=== PATIENT | male | born 1945 | race Caucasian/White ===

== ENCOUNTER 2023-08-22 10:58 | Inpatient (IN) | payer MEDICARE, OTHER, SELFPAY ==
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
[2023-08-21 22:15] VITALS: BP 185/152
--- NOTE | 2023-08-21 22:16 | EDRN ---
Pre hospital stroke alert called at 2134.
[2023-08-21 22:21] LABS: Glucose - Point of Care 107 mg/dl (70-99)
[2023-08-21 22:24] LABS: % Basophils 0.6 % (0-2); % Eosinophils 6.5 % (0-6); % Immature Granulocytes 0.4 % (0-0.5); % Lymphocytes 28.2 % (20.5-51.1); % Monocytes 9.3 % (1.7-9.3); Absolute Basophils 0.1 10^3/uL (0-0.2); Absolute Eosinophils 0.7 10^3/uL (0-0.7); Absolute Neutrophils 5.9 10^3/uL (1.4-6.5); Hematocrit 41.8 % (39.0-52.0); Hemoglobin 14.7 g/dL (13.0-18.0); Mean Corp Hgb Conc. 35.2 g/dL (33.0-37.0); Mean Corpuscular Hgb 31.2 pg (27.0-31.0); Mean Corpuscular Volume 88.7 fL (80.0-94.0); Nucleated Red Blood Cells % 0 % (-); Platelet Count 184 10^3/uL (130-400); Red Blood Cell Count 4.71 10^6/uL (4.70-6.10); Red Cell Dist. Width 14.6 % (11.5-14.5); White Blood Cell Count 10.8 10^3/uL (4.8-10.8)
[2023-08-21 22:27] VITALS: BP 146/63
[2023-08-21 22:30] VITALS: BMI 43.7
[2023-08-21 22:35] LABS: INR 1.07; PT 13.7 Sec (11.4-14.6)
[2023-08-21 22:36] LABS: APTT 27.1 Sec (23.4-35.0)
[2023-08-21 22:54] LABS: ALT (SGPT) 45 U/L (0-50); AST (SGOT) 42 U/L (17-59); Albumin 3.7 g/dl (3.5-5.0); Alkaline Phosphatase 136 U/L (38-126); Blood Urea Nitrogen 25 mg/dl (9-20); Calcium 9.1 mg/dl (8.4-10.2); Carbon Dioxide 27 mmol/L (22-30); Chloride 102 mmol/L (98-107); Estimated Creatinine Clearance 81 ml/min; Glucose 112 mg/dl (70-99); Potassium 4.1 mmol/L (3.5-5.1); Sodium 137 mmol/L (135-145); Total Bilirubin 0.6 mg/dl (0.2-1.3); Total Protein 6.7 g/dl (6.3-8.2); eGFR > 60.00
[2023-08-21] MEDS: LOW STRENGTH ASPIRIN 243 MG PO (23:00)
--- NOTE | 2023-08-21 23:11 | HPS.HSE ---
Addendum entered and electronically signed by Gerald Lara DO 08/22/23 00:56:
Patient seen and examined independently. Agree with findings and plan as set forth by Thao Hylton PA-C.
Patient is a 77y M with PMH significant for prior CVA, COPD, hypertension and DM-II who presents to ED for evaluation of increased L sided weakness and new L facial droop. History obtained from patient and his at the bedside. Initial
change noted yesterday after PT session when patient was unable to get in the car due to LLE weakness. He had similar symptoms today and also noted a new L sided facial droop which prompted presentation to the ED for further evaluation.
Patient has a history of L sided weakness as residual from his prior CVA(s).
Ass:
New Left Facial Droop
Left Sided Weakness as Late Effect of CVA
ASCVD / Prior CVAs (x 3)
Cervical Spinal Stenosis / Cord Compression
Benign Hypertension
DM-II
COPD without Acute Exacerbation
FLAQUITA on PAP
Depression
Urinary Incontinence
Plan:
Observe overnight for further evaluation and treatment.
Follow for any new / worsening neurologic findings.
Neurology evaluation. MRI in AM.
Continue DAPT, statin, etc.
Continue antihypertensive medications with holding parameters.
Neurosurgery evaluation regarding cervical cord compression.
Patient with chronic urinary incontinence. Bilateral LE weakness.
Continue home insulin, BiPAP, etc.
Original Note:
Family Physician
-
Family Physician: Bekah Mittal
Chief Complaint
-
Left sided weakness
History of Present Illness
This is a 77 year old male with a past medical history of CVA x 3, COPD, asthma, hypertension, diabetes mellitus, coronary artery disease, who presents to the ED with at bedside for left leg weakness. Patient has had ongoing left sided
weakness due to prior stroke history but per patient started having difficulty getting into their car starting yesterday. Patient states he recently started attending PT due to trouble with ambulation and after his second session yesterday, he
began to have a hard time getting into the car using his left leg, and even required assistance from the therapist. Today, he was able to get up and ambulate with his walker per usual, but again had trouble getting into the car today with his left
leg. Patient's also states he appeared agitated today as well which she states is unusual. She denies noticing a left sided facial droop until EMS pointed it out today. The patient denies dizziness, palpitations, chest pain, N/V, abdominal
pain, fevers or headache. Patient is chronically on Plavix and aspirin due to prior stroke history and per he has been compliant.
Medical History
Past Medical History
Past Medical History: Reports Other
Additional Past Medical History:
Coronary Artery Disease s/p Stent
Stroke with Left Hemiparesis
Essential Hypertension
Hyperlipidemia
Diabetes Mellitus
Asthma/COPD
Obstructive Sleep Apnea
Depression
Pulmonary Embolism
Past Surgical History: Reports Other
Additional Past Surgical History:
Cholecystectomy
Bilateral Knee Replacements
Social History
Tobacco: Non-smoker
Alcohol: None
Personal:
Living: With Family
Family History
Family History: Not pertinent
Allergies / Home Medications
Allergies reflects when Allergies were last updated in [facility].
Home Medications with original date entered in [facility]
Allergy/Medication List:
Allergies
Allergy/AdvReac Type Severity Reaction Status Date / Time
Iodinated Contrast Media Allergy Unknown VOMITING/HI Verified 08/21/23 21:54
[Iodinated Contrast- Oral VES
and IV Dye]
latex Allergy Unknown Rash Verified 08/21/23 21:54
adhesive tape Allergy redness;axel Verified 08/21/23 21:54
hy
reyna Allergy closes Verified 08/21/23 21:[address]
hydromorphone HCl Allergy makes him Verified 08/21/23 21:54
[From Dilaudid] loopy as
per spouse
iodine Allergy vomiting;hi Verified 08/21/23 21:54
ves
oxycodone Allergy SEE BELOW Verified 08/21/23 21:54
hydromorphone HCl Allergy Unknown makes him Uncoded 08/21/23 21:54
loopy as
per spouse
darius stockings Allergy Unknown Unknown Uncoded 08/21/23 21:54
aquacel dressing Allergy 'pulled Uncoded 08/21/23 21:54
skin off'
DARIUS stockings Allergy itching;axel Uncoded 08/21/23 21:54
h
Home Medications
clopidogrel 75 mg tablet 75 mg PO DAILY ##30 11/22/15
albuterol sulfate 2.5 mg/3 mL (0.083 %) solution for nebulization 2.5 mg inhalation R Q4HPRN PRN SOB, chest congestion 09/12/16
escitalopram oxalate 10 mg tablet 10 mg PO HS 09/12/16
metoprolol succinate 50 mg tablet,extended release 24 hr 50 mg PO DAILY 09/12/16
pravastatin 20 mg tablet 20 mg PO HS 09/12/16
aspirin 81 mg tablet,delayed release 81 mg PO DAILY 11/29/16
metformin 500 mg tablet 500 mg PO BID 02/20/18
amlodipine 2.5 mg tablet 2.5 mg PO DAILY 08/21/23
cyanocobalamin (vitamin B-12) 1,000 mcg tablet (Vitamin B-12) 1,000 mcg PO DAILY 08/21/23
fluticasone furoate 200 mcg/actuation blister powder for inhalation (Arnuity Ellipta) 1 inh inhalation R BID 08/21/23
folic acid 0.8 mg capsule 0.8 mg PO DAILY 08/21/23
insulin glargine 100 unit/mL (3 mL) subcutaneous pen (Lantus Solostar U-100 Insulin) 30 units SC BID 08/21/23
mirtazapine 15 mg tablet 15 mg PO HS 08/21/23
Review of Systems
-
A 12 point ROS was completed and negative except as noted: Yes
Constitutional: Denies Fever or Chills
Respiratory: Denies Cough or Trouble Breathing
Cardiac: Denies Chest Pain or Palpitations
Abdomen/GI: Denies Abdominal Pain, Nausea, Vomiting or Diarrhea
: Reports Incontinence (Chronic per patient's )
Physical Exam
Vital Signs
Vital Signs
Temp Pulse Resp BP Pulse Ox
97.7 F 70 19 146/63 95
08/21/23 22:15 08/21/23 22:45 08/21/23 22:15 08/21/23 22:27 08/21/23 22:45
Physical Exam
General: Comfortable and Conversant
HEENT: Anicteric and Moist mucous membranes
Respiratory: Clear and Non Labored Respirations
Cardiac: S1/S2 and Regular Rhythm
GI: Soft and Non Tender
Musculoskeletal: No Clubbing, No Cyanosis and No Edema
Skin: Warm and Dry
Neuro: Awake, Alert, Oriented, Facial Droop (Left with inability to smile) and Other (Globally weak with slight increased weakness in left upper and lower extremity )
Laboratory Results
-
08/21/23 21:58
08/21/23 22:33
Laboratory Results
PT 13.7 Sec (11.4-14.6) 08/21/23 21:58
INR 1.07 08/21/23 21:58
APTT 27.1 Sec (23.4-35.0) 08/21/23 21:58
Total Bilirubin 0.6 mg/dl (0.2-1.3) 08/21/23 22:33
AST 42 U/L (17-59) 08/21/23 22:33
ALT 45 U/L (0-50) 08/21/23 22:33
Alkaline Phosphatase 136 U/L (38-126) H 08/21/23 22:33
Troponin I Cancelled 08/21/23 21:58
Data Reviewed
-
CT Scan: Report Reviewed by me
Lab Data: Labs Reviewed by me
Impression/Plan
-
Left Facial Droop with Global Weakness
-Consult Neurology
-Consult Neurosurgery
-Monitor neuro-checks
-Check Brain MRI
-Continue Aspirin and Plavix
-Continue PT/OT and Physiatry
Coronary Artery Disease s/p Stent
Stroke with Left Hemiparesis
-Continue aspirin and Plavix
Essential Hypertension
-Continue amlodipine and metoprolol
Hyperlipidemia
-Transition pravastatin to atorvastatin
Diabetes Mellitus, Type II
-Continue Lantus
-Hold metformin
-Monitor sugars and continue coverage insulin
Asthma/COPD, no acute exacerbation
-Continue budesonide and albuterol prn
Obstructive Sleep Apnea
-Continue BiPAP 15/8
Depression
-Continue Lexapro and Remeron
DVT proph: SCDs
Code Status: Full Code
[2023-08-22] VITALS (7 sets, daily range): BP systolic 116–162; BP diastolic 62–95; BMI 42.6
[2023-08-22 00:09] LABS: Troponin I < 0.012 ng/ml
--- NOTE | 2023-08-22 03:57 | TRANSFER ---
Pt received from ED to room 415-1. Pt AAOx3. VSS. Pt pulled over from stretcher to bed. Pt oriented to room and call meléndez is within reach.
[2023-08-22 06:53] LABS: Hematocrit 42.8 % (39.0-52.0); Hemoglobin 14.8 g/dL (13.0-18.0); Mean Corp Hgb Conc. 34.6 g/dL (33.0-37.0); Mean Corpuscular Hgb 31.1 pg (27.0-31.0); Mean Corpuscular Volume 89.9 fL (80.0-94.0); Mean Platelet Volume 10.5 fL (7.4-10.4); Platelet Count 173 10^3/uL (130-400); Red Blood Cell Count 4.76 10^6/uL (4.70-6.10); Red Cell Dist. Width 14.6 % (11.5-14.5)
[2023-08-22 07:18] LABS: Blood Urea Nitrogen 21 mg/dl (9-20); Calcium 9.3 mg/dl (8.4-10.2); Carbon Dioxide 26 mmol/L (22-30); Chloride 104 mmol/L (98-107); Estimated Creatinine Clearance 80 ml/min; Glucose 110 mg/dl (70-99); HDL Cholesterol 45 mg/dl; LDL Cholesterol, Calculated 66 mg/dl; Magnesium 1.9 mg/dl (1.6-2.3); Potassium 4.3 mmol/L (3.5-5.1); Sodium 139 mmol/L (135-145); Total Cholesterol 133 mg/dl (50-199); Triglyceride 110 mg/dl (10-149); Very Low Density Lipoprotein 22 mg/dl (0-30); eGFR > 60.00
[2023-08-22 08:08] LABS: Glucose - Point of Care 107 mg/dl (70-99)
[2023-08-22] MEDS: PULMICORT 0.5 MG INH ×2 (08:29→15:46)
[2023-08-22] MEDS: VENTOLIN NEBULES 2.5 MG INH (08:30)
[2023-08-22] MEDS: NOVOLOG FLEXPEN-MODERATE RESISTANCE SC ×2 (08:52→13:46)
[2023-08-22] MEDS: PLAVIX 75 MG PO (08:54)
[2023-08-22] MEDS: FOLVITE 0.800000000000000044 MG PO (08:54)
[2023-08-22] MEDS: ASPIR LOW (ENTERIC COATED) 81 MG PO (08:54)
[2023-08-22] MEDS: NORVASC PO (08:54)
[2023-08-22] MEDS: TOPROL XL 50 MG PO (08:55)
[2023-08-22] MEDS: LANTUS 0.299999999999999989 UNITS SC ×2 (08:55→20:33)
[2023-08-22 09:50] LABS: Glycohemoglobin (HgbA1c) 6.9 % (4.0-5.6)
--- NOTE | 2023-08-22 10:08 | CON.NEURO4 ---
Consultation - Neurology 4
-
CONSULTING PHYSICIAN: Emily
REFERRING PHYSICIAN: Bill
DICTATED BY: Emily
DATE/TIME OF REQUEST: 08/21/23 late evening
DATE/TIME OF CONSULTATION: 08/22/23
Reason for Consultation: stroke
History of Present Illness:
77-year-old male with a past history of 3 strokes in 2010, 2013 in 2016 admitted after developing worsening of his baseline left-sided weakness 2 days ago after physical therapy. Yesterday evening he developed new left facial droop per his
prompting her to bring him in for evaluation. He already takes dual antiplatelet therapy at home and denies any missed doses.
Past Medical History:
Coronary Artery Disease s/p Stent
Stroke with Left Hemiparesis
Essential Hypertension
Hyperlipidemia
Diabetes Mellitus
Asthma/COPD
Obstructive Sleep Apnea
Depression
Pulmonary Embolism
Past Surgical History:
Cholecystectomy
Bilateral Knee Replacements
Social History
Tobacco: Non-smoker
Alcohol: None
Personal:
Living: With Family
Family History
Family History: reviewed, noncontributory
Allergies
Iodinated Contrast Media [Iodinated Contrast- Oral and IV Dye] Allergy (Unknown, Verified 08/21/23 21:54)
VOMITING/HIVES
latex Allergy (Unknown, Verified 08/21/23 21:54)
Rash
adhesive tape Allergy (Verified 08/21/23 21:54)
redness;rashy
reyna Allergy (Verified 08/21/23 21:54)
closes airway
hydromorphone HCl [From Dilaudid] Allergy (Verified 08/21/23 21:54)
makes him loopy as per spouse
iodine Allergy (Verified 08/21/23 21:54)
vomiting;hives
oxycodone Allergy (Verified 08/21/23 21:54)
SEE BELOW
hydromorphone HCl Allergy (Unknown, Uncoded 08/21/23 21:54)
makes him loopy as per spouse
darius stockings Allergy (Unknown, Uncoded 08/21/23 21:54)
Unknown
aquacel dressing Allergy (Uncoded 08/21/23 21:54)
'pulled skin off'
DARIUS stockings Allergy (Uncoded 08/21/23 21:54)
itching;rash
Home Medications
�Medication �Instructions �Recorded
clopidogrel 75 mg tablet 75 mg PO DAILY ##30 11/22/15
albuterol sulfate 2.5 mg/3 mL 2.5 mg inhalation R Q4HPRN PRN 09/12/16
(0.083 %) solution for nebulization SOB, chest congestion
escitalopram oxalate 10 mg tablet 10 mg PO HS 09/12/16
metoprolol succinate 50 mg 50 mg PO DAILY 09/12/16
tablet,extended release 24 hr
pravastatin 20 mg tablet 20 mg PO HS 09/12/16
aspirin 81 mg tablet,delayed 81 mg PO DAILY 11/29/16
release
metformin 500 mg tablet 500 mg PO BID 02/20/18
amlodipine 2.5 mg tablet 2.5 mg PO DAILY 08/21/23
cyanocobalamin (vitamin B-12) 1,000 mcg PO DAILY 08/21/23
1,000 mcg tablet (Vitamin B-12)
fluticasone furoate 200 1 inh inhalation R BID 08/21/23
mcg/actuation blister powder for
inhalation (Arnuity Ellipta)
folic acid 0.8 mg capsule 0.8 mg PO DAILY 08/21/23
insulin glargine 100 unit/mL (3 30 units SC BID 08/21/23
mL) subcutaneous pen (Lantus
Solostar U-100 Insulin)
mirtazapine 15 mg tablet 15 mg PO HS 08/21/23
Review of Symptoms:
Patient denies any fever, headache, chest pain, shortness of breath, GI or symptoms.
�Per the HPI.�All systems are reviewed negative except above.
Vital Signs:
Vital Signs
Temp Pulse Resp BP Pulse Ox
97.7 F 71 16 116/73 95
08/22/23 07:20 08/22/23 08:54 08/22/23 08:31 08/22/23 08:54 08/22/23 08:31
Lab Results
08/22/23 06:35
08/22/23 06:35
PT 13.7 Sec (11.4-14.6) 08/21/23 21:58
INR 1.07 08/21/23 21:58
APTT 27.1 Sec (23.4-35.0) 08/21/23 21:58
Sodium 139 mmol/L (135-145) 08/22/23 06:35
Potassium 4.3 mmol/L (3.5-5.1) 08/22/23 06:35
BUN 21 mg/dl (9-20) H 08/22/23 06:35
Glucose 110 mg/dl (70-99) H 08/22/23 06:35
Calcium 9.3 mg/dl (8.4-10.2) 08/22/23 06:35
LDL Cholesterol, Calc 66 mg/dl 08/22/23 06:35
Physical Exam:
The patient is afebrile, heart sounds S1 and S2 are regular, and chest is clear to auscultation bilaterally.
NIH Stroke Scale:
I performed the NIH stroke scale on the patient on 08/22/23. See attached.
Neurologic Examination:
The patient is awake, alert and oriented x 3. helped supplement his history. He was at times slow to respond but was able to accurately answer questions. He is able to follow commands and answer questions appropriately. There is no aphasia or
dysarthria. On cranial nerve assessment, pupils are 3 mm bilateral, round and reactive to light and accommodation. Visual young are full. Extraocular movements are intact. Facial sensations are intact and bilaterally symmetrical, there is no facial
asymmetry. Hearing is intact bilaterally to normal conversation volume. Tongue palate and uvula are midline. Motor strength: BLE distally at least 3/5--unclear if pain limited or diminished effort affecting exam. Proximally 2/5. BUE full. Deep
tendon reflexes are 1+ bilateral upper and lower extremities and toes were mute. Sensations of touch, temperature are intact and bilaterally symmetrical. Some extinction in LLE to DSS. Coordination is intact by finger to nose bilaterally.
Neuro Imaging:
HCT:
1. No CT evidence for acute intracranial hemorrhage or transcortical infarct.
2. Moderate periventricular white matter leukoaraiosis in the frontal and parietal lobes.
3. Moderate dilatation of the ventricular system which appears unchanged (either ex vacuo dilatation from moderate cerebral volume loss or (2) normal pressure communicating hydrocephalus).
4. Probable chronic lacunar infarcts in both thalami.
CTA head/neck:
1. 50-70% diameter stenosis at the origin of the right internal carotid artery.
2. No stenosis in the proximal left internal carotid artery.
3. Severe stenosis (greater than 70% diameter) at the origin of the right vertebral artery.
4. No CTA evidence for left vertebral artery stenosis.
5. Severe discogenic degenerative disease at C5/C6 and C6/C7 with disc-osteophyte complexes causing SEVERE SPINAL CORD COMPRESSION and SEVERE CENTRAL CANAL STENOSIS.
6. Severe multilevel bilateral neural foraminal narrowing in the cervical spine.
7. New 1.7 cm peribronchiolar nodular opacity in the right lung apex. Diagnostic possibilities are (1) right upper lobe lung cancer or (2) a focal region of infectious or inflammatory pneumonitis.
HEAD CTA:
1. Severe calcific atherosclerotic plaque in both intracranial internal carotid arteries causing 50-70% diameter stenosis in the clinoid segment of the right intracranial internal carotid artery and 25-50% diameter stenosis in the left
intracranial internal carotid artery.
2. Severe calcific atherosclerotic plaque in the right intracranial vertebral artery causing 50-70% diameter stenosis.
3. Small lacunar infarcts in the thalami (possibly acute on the right).
4. Moderate diffuse dilatation of the ventricular system (either ex vacuo dilatation or normal pressure communicating hydrocephalus).
MRI brain:
No evidence of acute intracranial abnormality.
Moderate diffuse atrophy. Moderate to severe ventricular dilation, and the callosal angle is slightly increased. Findings suggest the possibility of normal pressure hydrocephalus, and please correlate clinically.
Moderate T2 and FLAIR white matter hyperintensities, commonly seen with aging and usually attributed to small vessel ischemic disease.
Small foci of increased T2-weighted signal within the thalami bilaterally, suggesting old lacunar infarcts.
Impression:
ADRIAN AGUIAR is a 77 year old M who has presented to the hospital with worsening of baseline L sided weakness since and L facial droop noted by his yesterday evening. Differential includes TIA, recrudescence of prior stroke
symptoms, cervical spine stenosis. Imaging also raises concern for possible NPH.
Recommendations:
-MRI brain concerning for possible NPH--can be worked up as outpatient; no acute stroke noted.
-BP goal is normotension.
-continue DAPT, on this at home
- Hemoglobin A1C mildly elevated at 6.9. Goal is normoglycemia.
- continue pravastatin; LDL is 66. Goal LDL after stroke is <70.
-get echo result from [facility]
-PT/OT/ST evaluations
- DVT prophylaxis
-continue neurochecks
-c/s neurosurgery for Cspine stenosis
-c/s vascular for carotid stenosis
-Continue use of BiPAP, treatment of FLAQUITA.
Needs outpatient f/u with neurology. Will follow as needed; please call with further questions.
Discussed patient care with: Dr. Khan, vascular
NIH Stroke Scale
NIH Stroke Score
Date of Subsequent NIH Scale: 08/22/23
Time of Subsequent NIH Scale: 12:15
Level of Consciousness: 0 - Alert
LOC Questions: 0-Answers both correctly
LOC Commands: 0-Performs both correctly
Best Horizontal Gaze: 0-Normal
Visual Young: 0=Normal, no visual loss
Facial Palsy: 0=Normal, symmetrical
Motor - Right Arm: 0=No drift 10 seconds
Motor - Left Arm: 0=No drift 10 seconds
Motor - Right Le-Partial vs. gravity
Motor - Left Le-Partial vs. gravity
Limb Ataxia: 0-Absent
Sensation: 0-Normal
Best Language: 0-No aphasia
Dysarthria: 0-Normal
Extinction and Inattention: 1-Sensory inattention
Total Score:: 5
--- NOTE | 2023-08-22 11:39 | W.PN.HOSP.TC ---
Today's Communication/Plan
-
HOLD on therapy
await input from neurosurg, neurology, vascular
Assessment / Plan
Assessment / Plan
pt is a 77 year old male
Left Facial Droop with Global Weakness--no stoke on head CT or brain MRI--does have other possible explanations....NPH possible by MRI?, symptomatic carotid stenosis? by CTA, cord compression from arthritis?---awaiting neuro, vascular, neurosurgery
input--would hold on PT/OT until at least evaluated by neurosurgery--cont asa/plavix
Coronary Artery Disease s/p Stent with hx Stroke with Left Hemiparesis--Continue aspirin and Plavix--pt has been getting outpt PT/OT
Essential Hypertension--Continue amlodipine and metoprolol
Hyperlipidemia--Transition pravastatin to atorvastatin
Diabetes Mellitus, Type II--Continue Lantus--Hold metformin, likely got contrast for CTA, restart metformin at 48 hour korey--Monitor sugars and continue coverage insulin
Asthma/COPD, no acute exacerbation--Continue budesonide and albuterol prn
Obstructive Sleep Apnea--Continue BiPAP 18/11
Depression--Continue Lexapro and Remeron
DVT proph: SCDs
Code Status: Full Code
Anticipated Discharge: > 48 hours
Subjective/Interval History
-
Date of Service: August 22, 2023
pt more interested in eating breakfast-- at bedside
Objective Data
-
Labs:
Laboratory Results
08/22/23
06:35
WBC 10.0
Hgb 14.8
Hct 42.8
Plt Count 173
Sodium 139
Potassium 4.3
Chloride 104
Carbon Dioxide 26
BUN 21 H
Creatinine 1.0
Glucose 110 H
Calcium 9.3
Vital Signs:
max temp for 24 hours
08/22/23
07:20
Temp 97.7 F
Vital Signs
Temp Pulse Resp BP Pulse Ox
97.7 F 71 16 116/73 95
08/22/23 07:20 08/22/23 08:54 08/22/23 08:31 08/22/23 08:54 08/22/23 08:31
Review of Systems
-
All other systems: Reviewed and negative
Physical Exam
-
General: Well Developed, Well Nourished, No Apparent Distress and Obese
HEENT: Normocephalic and Atraumatic
Respiratory: Clear to Auscultation; Negative Wheezes or Rhonchi
Cardiac: Regular Rhythm and S1/S2; Negative Murmur
GI: Soft, Nontender, Nondistended and Normal Bowel Sounds
Musculoskeletal: No Clubbing, No Cyanosis and No Edema
Neuro: Awake and Alert; Negative Nonfocal/Grossly Intact (seems to have some difficulty lifting his legs off the bed)
Psych: Other (flat affect)
--- NOTE | 2023-08-22 12:08 | CM ---
Patient seen bedside.
IA completed.
in room and assisted with answering questions.
Patient lives in a split level home.
Entrance thru garage (under the home), has a stair lift into the home.
Patient has wheel chair, 3 walkers, CPAP.
Patient has a had VN in the past with [facility], 3 recent skilled rehab admissions in [facility] and [facility].
If patient needs vn would like [facility], if he needs skilled would like [facility] then [facility].
PT/OT (P)
Neurosurgery eval (P).
PCP: Dr Mittal
Pharmacy: [facility]
Plan: home with VN vs skilled rehab
[2023-08-22 13:42] LABS: Glucose - Point of Care 143 mg/dl (70-99)
--- NOTE | 2023-08-22 14:00 | W.PN.UPDATE ---
Update Note
Progress Note Update
Spoke with Dr. Multani from neurosurgery regarding patient's imaging findings. Recommendations were to obtain C-spine MRI to assess for cord compression/stenosis. Ordered.
[2023-08-22] MEDS: DULCOLAX 10 MG RECTAL (14:07)
[2023-08-22 17:20] LABS: Glucose - Point of Care 191 mg/dl (70-99)
--- NOTE | 2023-08-22 17:31 | PTOTSP ---
SPEECH THERAPY SWALLOW EVALUATION:
Patient exhibits clinical signs of oropharyngeal dysphagia, likely chronic related to history of CVA x3, and acutely exacerbated by current illness of unknown etiology - DDx includes NPH vs. symptomatic carotid stenosis vs cord compression from
arthritis. Patient is at risk for aspiration and related complications. Exhibiting inconsistent signs of aspiration at bedside. Recommend diet downgrade to IDDSI Level 6 Soft and Bite size with Mildly-thick liquids. Medications whole in puree.
Aspiration precautions includin% Supervision with meals; Upright positioning; Remain upright 30 minutes after eating/drinking; Assistance with meals; Eat only when awake/alert; Small sips/bites; Slow rate of intake; Ensure patient swallows
prior to next bite. Should patient exhibit signs or symptoms of aspiration, or a decline in mental or respiratory status, d/c oral diet and make NPO prior to ST re-consult. Could consider VSE although unclear if patient would be able to participate
due to body habitus. Recommend close monitoring of labs and lung sounds. Consider CXR. Speech therapy to follow, assess diet tolerance and modify as appropriate, provide continued education regarding aspiration risks/precautions, monitor CXR and
labs, and provide continued diagnostic swallow therapy as appropriate.
RECOMMEND:
1) diet downgrade to IDDSI Level 6 Soft and Bite size with Mildly-thick liquids
2) Medications whole in puree
3) Aspiration precautions includin% Supervision with meals; Upright positioning; Remain upright 30 minutes after eating/drinking; Assistance with meals; Eat only when awake/alert; Small sips/bites; Slow rate of intake; Ensure patient swallows
prior to next bite. Should patient exhibit signs or symptoms of aspiration, or a decline in mental or respiratory status, d/c oral diet and make NPO prior to ST re-consult.
4) Consider CXR
5) Speech therapy to follow
[2023-08-22] MEDS: LIPITOR 40 MG PO (18:12)
--- NOTE | 2023-08-22 18:22 | W.PN.VS ---
Today's Communication / Plan
-
does not appear to be carotid related
check carotid duplex
Assessment/Plan
-
symptoms do not appear to be focal and thus not consistent with likely carotid etiology
carotid stenosis looks about 50%
check carotid duplex
neuro surg eval
plan per neurology
Subjective Data
-
Date of Service: August 22, 2023
asked to eval patient for possible cva
patient reports intermittent bilateral leg weakness
family reports he has had these symptoms for a long time (nothing new)
her reports he feels that both legs are not strong and sont do what he wants anymore. Occurs at random times
Objective Data
-
Vital Signs
Temp Pulse Resp BP Pulse Ox
98.2 F 64 20 162/68 96
08/22/23 16:38 08/22/23 16:38 08/22/23 16:38 08/22/23 16:38 08/22/23 16:38
Intake and Output
08/21/23 08/22/23 08/23/23
06:59 06:59 06:59
Intake Total 940 / 940
Output Total 100 / 100
Balance 840 / 840
Intake:
Oral fluids 940 / 940
Output:
Urine, Voided 100 / 100
Other:
How many times incontinent 2 2
SATURATED amount urine
Lab Results
08/22/23 06:35
08/22/23 06:35
Calcium 9.3 mg/dl (8.4-10.2) 08/22/23 06:35
Magnesium 1.9 mg/dl (1.6-2.3) 08/22/23 06:35
Total Bilirubin 0.6 mg/dl (0.2-1.3) 08/21/23 22:33
AST 42 U/L (17-59) 08/21/23 22:33
ALT 45 U/L (0-50) 08/21/23 22:
Alkaline Phosphatase 136 U/L (38-126) H 08/21/23:
Total Protein 6.7 g/dl (6.3-8.2) 08/21/23:
Albumin 3.7 g/dl (3.5-5.0) 08/21/23:
Physical Exam
-
rrr
ctab
nt,nd,soft
2+ radial bilat
L 2+ DP pulse
motor symmetric bilat upper and lower extremities (weaker in lower extremities)
CTA 50-79% r carotid stenosis (looks less than this to me)
[2023-08-22] MEDS: NOVOLOG FLEXPEN-MODERATE RESISTANCE 1 UNITS SC (18:28)
[2023-08-22 20:32] LABS: Glucose - Point of Care 151 mg/dl (70-99)
[2023-08-22] MEDS: DESENEX/MITRAZOL/ZEASORB 1 APPLIC TOPICAL (20:33)
[2023-08-22] MEDS: REMERON 15 MG PO (22:15)
[2023-08-22] MEDS: LEXAPRO 10 MG PO (22:15)
[2023-08-23] VITALS (8 sets, daily range): BP systolic 136–162; BP diastolic 65–75; PULSE 2–71
[2023-08-23 08:20] LABS: Glucose - Point of Care 147 mg/dl (70-99)
[2023-08-23] MEDS: NOVOLOG FLEXPEN-MODERATE RESISTANCE SC ×3 (08:20→17:32)
[2023-08-23] MEDS: PLAVIX 75 MG PO (08:21)
[2023-08-23] MEDS: DESENEX/MITRAZOL/ZEASORB 1 APPLIC TOPICAL ×2 (08:21→20:40)
[2023-08-23] MEDS: ASPIR LOW (ENTERIC COATED) 81 MG PO (08:21)
[2023-08-23] MEDS: TOPROL XL 50 MG PO (08:22)
[2023-08-23] MEDS: NORVASC 2.5 MG PO (08:22)
[2023-08-23] MEDS: LANTUS 0.299999999999999989 UNITS SC ×2 (08:26→20:40)
[2023-08-23] MEDS: PULMICORT 0.5 MG INH ×2 (08:31→15:50)
[2023-08-23] MEDS: FOLVITE 0.800000000000000044 MG PO (08:35)
--- NOTE | 2023-08-23 11:23 | W.PN.HOSP.TC ---
Today's Communication/Plan
-
apprec neuro/vascular input
await neurosurgery
await read of C-spine MRI
will likely need SNF
Assessment / Plan
Assessment / Plan
pt is a 77 year old male
Left Facial Droop with Global Weakness--no stroke on head CT or brain MRI--does have other possible explanations....NPH possible by MRI but outpt workup by neuro, symptomatic carotid stenosis not likely by vascular, cord compression from
arthritis?---apprec neuro, vascular-- still waiting on neurosurgery input--C-spine MRI pending--would hold on PT/OT until at least evaluated by neurosurgery--cont asa/plavix
Coronary Artery Disease s/p Stent with hx Stroke with Left Hemiparesis--Continue aspirin and Plavix--pt has been getting outpt PT/OT
Essential Hypertension--Continue amlodipine and metoprolol
Hyperlipidemia--Transition pravastatin to atorvastatin
Diabetes Mellitus, Type II--Continue Lantus--Hold metformin, likely got contrast for CTA, restart metformin at 48 hour korey--Monitor sugars and continue coverage insulin
Asthma/COPD, no acute exacerbation--Continue budesonide and albuterol prn
Obstructive Sleep Apnea--Continue BiPAP 18/11
Depression--Continue Lexapro and Remeron
DVT proph: SCDs
Code Status: Full Code
Anticipated Discharge: > 48 hours
Subjective/Interval History
-
Date of Service: August 23, 2023
pt exhausted per --just returned from cervical MRI
Objective Data
-
Labs:
Laboratory Results
08/23/23
06:00
WBC Pending
Hgb Pending
Hct Pending
Plt Count Pending
Sodium Pending
Potassium Pending
Chloride Pending
Carbon Dioxide Pending
BUN Pending
Creatinine Pending
Glucose Pending
Calcium Pending
Vital Signs:
max temp for 24 hours
08/22/23
23:10
Temp 98.5 F
Vital Signs
Temp Pulse Resp BP Pulse Ox
97.9 F 67 16 158/74 96
08/23/23 07:00 08/23/23 08:30 08/23/23 08:30 08/23/23 07:00 08/23/23 08:30
I&O
08/22/23 08/23/23 08/24/23
06:59 06:59 06:59
Intake Total 1180 / 1180
Output Total 100 / 100
Balance 1080 / 1080
Review of Systems
-
All other systems: Reviewed and negative
Physical Exam
-
General: Well Developed, Well Nourished and No Apparent Distress
HEENT: Normocephalic and Atraumatic
Respiratory: Clear to Auscultation; Negative Wheezes or Rhonchi
Cardiac: Regular Rhythm and S1/S2; Negative Murmur
GI: Soft, Nontender, Nondistended and Normal Bowel Sounds
Musculoskeletal: No Clubbing, No Cyanosis and No Edema
Neuro: Other (able to lift both legs off bed but not by much)
[2023-08-23 12:30] LABS: Glucose - Point of Care 131 mg/dl (70-99)
[2023-08-23 12:56] LABS: Hemoglobin 15.5 g/dL (13.0-18.0); Mean Corp Hgb Conc. 33.7 g/dL (33.0-37.0); Mean Corpuscular Hgb 31.1 pg (27.0-31.0); Mean Corpuscular Volume 92.4 fL (80.0-94.0); Mean Platelet Volume 10.7 fL (7.4-10.4); Platelet Count 187 10^3/uL (130-400); Red Blood Cell Count 4.98 10^6/uL (4.70-6.10); Red Cell Dist. Width 14.6 % (11.5-14.5); White Blood Cell Count 9.9 10^3/uL (4.8-10.8)
[2023-08-23 13:13] LABS: Blood Urea Nitrogen 17 mg/dl (9-20); Calcium 9.5 mg/dl (8.4-10.2); Carbon Dioxide 25 mmol/L (22-30); Chloride 103 mmol/L (98-107); Estimated Creatinine Clearance 89 ml/min; Glucose 132 mg/dl (70-99); Potassium 4.2 mmol/L (3.5-5.1); Sodium 139 mmol/L (135-145); eGFR > 60.00
[2023-08-23 13:42] LABS: TSH Reflex To Free T4 2.55 uIU/ml (0.47-4.68)
--- NOTE | 2023-08-23 14:55 | CM ---
MRi completed.
Await neurosurgery eval.
PT/OT pending neurosurgery eval.
Plan: possible skilled rehab.
referrals placed to [facility] and [facility]. (will need to send PT notes once available)
--- NOTE | 2023-08-23 14:55 | CON.NS ---
Chief Complaint
-
gait dysfunction
History of Present Illness
This is a 77 yo male admitted with TIA like symptoms of left sided facial droop. He also has worsening gait dysfunction, urinary incontinence and worsening MS. During his workup for stroke a Ct cervical spine showed cervical stenosis. His who
was bedside endorses that he has a severe magnetic gait as well. He is unable to provide much history.
Review of Systems
-
10 pt ROS completed and neg except as stated
Medication and Allergies
Home Medications
Home Medications
�Medication �Instructions �Recorded
clopidogrel 75 mg tablet 75 mg PO DAILY ##30 11/22/15
albuterol sulfate 2.5 mg/3 mL 2.5 mg inhalation R Q4HPRN PRN 09/12/16
(0.083 %) solution for nebulization SOB, chest congestion
escitalopram oxalate 10 mg tablet 10 mg PO HS Mental Health/Anxiety 09/12/16
metoprolol succinate 50 mg 50 mg PO DAILY Blood Pressure 09/12/16
tablet,extended release 24 hr
pravastatin 20 mg tablet 20 mg PO HS High Cholesterol 09/12/16
aspirin 81 mg tablet,delayed 81 mg PO DAILY Blood Clot 11/29/16
release Prevention/Tx
metformin 500 mg tablet 500 mg PO BID Diabetes 02/20/18
amlodipine 2.5 mg tablet 2.5 mg PO DAILY Blood Pressure 08/21/23
cyanocobalamin (vitamin B-12) 1,000 mcg PO DAILY Supplement 08/21/23
1,000 mcg tablet (Vitamin B-12)
fluticasone furoate 200 1 inh inhalation R BID 08/21/23
mcg/actuation blister powder for Lung/Breathing Issues
inhalation (Arnuity Ellipta)
folic acid 0.8 mg capsule 0.8 mg PO DAILY Supplement 08/21/23
insulin glargine 100 unit/mL (3 30 units SC BID Diabetes 08/21/23
mL) subcutaneous pen (Lantus
Solostar U-100 Insulin)
mirtazapine 15 mg tablet 15 mg PO HS Mental Health/Anxiety 08/21/23
Allergies
Allergies
Allergy/AdvReac Type Severity Reaction Status Date / Time
Iodinated Contrast Media Allergy Unknown VOMITING/HI Verified 08/21/23 21:54
[Iodinated Contrast- Oral VES
and IV Dye]
latex Allergy Unknown Rash Verified 08/21/23 21:54
adhesive tape Allergy redness;axel Verified 08/21/23 21:54
hy
reyna Allergy closes Verified 08/21/23 21:[address]
hydromorphone HCl Allergy makes him Verified 08/21/23 21:54
[From Dilaudid] loopy as
per spouse
iodine Allergy vomiting;hi Verified 08/21/23 21:54
ves
oxycodone Allergy SEE BELOW Verified 08/21/23 21:54
hydromorphone HCl Allergy Unknown makes him Uncoded 08/21/23 21:54
loopy as
per spouse
darius stockings Allergy Unknown Unknown Uncoded 08/21/23 21:54
aquacel dressing Allergy 'pulled Uncoded 08/21/23 21:54
skin off'
DARIUS stockings Allergy itching;axel Uncoded 08/21/23 21:54
h
Physical Exam
-
Exam:
MAex4
AAOx2
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
no appreciable weakness in UE or LE buit he does have b/l proximal LE weakness
MR cervical spine shows C3/4 stenosis and otherwise general spondylosis but there is no cord signal change
Problems
-
Problem Status Onset Code
Acute CVA (cerebrovascular accident) I63.9
Assessment / Plan
-
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
-no neurosurgical interventions at this time
-rec for OP follow up with neurology for NPH workup
-will sign off
[2023-08-23 17:06] LABS: Glucose - Point of Care 136 mg/dl (70-99)
[2023-08-23] MEDS: LIPITOR 40 MG PO (18:42)
[2023-08-23 20:38] LABS: Glucose - Point of Care 190 mg/dl (70-99)
[2023-08-23] MEDS: REMERON 15 MG PO (22:17)
[2023-08-23] MEDS: LEXAPRO 10 MG PO (22:17)
[2023-08-24] VITALS (9 sets, daily range): BP systolic 112–163; BP diastolic 68–76; PULSE 2–75; O2SAT 98
[2023-08-24 07:17] LABS: Glucose - Point of Care 117 mg/dl (70-99)
[2023-08-24] MEDS: NOVOLOG FLEXPEN-MODERATE RESISTANCE SC ×2 (07:20→16:18)
[2023-08-24 07:28] LABS: Hematocrit 43.7 % (39.0-52.0); Hemoglobin 14.9 g/dL (13.0-18.0); Mean Corp Hgb Conc. 34.1 g/dL (33.0-37.0); Mean Corpuscular Hgb 30.8 pg (27.0-31.0); Mean Corpuscular Volume 90.5 fL (80.0-94.0); Mean Platelet Volume 10.5 fL (7.4-10.4); Platelet Count 175 10^3/uL (130-400); Red Blood Cell Count 4.83 10^6/uL (4.70-6.10); Red Cell Dist. Width 14.7 % (11.5-14.5)
[2023-08-24 08:03] LABS: ALT (SGPT) 39 U/L (0-50); AST (SGOT) 60 U/L (17-59); Albumin 3.5 g/dl (3.5-5.0); Alkaline Phosphatase 77 U/L (38-126); Blood Urea Nitrogen 18 mg/dl (9-20); Calcium 9.1 mg/dl (8.4-10.2); Carbon Dioxide 22 mmol/L (22-30); Chloride 104 mmol/L (98-107); Estimated Creatinine Clearance 80 ml/min; Glucose 117 mg/dl (70-99); Magnesium 1.9 mg/dl (1.6-2.3); Potassium 4.3 mmol/L (3.5-5.1); Sodium 137 mmol/L (135-145); Total Bilirubin 1.1 mg/dl (0.2-1.3); Total Protein 6.4 g/dl (6.3-8.2); eGFR > 60.00
[2023-08-24] MEDS: PULMICORT 0.5 MG INH ×2 (08:03→19:21)
[2023-08-24] MEDS: NORVASC 2.5 MG PO (08:45)
[2023-08-24] MEDS: TOPROL XL 50 MG PO (08:45)
[2023-08-24] MEDS: FOLVITE 0.800000000000000044 MG PO (08:45)
[2023-08-24] MEDS: PLAVIX 75 MG PO (08:45)
[2023-08-24] MEDS: ASPIR LOW (ENTERIC COATED) 81 MG PO (08:45)
[2023-08-24] MEDS: DESENEX/MITRAZOL/ZEASORB 1 APPLIC TOPICAL ×2 (08:45→20:07)
[2023-08-24] MEDS: LANTUS 0.299999999999999989 UNITS SC ×2 (08:46→21:54)
--- NOTE | 2023-08-24 09:07 | W.PN.VS ---
Addendum entered and electronically signed by Rayo Menendez III, MD 08/24/23 14:52:
I personally reviewed his cross-sectional imaging. I performed centerline reconstructions of the CTA (above). I do not see any significant cervical carotid stenosis bilaterally.
Carotid duplex obtained and velocity profiles bilaterally are consistent with less than 50% stenosis (my prelim read).
Symptoms are progressive bilateral lower extremity weakness.
This is not a lateralizing symptom and does not suggest a symptomatic carotid stenosis etiology.
Would involve neurology for additional input
Neurosurgical input regarding intracranial carotid stenosis mgmt.
Antiplatelet therapy
Call with questions or concerns
Rayo Menendez III, MD
[facility] Vascular Surgery
[phone] (cell)
Original Note:
Today's Communication / Plan
-
- No vascular surgical intervention needed at this time
- Will obtain carotid duplex to further eval
- Recommend neurology/neurosurgery eval for intracranial carotid stenosis
- Continue ASA/plavix/statin
Assessment/Plan
-
77 year old male with bilateral lower extremity weakness, possible carotid stenosis
- No vascular surgical intervention needed at this time
- Will obtain carotid duplex to further eval
- Recommend neurology/neurosurgery eval for intracranial carotid stenosis
- Continue ASA/plavix/statin
Subjective Data
-
Date of Service: August 24, 2023
No acute events overnight. Resting comfortably. No new neuro symptoms.
Objective Data
-
Vital Signs
Temp Pulse Resp BP Pulse Ox
97.7 F 56 16 143/74 95
08/24/23 07:20 08/24/23 08:07 08/24/23 08:07 08/24/23 07:20 08/24/23 08:07
Intake and Output
08/23/23 08/24/23 08/25/23
06:59 06:59 06:59
Intake Total 1180 / 1180 1000 / 1000
Output Total 100 / 100 200 / 200
Balance 1080 / 1080 800 / 800
Intake:
Oral fluids 1180 / 1180 1000 / 1000
Output:
Urine, Voided 100 / 100 200 / 200
Other:
Number of approximated MODERATE 1
amounts of urine
How many times incontinent 5 4
SATURATED amount urine
Lab Results
08/24/23 06:27
08/24/23 06:27
Calcium 9.1 mg/dl (8.4-10.2) 08/24/23 06:
Magnesium 1.9 mg/dl (1.6-2.3) 08/24/23 06:
Total Bilirubin 1.1 mg/dl (0.2-1.3) 08/24/23 06:27
AST 60 U/L (17-59) H 08/24/23 06:27
ALT 39 U/L (0-50) 08/24/23 06:27
Alkaline Phosphatase 77 U/L (38-126) 08/24/23 06:27
Total Protein 6.4 g/dl (6.3-8.2) 08/24/23 06:27
Albumin 3.5 g/dl (3.5-5.0) 08/24/23 06:27
Physical Exam
-
Awake, alert, NAD
Regular rate and rhythm
Nonlabored respirations
No focal neuro deficits
Strength equal in upper and lower extremities bilaterally (weaker in lower extremities)
[2023-08-24 11:05] LABS: Glucose - Point of Care 172 mg/dl (70-99)
[2023-08-24] MEDS: NOVOLOG FLEXPEN-MODERATE RESISTANCE 1 UNITS SC (11:42)
--- NOTE | 2023-08-24 12:21 | W.PN.HOSP.TC ---
Today's Communication/Plan
-
outpt workup for NPH, carotid stenosis
d/c planning
reordered PT/OT
Assessment / Plan
Assessment / Plan
pt is a 77 year old male
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
cord signal change on MRI C spine---apprec neuro, vascular, neurosurgery--cont asa/plavix--restarted PT/OT now that no concerning issue with C-spine
Coronary Artery Disease s/p Stent with hx Stroke with Left Hemiparesis--Continue aspirin and Plavix--pt was getting outpt PT/OT
Essential Hypertension--Continue amlodipine and metoprolol
Hyperlipidemia--Transition pravastatin to atorvastatin
Diabetes Mellitus, Type II--Continue Lantus--Hold metformin, likely got contrast for CTA, restart metformin at 48 hour korey--Monitor sugars and continue coverage insulin
Asthma/COPD, no acute exacerbation--Continue budesonide and albuterol prn
Obstructive Sleep Apnea--Continue BiPAP 18/11
Depression--Continue Lexapro and Remeron
DVT proph: SCDs
Code Status: Full Code
Anticipated Discharge: 24 - 48 hours
Subjective/Interval History
-
Date of Service: August 24, 2023
pt getting ready for lunch
Objective Data
-
Labs:
Laboratory Results
08/24/23
06:27
WBC 10.0
Hgb 14.9
Hct 43.7
Plt Count 175
Sodium 137
Potassium 4.3
Chloride 104
Carbon Dioxide 22
BUN 18
Creatinine 1.0
Glucose 117 H
Calcium 9.1
Total Bilirubin 1.1
AST 60 H
ALT 39
Alkaline Phosphatase 77
Vital Signs:
max temp for 24 hours
08/24/23
11:35
Temp 98.2 F
Vital Signs
Temp Pulse Resp BP Pulse Ox
98.2 F 57 16 160/70 94
08/24/23 11:35 08/24/23 11:35 08/24/23 11:35 08/24/23 11:35 08/24/23 11:35
I&O
08/23/23 08/24/23 08/25/23
06:59 06:59 06:59
Intake Total 1180 / 1180 1000 / 1000
Output Total 100 / 100 200 / 200
Balance 1080 / 1080 800 / 800
Review of Systems
-
All other systems: Reviewed and negative
Physical Exam
-
General: Well Developed, Well Nourished and No Apparent Distress
HEENT: Normocephalic and Atraumatic
Respiratory: Clear to Auscultation; Negative Wheezes
Cardiac: Regular Rhythm and S1/S2; Negative Murmur
GI: Soft, Nontender, Nondistended and Normal Bowel Sounds
Musculoskeletal: No Clubbing and No Cyanosis; Negative No Edema (1+ LE edema bilaterally)
Skin: Warm
Neuro: Awake
--- NOTE | 2023-08-24 12:28 | CM ---
Addendum entered by Melina Ibrahim 08/24/23 15:39:
Therapy updated recommendations included in referral to SNF options: [facility] and [facility]. Awaiting responses.
Original Note:
Patient now for PT/OT assessment, patient plan is for SNF pending functional assessments. CM will send updated therapy notes when available. CM will continue to follow for discharge planning needs.
Plan; PT/OT assessment will need SNF pending bed availability
[2023-08-24 16:16] LABS: Glucose - Point of Care 139 mg/dl (70-99)
[2023-08-24] MEDS: LIPITOR 40 MG PO (17:31)
[2023-08-24] MEDS: LEXAPRO 10 MG PO (20:06)
[2023-08-24] MEDS: REMERON 15 MG PO (20:06)
[2023-08-24 21:46] LABS: Glucose - Point of Care 137 mg/dl (70-99)
[2023-08-25 04:09] VITALS: PULSE 2; PULSE 74
[2023-08-25 06:42] LABS: Hematocrit 44.4 % (39.0-52.0); Hemoglobin 15.2 g/dL (13.0-18.0); Mean Corp Hgb Conc. 34.2 g/dL (33.0-37.0); Mean Corpuscular Hgb 31.1 pg (27.0-31.0); Mean Platelet Volume 10.3 fL (7.4-10.4); Platelet Count 192 10^3/uL (130-400); Red Blood Cell Count 4.88 10^6/uL (4.70-6.10); Red Cell Dist. Width 14.6 % (11.5-14.5); White Blood Cell Count 9.9 10^3/uL (4.8-10.8)
[2023-08-25] MEDS: PULMICORT 0.5 MG INH ×2 (07:14→20:13)
[2023-08-25 07:21] LABS: ALT (SGPT) 47 U/L (0-50); AST (SGOT) 48 U/L (17-59); Albumin 3.7 g/dl (3.5-5.0); Alkaline Phosphatase 81 U/L (38-126); Blood Urea Nitrogen 18 mg/dl (9-20); Carbon Dioxide 28 mmol/L (22-30); Chloride 102 mmol/L (98-107); Estimated Creatinine Clearance 89 ml/min; Glucose 114 mg/dl (70-99); Magnesium 1.9 mg/dl (1.6-2.3); Potassium 4.1 mmol/L (3.5-5.1); Sodium 139 mmol/L (135-145); Total Bilirubin 1.1 mg/dl (0.2-1.3); Total Protein 6.6 g/dl (6.3-8.2); eGFR > 60.00
[2023-08-25 07:47] VITALS: BP 148/72
[2023-08-25 08:08] LABS: Glucose - Point of Care 118 mg/dl (70-99)
[2023-08-25] MEDS: NOVOLOG FLEXPEN-MODERATE RESISTANCE SC (08:16)
[2023-08-25] MEDS: PLAVIX 75 MG PO (08:52)
[2023-08-25] MEDS: ASPIR LOW (ENTERIC COATED) 81 MG PO (08:52)
[2023-08-25] MEDS: FOLVITE 0.800000000000000044 MG PO (08:52)
[2023-08-25] MEDS: NORVASC 2.5 MG PO (08:52)
[2023-08-25] MEDS: TOPROL XL PO (08:53)
[2023-08-25] MEDS: LANTUS 0.299999999999999989 UNITS SC ×2 (08:53→21:54)
[2023-08-25] MEDS: DESENEX/MITRAZOL/ZEASORB 1 APPLIC TOPICAL ×2 (08:53→21:23)
[2023-08-25 11:43] LABS: Glucose - Point of Care 226 mg/dl (70-99)
[2023-08-25] MEDS: NOVOLOG FLEXPEN-MODERATE RESISTANCE 3 UNITS SC (12:02)
--- NOTE | 2023-08-25 12:28 | W.PN.HOSP.TC ---
Addendum entered and electronically signed by Alcira Davidson MD 08/25/23 12:40:
discussed briefly with Neurology. Will start sinemet 25/100 TID for likely Parkinson's. If improvement on this med, may help prove diagnosis.
Will give patient overnight to monitor
plan for SNF tomorrow
Original Note:
Today's Communication/Plan
-
F/U further neurology recs
Assessment / Plan
Assessment / Plan
pt is a 77 year old male
Left Facial Droop with Global Weakness--no stroke on head CT or brain MRI--does have other possible explanations....NPH though to be most likely, outpt workup by neuro, symptomatic carotid stenosis not likely by vascular, cord compression also not
likely as no cord signal change on MRI C spine---apprec neuro, vascular, neurosurgery--cont asa/plavix--restarted PT/OT now that no concerning issue with C-spine
-per Dr. Nelson's assessment this AM, concern for Parkinson's mention. Asking neurology to reevaluate and see if recommend initiation of medication here prior to SNF
Coronary Artery Disease s/p Stent with hx Stroke with Left Hemiparesis--Continue aspirin and Plavix--pt was getting outpt PT/OT
Essential Hypertension--Continue amlodipine and metoprolol
Hyperlipidemia--Transition pravastatin to atorvastatin
Diabetes Mellitus, Type II--Continue Lantus--Hold metformin, likely got contrast for CTA, restart metformin at 48 hour korey--Monitor sugars and continue coverage insulin
Asthma/COPD, no acute exacerbation--Continue budesonide and albuterol prn
Obstructive Sleep Apnea--Continue BiPAP 18/11
Depression--Continue Lexapro and Remeron
DVT proph: SCDs
Code Status: Full Code
Anticipated Discharge: Within 24 hours
Subjective/Interval History
-
Date of Service: August 25, [address] Nelson at bedside
patient giving history of difficulty with balance, shuffling gate, voice changes
Objective Data
-
Labs:
Laboratory Results
08/25/23
06:21
WBC 9.9
Hgb 15.2
Hct 44.4
Plt Count 192
Sodium 139
Potassium 4.1
Chloride 102
Carbon Dioxide 28
BUN 18
Creatinine 0.9
Glucose 114 H
Calcium 9.0
Total Bilirubin 1.1
AST 48
ALT 47
Alkaline Phosphatase 81
Vital Signs:
Vital Signs
Temp Pulse Resp BP Pulse Ox
97.9 F 56 18 148/72 92
08/25/23 07:47 08/25/23 08:53 08/25/23 07:47 08/25/23 07:47 08/25/23 07:47
I&O
08/24/23 08/25/23 08/26/23
06:59 06:59 06:59
Intake Total 1000 / 1000 480 / 480
Output Total 200 / 200 180 / 180
Balance 800 / 800 300 / 300
Review of Systems
-
History Source: Patient
All other systems: Reviewed and negative
Physical Exam
-
General: Well Developed, Well Nourished and No Apparent Distress
HEENT: Normocephalic and Atraumatic
Respiratory: Clear to Auscultation; Negative Wheezes
Cardiac: Regular Rhythm and S1/S2; Negative Murmur
GI: Soft, Nontender, Nondistended and Normal Bowel Sounds
Musculoskeletal: No Clubbing and No Cyanosis; Negative No Edema (1+ LE edema bilaterally)
Skin: Warm
Neuro: Awake
Data Reviewed
-
Diagnostic Radiology: Report Reviewed by me
Labs: Labs Reviewed by me
[2023-08-25] MEDS: SINEMET 25-100 1 TABLET PO ×3 (13:19→21:23)
--- NOTE | 2023-08-25 13:37 | CM ---
Patient accepted for transfer to [facility], physician requested hold until tomorrow. CM updated [facility] admissions. Patient and aware and IMM completed and signed form placed on chart. CM will continue to follow for discharge planning needs.
Plan; tentatively transfer to [facility] when bed available and medically appropriate
--- NOTE | 2023-08-25 15:27 | CON.MD ---
Documented by User: Isabella Adorno PA-C 08/25/23 18:42
Consultation - Medical
-
Referring Provider: Alcira Gonzalez
Chief Complaint: CVA
History of Present Illness: Patient is a 77 year old male with PMH of ( prior CVA x 3, COPD, hypertension, DM-II, CAD s/p stenting, Hyperlipidemia, sleep apnea, PE, depression ) who presents to ED for evaluation of increase in his L sided
weakness residual from prior strokes and new onset L facial droop. Initial change noted yesterday after PT session when he was unable to get in the car due to LLE weakness. CT of head:without evidence for acute intracranial hemorrhage or
transcortical infarct. Moderate periventricular white matter leukoaraiosis in the frontal and parietal lobes. Moderate dilatation of the ventricular system which appears unchanged (either ex vacuo dilatation from moderate cerebral volume loss or (2)
normal pressure communicating hydrocephalus). Probable chronic lacunar infarcts in both thalami. MRI brain: No evidence of acute intracranial abnormality.
Per patient and his - has been experiencing trouble with gait, walking, balance issues, difficulty with swallowing , intermittent urinary incontinence, tremors in right hand, depression.
vascular surgery consult yielded the following- Symptoms are progressive bilateral lower extremity weakness.This is not a lateralizing symptom and does not suggest a symptomatic carotid stenosis etiology.Recommends neurology and neurosurgical input
regarding intracranial carotid stenosis mgmt.
Neurosurgery:MR cervical spine shows C3/4 stenosis and otherwise general spondylosis but there is no cord signal change. No neurosurgical interventions at this time. Recommends OP follow up with neurology for NPH workup
Per speech, patient exhibits clinical signs of oropharyngeal dysphagia, likely chronic related to history of CVA x 3 and acutely exacerbated by current illness of unknown etiology. Patient is at risk for aspiration and related complications.
Recommends diet downgraded to soft and bite-size with mildly thick liquids. Medications whole in pur�e. 100% supervision with meals, upright positioning.
CTA head/neck:
1. 50-70% diameter stenosis at the origin of the right internal carotid artery.
2. No stenosis in the proximal left internal carotid artery.
3. Severe stenosis (greater than 70% diameter) at the origin of the right vertebral artery.
4. No CTA evidence for left vertebral artery stenosis.
5. Severe discogenic degenerative disease at C5/C6 and C6/C7 with disc-osteophyte complexes causing SEVERE SPINAL CORD COMPRESSION and SEVERE CENTRAL CANAL STENOSIS.
6. Severe multilevel bilateral neural foraminal narrowing in the cervical spine.
7. New 1.7 cm peribronchiolar nodular opacity in the right lung apex. Diagnostic possibilities are (1) right upper lobe lung cancer or (2) a focal region of infectious or inflammatory pneumonitis.
HEAD CTA:
1. Severe calcific atherosclerotic plaque in both intracranial internal carotid arteries causing 50-70% diameter stenosis in the clinoid segment of the right intracranial internal carotid artery and 25-50% diameter stenosis in the left
intracranial internal carotid artery.
2. Severe calcific atherosclerotic plaque in the right intracranial vertebral artery causing 50-70% diameter stenosis.
3. Small lacunar infarcts in the thalami (possibly acute on the right).
4. Moderate diffuse dilatation of the ventricular system (either ex vacuo dilatation or normal pressure communicating hydrocephalus).
MRI brain:
No evidence of acute intracranial abnormality.
Moderate diffuse atrophy. Moderate to severe ventricular dilation, and the callosal angle is slightly increased. Findings suggest the possibility of normal pressure hydrocephalus, and please correlate clinically.
Moderate T2 and FLAIR white matter hyperintensities, commonly seen with aging and usually attributed to small vessel ischemic disease.
Small foci of increased T2-weighted signal within the thalami bilaterally, suggesting old lacunar infarcts.
Past Medical History: prior CVA x 3, COPD, hypertension, DM-II, CAD s/p stenting, Hyperlipidemia, sleep apnea, PE, depression
Procedure History: Cholecystectomy, Bilateral Knee Replacements
Family History: non pertinent
Social History:
Functional Level Premorbidly: assist patient 90% with ADLs and ambulation at times for years.
Functional Level Currently: Bed mobility moderate assistance, transfers�min assist, balance dynamic with rolling walker was fair, ambulated 25 feet with rolling walker with slow gait, forward flexed posture, no overt loss of balance - min assist,
toileting max assist, grooming�min assist, bed mobility�supervision
Tobacco: Denies
Alcohol: Denies
Drug use: Denies
Lives with: spouse
24-hour assistance available:
Number of floors: Multilevel
# steps to enter:
# steps to second floor: Uses 2 stair glide to each floor. Patient ambulatory with rolling walker at baseline.
Potential First floor set up: Yes
Driving: No
Occupation: Retired
�
Allergies:
Allergy/AdvReac Type Severity Reaction Status Date / Time
Iodinated Contrast Media Allergy Unknown VOMITING/HI Verified 08/21/23 21:54
[Iodinated Contrast- Oral VES
and IV Dye]
latex Allergy Unknown Rash Verified 08/21/23 21:54
adhesive tape Allergy redness;axel Verified 08/21/23 21:54
hy
reyna Allergy closes Verified 08/21/23 21:[address]
hydromorphone HCl Allergy makes him Verified 08/21/23 21:54
[From Dilaudid] loopy as
per spouse
iodine Allergy vomiting;hi Verified 08/21/23 21:54
ves
oxycodone Allergy SEE BELOW Verified 08/21/23 21:54
hydromorphone HCl Allergy Unknown makes him Uncoded 08/21/23 21:54
loopy as
per spouse
darius stockings Allergy Unknown Unknown Uncoded 08/21/23 21:54
aquacel dressing Allergy 'pulled Uncoded 08/21/23 21:54
skin off'
DARIUS stockings Allergy itching;axel Uncoded 08/21/23 21:54
h
Review of Systems:
Constitutional: (x) Normal _
Eye: (x) Normal _
Ear/Nose/Throat: (x) Normal _
Respiratory: (x) Normal _
Cardiovascular: (x) Normal _
Gastrointestinal: (x) Normal _
Genitourinary: (x) urinary incontinence
Musculoskeletal: (x) weakness left side, cervical stenosis, cord compression
Integumentary: (x) Normal _
Neurologic: (x) cva, suspected parkinson, tremors-right hand
Psychiatric: (x) Normal _
Endocrine: (x) Normal _
Hematologic/Lymphatic: (x) Normal _
Allergic/Immunologic: (x) Normal _
Medications:
Active Current Visit Medication List
Category Date Time Status
Acetaminophen [Tylenol] Med 08/22/23 01:26 Active
650 mg PO Q4HPRN PRN
Albuterol Nebs [Ventolin Nebules] Med 08/22/23 01:26 Active
2.5 mg INH R Q4HPRN PRN
Amlodipine [Norvasc] Med 08/22/23 08:00 Active
2.5 mg PO DAILY
Aspirin Low Dose EC [Aspir Low (Enteric Coated)] Med 08/22/23 08:00 Active
81 mg PO DAILY
Atorvastatin [Lipitor] Med 08/22/23 18:00 Active
40 mg PO QPM
Budesonide [Pulmicort] Med 08/22/23 08:00 Active
0.5 mg INH R BID
Carbidopa/Levodopa [Sinemet 25-100] Med 08/25/23 13:00 Active
1 tablet PO TID
Clopidogrel Bisulfate [Plavix] Med 08/22/23 08:00 Active
75 mg PO DAILY
Dextrose 50%-Water [Dextrose 50% Syringe] Med 08/22/23 01:26 Active
12.5 grams IV [id number] PRN
Escitalopram Oxalate [Lexapro] Med 08/22/23 22:00 Active
10 mg PO HS
FOLic ACID [Folvite] Med 08/22/23 08:00 Active
0.8 mg PO DAILY
Flush (0.9% Sodium Chloride) [Flush (Nss)] Med 08/22/23 02:00 Active
See Dose Instructions IV PER PROTOCOL
Glucagon [GlucaGen] Med 08/22/23 01:26 Active
1 mg IM PRN PRN
Insulin Aspart Corrective Mod [Novolog Flexpen-Moderate Med 08/22/23 07:30 Active
Resistance]
See Protocol SC AC
Insulin Glargine Lantus [Lantus] 30 units Med 08/22/23 08:00 Active
Subcutaneous Insulin Syringe [Syringe-Insulin] 0 unit
SC BID
Metoprolol Xl [Toprol Xl] Med 08/22/23 08:00 Active
50 mg PO DAILY
Miconazole Nitrate [Desenex/Mitrazol/Zeasorb] Med 08/22/23 20:00 Active
See Dose Instructions TOPICAL BID
Mirtazapine [Remeron] Med 08/22/23 22:00 Active
15 mg PO HS
Vitals:
Temp Pulse Resp BP Pulse Ox
97.5 F 76 20 164/84 95
08/25/23 15:51 08/25/23 15:51 08/25/23 15:51 08/25/23 15:51 08/25/23 15:51
Height 5 ft 9 in
Actual Weight 130.805 kg
Body Mass Index (BMI) 42.6
Physical Exam:
General Appearance/Observation: Well-developed, well-nourished individual in no apparent distress.
Pain/Comfort Assessment: Denies
Mood/Affect: Appropriate, pleasant
Integumentary/Operative Site:
�� Pressure Ulcer Evaluation: absent over heels.
��
�� Other Type of Wound: absent
��
Eyes: Conjunctiva/Lids: normal ��� Pupils: pupils equal round and reactive to light and Accommodation
Ears/Nose/Throat: oral mucosa moist,� throat clear.������������ Lips/Teeth/Gums: normal
Neck: muscle spasm , no tenderness
Cardiovascular: Heart: regular, no murmur
Pulses: dorsalis pedis 1+ bilaterally
Respiratory: Respiratory Effort/Chest Expansion: normal ������� Auscultation: Clear to auscultation bilaterally
Gastrointestinal: abdomen not tender, no distension, obese, normal abdominal bowel sounds
Genitourinary: No Menendez
Extremities: Edema: mild edema feet Cyanosis: None Trophic changes: None
Neurology Exam:
Orientation: Alert, Oriented to self, place, Time this afternoon
Memory: Intact for immediate medical concerns
Higher cortical function
Repetition: Impaired
Comprehension: delayed processing
Two step command: slow processing
Naming: Intact, knows clock, but could not tell time
Cranial Nerves:
�� CNII: Pupillary light reflex: Intact��� Visual Field:
�� CN III, IV, : Extraocular muscles: Intact
�� CN V: Facial Sensation at Forehead: Intact, Maxilla: Intact, Mandible: Intact
�� CN VII: Facial movement: Symmetric
�� CN VIII: Hearing: Normal
�� CN IX/X: Speech & swallow: Hypophonia, hoarse position of Uvula: Midline
�� CN XI: Shoulder shrug: slight weakness on left
�� CN XII: Tongue protrusion: Midline
Sensory:
�� Light touch: Intact in bilateral upper and lower extremities
��
Reflexes:
�� Biceps: absent bilaterally
�� Brachioradialis:absent bilaterally
�� Triceps:absent bilaterally
�� Patellar: absent bilaterally
�� Achilles:absent bilaterally
�� Babinski: Down going bilaterally
�� Clonus: None
�� Cerebellar: Dysmetria/Ataxia:
blinking of both eyes with tapping of nose.
subtle tremor of right hand at rest
Musculoskeletal:
Motor: (Manual muscle scale 0-5)
Muscle SA EF WE EE FF FA HF KE DF EHL PF
Right� 5 5 5 5 5 5 4- 4- 5 5 5
Left 4 4 4 4 4 4 4- 4- 5 5 5
Tone: Normal in all extremities
Range of Motion: Passively within normal limits in all extremities
Lab Results
Labs
WBC 9.9 10^3/uL (4.8-10.8) 08/25/23 06:21
RBC 4.88 10^6/uL (4.70-6.10) 08/25/23 06:21
Hgb 15.2 g/dL (13.0-18.0) 08/25/23 06:21
Hct 44.4 % (39.0-52.0) 08/25/23 06:21
MCV 91.0 fL (80.0-94.0) 08/25/23 06:21
MCH 31.1 pg (27.0-31.0) H 08/25/23 06:21
MCHC 34.2 g/dL (33.0-37.0) 08/25/23 06:21
RDW 14.6 % (11.5-14.5) H 08/25/23 06:21
Plt Count 192 10^3/uL (130-400) 08/25/23 06:21
MPV 10.3 fL (7.4-10.4) 08/25/23 06:21
Abs Immat Gran (auto) 0.0 10^3/uL (0-0.05) 08/21/23:58
Absolute Neuts (auto) 5.9 10^3/uL (1.4-6.5) 08/21/23 21:58
Absolute Lymphs (auto) 3.0 10^3/uL (1.2-3.4) 08/21/23 21:58
Absolute Monos (auto) 1.0 10^3/uL (0.1-0.6) H 08/21/23 21:58
Absolute Eos (auto) 0.7 10^3/uL (0-0.7) 08/21/23 21:58
Absolute Basos (auto) 0.1 10^3/uL (0-0.2) 08/21/23 21:58
Immature Gran % 0.4 % (0-0.5) 08/21/23 21:58
Neutrophils % 55.0 % (42.2-75.2) 08/21/23 21:58
Lymphocytes % 28.2 % (20.5-51.1) 08/21/23 21:58
Monocytes % 9.3 % (1.7-9.3) 08/21/23 21:58
Eosinophils % 6.5 % (0-6) H 08/21/23 21:58
Basophils % 0.6 % (0-2) 08/21/23 21:58
Nucleated RBC % 0 % (-) 08/21/23 21:58
PT 13.7 Sec (11.4-14.6) 08/21/23 21:58
INR 1.07 08/21/23 21:58
APTT 27.1 Sec (23.4-35.0) 08/21/23 21:58
Sodium 139 mmol/L (135-145) 08/25/23 06:21
Potassium 4.1 mmol/L (3.5-5.1) 08/25/23 06:21
Chloride 102 mmol/L (98-107) 08/25/23 06:21
Carbon Dioxide 28 mmol/L (22-30) 08/25/23 06:21
BUN 18 mg/dl (9-20) 08/25/23 06:21
Creatinine 0.9 mg/dL (0.7-1.3) 08/25/23 06:21
Estimated Creat Clear 89 ml/min 08/25/23 06:21
eGFR > 60.00 08/25/23 06:21
Glucose 114 mg/dl (70-99) H 08/25/23 06:21
Hemoglobin A1c 6.9 % (4.0-5.6) H 08/22/23 06:35
Calcium 9.0 mg/dl (8.4-10.2) 08/25/23 06:21
Magnesium 1.9 mg/dl (1.6-2.3) 08/25/23 06:21
Total Bilirubin 1.1 mg/dl (0.2-1.3) 08/25/23 06:21
AST 48 U/L (17-59) 08/25/23 06:21
ALT 47 U/L (0-50) 08/25/23 06:21
Alkaline Phosphatase 81 U/L (38-126) 08/25/23 06:21
Troponin I < 0.012 ng/ml 08/21/23 22:59
Total Protein 6.6 g/dl (6.3-8.2) 08/25/23 06:21
Albumin 3.7 g/dl (3.5-5.0) 08/25/23 06:21
Triglycerides 110 mg/dl (10-149) 08/22/23 06:35
Total Cholesterol 133 mg/dl (50-199) 08/22/23 06:35
LDL Cholesterol, Calc 66 mg/dl 08/22/23 06:35
VLDL Cholesterol, Calc 22 mg/dl (0-30) 08/22/23 06:35
HDL Cholesterol 45 mg/dl 08/22/23 06:35
TSH (Reflex) 2.55 uIU/ml (0.47-4.68) 08/23/23 12:06
POC Glucose 182 mg/dl (70-99) H 08/25/23 16:24
�
Diagnostic Results: as per HPI
Assessment Patient is a 77 year old male with PMH of ( prior CVA x 3, COPD, hypertension, DM-II, CAD s/p stenting, Hyperlipidemia, sleep apnea, PE, depression ) who presents to ED for evaluation of increased Left sided weakness residual from
prior strokes and new onset L facial droop. CT scan and MRI of head without new infarcts. CTA of neck/head with carotid stenosis, CT of cervical spine with stenosis, cord compression without signal change. Patient with Parkinson's like symptoms,
signs of gait abnormality, flexed posture with ambulation, intermittent tremors of right upper extremity, intermittent urinary incontinence,, difficulty with swallowing, change in voice caliber, hoarseness.
Plan
PT/OT to increase independence with ADLs, improve balance, coordination, endurance, strength, mobility, community reintegration, decreased burden of care on others and family education.
CVA: History of prior strokes x 3 with residual left-sided weakness. CT of head, MRI of the head without new acute infarcts. Secondary prophylaxis with aspirin, statin, and blood pressure control (SBP less than 180 and diastolic less than 100 to
participate with therapy for ischemic stroke). Continue to monitor neurologic status. Continue Plavix and aspirin 81mg
Left nondominant hemiparesis: High risk for falls and sliding out of chair/bed. Safety reinforced.
- Avoid using affected arm to help lift or pull patient as this will cause trauma to the shoulder.
Cervical stenosis: No cord signal change. No surgical intervention at this time per neurosurgical
Suspected Parkinson disease: Based on patient's history and clinical presentation of shuffling gait, balance issue, difficulty with swallowing, hoarse voice, urinary incontinence, tremors, depression. Would recommend trial of Sinemet if neurology
onboard and see if symptoms improve. Recommend neurology input with OP follow up for further evaluation and treatment.
Dysphagia: speech evaluation, oral care protocol, aspiration precautions.� Diet downgraded by speech to soft and bite-size with supervision.
Dysarthria: speech evaluation
Seizures: Continue Keppra monitor seizures, seizure precautions
HTN: Metoprolol succinate 50 mg daily, amlodipine 2.5 daily continue medications, monitor closely
HLD: Atorvastatin 40 daily
Coronary artery disease : Aspirin, statin, beta-abilio
DM II: Accu-Cheks, insulin sliding scale, insulin glargine 30 units. Metformin placed on hold until [address] scan contrast. Monitor
COPD: Continue Pulmicort.� Albuterol nebu 2.5 mg INH every 4 as needed
FLAQUITA: Continue BiPAP 18/11
Psych/depression: Psychology consult.� Lexapro 10 mg at bedtime and Remeron. monitor mood, adjust medications as needed.
Skin: monitor for pressure sores/rashes/lesions.
Pain: acetaminophen or oxycodone as needed.
Bowel: Colace and Senna, PRN bisacodyl.
Bladder: Time void, PVRs, PRN straight cath.
GI Prophylaxis: Pantoprazole
DVT Prophylaxis: Mechanical and consider heparin sc
Pulmonary: Incentive spirometry
Morbid obesity: Continue to career counselor patient about diet adjustments to control obesity. Body habitus and increased force to move body and extremities causes further difficulty with functional tasks.
Safety: Continue to reinforce assistance with all transfers.
Code Status:� Full code
Dispo (date/plan/equipment needs): Home with family care.� Social history reviewed.
Functional and Medical Goals: Modified Independent with ADL�s, ambulation, transfers
Discharge recommendation: SNF
Summary of recommendations: Patient with prior history of strokes associated with left residual weakness and new left facial drooping. Recent CT scan and MRI of head without any new acute infarcts. Patient with given history of shuffling gait,
instability, difficulty swallowing, change in his voice, balance issues, highly suspicious for Parkinson disease. Cervical stenosis on MRI without cord signal changes. Not a surgical candidate at the moment per neurosurgery,. Would benefit from
low-dose Sinemet with possibility for titration if with positive symptomatic improvement. Would recommend neurology input and follow up on progress. Would benefit from continued PT/OT/speech at a fdc facility.
Suspected Parkinson disease: Based on patient's history and clinical presentation of shuffling gait, balance issue, difficulty with swallowing, hoarse voice, urinary incontinence, tremors, depression. Would recommend trial of Sinemet if neurology
onboard and see if symptoms improve. OP follow up with neurology for further work up and treatment
Dysphagia: speech evaluation, oral care protocol, aspiration precautions.� Diet downgraded by speech therapy to soft in bite-size with supervision.
CVA: History of prior strokes x 3 with residual left-sided weakness. CT of head, MRI of the head without new acute infarcts. Secondary prophylaxis with aspirin, statin, and blood pressure control (SBP less than 180 and diastolic less than 100 to
participate with therapy for ischemic stroke). Continue to monitor neurologic status. Continue Plavix and aspirin 81mg
Left nondominant hemiparesis: High risk for falls and sliding out of chair/bed. Safety reinforced.
- Avoid using affected arm to help lift or pull patient as this will cause trauma to the shoulder.
Cervical stenosis: No cord signal change. No surgical intervention at this time per neurosurgical
-
Seizures: Continue Keppra monitor seizures, seizure precautions
HTN: Metoprolol succinate 50 mg daily, amlodipine 2.5 daily continue medications, monitor closely.
About 60-75 minutes was spent between discussion with patient and family regarding the etiology, presentation, symptoms and treatment of Parkinson disease, stroke, reviewing of charts, gathering of information, decision making.
Thank you for allowing me to care for your patient. Please contact me with any questions or concerns.
This note was dictated using a voice recognition system. Please excuse any typographical errors from cash applications manager. If you believe there are any discrepancies, please notify our office.

Documented by User: Hernesto Nelson MD 08/25/23 23:10
Consultation - Medical
-
Referring Provider: Alcira Gonzalez
Chief Complaint: CVA
History of Present Illness: Patient is a 77 year old male with PMH of ( prior CVA x 3, COPD, hypertension, DM-II, CAD s/p stenting, Hyperlipidemia, sleep apnea, PE, depression ) who presents to ED for evaluation of increase in his L sided
weakness residual from prior strokes and new onset L facial droop. Initial change noted yesterday after PT session when he was unable to get in the car due to LLE weakness. CT of head:without evidence for acute intracranial hemorrhage or
transcortical infarct. Moderate periventricular white matter leukoaraiosis in the frontal and parietal lobes. Moderate dilatation of the ventricular system which appears unchanged (either ex vacuo dilatation from moderate cerebral volume loss or (2)
normal pressure communicating hydrocephalus). Probable chronic lacunar infarcts in both thalami. MRI brain: No evidence of acute intracranial abnormality.
Per patient and his - has been experiencing trouble with gait, walking, balance issues, difficulty with swallowing , intermittent urinary incontinence, tremors in right hand, depression.
vascular surgery consult yielded the following- Symptoms are progressive bilateral lower extremity weakness.This is not a lateralizing symptom and does not suggest a symptomatic carotid stenosis etiology.Recommends neurology and neurosurgical input
regarding intracranial carotid stenosis mgmt.
Neurosurgery:MR cervical spine shows C3/4 stenosis and otherwise general spondylosis but there is no cord signal change. No neurosurgical interventions at this time. Recommends OP follow up with neurology for NPH workup
Per speech, patient exhibits clinical signs of oropharyngeal dysphagia, likely chronic related to history of CVA x 3 and acutely exacerbated by current illness of unknown etiology. Patient is at risk for aspiration and related complications.
Recommends diet downgraded to soft and bite-size with mildly thick liquids. Medications whole in pur�e. 100% supervision with meals, upright positioning.
CTA head/neck:
1. 50-70% diameter stenosis at the origin of the right internal carotid artery.
2. No stenosis in the proximal left internal carotid artery.
3. Severe stenosis (greater than 70% diameter) at the origin of the right vertebral artery.
4. No CTA evidence for left vertebral artery stenosis.
5. Severe discogenic degenerative disease at C5/C6 and C6/C7 with disc-osteophyte complexes causing SEVERE SPINAL CORD COMPRESSION and SEVERE CENTRAL CANAL STENOSIS.
6. Severe multilevel bilateral neural foraminal narrowing in the cervical spine.
7. New 1.7 cm peribronchiolar nodular opacity in the right lung apex. Diagnostic possibilities are (1) right upper lobe lung cancer or (2) a focal region of infectious or inflammatory pneumonitis.
HEAD CTA:
1. Severe calcific atherosclerotic plaque in both intracranial internal carotid arteries causing 50-70% diameter stenosis in the clinoid segment of the right intracranial internal carotid artery and 25-50% diameter stenosis in the left
intracranial internal carotid artery.
2. Severe calcific atherosclerotic plaque in the right intracranial vertebral artery causing 50-70% diameter stenosis.
3. Small lacunar infarcts in the thalami (possibly acute on the right).
4. Moderate diffuse dilatation of the ventricular system (either ex vacuo dilatation or normal pressure communicating hydrocephalus).
MRI brain:
No evidence of acute intracranial abnormality.
Moderate diffuse atrophy. Moderate to severe ventricular dilation, and the callosal angle is slightly increased. Findings suggest the possibility of normal pressure hydrocephalus, and please correlate clinically.
Moderate T2 and FLAIR white matter hyperintensities, commonly seen with aging and usually attributed to small vessel ischemic disease.
Small foci of increased T2-weighted signal within the thalami bilaterally, suggesting old lacunar infarcts.
Past Medical History: prior CVA x 3, COPD, hypertension, DM-II, CAD s/p stenting, Hyperlipidemia, sleep apnea, PE, depression
Procedure History: Cholecystectomy, Bilateral Knee Replacements
Family History: non pertinent
Social History:
Functional Level Premorbidly: assist patient 90% with ADLs and ambulation at times for years.
Functional Level Currently: Bed mobility moderate assistance, transfers�min assist, balance dynamic with rolling walker was fair, ambulated 25 feet with rolling walker with slow gait, forward flexed posture, no overt loss of balance - min assist,
toileting max assist, grooming�min assist, bed mobility�supervision
Tobacco: Denies
Alcohol: Denies
Drug use: Denies
Lives with: spouse
24-hour assistance available: Yes
Number of floors: Multilevel
# steps to enter: 0
# steps to second floor: Uses 2 stair glide to each floor. Patient ambulatory with rolling walker at baseline.
Potential First floor set up: Yes
Driving: No
Occupation: Retired
�
Allergies:
Allergy/AdvReac Type Severity Reaction Status Date / Time
Iodinated Contrast Media Allergy Unknown VOMITING/HI Verified 08/21/23 21:54
[Iodinated Contrast- Oral VES
and IV Dye]
latex Allergy Unknown Rash Verified 08/21/23 21:54
adhesive tape Allergy redness;axel Verified 08/21/23 21:54
hy
reyna Allergy closes Verified 08/21/23 21:[address]
hydromorphone HCl Allergy makes him Verified 08/21/23 21:54
[From Dilaudid] loopy as
per spouse
iodine Allergy vomiting;hi Verified 08/21/23 21:54
ves
oxycodone Allergy SEE BELOW Verified 08/21/23 21:54
hydromorphone HCl Allergy Unknown makes him Uncoded 08/21/23 21:54
loopy as
per spouse
darius stockings Allergy Unknown Unknown Uncoded 08/21/23 21:54
aquacel dressing Allergy 'pulled Uncoded 08/21/23 21:54
skin off'
DARIUS stockings Allergy itching;axel Uncoded 08/21/23 21:54
h
Review of Systems:
Constitutional: (x) abNormal _
Eye: (x) Normal _
Ear/Nose/Throat: (x) Normal _
Respiratory: (x) Normal _
Cardiovascular: (x) Normal _
Gastrointestinal: (x) Normal _
Genitourinary: (x) urinary incontinence
Musculoskeletal: (x) weakness left side since stroke in 2016, cervical stenosis, cord compression
Integumentary: (x) Normal _
Neurologic: (x) weakness left side since stroke in 2016, tremors-right hand, low voice and trouble swallowing for a few years. Has trouble with getting stuck when walking and having a shuffling gait. Feels dizzy at times when standing up.
Psychiatric: (x) Normal _
Endocrine: (x) Normal _
Hematologic/Lymphatic: (x) Normal _
Allergic/Immunologic: (x) Normal _
Medications:
Active Current Visit Medication List
Category Date Time Status
Acetaminophen [Tylenol] Med 08/22/23 01:26 Active
650 mg PO Q4HPRN PRN
Albuterol Nebs [Ventolin Nebules] Med 08/22/23 01:26 Active
2.5 mg INH R Q4HPRN PRN
Amlodipine [Norvasc] Med 08/22/23 08:00 Active
2.5 mg PO DAILY
Aspirin Low Dose EC [Aspir Low (Enteric Coated)] Med 08/22/23 08:00 Active
81 mg PO DAILY
Atorvastatin [Lipitor] Med 08/22/23 18:00 Active
40 mg PO QPM
Budesonide [Pulmicort] Med 08/22/23 08:00 Active
0.5 mg INH R BID
Carbidopa/Levodopa [Sinemet 25-100] Med 08/25/23 13:00 Active
1 tablet PO TID
Clopidogrel Bisulfate [Plavix] Med 08/22/23 08:00 Active
75 mg PO DAILY
Dextrose 50%-Water [Dextrose 50% Syringe] Med 08/22/23 01:26 Active
12.5 grams IV [id number] PRN
Escitalopram Oxalate [Lexapro] Med 08/22/23 22:00 Active
10 mg PO HS
FOLic ACID [Folvite] Med 08/22/23 08:00 Active
0.8 mg PO DAILY
Flush (0.9% Sodium Chloride) [Flush (Nss)] Med 08/22/23 02:00 Active
See Dose Instructions IV PER PROTOCOL
Glucagon [GlucaGen] Med 08/22/23 01:26 Active
1 mg IM PRN PRN
Insulin Aspart Corrective Mod [Novolog Flexpen-Moderate Med 08/22/23 07:30 Active
Resistance]
See Protocol SC AC
Insulin Glargine Lantus [Lantus] 30 units Med 08/22/23 08:00 Active
Subcutaneous Insulin Syringe [Syringe-Insulin] 0 unit
SC BID
Metoprolol Xl [Toprol Xl] Med 08/22/23 08:00 Active
50 mg PO DAILY
Miconazole Nitrate [Desenex/Mitrazol/Zeasorb] Med 08/22/23 20:00 Active
See Dose Instructions TOPICAL BID
Mirtazapine [Remeron] Med 08/22/23 22:00 Active
15 mg PO HS
Vitals:
Temp Pulse Resp BP Pulse Ox
97.5 F 76 20 164/84 95
08/25/23 15:51 08/25/23 15:51 08/25/23 15:51 08/25/23 15:51 08/25/23 15:51
Height 5 ft 9 in
Actual Weight 130.805 kg
Body Mass Index (BMI) 42.6
Physical Exam:
General Appearance/Observation: Well-developed, well-nourished male in no apparent distress. Mild tremor left UE.
Pain/Comfort Assessment: Denies
Mood/Affect: Appropriate, pleasant
Integumentary/Operative Site:
�� Pressure Ulcer Evaluation: absent over heels.
�� Other Type of Wound: absent
��
Eyes: Conjunctiva/Lids: normal ��� Pupils: pupils equal round and reactive to light and Accommodation
Ears/Nose/Throat: oral mucosa moist,� throat clear.������������ Lips/Teeth/Gums: normal
Neck: muscle spasm , no tenderness
Cardiovascular: Heart: regular, no murmur
Pulses: dorsalis pedis 1+ bilaterally
Respiratory: Respiratory Effort/Chest Expansion: normal ������� Auscultation: Clear to auscultation bilaterally
Gastrointestinal: abdomen not tender, no distension, obese, normal abdominal bowel sounds
Genitourinary: No Menendez
Extremities: Edema: mild edema feet Cyanosis: None Trophic changes: None
Neurology Exam:
Orientation: Alert, Oriented to self, place, Time this afternoon
Memory: Impaired
Repetition: Impaired
Comprehension: delayed processing
Two step command: slow processing
Naming: Intact, knows clock, but could not tell time
Cranial Nerves:
�� CNII: Pupillary light reflex: Intact��� Visual Field: Intact
�� CN III, IV, : Extraocular muscles: Intact
�� CN V: Facial Sensation at Forehead: Intact, Maxilla: Intact, Mandible: Intact
�� CN VII: Facial movement: Symmetric
�� CN VIII: Hearing: Normal
�� CN IX/X: Speech & swallow: Hypophonia, hoarse position of Uvula: Midline
�� CN XI: Shoulder shrug: slight weakness on left
�� CN XII: Tongue protrusion: Midline
Sensory:
�� Light touch: Intact in bilateral upper and lower extremities
��
Reflexes:
�� Biceps: absent bilaterally
�� Brachioradialis:absent bilaterally
�� Triceps:absent bilaterally
�� Patellar: absent bilaterally
�� Achilles:absent bilaterally
�� Babinski: Down going bilaterally
�� Clonus: None
�� Cerebellar: Dysmetria/Ataxia: None
blinking of both eyes with tapping of nose.
subtle tremor of right hand at rest
Musculoskeletal: Motor: (Manual muscle scale 0-5)
Muscle SA EF WE EE FF FA HF KE DF EHL PF
Right� 5 5 5 5 5 5 4 4 5 5 5
Left 4 4 4 4 4 4 4+ 4 5 5 5
Tone: Normal in all extremities
Range of Motion: Passively within normal limits in all extremities
Lab Results
Labs
WBC 9.9 10^3/uL (4.8-10.8) 08/25/23 06:21
RBC 4.88 10^6/uL (4.70-6.10) 08/25/23 06:21
Hgb 15.2 g/dL (13.0-18.0) 08/25/23 06:21
Hct 44.4 % (39.0-52.0) 08/25/23 06:21
MCV 91.0 fL (80.0-94.0) 08/25/23 06:21
MCH 31.1 pg (27.0-31.0) H 08/25/23 06:21
MCHC 34.2 g/dL (33.0-37.0) 08/25/23 06:21
RDW 14.6 % (11.5-14.5) H 08/25/23 06:21
Plt Count 192 10^3/uL (130-400) 08/25/23 06:21
MPV 10.3 fL (7.4-10.4) 08/25/23 06:21
Abs Immat Gran (auto) 0.0 10^3/uL (0-0.05) 08/21/23 21:58
Absolute Neuts (auto) 5.9 10^3/uL (1.4-6.5) 08/21/23 21:58
Absolute Lymphs (auto) 3.0 10^3/uL (1.2-3.4) 08/21/23 21:58
Absolute Monos (auto) 1.0 10^3/uL (0.1-0.6) H 08/21/23 21:58
Absolute Eos (auto) 0.7 10^3/uL (0-0.7) 08/21/23 21:58
Absolute Basos (auto) 0.1 10^3/uL (0-0.2) 08/21/23 21:58
Immature Gran % 0.4 % (0-0.5) 08/21/23 21:58
Neutrophils % 55.0 % (42.2-75.2) 08/21/23 21:58
Lymphocytes % 28.2 % (20.5-51.1) 08/21/23 21:58
Monocytes % 9.3 % (1.7-9.3) 08/21/23 21:58
Eosinophils % 6.5 % (0-6) H 08/21/23 21:58
Basophils % 0.6 % (0-2) 08/21/23 21:58
Nucleated RBC % 0 % (-) 08/21/23 21:58
PT 13.7 Sec (11.4-14.6) 08/21/23 21:58
INR 1.07 08/21/23 21:58
APTT 27.1 Sec (23.4-35.0) 08/21/23 21:58
Sodium 139 mmol/L (135-145) 08/25/23 06:21
Potassium 4.1 mmol/L (3.5-5.1) 08/25/23 06:21
Chloride 102 mmol/L (98-107) 08/25/23 06:21
Carbon Dioxide 28 mmol/L (22-30) 08/25/23 06:21
BUN 18 mg/dl (9-20) 08/25/23 06:21
Creatinine 0.9 mg/dL (0.7-1.3) 08/25/23 06:21
Estimated Creat Clear 89 ml/min 08/25/23 06:21
eGFR > 60.00 08/25/23 06:21
Glucose 114 mg/dl (70-99) H 08/25/23 06:21
Hemoglobin A1c 6.9 % (4.0-5.6) H 08/22/23 06:35
Calcium 9.0 mg/dl (8.4-10.2) 08/25/23 06:21
Magnesium 1.9 mg/dl (1.6-2.3) 08/25/23 06:21
Total Bilirubin 1.1 mg/dl (0.2-1.3) 08/25/23 06:21
AST 48 U/L (17-59) 08/25/23 06:21
ALT 47 U/L (0-50) 08/25/23 06:21
Alkaline Phosphatase 81 U/L (38-126) 08/25/23 06:21
Troponin I < 0.012 ng/ml 08/21/23 22:59
Total Protein 6.6 g/dl (6.3-8.2) 08/25/23 06:21
Albumin 3.7 g/dl (3.5-5.0) 08/25/23 06:21
Triglycerides 110 mg/dl (10-149) 08/22/23 06:35
Total Cholesterol 133 mg/dl (50-199) 08/22/23 06:35
LDL Cholesterol, Calc 66 mg/dl 08/22/23 06:35
VLDL Cholesterol, Calc 22 mg/dl (0-30) 08/22/23 06:35
HDL Cholesterol 45 mg/dl 08/22/23 06:35
TSH (Reflex) 2.55 uIU/ml (0.47-4.68) 08/23/23 12:06
POC Glucose 182 mg/dl (70-99) H 08/25/23 16:24
�
Diagnostic Results: as per HPI
Assessment Patient is a 77 year old male with PMH of ( prior CVA x 3, COPD, hypertension, DM-II, CAD s/p stenting, Hyperlipidemia, sleep apnea, PE, depression ) who presents to ED for evaluation of increased Left sided weakness residual from
prior strokes and new onset L facial droop. CT scan and MRI of head without new infarcts. CTA of neck/head with carotid stenosis, CT of cervical spine with stenosis, cord compression without signal change. Patient with Parkinson's like symptoms,
signs of gait abnormality, flexed posture with ambulation, intermittent tremors of right upper extremity, intermittent urinary incontinence,, difficulty with swallowing, change in voice caliber, hoarseness.
Plan
PT/OT to increase independence with ADLs, improve balance, coordination, endurance, strength, mobility, community reintegration, decreased burden of care on others and family education.
CVA: History of prior strokes x 3 with residual left-sided weakness. CT of head, MRI of the head without new acute infarcts. Secondary prophylaxis with aspirin, statin, and blood pressure control (SBP less than 180 and diastolic less than 100 to
participate with therapy for ischemic stroke). Continue to monitor neurologic status. Continue Plavix and aspirin 81mg
Left nondominant hemiparesis: High risk for falls and sliding out of chair/bed. Safety reinforced.
- Avoid using affected arm to help lift or pull patient as this will cause trauma to the shoulder.
Cervical stenosis: No cord signal change. No surgical intervention at this time per neurosurgical
Suspected Parkinson disease: Based on patient's history and clinical presentation of shuffling gait, balance issue, difficulty with swallowing, hoarse voice, urinary incontinence, tremors, depression. Would recommend trial of Sinemet if neurology
onboard and see if symptoms improve. Recommend neurology input with OP follow up for further evaluation and treatment.
Dysphagia: speech evaluation, oral care protocol, aspiration precautions.� Diet downgraded by speech to soft and bite-size with supervision.
Dysarthria: speech evaluation
Seizures: Continue Keppra monitor seizures, seizure precautions
HTN: Metoprolol succinate 50 mg daily, amlodipine 2.5 daily continue medications, monitor closely
HLD: Atorvastatin 40 daily
Coronary artery disease : Aspirin, statin, beta-abilio
DM II: Accu-Cheks, insulin sliding scale, insulin glargine 30 units. Metformin placed on hold until [address] scan contrast. Monitor
COPD: Continue Pulmicort.� Albuterol nebu 2.5 mg INH every 4 as needed
FLAQUITA: Continue BiPAP 18/11
Psych/depression: Psychology consult.� Lexapro 10 mg at bedtime and Remeron. monitor mood, adjust medications as needed.
Skin: monitor for pressure sores/rashes/lesions.
Pain: acetaminophen or oxycodone as needed.
Bowel: Colace and Senna, PRN bisacodyl.
Bladder: Time void, PVRs, PRN straight cath.
GI Prophylaxis: Pantoprazole
DVT Prophylaxis: Mechanical and consider heparin sc
Pulmonary: Incentive spirometry
Morbid obesity: Continue to career counselor patient about diet adjustments to control obesity. Body habitus and increased force to move body and extremities causes further difficulty with functional tasks.
Safety: Continue to reinforce assistance with all transfers.
Code Status:� Full code
Dispo (date/plan/equipment needs): Home with family care.� Social history reviewed.
Functional and Medical Goals: Modified Independent with ADL�s, ambulation, transfers
Discharge recommendation: SNF
Attending Statement: I saw and examined the patient today.� Reviewed care plan with patient, therapy, nursing, and physician chemical laboratory assistant.� I agree with the above subjective and physical exam, and plan as documented by TAMMY Adorno with adjustments
made as necessary.
A total of 80 minutes were spent with the patient preparing for the evaluation, obtaining history, performing examination and evaluation, counseling, data review, case management, care coordination, border patrol agent, and EMR documentation.Discussed
concerns with patient and as well as hospitalist.
Summary of recommendations: Patient with prior history of strokes associated with left residual weakness and new left facial drooping. Recent CT scan and MRI of head without any new acute infarcts. Patient with given history of shuffling gait,
instability, difficulty swallowing, change in his voice, balance issues, highly suspicious for Parkinson disease. Cervical stenosis on MRI without cord signal changes. Not a surgical candidate at the moment per neurosurgery,. Would benefit from
low-dose Sinemet with possibility for titration if with positive symptomatic improvement. Would recommend neurology input and follow up on progress. Would benefit from continued PT/OT/speech at a fdc facility.
Suspected Parkinson disease: Based on patient's history and clinical presentation of shuffling gait, balance issue, difficulty with swallowing, hoarse voice, urinary incontinence, tremors, depression. Would recommend trial of Sinemet if neurology
onboard and see if symptoms improve. OP follow up with neurology for further work up and treatment
Dysphagia: speech evaluation, oral care protocol, aspiration precautions.� Diet downgraded by speech therapy to soft in bite-size with supervision.
CVA: History of prior strokes x 3 with residual left-sided weakness. CT of head, MRI of the head without new acute infarcts. Secondary prophylaxis with aspirin, statin, and blood pressure control (SBP less than 180 and diastolic less than 100 to
participate with therapy for ischemic stroke). Continue to monitor neurologic status. Continue Plavix and aspirin 81mg
Left nondominant hemiparesis: High risk for falls and sliding out of chair/bed. Safety reinforced.
- Avoid using affected arm to help lift or pull patient as this will cause trauma to the shoulder.
Cervical stenosis: No cord signal change. No surgical intervention at this time per neurosurgical
Seizures: Continue Keppra monitor seizures, seizure precautions
HTN: Metoprolol succinate 50 mg daily, amlodipine 2.5 daily continue medications, monitor closely.
-Sinemet trial, followup with neurology. Therapy eval with PT/OT/Speech. Has swallowing concerns with delayed coughing after eating on my eval. If not a response to Sinemet, consider EMG/NCS. Getting workup for NPH as well. Is planned for SNF.
If new diagnosis of Parkinson's disease might be better off in an acute rehab program with the various concerns that he has with PT/OT/Speech and medication adjustment. Check orthostatics daily, discussed with Dr. Davidson.
Thank you for allowing me to care for your patient. Please contact me with any questions or concerns.
[2023-08-25 15:38] VITALS: BP 164/84; PULSE 76; O2SAT 95
[2023-08-25 15:51] VITALS: BP 164/84
[2023-08-25 16:25] LABS: Glucose - Point of Care 182 mg/dl (70-99)
[2023-08-25] MEDS: LIPITOR 40 MG PO (17:05)
[2023-08-25] MEDS: NOVOLOG FLEXPEN-MODERATE RESISTANCE 1 UNITS SC (17:06)
[2023-08-25] MEDS: LEXAPRO 10 MG PO (21:23)
[2023-08-25] MEDS: REMERON 15 MG PO (21:23)
[2023-08-25 21:30] LABS: Glucose - Point of Care 237 mg/dl (70-99)
[2023-08-25 23:00] VITALS: BP 169/71
[2023-08-25 23:05] VITALS: PULSE 2
[2023-08-26] VITALS (7 sets, daily range): BP systolic 134–159; BP diastolic 67–79; PULSE 2–80
[2023-08-26 07:29] LABS: Glucose - Point of Care 118 mg/dl (70-99)
[2023-08-26] MEDS: NOVOLOG FLEXPEN-MODERATE RESISTANCE SC (07:36)
[2023-08-26] MEDS: PULMICORT INH (08:10)
[2023-08-26] MEDS: LANTUS 0.299999999999999989 UNITS SC ×2 (08:55→20:19)
[2023-08-26] MEDS: PLAVIX 75 MG PO (08:55)
[2023-08-26] MEDS: NORVASC 2.5 MG PO (08:56)
[2023-08-26] MEDS: SINEMET 25-100 1 TABLET PO ×3 (08:56→20:20)
[2023-08-26] MEDS: FOLVITE 0.800000000000000044 MG PO (08:56)
[2023-08-26] MEDS: TOPROL XL 50 MG PO (08:56)
[2023-08-26] MEDS: ASPIR LOW (ENTERIC COATED) 81 MG PO (08:56)
[2023-08-26] MEDS: DESENEX/MITRAZOL/ZEASORB 1 APPLIC TOPICAL ×2 (09:39→20:26)
[2023-08-26 12:21] LABS: Glucose - Point of Care 201 mg/dl (70-99)
[2023-08-26] MEDS: NOVOLOG FLEXPEN-MODERATE RESISTANCE 3 UNITS SC (13:33)
--- NOTE | 2023-08-26 14:10 | PTOTSP ---
SPEECH THERAPY SPEECH/LANGUAGE/COGNITIVE COMMUNICATION EVALUATION AND SWALLOW FOLLOW UP:
Patient exhibits moderate-severe voice impairments, mild speech impairments, mild receptive/expressive language impairments, and mild-moderate cognitive communication impairments characterized by: Significantly breathy vocal quality along with
hoarse/weak voice; Reduced volume; Reduced breath support for speech; Mild dysarthria; Reduced STM; Reduced attention; Delayed processing speed; Verbal repetition required; Reduced problem solving skills and safety awareness; Slow formulation and
response time. Recommend Speech therapy services to follow. Patient would benefit from continued speech therapy services upon discharge.
Patient continues to exhibit clinical signs of oropharyngeal dysphagia, likely chronic in patient with multiple predisposing dysphagia risk factors including history of CVA x3 and with newly suspected Parkinson's Disease. Patient remains at high
risk for aspiration and related complications. Exhibiting persistent throat clearing with thin and Mildly-thick liquids. Recommend Videofluoroscopic Swallowing Study to further assess swallow physiology. Given patient's WBC WNL and stable
respiratory status (breathing comfortably on Room Air), as well as chronicity of dysphagia, patient remains safe to continue oral diet prior to VSE. No new chest imaging available. Recommend continue IDDSI Level 6 Soft and Bite size diet and
Mildly-thick liquids. Aspiration precautions: HOB 90. Remain up 30 minutes. 100% supervision. Assist with meals; Eat only when alert. Slow rate of intake. Small sips/bites. Ensure patient swallows prior to next bite. Medications whole in puree.
Speech therapy to follow and provide additional recommendations following VSE, as well as provide continued education regarding aspiration risks/precautions.
RECOMMEND:
1) Videofluoroscopic Swallowing Study
2) IDDSI Level 6 Soft and Bite size diet and Mildly-thick liquids
3) Aspiration precautions: HOB 90. Remain up 30 minutes. 100% supervision. Assist with meals; Eat only when alert. Slow rate of intake. Small sips/bites. Ensure patient swallows prior to next bite.
4) Medications whole in puree
5) Speech therapy to follow for swallow and speech therapy
--- NOTE | 2023-08-26 14:12 | W.PN.HOSP.TC ---
Today's Communication/Plan
-
VSE in AM at speech request
Assessment / Plan
Assessment / Plan
pt is a 77 year old male
Left Facial Droop with Global Weakness--likely TIA--no stroke on head CT or brain MRI--does have other possible explanations....NPH though to be most likely, outpt workup by neuro, symptomatic carotid stenosis not likely by vascular, cord
compression also not likely as no cord signal change on MRI C spine---apprec neuro, vascular, neurosurgery--cont asa/plavix--restarted PT/OT now that no concerning issue with C-spine
-per Dr. Nelson's assessment this AM, concern for Parkinson's mention. Asking neurology to reevaluate and see if recommend initiation of medication here prior to SNF as per speech, VSE ordered for AM
Coronary Artery Disease s/p Stent with hx Stroke with Left Hemiparesis--Continue aspirin and Plavix--pt was getting outpt PT/OT
Essential Hypertension--Continue amlodipine and metoprolol
Hyperlipidemia--Transition pravastatin to atorvastatin
Diabetes Mellitus, Type II--Continue Lantus--Hold metformin, likely got contrast for CTA, restart metformin at 48 hour korey--Monitor sugars and continue coverage insulin
Asthma/COPD, no acute exacerbation--Continue budesonide and albuterol prn
Obstructive Sleep Apnea--Continue BiPAP 18/11
Depression--Continue Lexapro and Remeron
DVT proph: SCDs
Code Status: Full Code
Anticipated Discharge: Within 24 hours
Subjective/Interval History
-
Date of Service: August 26, 2023
pt sitting the chair eating
Objective Data
-
Vital Signs:
max temp for 24 hours
08/26/23
07:00
Temp 98.0 F
Vital Signs
Temp Pulse Resp BP Pulse Ox
98.0 F 63 15 134/79 95
08/26/23 07:00 08/26/23 07:00 08/26/23 07:00 08/26/23 07:00 08/26/23 08:00
I&O
08/25/23 08/26/23 08/27/23
06:59 06:59 06:59
Intake Total 480 / 480 560 / 560
Output Total 180 / 180
Balance 300 / 300 560 / 560
Review of Systems
-
All other systems: Reviewed and negative
Physical Exam
-
General: Well Developed, Well Nourished and No Apparent Distress
HEENT: Normocephalic and Atraumatic
Respiratory: Clear to Auscultation; Negative Wheezes or Rhonchi
Cardiac: Regular Rhythm and S1/S2; Negative Murmur
GI: Soft, Nontender, Nondistended and Normal Bowel Sounds
Musculoskeletal: No Clubbing, No Cyanosis and No Edema
Skin: Warm
Neuro: Awake
--- NOTE | 2023-08-26 14:14 | CM ---
Patient seen at bedside with and physician present. Patient for VSE in am then transfer to SNF when medically appropriate. CM updated Admissions at [facility]. CM awaiting confirmation of bed availability for tomorrow. CM will continue to follow for
discharge planning needs.
Plan; SNF; pending bed availability.
[2023-08-26 16:05] LABS: Glucose - Point of Care 173 mg/dl (70-99)
[2023-08-26] MEDS: LIPITOR 40 MG PO (17:11)
[2023-08-26 17:36] LABS: Glucose - Point of Care 173 mg/dl (70-99)
[2023-08-26] MEDS: NOVOLOG FLEXPEN-MODERATE RESISTANCE 1 UNITS SC (17:45)
[2023-08-26] MEDS: PULMICORT 0.5 MG INH (18:57)
[2023-08-26 20:19] LABS: Glucose - Point of Care 223 mg/dl (70-99)
[2023-08-26] MEDS: LEXAPRO 10 MG PO (20:19)
[2023-08-26] MEDS: REMERON 15 MG PO (20:20)
[2023-08-27 00:22] VITALS: PULSE 2
[2023-08-27 03:36] VITALS: PULSE 2
[2023-08-27 07:00] VITALS: BP 129/73
[2023-08-27] MEDS: PULMICORT INH ×2 (08:19→09:12)
[2023-08-27 08:22] LABS: Glucose - Point of Care 159 mg/dl (70-99)
[2023-08-27] MEDS: NOVOLOG FLEXPEN-MODERATE RESISTANCE 1 UNITS SC ×2 (10:37→11:55)
[2023-08-27] MEDS: TOPROL XL 50 MG PO (10:38)
[2023-08-27] MEDS: SINEMET 25-100 1 TABLET PO ×2 (10:38→15:36)
[2023-08-27] MEDS: FOLVITE 0.800000000000000044 MG PO (10:39)
[2023-08-27] MEDS: NORVASC 2.5 MG PO (10:39)
[2023-08-27] MEDS: PLAVIX 75 MG PO (10:39)
[2023-08-27] MEDS: DESENEX/MITRAZOL/ZEASORB 1 APPLIC TOPICAL (10:39)
[2023-08-27] MEDS: LANTUS 0.299999999999999989 UNITS SC (10:46)
[2023-08-27 11:55] LABS: Glucose - Point of Care 160 mg/dl (70-99)
[2023-08-27] MEDS: ASPIR LOW (ENTERIC COATED) 81 MG PO (11:55)
--- NOTE | 2023-08-27 12:35 | PTOTSP ---
Video Swallow Examination
Summary: Patient presents with mild-moderate oral and moderate pharyngeal stage of swallowing. Etiology of dysphagia is likely history of CVAs and suspected Parkinson's. There was trace silent aspiration of thin liquids via tsp (reduced bolus
control/delay) and thin liquids via straw with a chin tuck (poor airway closure). There was aspiration with a weak ineffective cough with a large sip of mildly thick liquids via straw (poor airway closure). No penetration/aspiration occurred with
mildly thick liquids via cup and onset was to the valleculae with a chin tuck.
Recommend:
1. IDDSI Level 6 Soft/bite sized, IDDSI Level 2 Mildly Thick Liquids via CUP (no straws)
2. Strategies: supervision, assistance/cues to use strategies, upright to 90 degrees, tuck chin with liquids, slow rate, single sips, avoid straws
3. Medications in puree
4. Oral care 3x daily
5. Aspiration Risk Hydration Protocol - single sips of thin liquid water via cup, only after oral care, only without other foods/medicine, only with supervision
6. Dysphagia therapy at the acute care level and after D/C at this time for patient/family education/instruction, oral/pharyngeal rehabilitation, and to improve cough strength as an airway protection mechanism.
--- NOTE | 2023-08-27 14:20 | W.PN.HOSP.TC ---
Today's Communication/Plan
-
d/c
Assessment / Plan
Assessment / Plan
pt is a 77 year old male
Left Facial Droop with Global Weakness--likely TIA--no stroke on head CT or brain MRI--does have other possible explanations....NPH though to be most likely, outpt workup by neuro, symptomatic carotid stenosis not likely by vascular, cord
compression also not likely as no cord signal change on MRI C spine---apprec neuro, vascular, neurosurgery--cont asa/plavix--restarted PT/OT now that no concerning issue with C-spine
-per Dr. Nelson's assessment this AM, concern for Parkinson's mention. Asking neurology to reevaluate and see if recommend initiation of medication here prior to SNF as per speech, VSE reviewed, same diet
Coronary Artery Disease s/p Stent with hx Stroke with Left Hemiparesis--Continue aspirin and Plavix--pt was getting outpt PT/OT
Essential Hypertension--Continue amlodipine and metoprolol
Hyperlipidemia--Transition pravastatin to atorvastatin
Diabetes Mellitus, Type II--Continue Lantus--Hold metformin, likely got contrast for CTA, restart metformin at 48 hour korey--Monitor sugars and continue coverage insulin
Asthma/COPD, no acute exacerbation--Continue budesonide and albuterol prn
Obstructive Sleep Apnea--Continue BiPAP 18/11
Depression--Continue Lexapro and Remeron
DVT proph: SCDs
Code Status: Full Code
Anticipated Discharge: Today
Subjective/Interval History
-
Date of Service: August 27, 2023
pt ok for d/c
Objective Data
-
Vital Signs:
max temp for 24 hours
08/26/23
15:00
Temp 98.4 F
Vital Signs
Temp Pulse Resp BP Pulse Ox
97.9 F 92 18 129/73 94
08/27/23 07:00 08/27/23 10:38 08/27/23 07:00 08/27/23 10:38 08/27/23 08:43
I&O
08/26/23 08/27/23 08/28/23
06:59 06:59 06:59
Intake Total 560 / 560 1680 / 1680
Output Total 450 / 450
Balance 560 / 560 1230 / 1230
Review of Systems
-
All other systems: Reviewed and negative
Physical Exam
-
General: Well Developed, Well Nourished and No Apparent Distress
HEENT: Normocephalic and Atraumatic
Respiratory: Clear to Auscultation; Negative Wheezes or Rhonchi
Cardiac: Regular Rhythm and S1/S2; Negative Murmur
GI: Soft, Nontender, Nondistended and Normal Bowel Sounds
Musculoskeletal: No Clubbing, No Cyanosis and No Edema
Neuro: Awake
--- NOTE | 2023-08-27 14:26 | CM ---
Addendum entered by Melina Ibrahim 08/27/23 14:35:
patient to go via wheelchair van per transportation superintendent; to confirm cost/payment with transportation.
Original Note:
Patient accepted for transfer to [facility] today. Patient completed updated IMM; signed form placed on chart. Please call [phone]/fax [phone]. CM will continue to follow for discharge planning needs.
Transportation forms placed on chart.
Plan; transfer to [facility] today.
[2023-08-27 15:00] VITALS: BP 132/66
--- NOTE | 2023-08-27 19:40 | W.DCSUMMARY ---
Discharge Summary
Discharge Data
Date of Admission: 08/21/23
Date of Discharge: 08/27/23
-
Pending Results: No
Hospital Course
Primary care physician : Bekah Mittal
Principal Discharge diagnosis : Left facial droop with global weakness likely transient ischemic attack
Chronic Discharge diagnosis : Coronary artery disease status post stent placement with history of stroke and left hemiparesis in past, essential hypertension, hyperlipidemia, type 2 diabetes mellitus, asthma with chronic obstructive pulmonary
disease without exacerbation, obstructive sleep apnea, depression
Hospital Course : Patient was a 77-year-old male with a history of multiple strokes in the past who presented with left leg weakness. Patient had actually ongoing left-sided weakness due to a prior stroke but patient was having even more difficulty
getting in and out of the car starting the day prior to admission. He stated he started attending physical therapy due to trouble with ambulation and after his second session he had a hard time getting into the car and using his left leg. He even
required assistance from the therapist. Patient also appeared agitated on the day of admission which his states is unusual. She did not notice a left-sided facial droop until the emergency medical services pointed out. Patient denied
dizziness, palpitations, chest pain, or other symptoms. He is chronically on Plavix and aspirin due to prior stroke history. Patient was admitted.
Problem #1: Left facial droop with global weakness likely transient ischemic attack. Patient was admitted and seen in consultation by neurology. Initial CAT scan of his head done in the emergency department revealed no acute evidence for infarct
or hemorrhage but did show moderate dilatation of the ventricular system raising concerns for normal pressure hydrocephalus and chronic lacunar infarcts noted prior. Patient then underwent head and neck CT angiogram which showed 50 to 70% diameter
stenosis at the origin of the right internal carotid artery, severe stenosis at the origin of the right vertebral artery, severe discogenic degenerative disease at C5-6 and C6-7 with disc osteophyte complexes causing severe spinal cord compression
and severe central canal stenosis. Based on this information, vascular surgery was consulted and neurosurgery was consulted to evaluate both the carotid stenosis and cord compression. Based on this information, patient underwent cervical spine MRI
which did not show any myelopathic signal changes in the cord consistent with cord compression. Physical therapy and Occupational Therapy were then consulted. Patient also underwent vascular ultrasound which showed a less than 50% stenosis on
either side which did not require any intervention. MRI of the brain was done which showed diffuse atrophy and again findings concerning for normal pressure hydrocephalus but no acute evidence of stroke.
Neurology recommends outpatient workup of the potential for normal pressure hydrocephalus. Physical therapy and Occupational Therapy were consulted and the patient was recommended to go to rehab. Physical medicine and rehabilitation was also
consulted who felt that the patient should go [facility] but raised the question of Parkinson's. Sinemet was started here in the hospital. Follow-up with neurology can happen from that standpoint as well.
In the end, the acute issue was likely a transient ischemic attack. But, workup still needs to be investigated regarding normal pressure hydrocephalus and Parkinson's questions raised by imaging and physical medicine and rehab. Speech was also
consulted and the patient did undergo video swallow and was able to have a diet. Ongoing therapy at the rehab may be able to have him improve his diet further.
Problem #2: All other medical issues. These include Coronary artery disease status post stent placement with history of stroke and left hemiparesis in past, essential hypertension, hyperlipidemia, type 2 diabetes mellitus, asthma with chronic
obstructive pulmonary disease without exacerbation, obstructive sleep apnea, depression. These medical issues were stable during his hospitalization. Medications were continued as able.
Patient is stable for discharge to go to the rehab at this time. If there are any questions regarding this dictation or his hospital stay, please not hesitate to call. Our office number is [phone].
Time for discharge 40 minutes.
Important imaging findings :
INITIAL HEAD CT IMPRESSION:
1. No CT evidence for acute intracranial hemorrhage or transcortical infarct.
2. Moderate periventricular white matter leukoaraiosis in the frontal and parietal lobes.
3. Moderate dilatation of the ventricular system which appears unchanged (either ex vacuo dilatation from moderate cerebral volume loss or (2) normal pressure communicating hydrocephalus).
4. Probable chronic lacunar infarcts in both thalami.
HEAD and NECK CTA IMPRESSION:
NECK CTA:
1. 50-70% diameter stenosis at the origin of the right internal carotid artery.
2. No stenosis in the proximal left internal carotid artery.
3. Severe stenosis (greater than 70% diameter) at the origin of the right vertebral artery.
4. No CTA evidence for left vertebral artery stenosis.
5. Severe discogenic degenerative disease at C5/C6 and C6/C7 with disc-osteophyte complexes causing SEVERE SPINAL CORD COMPRESSION and SEVERE CENTRAL CANAL STENOSIS.
6. Severe multilevel bilateral neural foraminal narrowing in the cervical spine.
7. New 1.7 cm peribronchiolar nodular opacity in the right lung apex. Diagnostic possibilities are (1) right upper lobe lung cancer or (2) a focal region of infectious or inflammatory pneumonitis.
HEAD CTA:
1. Severe calcific atherosclerotic plaque in both intracranial internal carotid arteries causing 50-70% diameter stenosis in the clinoid segment of the right intracranial internal carotid artery and 25-50% diameter stenosis in the left
intracranial internal carotid artery.
2. Severe calcific atherosclerotic plaque in the right intracranial vertebral artery causing 50-70% diameter stenosis.
3. Small lacunar infarcts in the thalami (possibly acute on the right).
4. Moderate diffuse dilatation of the ventricular system (either ex vacuo dilatation or normal pressure communicating hydrocephalus).
CERVICAL SPINE MRI IMPRESSION: Changes of degenerative disc disease with multilevel central canal stenosis and foraminal narrowing.
Despite the degree of cord compression, no convincing evidence for myelopathic signal at this time.
VASCULAR ULTRASOUND IMPRESSION: Minimal calcified carotid bulb plaque on each side, measurements suggestive of less than 50% stenosis on each side as per modified Society of Radiologists in Ultrasound consensus criteria (IAC carotid criteria white
paper, 2020).
BRAIN MRI IMPRESSION: No evidence of acute intracranial abnormality.
Moderate diffuse atrophy. Moderate to severe ventricular dilation, and the callosal angle is slightly increased. Findings suggest the possibility of normal pressure hydrocephalus, and please correlate clinically.
Moderate T2 and FLAIR white matter hyperintensities, commonly seen with aging and usually attributed to small vessel ischemic disease.
Small foci of increased T2-weighted signal within the thalami bilaterally, suggesting old lacunar infarcts.
Discharge Plan
-
Patient Disposition: Alf/SNF
Discharge Diagnosis/Procedures: Left facial droop with global weakness likely due to TIA, coronary artery disease status post stent placement in past, history of stroke with left hemiparesis, essential hypertension, hyperlipidemia, type II diabetes
mellitus, asthma/chronic obstructive pulmonary disease, obstructive sleep apnea, depression
Condition: Fair
Diet: Diabetic, Carb Controlled and Other diet
Additional Diets: Recommend:
1. IDDSI Level 6 Soft/bite sized, IDDSI Level 2 Mildly Thick Liquids via CUP (no straws)
2. Strategies: supervision, assistance/cues to use strategies, upright to 90 degrees, tuck chin with liquids, slow rate, single sips, avoid straws
3. Medications in puree
4. Oral care 3x daily
5. Aspiration Risk Hydration Protocol - single sips of thin liquid water via cup, only after oral care, only without other foods/medicine, only with supervision
6. Dysphagia therapy at the acute care level and after D/C at this time for patient/family education/instruction, oral/pharyngeal rehabilitation, and to improve cough strength as an airway protection mechanism.
Activity: As tolerated
Driving Restrictions: No driving
Bathing Restrictions: None
Referrals:
Bekah Mittal DO [Family Provider] - in less than 1 week
Diana Diaz DO [Active] - in two to four weeks (Possible NPH, possible Parkinson's)
Prescriptions:
New
acetaminophen 325 mg Tablet
650 mg PO Q4HPRN PRN (Reason: DOSS, mild pain, or temp >100.4F) Qty: 0 0RF
miconazole nitrate [Miconazorb AF] 2 % Powder
1 applic topical BID Qty: 0 0RF
carbidopa-levodopa 25-100 mg Tablet
1 tab PO TID Qty: 0 0RF
Continued
clopidogrel 75 MG tablet
75 mg PO DAILY Qty: 30 0RF
albuterol sulfate 2.5 MG/3 ML solution for nebulization
2.5 mg inhalation R Q4HPRN PRN (Reason: SOB, chest congestion)
metoprolol succinate 50 MG tablet extended release 24 hr
50 mg PO DAILY
pravastatin 20 MG tablet
20 mg PO HS
escitalopram oxalate 10 MG tablet
10 mg PO HS
aspirin 81 MG tablet,delayed release (DR/EC)
81 mg PO DAILY
metformin 500 MG tablet
500 mg PO BID
amlodipine 2.5 mg tablet
2.5 mg PO DAILY
Arnuity Ellipta 200 mcg/actuation blister with device
1 inh INHALATION R BID
cyanocobalamin (vitamin B-12) [Vitamin B-12] 1,000 mcg Tablet
1,000 mcg PO DAILY
mirtazapine 15 mg tablet
15 mg PO HS
folic acid 0.8 mg Capsule
0.8 mg PO DAILY
insulin glargine [Lantus Solostar U-100 Insulin] 300 UNITS/3 ML insulin pen
30 units SC BID
Discharge Orders:
Discharge Patient (As Directed); Ordered 08/27/23
Ordered By: Afshan Brown
Discharge Date and Time
Discharge Date/Time: 08/27/23 16:14
Print Language: [place]
== END 2023-08-27 16:14 | DRG 57 ==
LOC: 4 WEST ACU 10:58
PROVIDERS: Physician Assistant Medical; ADMITTING PHYSICIAN Hospitalist; ATTENDING PHYSICIAN Internal Medicine; CONSULT PHYSICIAN Physical Medicine & Rehabilitation; CONSULT PHYSICIAN Psychiatry & Neurology Neurology; EMERGENCY PHYSICIAN Student in an Organized Health Care Education/Training Program; FAMILY PHYSICIAN Family Medicine; OTHER PHYSICIAN Neurological Surgery
PROC: 5A09357 Assistance with Respiratory Ventilation, Less than 24 Consecutive Hours, Continuous Positive Airway Pressure (ICD-10-PCS; 2023-08-23)
DX: G91.2 (Idiopathic) normal pressure hydrocephalus (principal); G45.9 Transient cerebral ischemic attack, unspecified; I69.354 Hemiplegia and hemiparesis following cerebral infarction affecting left non-dominant side; Z68.41 Body mass index [BMI] 40.0-44.9, adult; G91.0 Communicating hydrocephalus; G20.A1 Parkinson's disease without dyskinesia, without mention of fluctuations; R29.810 Facial weakness; E11.40 Type 2 diabetes mellitus with diabetic neuropathy, unspecified; E78.00 Pure hypercholesterolemia, unspecified; I10 Essential (primary) hypertension; I25.10 Atherosclerotic heart disease of native coronary artery without angina pectoris; M25.78 Osteophyte, vertebrae; E66.01 Morbid (severe) obesity due to excess calories; K21.9 Gastro-esophageal reflux disease without esophagitis; K22.70 Barrett's esophagus without dysplasia; J44.89 Other specified chronic obstructive pulmonary disease; M48.02 Spinal stenosis, cervical region; G47.33 Obstructive sleep apnea (adult) (pediatric); F32.A Depression, unspecified; R32 Unspecified urinary incontinence; R53.1 Weakness; Z96.653 Presence of artificial knee joint, bilateral; Z86.711 Personal history of pulmonary embolism; Z95.5 Presence of coronary angioplasty implant and graft; Z79.02 Long term (current) use of antithrombotics/antiplatelets; Z79.4 Long term (current) use of insulin; Z79.82 Long term (current) use of aspirin; Z79.84 Long term (current) use of oral hypoglycemic drugs; Z91.041 Radiographic dye allergy status; Z91.040 Latex allergy status; Z88.5 Allergy status to narcotic agent; Z88.8 Allergy status to other drugs, medicaments and biological substances; Z91.048 Other nonmedicinal substance allergy status; Z91.81 History of falling
CPT/HCPCS: 70450; 70496; 70498; 70551; 72141; 74230; 80048; 80053; 80061; 82962; 83036; 83735; 84443; 84484; 85025; 85027; 85610; 85730; 92523; 92526; 92610; 92611; 93005; 93880; 94640; 94660; 97163; 97167; 97530; 99285; Q9967

== ENCOUNTER 2024-02-29 08:23 | Inpatient (IN) | payer MEDICARE, OTHER, SELFPAY ==
[2024-02-26 18:55] VITALS: BP 130/63
[2024-02-26 18:57] VITALS: BMI 45.1
[2024-02-26 19:00] VITALS: BP 136/52
--- NOTE | 2024-02-26 19:05 | EDRN ---
Pt little more talkative at this time. Pt says he woke this morning, walked down the stairs and had sciatic pain. No recent falls, numbness/tingling, weakness. Pt says he is usually incontinent.
--- NOTE | 2024-02-26 19:08 | EDRN ---
to bedside and says pt has had sciatic pain on L side for past couple days that has been getting worse. She confirms pt has had no recent falls/trauma to area. She says pain has been over his 'butt crack' and is moving across upper L buttock.
She adds pt has not been himself for few weeks, generally weak and she notes pt has had a rash which she was told is dermatitis.
--- NOTE | 2024-02-26 19:17 | ED.GENMED ---
History of Present Illness
General
Chief Complaint: Back Pain
Time Seen by Provider: 02/26/24 18:51
History of Present Illness
History of Present Illness:
78-year-old male history of asthma, previous PEs not on anticoagulation anymore, CAD, hypertension, hyperlipidemia, diabetes, ambulatory dysfunction presenting with left-sided back pain. at bedside states has been worsening with the past few
days. Patient states that he got up out of bed and was a lot worse today prompting ED evaluation. and patient deny any recent fall or trauma. Patient denies any recent heavy lifting. Patient denies numbness, weakness or tingling. Patient
states that he is incontinent of urine at baseline. states that patient has been more generally fatigued over the past 1 to 2 weeks. Patient describes back pain as 'sciatica' over his left iliac crest radiating down into his buttock. Patient
states that this happened many years ago but then resolved.
Past History
Past History
ED Past Medical History: Asthma, CAD, COPD, CVA (X3), GERD (Rivera's esophagus), HTN, Hypercholesterolemia, IDDM and Other (Pulmonary emboli, Neuropathy)
ED Past Surgical History: Cardiac (Stent), Cholecystectomy, Orthopedic (Gama knee replacements) and Tonsilectomy
Social History
Tobacco: Non-smoker
Alcohol: None
Drug: None
Personal:
Living: with family
Employment: Retired
Family History
Family History: CAD and Asthma (COPD)
Phy Exam
Physical Exam
Physical Exam:
General: Alert, no acute distress
Head: NCAT
Eyes: clear conjunctiva
Neck: supple
Cardiac: regular rate and rhythm, no murmur
Lungs: clear to auscultation bilaterally. No wheezes, rales, or rhonchi. Speaking full unlabored sentences. No respiratory distress.
Abdomen: soft, nondistended nontender. No rebound or guarding.
MSK: no lower extremity edema bilaterally. No deformity. Left lateral hip tenderness to palpation. Left CVA tenderness palpation. No midline thoracic/lumbar tenderness to palpation
Skin: warm, dry
Neuro: no focal deficits. 5 out of 5 strength bilateral lower extremities including hip/knee/ankle flexion extension. Sensation intact.
Course
Orders/Labs/Results
Orders:
Orders
02/26/24 19:12
Abdomen/Pelvis wo Contrast CT [CT Abd/pelvis Wo Iv Cont] Urgent
Comment:
Reason For Exam: left cva tenderness, left hip pain, low back pain
UA Reflex to Culture [Urinalysis Reflex To Culture] Urgent
02/26/24 19:14
Acetaminophen [Tylenol] 1,000 mg PO NOW STA
Cyclobenzaprine HCl [Flexeril] 10 mg PO NOW STA
02/26/24 19:22
Basic Metabolic Panel Urgent
CBC/With Diff [Complete Blood Count/With Diff] Urgent
02/26/24 19:27
Lidocaine [Lidocaine 4% Patch] 1 patch TOPICAL ONCE ONE
Apply Lidocaine patch(s) to:: left low back
02/26/24 19:44
Hep Liver [Khzyb-Wvpe-Leibogc] Urgent
Potassium Urgent
02/27/24 19:15
Lidocaine [Lidocaine 4% Patch] 70.7 patch TOPICAL ONCE ONE
Apply Lidocaine patch(s) to:: left low back
Abnormal Lab Results
02/26/24
19:22
MCH 31.5 H pg
(27.0-31.0)
Absolute Monos (auto) 0.8 H 10^3/uL
(0.1-0.6)
Lymphocytes % 19.0 L %
(20.5-51.1)
Eosinophils % 6.6 H %
(0-6)
BUN 29 H mg/dl
(9-20)
02/26/24 19:22
02/26/24 19:44
Vital Signs
Initial and Last Documented VS:
Initial Vital Signs
Temp Pulse Resp BP Pulse Ox
97.6 F 75 20 130/63 96
02/26/24 18:55 02/26/24 18:55 02/26/24 18:55 02/26/24 18:55 02/26/24 18:55
Last Documented Vital Signs
Temp Pulse Resp BP Pulse Ox
97.6 F 57 18 151/65 95
02/26/24 18:55 02/26/24 23:00 02/26/24 23:00 02/26/24 23:00 02/26/24 19:00
MDM/Problems Addressed
Differential Diagnosis Includes:
Compression fracture, kidney stone, SIDDHARTH, anemia, electrolyte abnormality, muscular strain, greater trochanteric bursitis
MDM/Problems Addressed:
78-year-old male presenting with left-sided back pain. No red flag signs or symptoms that require emergent MRI. Tenderness palpation to left lateral hip and left CVA. also states that patient has been generally fatigued for the past 1 to 2
weeks. Will check labs, CT abdomen pelvis
Labs reviewed, unremarkable. CT abdomen/pelvis shows No evidence of renal or ureteral calculus. No hydronephrosis. Left renal cysts with unchanged mildly hyperdense exophytic lesion along the inferior pole the left kidney, likely a hemorrhagic cyst.
The urinary bladder is nondistended with mild circumferential wall thickening which can be seen with cystitis. Recommend correlation with urinalysis. Mild colonic stool burden. As read by radiology
Discussed results with patient and at bedside. Pt states pain has improved when he is lying still, but still hurts too much with movement. Discussed concern prescribing opioids that can cause increased fall risk, delirium. Unable to ambulate in
ER. Pt lives at home with , does not feel comfortable going home. Discussed with hospitalist for admission.
*Critical Care Note
Total Time (30-74mins, 75-104mins- exclusive of procedures): Not Applicable
ED Attending Note
-
Portions of this chart may have been created with voice recognition software.� Occasional wrong word or��sound alike� substitutions may have occurred due to the inherent limitations of voice recognition software.
Discharge Plan
Departure
Patient Disposition: Admit
Date of Disposition: 02/26/24
Time of Disposition: 23:17
Presentation/result/management discussed w/ accepting MD/DO: Hospitalist
Discharge Problem:
Low back pain, Ambulatory dysfunction
Prescriptions:
No Action
clopidogrel 75 MG tablet
75 mg PO DAILY Qty: 30 0RF
metoprolol succinate 50 MG tablet extended release 24 hr
50 mg PO BID
pravastatin 20 MG tablet
20 mg PO HS
escitalopram oxalate 10 MG tablet
10 mg PO HS
aspirin 81 MG tablet,delayed release (DR/EC)
81 mg PO DAILY
metformin 500 MG tablet
500 mg PO DAILY
amlodipine 2.5 mg tablet
2.5 mg PO DAILY
Arnuity Ellipta 200 mcg/actuation blister with device
1 inh INHALATION R BID
cyanocobalamin (vitamin B-12) [Vitamin B-12] 1,000 mcg Tablet
1,000 mcg PO DAILY
mirtazapine 15 mg tablet
15 mg PO HS
folic acid 0.8 mg Capsule
0.8 mg PO DAILY
insulin glargine [Lantus Solostar U-100 Insulin] 300 UNITS/3 ML insulin pen
30 units SC BID
carbidopa-levodopa 25-100 mg tablet
1 tab PO BID
Referrals:
UNKNOWN,NO INTERVIEW [Family Provider] -
Interventions
Interventions:
*Risk Screen - Suicide Last Done: 02/26/24 18:55
*General Assessment Last Done: 02/26/24 18:55
*Neglect/Abuse Screening Last Done: 02/26/24 18:55
ED- Fall Risk Assessment Last Done: 02/26/24 19:38
*ED COVID-19 Vaccine History Last Done: 02/26/24 18:55
ED-Musculoskeletal Assessment Last Done: 02/26/24 19:38
Discharge Date and Time
Print Language: MALAYSIAN
[2024-02-26] MEDS: FLEXERIL 10 MG PO (19:26)
[2024-02-26] MEDS: TYLENOL 1000 MG PO (19:26)
[2024-02-26 19:30] LABS: % Basophils 0.6 % (0-2); % Eosinophils 6.6 % (0-6); % Immature Granulocytes 0.3 % (0-0.5); % Monocytes 7.8 % (1.7-9.3); % Neutrophils 65.7 % (42.2-75.2); Absolute Basophils 0.1 10^3/uL (0-0.2); Absolute Eosinophils 0.7 10^3/uL (0-0.7); Absolute Lymphocytes 1.9 10^3/uL (1.2-3.4); Absolute Monocytes 0.8 10^3/uL (0.1-0.6); Absolute Neutrophils 6.5 10^3/uL (1.4-6.5); Hematocrit 46.3 % (39.0-52.0); Hemoglobin 15.6 g/dL (13.0-18.0); Mean Corp Hgb Conc. 33.7 g/dL (33.0-37.0); Mean Corpuscular Hgb 31.5 pg (27.0-31.0); Mean Corpuscular Volume 93.3 fL (80.0-94.0); Mean Platelet Volume 10.2 fL (7.4-10.4); Nucleated Red Blood Cells % 0 % (-); Platelet Count 162 10^3/uL (130-400); Red Blood Cell Count 4.96 10^6/uL (4.70-6.10); White Blood Cell Count 9.8 10^3/uL (4.8-10.8)
[2024-02-26] MEDS: LIDOCAINE 4% PATCH 1 PATCH TOPICAL (19:30)
[2024-02-26 19:49] LABS: Blood Urea Nitrogen 29 mg/dl (9-20); Carbon Dioxide 24 mmol/L (22-30); Chloride 102 mmol/L (98-107); Estimated Creatinine Clearance 81 ml/min; Glucose 98 mg/dl (70-99); Sodium 141 mmol/L (135-145); eGFR > 60.00
[2024-02-26 20:07] LABS: ALT (SGPT) 40 U/L (0-50); AST (SGOT) 57 U/L (17-59); Albumin 4.1 g/dl (3.5-5.0); Alkaline Phosphatase 99 U/L (38-126); Direct Bilirubin 0.2 mg/dl (0.0-0.4); Potassium 4.5 mmol/L (3.5-5.1); Total Bilirubin 0.8 mg/dl (0.2-1.3); Total Protein 6.9 g/dl (6.3-8.2)
[2024-02-26 21:12] VITALS: BP 147/59
[2024-02-26 22:00] VITALS: BP 149/66
[2024-02-26 23:00] VITALS: BP 151/65
--- NOTE | 2024-02-26 23:19 | HPS.HSE ---
Family Physician
-
Family Physician: NO INTERVIEW UNKNOWN
Chief Complaint
-
back pain
History of Present Illness
Patient is a 78-year-old male with past medical history significant for hypertension, CVA, CAD, hyperlipidemia, and GERD. Patient presented to [facility] ED for evaluation of left lower back pain that has progressively gotten worse over the past
several days. Patient denies any falls, or other trauma. Patient states pain is associated with increased weakness. Patient denies any fevers, chills, numbness, tingling, chest pain, cough, shortness of breath, constipation, diarrhea or urinary
symptoms.
Medical History
Past Medical History
Past Medical History: Reports Other
Additional Past Medical History:
hypertension
CVA
CAD
hyperlipidemia
GERD
Type 2 diabetes
Anxiety
Parkinson's?
Past Surgical History: Reports Other
Additional Past Surgical History:
Back surgery
tonsillectomy
Total knee replacement
cholecystectomy
Social History
Tobacco: Non-smoker
Alcohol: None
Personal:
Living: With Family
Employment: Retired
Family History
Family History: Not pertinent
Allergies / Home Medications
Allergies reflects when Allergies were last updated in [employer].
Home Medications with original date entered in [employer]
Allergy/Medication List:
Allergies
Allergy/AdvReac Type Severity Reaction Status Date / Time
Iodinated Contrast Media Allergy Unknown VOMITING/HI Verified 02/26/24 19:02
[Iodinated Contrast- Oral VES
and IV Dye]
latex Allergy Unknown Rash Verified 02/26/24 19:02
adhesive tape Allergy redness;axel Verified 02/26/24 19:02
hy
reyna Allergy closes Verified 02/26/24 19:02
airway
hydromorphone HCl Allergy makes him Verified 02/26/24 19:02
[From Dilaudid] loopy as
per spouse
iodine Allergy vomiting;hi Verified 02/26/24 19:02
ves
oxycodone Allergy SEE BELOW Verified 02/26/24 19:02
aquacel dressing Allergy 'pulled Uncoded 02/26/24 19:02
skin off'
DARIUS stockings Allergy itching;axel Uncoded 02/26/24 19:02
h
Home Medications
clopidogrel 75 mg tablet 75 mg PO DAILY ##30 11/22/15
escitalopram oxalate 10 mg tablet 10 mg PO HS Mental Health/Anxiety 09/12/16
metoprolol succinate 50 mg tablet,extended release 24 hr 50 mg PO BID Blood Pressure 09/12/16
pravastatin 20 mg tablet 20 mg PO HS High Cholesterol 09/12/16
aspirin 81 mg tablet,delayed release 81 mg PO DAILY Blood Clot Prevention/Tx 11/29/16
metformin 500 mg tablet 500 mg PO DAILY Diabetes 02/20/18
amlodipine 2.5 mg tablet 2.5 mg PO DAILY Blood Pressure 08/21/23
cyanocobalamin (vitamin B-12) 1,000 mcg tablet (Vitamin B-12) 1,000 mcg PO DAILY Supplement 08/21/23
fluticasone furoate 200 mcg/actuation blister powder for inhalation (Arnuity Ellipta) 1 inh inhalation R BID Lung/Breathing Issues 08/21/23
folic acid 0.8 mg capsule 0.8 mg PO DAILY Supplement 08/21/23
insulin glargine 100 unit/mL (3 mL) subcutaneous pen (Lantus Solostar U-100 Insulin) 30 units SC BID Diabetes 08/21/23
mirtazapine 15 mg tablet 15 mg PO HS Mental Health/Anxiety 08/21/23
carbidopa 25 mg-levodopa 100 mg tablet 1 tab PO BID 02/26/24
Review of Systems
-
History Source: Patient
Constitutional: Reports Fatigue
EENT: Reports No Symptoms
Respiratory: Reports No Symptoms
Cardiac: Reports No Symptoms
Abdomen/GI: Reports No Symptoms
: Reports No Symptoms
Musculoskeletal: Reports Other (left lower back pain, described as sciatica like)
Skin: Reports No Symptoms
Neurological: Reports Weakness
Endocrine: Reports No Symptoms
Hematologic/Lymphatic: Reports No Symptoms
Psych: Reports No Symptoms
Physical Exam
Vital Signs
Vital Signs
Temp Pulse Resp BP Pulse Ox
97.6 F 57 18 151/65 95
02/26/24 18:55 02/26/24 23:00 02/26/24 23:00 02/26/24 23:00 02/26/24 19:00
Physical Exam
General: Well Developed, Well Nourished and No Apparent Distress
HEENT: NormoCephalic, Moist mucous membranes, Atraumatic, [place] Conjunctivae, Nose Appears Normal and Ears Appear Normal
Respiratory: Clear and Non Labored Respirations; No Wheezes, Rales, Rhonchi or Crackles
Cardiac: S1/S2, Regular Rhythm and Bradycardia; No Murmur, Rub or Gallop
Breast: Deferred by me
GI: Soft, Non Tender, Non Distended and Normal Bowel Sounds; No Organomegaly
Rectal: Deferred by Provider
Genito-urinary: Deferred by me
Musculoskeletal: No Clubbing, No Cyanosis and Edema, Right Lower Extremity
Skin: IV/Catheter Site; No Rash
Neuro: Awake, Alert and Nonfocal/grossly intact
Psych: Calm and Intact Judgment/Insight
Laboratory Results
-
02/26/24 19:22
02/26/24 19:44
Laboratory Results
Total Bilirubin 0.8 mg/dl (0.2-1.3) 02/26/24 19:44
AST 57 U/L (17-59) 02/26/24 19:44
ALT 40 U/L (0-50) 02/26/24 19:44
Alkaline Phosphatase 99 U/L (38-126) 02/26/24 19:44
Data Reviewed
-
CT Scan: Report Reviewed by me (Abd/Pelvis: No evidence of renal or ureteral calculus. No hydronephrosis. Left renal cysts with unchanged mildly hyperdense exophytic lesion along the inferior pole the left kidney, likely a hemorrhagic cyst. The
urinary bladder is nondistended with mild circumferential wall thickening)
Lab Data: Labs Reviewed by me
Impression/Plan
-
IMPRESSION/PLAN:
#Back pain
- patient with increasing left lower back pain over past several days
- tender to palpation
- Admit to M/S for observation
- PRN Tramadol
- PRN ibuprofen HS
- Consult PT/OT
#hypertension
- continue amlodipine, metoprolol
#CVA
- continue aspirin, clopidogrel
#CAD
- continue aspirin, clopidogrel, folic acid
#hyperlipidemia
- continue pravastatin
#Type 2 diabetes
- Accuchecks AC & HS
- Continue lantus, metformin
- SSI
#Anxiety
- continue escitalopram, mirtazapine
#Parkinson's?
- previous admission Neurology recommends outpatient workup of the potential for normal pressure hydrocephalus.
- Sinemet was started during that admission, pending neurology workup
DNR
DVT Px: Lovenox
--- NOTE | 2024-02-26 23:51 | W.PN.UPDATE ---
Update Note
Progress Note Update
Patient seen in conjunction with AUTOMOTIVE PRODUCT SPECIALIST. I agree with the findings on history and physical. I concur with the assessment and plan unless stated otherwise.
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
BiPAP who presents to the emergency department with episode of left-sided flank pain.
Patient tells me that he arose and noted that he had sharp stabbing left-sided flank pain that seems to radiate to his epigastric region. He denies any radiation to the groin. He denies any radiation down to his legs. He denies any worsening
weakness in his leg. Patient denies dysuria or hematuria but he has chronic incontinence. He denies fevers or chills. He denies any cough or shortness of breath. Pain worse with movement. Pain is not affected by inspiration. Reports a similar
episode about 2 years ago but unable to provide any additional details.
In the ED he was afebrile, blood pressure was 150/65 with a pulse of 57 and oxygen saturation of 95 on room air. His CBC was completely unremarkable. Electrolytes BUN/creatinine were also within normal limits. CT of the abdomen pelvis without IV
contrast showed no evidence of calculus or hydronephrosis. He had known left renal cyst with exophytic lesion in the inferior pole which is unchanged from prior. No obvious intra-abdominal findings but disease without contrast. UA is pending.
Patient given acetaminophen and lidocaine patch.
Assessment and plan
1. Flank Pain -patient with unexplained Flank pain without any evidence of nephrolithiasis or obvious pyelonephritis. We are awaiting a UA at this point as patient is incontinent. He has no fevers leukocytosis or dysuria. Pain is thought to be
musculoskeletal. CT of the abdomen without contrast otherwise not explanatory.
- admit to med/surg observation
- patient able to tolerate NSAIDs and can get a dose of toradol
- prn acetaminophen and ibuprofen hs
- avoid narcortics
- continue lidoderm patch
- follow u/a
- monitor for abdominal discomfort
- PT evaluation
2. DM II
- can continue his metformin
- lantus at 20 units bid for now
- accuchecks with sliding scale insulin
3. CVA
- aspirin/plavix
- continue statin
- continue norvasc and metoprolol
- continue his carbidopa-levidopa bid
4. FLAQUITA - patient on BIPAP
- BIPAP hs
5. COPD not on home O2 - No evident exacerbation
- conitnue ics/laba
- prn nebs
DVT - Lovenox sq
Code Status - DNR
[2024-02-27] VITALS (10 sets, daily range): BP systolic 102–171; BP diastolic 62–98; PULSE 2–63; O2SAT 95; BMI 44.4
[2024-02-27] MEDS: TORADOL 15 MG IV (00:34)
[2024-02-27 01:24] LABS: Urine Albumin Trace (Neg - Trace); Urine Bilirubin Negative (Negative); Urine Character Clear (Clear); Urine Color Yellow; Urine Glucose Negative (Negative); Urine Ketone Trace (Negative); Urine Leukocyte Negative (Negative); Urine Nitrite Negative (Negative); Urine Occult Blood Negative (Negative); Urine Urobilinogen Negative (Neg - 1+)
--- NOTE | 2024-02-27 01:35 | TRANSFER ---
Pt admitted from ED to room 425, pulled over from stretcher to bed. VSS. AAOx3. Bed alarm for safety. Pt oriented to room. Call meléndez in reached.
[2024-02-27 07:39] LABS: Hematocrit 44.7 % (39.0-52.0); Hemoglobin 15.1 g/dL (13.0-18.0); Mean Corp Hgb Conc. 33.8 g/dL (33.0-37.0); Mean Corpuscular Hgb 31.7 pg (27.0-31.0); Mean Corpuscular Volume 93.7 fL (80.0-94.0); Mean Platelet Volume 10.7 fL (7.4-10.4); Platelet Count 149 10^3/uL (130-400); Red Blood Cell Count 4.77 10^6/uL (4.70-6.10); Red Cell Dist. Width 13.9 % (11.5-14.5); White Blood Cell Count 8.4 10^3/uL (4.8-10.8)
[2024-02-27 07:54] LABS: Glucose - Point of Care 122 mg/dl (70-99)
[2024-02-27] MEDS: NORVASC 2.5 MG PO (08:09)
[2024-02-27] MEDS: TOPROL XL 50 MG PO ×2 (08:09→19:53)
[2024-02-27] MEDS: ASPIR LOW (ENTERIC COATED) 81 MG PO (08:09)
[2024-02-27] MEDS: FOLVITE 0.8 MG PO (08:09)
[2024-02-27] MEDS: VITAMIN B-12 1000 MCG PO (08:09)
[2024-02-27] MEDS: PLAVIX 75 MG PO (08:09)
[2024-02-27] MEDS: LANTUS 0.2 UNITS SC ×2 (08:09→19:50)
[2024-02-27] MEDS: SINEMET 25-100 1 TABLET PO ×2 (08:09→19:51)
[2024-02-27] MEDS: GLUCOPHAGE 500 MG PO (08:09)
[2024-02-27 08:10] LABS: Blood Urea Nitrogen 26 mg/dl (9-20); Calcium 8.8 mg/dl (8.4-10.2); Carbon Dioxide 25 mmol/L (22-30); Chloride 103 mmol/L (98-107); Estimated Creatinine Clearance 81 ml/min; Glucose 134 mg/dl (70-99); Potassium 4.3 mmol/L (3.5-5.1); Sodium 140 mmol/L (135-145); eGFR > 60.00
[2024-02-27] MEDS: FLOVENT 110 MCG INHALER 2 PUFF INH ×2 (08:43→18:20)
[2024-02-27 12:27] LABS: Glucose - Point of Care 136 mg/dl (70-99)
[2024-02-27] MEDS: DESENEX/MITRAZOL/ZEASORB 1 APPLIC TOPICAL ×2 (13:19→19:50)
--- NOTE | 2024-02-27 14:28 | W.PN.HOSP.TC ---
Today's Communication/Plan
-
Assessment / Plan
Assessment / Plan
Imaging
CTAP
IMPRESSION:
No evidence of renal or ureteral calculus. No hydronephrosis.
Left renal cysts with unchanged mildly hyperdense exophytic lesion along the inferior pole the left kidney, likely a hemorrhagic cyst.
The urinary bladder is nondistended with mild circumferential wall thickening which can be seen with cystitis. Recommend correlation with urinalysis.
Mild colonic stool burden.
Physical Exam
NAD, resting comfortably in bed
Scleral anicteric
Moist mucous membranes
No JVD
CTA bilateral
Normal S1-S2 no murmurs
Soft nontender nondistended bowel sounds active
No peripheral pitting edema
Moves extremities spontaneously
AAOx3
Assessment and Plan
Back pain, likely msk
-Without evidence of cauda equina symtoms, numbness/tingling
-Difficulty with ambulation
-Check MRI L-spine
-PT/OT
-Warm compress
-Tylenol prn
HTN
-Continue antihyeprtensives
CVA
-DAPT amd statin
HLD
-Continue statin
DMII
-Accuchecks
-SSI
-BG 140-180
-CCdiet
HTN
-Continue antihypertensives
Anticipated Discharge: 24 - 48 hours
Subjective/Interval History
-
Date of Service: February 27, 2024
seen and examined. no new comaplonts. no acute ovenright events
Objective Data
-
Labs:
Laboratory Results
02/27/24
06:43
WBC 8.4
Hgb 15.1
Hct 44.7
Plt Count 149
Sodium 140
Potassium 4.3
Chloride 103
Carbon Dioxide 25
BUN 26 H
Creatinine 1.0
Glucose 134 H
Calcium 8.8
Vital Signs:
Vital Signs
Temp Pulse Resp BP Pulse Ox
98.5 F 57 16 169/72 94
02/27/24 07:35 02/27/24 08:45 02/27/24 08:45 02/27/24 07:35 02/27/24 08:45
I&O
02/26/24 02/27/24 02/28/24
06:59 06:59 06:59
Intake Total 240 / 240
Output Total 100 / 100
Balance 140 / 140
[2024-02-27 15:42] LABS: Glucose - Point of Care 175 mg/dl (70-99)
--- NOTE | 2024-02-27 16:17 | CM ---
CM reviewed chart, patient seen bedside with , Samina, initial assessment completed. Patient resides in a multiple story home, no steps to enter. reports patient has a stair glide, rolling walker, and wheelchair for longer distances.
Patient has Bipap, unsure provided. Patient history with [facility], [facility] (2-3 times), [facility]. Patient PCP Isabel Carrera, pharmacy [facility], confirms prescription coverage. Patient denies insecurities at home. CM discussed PT
recommendations of SNF, discussed patient is OBS status, would be private pay to SNF, will review to see if patient qualifies for MSS[employer] waiver program. [place] reviewed, refused to sign, placed in chart. CM will continue to follow for all discharge
planning needs.
Plan; SNF recommendation, family unable to private pay, will review to see if qualifies for MSSP waiver program.
[2024-02-27 19:50] LABS: Glucose - Point of Care 176 mg/dl (70-99)
[2024-02-27] MEDS: TORADOL 10 MG IV (19:51)
[2024-02-27] MEDS: LOVENOX 40 MG SC (19:52)
[2024-02-27] MEDS: REMERON 15 MG PO (21:58)
[2024-02-27] MEDS: PRAVACHOL 20 MG PO (21:58)
[2024-02-27 22:03] LABS: Glucose - Point of Care 124 mg/dl (70-99)
[2024-02-27] MEDS: LEXAPRO 10 MG PO (22:06)
--- NOTE | 2024-02-27 22:18 | RESPNOTE ---
Pt has a documented adhesive allergy. Pts showing signs of irritation and inflammation from prior BiPAP mask use last night. Pt C/C 'my face bothers me and hurts me at times'. Redness noted on pts lip,cheeks, chin and nose. As a precaution BiPAP
held tonight. Pt instructed to try and bring in own BIPAP unit from home or own BiPAP mask. RN notified.
[2024-02-28 07:05] VITALS: BP 148/76
[2024-02-28 07:17] LABS: Glucose - Point of Care 141 mg/dl (70-99)
[2024-02-28] MEDS: FLOVENT 110 MCG INHALER 2 PUFF INH ×2 (07:43→19:58)
[2024-02-28] MEDS: LOVENOX 40 MG SC ×2 (08:47→20:10)
[2024-02-28] MEDS: NORVASC 2.5 MG PO (08:47)
[2024-02-28] MEDS: VITAMIN B-12 1000 MCG PO (08:48)
[2024-02-28] MEDS: ASPIR LOW (ENTERIC COATED) 81 MG PO (08:48)
[2024-02-28] MEDS: SINEMET 25-100 1 TABLET PO ×2 (08:48→20:10)
[2024-02-28] MEDS: LANTUS 0.2 UNITS SC ×2 (08:48→20:10)
[2024-02-28] MEDS: PLAVIX 75 MG PO (08:48)
[2024-02-28] MEDS: GLUCOPHAGE 500 MG PO (08:48)
[2024-02-28] MEDS: TOPROL XL 50 MG PO ×2 (08:48→20:10)
[2024-02-28] MEDS: FOLVITE 0.8 MG PO (08:48)
[2024-02-28] MEDS: DESENEX/MITRAZOL/ZEASORB 1 APPLIC TOPICAL ×2 (08:49→20:10)
--- NOTE | 2024-02-28 11:51 | W.PN.HOSP.TC ---
Today's Communication/Plan
-
warm compress
back mri
pt rec snf for which I agree with due to ambulatory dysfunciton
cm working on this
Assessment / Plan
Assessment / Plan
Imaging
CTAP
IMPRESSION:
No evidence of renal or ureteral calculus. No hydronephrosis.
Left renal cysts with unchanged mildly hyperdense exophytic lesion along the inferior pole the left kidney, likely a hemorrhagic cyst.
The urinary bladder is nondistended with mild circumferential wall thickening which can be seen with cystitis. Recommend correlation with urinalysis.
Mild colonic stool burden.
Physical Exam
NAD, resting comfortably in bed
Scleral anicteric
Moist mucous membranes
No JVD
CTA bilateral
Normal S1-S2 no murmurs
Soft nontender nondistended bowel sounds active
No peripheral pitting edema
Moves extremities spontaneously
AAOx3
Assessment and Plan
Back pain, likely msk
-Without evidence of cauda equina symtoms, numbness/tingling
-Difficulty with ambulation
-Check MRI L-spine
-PT/OT rec SNF
-Warm compress
-Tylenol prn
HTN
-Continue antihyeprtensives
CVA
-DAPT amd statin
HLD
-Continue statin
DMII
-Accuchecks
-SSI
-BG 140-180
-CCdiet
HTN
-Continue antihypertensives
Anticipated Discharge: 24 - 48 hours
Subjective/Interval History
-
Date of Service: February 28, 2024
seen an dexmained
no new compalits
no acute ovenright events
at bedside
states he is feeling better
mri back pending
Objective Data
-
Vital Signs:
Vital Signs
Temp Pulse Resp BP Pulse Ox
98.3 F 62 16 161/81 95
02/28/24 07:05 02/28/24 08:47 02/28/24 07:46 02/28/24 08:47 02/28/24 08:45
I&O
02/27/24 02/28/24 02/29/24
06:59 06:59 06:59
Intake Total 240 / 240 720 / 720
Output Total 100 / 100 475 / 475
Balance 140 / 140 245 / 245
[2024-02-28 13:40] LABS: Glucose - Point of Care 141 mg/dl (70-99)
--- NOTE | 2024-02-28 13:41 | CM ---
CM met with patients , provided list of private caregivers. reports she is unable to private pay for SNF, would be open to private caregivers. CM will follow up tomorrow to see if patient qualifies for waiver program.
Plan; SNF recommendation, will see if patient qualifies for waiver program.
[2024-02-28 15:27] VITALS: BP 166/77
[2024-02-28] MEDS: TORADOL 10 MG IV (16:09)
[2024-02-28 16:51] LABS: Glucose - Point of Care 171 mg/dl (70-99)
--- NOTE | 2024-02-28 17:29 | PTCARENOTE ---
Pt c/o 01/13 back pain, 10mg IV Toradol given w/ no relief. Pt now c/o of 'sciatic type' pain shooting down his L leg. Dr Espino notified. Instructed to place a heating pad, no K pads available in house. Warm compressed placed, pt repositioned for
comfort.
[2024-02-28 20:44] LABS: Glucose - Point of Care 163 mg/dl (70-99)
[2024-02-28] MEDS: PRAVACHOL 20 MG PO (21:19)
[2024-02-28] MEDS: REMERON 15 MG PO (21:19)
[2024-02-28] MEDS: LEXAPRO 10 MG PO (21:19)
--- NOTE | 2024-02-28 23:18 | RESPNOTE ---
Pt has a documented adhesive allergy. Pts still showing signs of irritation and inflammation even with holding on wearing BIPAP mask last night. Redness noted on pts lip,cheeks, chin and nose. As a precaution BiPAP held tonight. Pt re-instructed to
try and bring in own BIPAP unit from home or own BiPAP mask. RN notified.
[2024-02-28 23:38] VITALS: BP 158/66
[2024-02-29] MEDS: TORADOL 10 MG IV (06:08)
[2024-02-29 07:00] VITALS: BP 158/68
[2024-02-29] MEDS: FLOVENT 110 MCG INHALER 2 PUFF INH ×2 (08:30→19:40)
[2024-02-29 08:48] LABS: Glucose - Point of Care 138 mg/dl (70-99)
[2024-02-29] MEDS: VITAMIN B-12 PO (09:21)
[2024-02-29] MEDS: FOLVITE PO (09:21)
[2024-02-29] MEDS: ULTRAM 25 MG PO (09:24)
[2024-02-29] MEDS: DESENEX/MITRAZOL/ZEASORB 1 APPLIC TOPICAL ×2 (09:27→21:08)
[2024-02-29] MEDS: LANTUS 0.2 UNITS SC ×2 (09:28→21:09)
[2024-02-29] MEDS: LOVENOX 40 MG SC ×2 (09:29→21:10)
[2024-02-29] MEDS: TOPROL XL 50 MG PO ×2 (09:30→21:10)
[2024-02-29] MEDS: TYLENOL 1000 MG PO ×3 (09:30→21:11)
[2024-02-29] MEDS: SINEMET 25-100 1 TABLET PO ×2 (09:31→21:11)
[2024-02-29] MEDS: NORVASC 2.5 MG PO (09:31)
[2024-02-29] MEDS: GLUCOPHAGE 500 MG PO (09:31)
[2024-02-29] MEDS: ASPIR LOW (ENTERIC COATED) 81 MG PO (09:31)
[2024-02-29] MEDS: PLAVIX 75 MG PO (09:32)
--- NOTE | 2024-02-29 10:24 | W.PN.HOSP.TC ---
Today's Communication/Plan
-
.
Assessment / Plan
Assessment / Plan
Imaging
CTAP
IMPRESSION:
No evidence of renal or ureteral calculus. No hydronephrosis.
Left renal cysts with unchanged mildly hyperdense exophytic lesion along the inferior pole the left kidney, likely a hemorrhagic cyst.
The urinary bladder is nondistended with mild circumferential wall thickening which can be seen with cystitis. Recommend correlation with urinalysis.
Mild colonic stool burden.
Physical Exam
General: No Apparent Distress
HEENT: Normocephalic.
Respiratory: Clear and Non Labored Respirations; No Wheezes, Rales, Rhonchi or Crackles
Cardiac: S1/S2
GI: Soft, Non Tender, Non Distended
Rectal: No bleeding
Genito-urinary: No Menendez
Musculoskeletal: mild edema in lower legs
Skin: No Rash
Neuro: Awake, Alert, oriented to self and surroundings, he followed simple commands. + Rigidity
Psych: Calm
Assessment and Plan
# L4-5 pronounced degenerative disc disease
Disc bulge Back pain
Add Tylenol 100-mg TID
Add low dose Tramadol
Avoid NSAIDs to avoid GI bleeding with Plavix & aspirin
-Without evidence of cauda equina symptoms, numbness/tingling
-Difficulty with ambulation
-No fever or leukocytosis.
# primary HTN
-Continue antihypertensives
CVA
-DAPT amd statin
HLD
-Continue statin
DMII
-AccuCheck, will add insulin sliding scale
-SSI
-BG 140-180
-CCdiet
HTN
-Continue antihypertensives
# Parkinson's disease
c/w Sinemet
Total time spent to see the patient, examine the patient, review data and lab results, discuss treatment plan with patient, his , nursing care around 55 minutes
Anticipated Discharge: 24 - 48 hours
Subjective/Interval History
-
Date of Service: February 29, 2024
No chest pain
no sob
Feels stiff this morning
Reports back pain
Objective Data
-
Vital Signs:
Vital Signs
Temp Pulse Resp BP Pulse Ox
98.3 F 58 16 158/68 93
02/29/24 07:00 02/29/24 08:34 02/29/24 08:34 02/29/24 07:00 02/29/24 08:34
I&O
02/28/24 02/29/24 03/01/24
06:59 06:59 06:59
Intake Total 720 / 720 600 / 600
Output Total 475 / 475 200 / 200
Balance 245 / 245 400 / 400
[2024-02-29 12:48] LABS: Glucose - Point of Care 165 mg/dl (70-99)
--- NOTE | 2024-02-29 14:31 | CM ---
Patient seen at bedside with . Patient aware of change in status to INP. Patient requested referral to [facility] in [place]. CM will send referral to SNF options. CM will continue to follow for discharge planning needs.
Plan; SNF; pending medical stability
[2024-02-29] MEDS: NOVOLOG FLEXPEN-LOW RESISTANCE 1 UNITS SC (14:45)
[2024-02-29 15:00] VITALS: BP 160/68
[2024-02-29 16:26] VITALS: BP 147/82; PULSE 63; O2SAT 95
[2024-02-29 17:37] LABS: Glucose - Point of Care 147 mg/dl (70-99)
[2024-02-29] MEDS: NOVOLOG FLEXPEN-LOW RESISTANCE SC (19:07)
[2024-02-29 21:12] LABS: Glucose - Point of Care 150 mg/dl (70-99)
[2024-02-29] MEDS: LEXAPRO 10 MG PO (21:13)
[2024-02-29] MEDS: PRAVACHOL 20 MG PO (21:15)
[2024-02-29] MEDS: REMERON 15 MG PO (21:15)
[2024-02-29 22:24] VITALS: PULSE 2
[2024-02-29 23:18] VITALS: BP 147/76
[2024-03-01 07:00] VITALS: BP 166/72
[2024-03-01 07:45] VITALS: BP 147/68
[2024-03-01 08:14] LABS: Glucose - Point of Care 180 mg/dl (70-99)
[2024-03-01] MEDS: NOVOLOG FLEXPEN-LOW RESISTANCE 1 UNITS SC ×2 (08:34→12:29)
[2024-03-01] MEDS: GLUCOPHAGE 500 MG PO (08:35)
[2024-03-01] MEDS: DESENEX/MITRAZOL/ZEASORB 1 APPLIC TOPICAL ×2 (08:35→20:09)
[2024-03-01] MEDS: ASPIR LOW (ENTERIC COATED) 81 MG PO (08:35)
[2024-03-01] MEDS: FLOVENT 110 MCG INHALER 2 PUFF INH ×2 (08:39→19:57)
[2024-03-01] MEDS: LOVENOX 40 MG SC ×2 (08:39→20:11)
[2024-03-01] MEDS: NORVASC 2.5 MG PO (08:40)
[2024-03-01] MEDS: SINEMET 25-100 1 TABLET PO ×2 (08:40→20:12)
[2024-03-01] MEDS: TOPROL XL PO (08:40)
[2024-03-01] MEDS: PLAVIX 75 MG PO (08:40)
[2024-03-01] MEDS: TYLENOL 1000 MG PO ×3 (08:41→21:27)
[2024-03-01] MEDS: LANTUS 0.2 UNITS SC ×2 (09:20→20:10)
[2024-03-01 11:56] LABS: Glucose - Point of Care 151 mg/dl (70-99)
--- NOTE | 2024-03-01 12:26 | CM ---
Patient seen bedside with , discussed plan for SNF upon discharge. Referrals placed to [facility], acceptance based on day of discharge, bed availability. CM will continue to follow for all discharge planning needs.
Plan; SNF pending accepting facility day of discharge, [facility].
--- NOTE | 2024-03-01 12:29 | W.PN.HOSP.TC ---
Today's Communication/Plan
-
Ortho consult on Thursday
Will need SNF
Repeat blood work in AM
Assessment / Plan
Assessment / Plan
Imaging
CTAP
IMPRESSION:
No evidence of renal or ureteral calculus. No hydronephrosis.
Left renal cysts with unchanged mildly hyperdense exophytic lesion along the inferior pole the left kidney, likely a hemorrhagic cyst.
The urinary bladder is nondistended with mild circumferential wall thickening which can be seen with cystitis. Recommend correlation with urinalysis.
Mild colonic stool burden.
Physical Exam
General: No Apparent Distress
HEENT: Normocephalic.
Respiratory: Clear and Non Labored Respirations; No Wheezes, Rales, Rhonchi or Crackles
Cardiac: S1/S2
GI: Soft, Non Tender, Non Distended
Rectal: No bleeding
Genito-urinary: No Menendez
Musculoskeletal: mild edema in lower legs
Skin: No Rash
Neuro: Awake, Alert, oriented to self and surroundings, he followed simple commands. + Rigidity
Psych: Calm
Assessment and Plan
# L4-5 pronounced degenerative disc disease
Disc bulge Back pain
Added Tylenol 100-mg TID
Added low dose Tramadol as PRN only
Avoid ATC NSAIDs to avoid GI bleeding with Plavix & aspirin
-Without evidence of cauda equina symptoms, numbness/tingling
-Difficulty with ambulation
-No fever or leukocytosis.
I d/w Dr Subramanian, he will evaluate the pt 03/02
# primary HTN
Slightly uncontrolled, would rather avoid low Bp due to risk of postural hypotension in Parkinson pts.
-Continue antihypertensives
- Add low dose hydralazine
CVA
-DAPT amd statin
HLD
-Continue statin
DMII
-AccuCheck, will add insulin sliding scale
-Add SSI
-CCdiet
HTN
-Continue antihypertensives
# Parkinson's disease
c/w Sinemet
Total time spent to see the patient, examine the patient, review data and lab results, discuss treatment plan with patient, nursing care around 55 minutes
Anticipated Discharge: 24 - 48 hours
Subjective/Interval History
-
Date of Service: March 01, 2024
Doing better with Tylenol ATC
Objective Data
-
Vital Signs:
Vital Signs
Temp Pulse Resp BP Pulse Ox
97.7 F 51 16 166/72 94
03/01/24 07:00 03/01/24 08:41 03/01/24 08:41 03/01/24 07:00 03/01/24 08:41
I&O
02/29/24 03/01/24 03/02/24
06:59 06:59 06:59
Intake Total 600 / 600
Output Total 200 / 200 150 / 150
Balance 400 / 400 -150 / -150
[2024-03-01 15:00] VITALS: BP 133/57
[2024-03-01 16:44] LABS: Glucose - Point of Care 140 mg/dl (70-99)
[2024-03-01] MEDS: NOVOLOG FLEXPEN-LOW RESISTANCE SC (16:50)
[2024-03-01] MEDS: TOPROL XL 50 MG PO (20:11)
[2024-03-01 21:20] LABS: Glucose - Point of Care 176 mg/dl (70-99)
[2024-03-01] MEDS: REMERON 15 MG PO (21:27)
[2024-03-01] MEDS: PRAVACHOL 20 MG PO (21:27)
[2024-03-01] MEDS: LEXAPRO 10 MG PO (21:27)
[2024-03-01 23:00] VITALS: PULSE 2; PULSE 60
[2024-03-01 23:07] VITALS: BP 155/69
[2024-03-02] VITALS (7 sets, daily range): BP systolic 120–151; BP diastolic 63–85; PULSE 2–91
--- NOTE | 2024-03-02 04:17 | DOWNTIME ---
There was a [employer] Client Tube Handler Downtime on 03/02/2024 from 0100 to 03/02/2024 at 0350. Downtime documentation of patient's care, including medication administrations, has been reconciled in the electronic record per guidelines. Refer to the
patient's paper chart under the miscellaneous tab to see printed paper medication records and downtime forms.
[2024-03-02 07:19] LABS: Hematocrit 48.8 % (39.0-52.0); Hemoglobin 16.4 g/dL (13.0-18.0); Mean Corp Hgb Conc. 33.6 g/dL (33.0-37.0); Mean Corpuscular Hgb 31.4 pg (27.0-31.0); Mean Corpuscular Volume 93.3 fL (80.0-94.0); Mean Platelet Volume 10.5 fL (7.4-10.4); Platelet Count 164 10^3/uL (130-400); Red Blood Cell Count 5.23 10^6/uL (4.70-6.10); Red Cell Dist. Width 13.8 % (11.5-14.5); White Blood Cell Count 10.9 10^3/uL (4.8-10.8)
[2024-03-02 07:32] LABS: Glucose - Point of Care 159 mg/dl (70-99)
[2024-03-02 07:46] LABS: Blood Urea Nitrogen 21 mg/dl (9-20); Calcium 9.2 mg/dl (8.4-10.2); Carbon Dioxide 28 mmol/L (22-30); Chloride 100 mmol/L (98-107); Estimated Creatinine Clearance 81 ml/min; Glucose 126 mg/dl (70-99); Potassium 4.2 mmol/L (3.5-5.1); Sodium 139 mmol/L (135-145); eGFR > 60.00
--- NOTE | 2024-03-02 07:52 | PN.CDI ---
Addendum entered and electronically signed by Jagjit Morataya MD 03/02/24 08:27:
BMI 45.1, obese
Original Note:
CDI
- -
CDI:
Physician Documentation Request
Admit Date: 02/29/24 08:23
Dear Doctor Rafia,
Please review the following and provide your response in the progress notes.
Clinical Indicators:
Control System Manager, 02/26
#Chart reviewed due to consult pt with weight loss and BMI > 40 morbidly obese range.
#CBW: 300 lbs 8 oz BMI 44.4 morbidly obese range (02/25).
Selected Entries
02/26/24
18:57 02/27/24
01:37
Body Mass Index (BMI) 45.1 44.4
Please provide an associated diagnosis related to the abnormal BMI, such as:
BMI > or = to 40
Overweight
Obesity:
Due to excess calories
Drug induced
Due to other cause
Severe or morbid obesity:
With alveolar hypoventilation (Obesity hypoventilation syndrome)
Without alveolar hypoventilation
BMI 45.1, obese
BMI is not significant
Other(please specify)
Use of terms such as suspected, likely, concern for, or probable (associated with a specific diagnosis that is being evaluated, monitored, or treated as if it exists) are acceptable and can be coded in the inpatient setting, when documented at the
time of discharge.
Thank you,
Afshan Al RN BSN CCDS
CDI Specialist
please contact via tiger text
Please use your independent medical judgment in providing your response.
--- NOTE | 2024-03-02 08:18 | W.PN.HOSP.TC ---
Today's Communication/Plan
-
.
Assessment / Plan
Assessment / Plan
Imaging
CTAP
IMPRESSION:
No evidence of renal or ureteral calculus. No hydronephrosis.
Left renal cysts with unchanged mildly hyperdense exophytic lesion along the inferior pole the left kidney, likely a hemorrhagic cyst.
The urinary bladder is nondistended with mild circumferential wall thickening which can be seen with cystitis. Recommend correlation with urinalysis.
Mild colonic stool burden.
Physical Exam
General: No Apparent Distress
HEENT: Normocephalic.
Respiratory: Clear and Non Labored Respirations; No Wheezes, Rales, Rhonchi or Crackles
Cardiac: S1/S2
GI: Soft, Non Tender, Non Distended
Rectal: No bleeding
Genito-urinary: No Menendez
Musculoskeletal: mild edema in lower legs
Skin: No Rash
Neuro: Awake, Alert, oriented to self and surroundings, he followed simple commands. + Rigidity
Psych: Calm
Assessment and Plan
# L4-5 pronounced degenerative disc disease
Disc bulge Back pain
Added Tylenol 100-mg TID
Added low dose Tramadol as PRN only
Avoid ATC NSAIDs to avoid GI bleeding with Plavix & aspirin
-Without evidence of cauda equina symptoms, numbness/tingling
-Difficulty with ambulation
-No fever or leukocytosis.
I d/w Dr Subramanian, he will evaluate the pt 03/02
# primary HTN
Slightly uncontrolled, would rather avoid low Bp due to risk of postural hypotension in Parkinson pts.
-Continue antihypertensives
- Add low dose hydralazine
# Leukocytosis, mild
NO fevers
Monitor for now
CVA
-DAPT amd statin
HLD
-Continue statin
DMII
-AccuCheck, will add insulin sliding scale
-Add SSI
-CCdiet
HTN
-Continue antihypertensives
# Parkinson's disease
c/w Sinemet
Total time spent to see the patient, examine the patient, review data and lab results, discuss treatment plan with patient, nursing care around 55 minutes
Anticipated Discharge: Within 24 hours
Subjective/Interval History
-
Date of Service: March 02, 2024
No complaints
Objective Data
-
Labs:
Laboratory Results
03/02/24
06:45
WBC 10.9 H
Hgb 16.4
Hct 48.8
Plt Count 164
Sodium 139
Potassium 4.2
Chloride 100
Carbon Dioxide 28
BUN 21 H
Creatinine 1.0
Glucose 126 H
Calcium 9.2
Vital Signs:
Vital Signs
Temp Pulse Resp BP Pulse Ox
97.2 F 65 18 155/69 94
03/02/24 07:00 03/01/24 23:07 03/01/24 23:07 03/01/24 23:07 03/01/24 23:07
I&O
03/01/24 03/02/24 03/03/24
06:59 06:59 06:59
Intake Total 480 / 480
Output Total 150 / 150 300 / 300
Balance -150 / -150 180 / 180
[2024-03-02] MEDS: NOVOLOG FLEXPEN-LOW RESISTANCE 1 UNITS SC ×3 (08:21→17:30)
[2024-03-02] MEDS: GLUCOPHAGE 500 MG PO (08:22)
[2024-03-02] MEDS: DESENEX/MITRAZOL/ZEASORB 1 APPLIC TOPICAL ×2 (08:22→19:35)
[2024-03-02] MEDS: ASPIR LOW (ENTERIC COATED) 81 MG PO (08:22)
[2024-03-02] MEDS: LANTUS 0.2 UNITS SC ×2 (08:23→19:37)
[2024-03-02] MEDS: TYLENOL 1000 MG PO ×3 (08:23→21:05)
[2024-03-02] MEDS: PLAVIX 75 MG PO (08:23)
[2024-03-02] MEDS: SINEMET 25-100 1 TABLET PO ×2 (08:23→19:36)
[2024-03-02] MEDS: NORVASC 2.5 MG PO (08:23)
[2024-03-02] MEDS: LOVENOX 40 MG SC ×2 (08:23→19:36)
[2024-03-02] MEDS: TOPROL XL PO (08:24)
[2024-03-02] MEDS: FLOVENT 110 MCG INHALER 2 PUFF INH ×2 (09:13→19:49)
--- NOTE | 2024-03-02 10:35 | CON.MD ---
Consultation - Medical
-
03/02/2024
10:00 am
Spine Surgery Consult Note
cc: Left sided lower back and hip pain
hpi: This patient is an 78 yo male with multiple medical comorbidities including COPD, ataxia Parkinson's disease admitted to the hospital 5 days ago with this left sided loewr back and hip pain. At baseline, he is sedentary walking only a few
steps in the home, but inability to stand or ambulate is the new status prompting this admission. He relays pain currently on the lateral aspect of his pelvis, without radiation into either buttock or lower extremity. He denies constitutional
symptoms, any bowel or bladder changes from baseline. Of note he had a lumbar discectomy over 2 decades ago.
Physical exam: Intact skin without tenderness over the lumbar spinous processes. Negative SLR bilaterally
Diffusely weak 4/5 in the bilateral Q/IP/EHL/TA/GSC with muscle atrophy throughout his lower extremities
DTR unable to elicit in the bilateral knees s/p TKA, 1+ bilateral ankle jerks, neg Babinski
MRI - lumbar spine - reviewed demonstating diffuse paraspinal muscle atrophy, disc spaces preserved through autofused L1-4. At L4-5 there is disc degeneration with a left sided paracentral bulge and moderate left foraminal stenosis.
A/P:
Degenerative disc disease L4-5 with axial symptoms
I discussed with the patient and today to pursue non-surgical methods of pain control beginning with the oral analgesics as have been prescribed with anti-inflammatories. Should also consider interventional options should oral and topical
analgesics not address the symptoms. Can contact [facility] physiatry at to arrange outpatient consultation in consideration of interventional options.
The patient and understood our discussion and addressed questions/inquiries.
[2024-03-02 12:13] LABS: Glucose - Point of Care 150 mg/dl (70-99)
[2024-03-02] MEDS: ULTRAM 25 MG PO (13:57)
--- NOTE | 2024-03-02 15:44 | CM ---
CM reviewed chart, plan for SNF based on bed availability, referrals sent to [facility]. CM will continue to follow for all discharge planing needs.
Plan; SNF, [facility], pending bed availability.
[2024-03-02 16:40] LABS: Glucose - Point of Care 158 mg/dl (70-99)
[2024-03-02] MEDS: TOPROL XL 50 MG PO (19:36)
[2024-03-02] MEDS: REMERON 15 MG PO (21:05)
[2024-03-02] MEDS: PRAVACHOL 20 MG PO (21:05)
[2024-03-02] MEDS: LEXAPRO 10 MG PO (21:05)
[2024-03-02 21:35] LABS: Glucose - Point of Care 159 mg/dl (70-99)
[2024-03-03 02:35] VITALS: PULSE 2; PULSE 82
[2024-03-03 07:35] VITALS: BP 165/77
[2024-03-03 08:04] LABS: Glucose - Point of Care 151 mg/dl (70-99)
[2024-03-03] MEDS: ASPIR LOW (ENTERIC COATED) 81 MG PO (08:15)
[2024-03-03] MEDS: GLUCOPHAGE 500 MG PO (08:16)
[2024-03-03] MEDS: TYLENOL 1000 MG PO ×3 (08:16→21:03)
[2024-03-03] MEDS: TOPROL XL 50 MG PO ×2 (08:16→20:41)
[2024-03-03] MEDS: PLAVIX 75 MG PO (08:19)
[2024-03-03] MEDS: NORVASC 2.5 MG PO (08:19)
[2024-03-03] MEDS: SINEMET 25-100 1 TABLET PO ×2 (08:19→20:41)
[2024-03-03] MEDS: LANTUS 0.2 UNITS SC ×2 (08:19→20:41)
[2024-03-03] MEDS: LOVENOX 40 MG SC ×2 (08:19→20:41)
[2024-03-03] MEDS: NOVOLOG FLEXPEN-LOW RESISTANCE 1 UNITS SC (08:20)
[2024-03-03] MEDS: DESENEX/MITRAZOL/ZEASORB 1 APPLIC TOPICAL ×2 (08:20→20:40)
[2024-03-03] MEDS: FLOVENT 110 MCG INHALER 2 PUFF INH ×2 (08:39→18:11)
--- NOTE | 2024-03-03 10:34 | W.PN.HOSP.TC ---
Addendum entered and electronically signed by Jagjit Morataya MD 03/03/24 16:24:
Addendum
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
will give Duo Neb as needed.
Original Note:
Today's Communication/Plan
-
dc planning
Assessment / Plan
Assessment / Plan
Imaging
CTAP
IMPRESSION:
No evidence of renal or ureteral calculus. No hydronephrosis.
Left renal cysts with unchanged mildly hyperdense exophytic lesion along the inferior pole the left kidney, likely a hemorrhagic cyst.
The urinary bladder is nondistended with mild circumferential wall thickening which can be seen with cystitis. Recommend correlation with urinalysis.
Mild colonic stool burden.
Physical Exam
General: No Apparent Distress
HEENT: Normocephalic.
Respiratory: Clear and Non Labored Respirations; No Wheezes, Rales, Rhonchi or Crackles
Cardiac: S1/S2
GI: Soft, Non Tender, Non Distended
Rectal: No bleeding
Genito-urinary: No Menendez
Musculoskeletal: mild edema in lower legs
Skin: No Rash
Neuro: Awake, Alert, oriented to self and surroundings, he followed simple commands. + Rigidity
Psych: Calm
Assessment and Plan
# L4-5 pronounced degenerative disc disease
Disc bulge Back pain
Added Tylenol 100-mg TID
Added low dose Tramadol as PRN only
Avoid ATC NSAIDs to avoid GI bleeding with Plavix & aspirin
-Without evidence of cauda equina symptoms, numbness/tingling
-Difficulty with ambulation
-No fever or leukocytosis.
I d/w Dr Subramanian, he will evaluate the pt 03/02
# primary HTN
Slightly uncontrolled, would rather avoid low Bp due to risk of postural hypotension in Parkinson pts.
-Continue antihypertensives
- Added low dose hydralazine
# Leukocytosis, mild
NO fevers
Monitor for now
CVA
-DAPT amd statin
HLD
-Continue statin
DMII
-AccuCheck, will add insulin sliding scale
-Add SSI
-CCdiet
HTN
-Continue antihypertensives
# Parkinson's disease
c/w Sinemet
Total time spent to see the patient, examine the patient, review data and lab results, discuss treatment plan with patient, nursing care around 45 minutes
Anticipated Discharge: Within 24 hours
Subjective/Interval History
-
Date of Service: March 03, 2024
No chest pain
No sob
Objective Data
-
Vital Signs:
Vital Signs
Temp Pulse Resp BP Pulse Ox
99.6 F 72 16 165/77 92
03/03/24 07:35 03/03/24 08:42 03/03/24 08:42 03/03/24 08:16 03/03/24 08:42
I&O
03/02/24 03/03/24 03/04/24
06:59 06:59 06:59
Intake Total 480 / 480 960 / 960
Output Total 300 / 300 50 / 50
Balance 180 / 180 910 / 910
[2024-03-03 11:47] LABS: Glucose - Point of Care 135 mg/dl (70-99)
[2024-03-03] MEDS: NOVOLOG FLEXPEN-LOW RESISTANCE SC ×2 (11:57→16:24)
[2024-03-03 16:06] VITALS: BP 152/84
[2024-03-03] MEDS: MUCINEX 600 MG PO (16:17)
[2024-03-03 16:23] LABS: Glucose - Point of Care 134 mg/dl (70-99)
[2024-03-03] MEDS: DUONEB 3 ML INH (16:29)
[2024-03-03 19:59] LABS: Glucose - Point of Care 198 mg/dl (70-99)
[2024-03-03] MEDS: LEXAPRO 10 MG PO (21:02)
[2024-03-03] MEDS: PRAVACHOL 20 MG PO (21:02)
[2024-03-03] MEDS: REMERON 15 MG PO (21:02)
[2024-03-03 23:25] VITALS: PULSE 2; PULSE 82
[2024-03-03 23:40] VITALS: BP 147/77
[2024-03-04 07:00] VITALS: BP 149/83
[2024-03-04] MEDS: FLOVENT 110 MCG INHALER 2 PUFF INH ×2 (07:25→19:33)
[2024-03-04] MEDS: DUONEB 3 ML INH ×3 (07:28→19:33)
[2024-03-04 07:53] LABS: Glucose - Point of Care 134 mg/dl (70-99)
[2024-03-04] MEDS: NOVOLOG FLEXPEN-LOW RESISTANCE SC ×3 (07:56→16:41)
[2024-03-04] MEDS: DUONEB INH ×2 (08:13→15:10)
--- NOTE | 2024-03-04 10:07 | W.PN.HOSP.TC ---
Addendum entered and electronically signed by Jagjit Morataya MD 03/04/24 13:16:
Addendum
Repeat blood work ( CBC& BM) and chest x ray, no acute findings
Pro-BNP normal .
ABG no high PCO2
Pt is still lethargic, vital signs are stable, afebrile. I d/w , will hold Remeron, Lexapro although they are chronic meds.
I will order also CT head
I d/w behavioral health case manager, nursing staff, will hold discharge today
End
Original Note:
Today's Communication/Plan
-
Chest x ray for expiratory wheezes
Duo Neb QID
Add Laxatives
might go to SNF later today or tomorrow
Assessment / Plan
Assessment / Plan
Imaging
CTAP
IMPRESSION:
No evidence of renal or ureteral calculus. No hydronephrosis.
Left renal cysts with unchanged mildly hyperdense exophytic lesion along the inferior pole the left kidney, likely a hemorrhagic cyst.
The urinary bladder is nondistended with mild circumferential wall thickening which can be seen with cystitis. Recommend correlation with urinalysis.
Mild colonic stool burden.
Physical Exam
General: No Apparent Distress
HEENT: Normocephalic.
Respiratory: mild expiratory wheezes at bases.
Cardiac: S1/S2
GI: Soft, Non Tender, Non Distended
Rectal: No bleeding
Genito-urinary: No Menendez
Musculoskeletal: mild edema in lower legs
Skin: No Rash
Neuro: Awake, Alert, oriented to self and surroundings, he followed simple commands. + Rigidity
Psych: Calm
Assessment and Plan
# Acute asthma exacerbation
Pt feels congested, noted mild expiratory wheezes on exam.
Know with chronic bronchitis and asthma, will order chest x ray
No fevers
Order Duo Neb QID with Pulmicort INH
Will check also Pro- BNP and weight, no known heart disease
# L4-5 pronounced degenerative disc disease
Disc bulge Back pain
Added Tylenol 100-mg TID
Added low dose Tramadol as PRN only
Avoid ATC NSAIDs to avoid GI bleeding with Plavix & aspirin
-Without evidence of cauda equina symptoms, numbness/tingling
-Difficulty with ambulation
-No fever or leukocytosis.
I d/w Dr Subramanian, he will evaluate the pt 03/02
# primary HTN
Slightly uncontrolled, would rather avoid low Bp due to risk of postural hypotension in Parkinson pts.
-Continue antihypertensives
- Added low dose hydralazine
# Leukocytosis, mild
NO fevers
Monitor for now
CVA
-DAPT amd statin
HLD
-Continue statin
# Constipation
Will do HS MiraLAX and oral Dulcolax
DMII
-AccuCheck, will add insulin sliding scale
-Add SSI
-CCdiet
HTN
-Continue antihypertensives
# Parkinson's disease
c/w Sinemet
Total time spent to see the patient, examine the patient, review data and lab results, discuss treatment plan with patient, , nursing care around 59 minutes
Anticipated Discharge: Within 24 hours
Subjective/Interval History
-
Date of Service: March 04, 2024
he feels congested
No fevers
Objective Data
-
Vital Signs:
Vital Signs
Temp Pulse Resp BP Pulse Ox
98.9 F 88 15 149/83 92
03/04/24 07:00 03/04/24 07:29 03/04/24 07:29 03/04/24 07:00 03/04/24 07:29
I&O
03/03/24 03/04/24 03/05/24
06:59 06:59 06:59
Intake Total 960 / 960 100 / 100
Output Total 50 / 50 350 / 350
Balance 910 / 910 -250 / -250
[2024-03-04] MEDS: LOVENOX 40 MG SC ×2 (10:51→21:08)
[2024-03-04] MEDS: LANTUS 0.2 UNITS SC ×2 (10:51→21:09)
[2024-03-04] MEDS: GLUCOPHAGE 500 MG PO (10:52)
[2024-03-04] MEDS: TOPROL XL 50 MG PO ×2 (10:52→21:08)
[2024-03-04] MEDS: SINEMET 25-100 1 TABLET PO ×2 (10:52→21:09)
[2024-03-04] MEDS: ASPIR LOW (ENTERIC COATED) 81 MG PO (10:52)
[2024-03-04] MEDS: MUCINEX 600 MG PO ×2 (10:53→21:09)
[2024-03-04] MEDS: NORVASC 2.5 MG PO (10:53)
[2024-03-04] MEDS: PLAVIX 75 MG PO (10:53)
[2024-03-04] MEDS: TYLENOL 1000 MG PO ×3 (10:53→21:10)
[2024-03-04] MEDS: DESENEX/MITRAZOL/ZEASORB 1 APPLIC TOPICAL ×2 (10:53→21:07)
[2024-03-04 11:03] LABS: Glucose - Point of Care 140 mg/dl (70-99)
[2024-03-04 11:08] LABS: B.E. 4.1 mmol/L; HCO3 28.5 mmol/L (21-28); O2 Saturation % 93.4 % (94-98); PCO2 41 mmHg (35-48); PO2 65 mmHg (83-108); pH 7.45 (7.35-7.45)
[2024-03-04 11:09] LABS: O2 Therapy ROOM AIR
[2024-03-04 11:28] LABS: Hematocrit 46.8 % (39.0-52.0); Hemoglobin 16.4 g/dL (13.0-18.0); Mean Corpuscular Hgb 31.9 pg (27.0-31.0); Mean Corpuscular Volume 91.1 fL (80.0-94.0); Mean Platelet Volume 10.7 fL (7.4-10.4); Platelet Count 161 10^3/uL (130-400); Red Blood Cell Count 5.14 10^6/uL (4.70-6.10); White Blood Cell Count 9.3 10^3/uL (4.8-10.8)
[2024-03-04 11:37] LABS: Blood Urea Nitrogen 24 mg/dl (9-20); Carbon Dioxide 26 mmol/L (22-30); Chloride 101 mmol/L (98-107); Estimated Creatinine Clearance 81 ml/min; Glucose 143 mg/dl (70-99); Potassium 4.3 mmol/L (3.5-5.1); Sodium 139 mmol/L (135-145); eGFR > 60.00
[2024-03-04 11:42] LABS: NT-proBNP 159 pg/ml
--- NOTE | 2024-03-04 12:19 | CM ---
Addendum entered by Annie Smith 03/04/24 13:07:
[place]
Addendum entered by Annie Smith 03/04/24 12:48:
Patient seen asleep bedside, discussed potential discharge plan with . IMM reviewed, signed, placed in chart, provided with copy.
Original Note:
CM reviewed chart, reviewed with Hospitalist, not clear for discharge today, potentially tomorrow. CM discussed with Isaura Webster from [facility], can accept tomorrow if patient is stable, please call Nursing Intelligence Specialist if patient is stable:
[phone]. CM will continue to follow for all discharge planning needs.
Plan; [facility] SN[facility], will need ambulance transport, forms on chart, please call Nursing Intelligence Specialist [phone] upon discharge.
[2024-03-04] MEDS: DULCOLAX PO (13:07)
[2024-03-04 15:24] VITALS: BP 158/91
[2024-03-04 16:39] LABS: Glucose - Point of Care 119 mg/dl (70-99)
[2024-03-04 20:54] VITALS: BP 152/87
[2024-03-04 21:03] LABS: Glucose - Point of Care 187 mg/dl (70-99)
[2024-03-04] MEDS: PRAVACHOL 20 MG PO (21:08)
[2024-03-04 23:37] VITALS: PULSE 2
[2024-03-05 00:04] VITALS: BP 174/86
--- NOTE | 2024-03-05 00:45 | RESPNOTE ---
called to give pt prn Duoneb for 'coughing fit'. Found pt sleeping comfortably, with BiPAP mask on, no apparent distress noted. RN made aware that Duoneb was not indicated at this time and not give.
[2024-03-05 02:52] VITALS: BP 146/91
[2024-03-05 04:01] VITALS: PULSE 2
[2024-03-05 07:00] VITALS: BP 151/63
[2024-03-05] MEDS: DUONEB 3 ML INH ×3 (07:47→15:24)
[2024-03-05] MEDS: FLOVENT 110 MCG INHALER 2 PUFF INH (07:47)
[2024-03-05 08:35] LABS: Glucose - Point of Care 144 mg/dl (70-99)
[2024-03-05] MEDS: NOVOLOG FLEXPEN-LOW RESISTANCE SC (08:50)
[2024-03-05] MEDS: DESENEX/MITRAZOL/ZEASORB 1 APPLIC TOPICAL (09:46)
[2024-03-05] MEDS: LOVENOX 40 MG SC (09:47)
[2024-03-05] MEDS: SINEMET 25-100 1 TABLET PO (09:47)
[2024-03-05] MEDS: GLUCOPHAGE 500 MG PO (09:47)
[2024-03-05] MEDS: MUCINEX 600 MG PO (09:47)
[2024-03-05] MEDS: LANTUS 0.2 UNITS SC (09:47)
[2024-03-05] MEDS: TYLENOL 1000 MG PO ×2 (09:48→17:34)
[2024-03-05] MEDS: PLAVIX 75 MG PO (09:48)
[2024-03-05] MEDS: ASPIR LOW (ENTERIC COATED) 81 MG PO (09:48)
[2024-03-05] MEDS: TOPROL XL 50 MG PO (09:48)
[2024-03-05] MEDS: DULCOLAX 10 MG PO (09:48)
[2024-03-05] MEDS: NORVASC 2.5 MG PO (09:51)
--- NOTE | 2024-03-05 10:25 | W.PN.HOSP.TC ---
Today's Communication/Plan
-
Discharge
Assessment / Plan
Assessment / Plan
Imaging
CTAP
IMPRESSION:
No evidence of renal or ureteral calculus. No hydronephrosis.
Left renal cysts with unchanged mildly hyperdense exophytic lesion along the inferior pole the left kidney, likely a hemorrhagic cyst.
The urinary bladder is nondistended with mild circumferential wall thickening which can be seen with cystitis. Recommend correlation with urinalysis.
Mild colonic stool burden.
Physical Exam
General: No Apparent Distress
HEENT: Normocephalic.
Respiratory: mild expiratory wheezes at bases.
Cardiac: S1/S2
GI: Soft, Non Tender, Non Distended
Rectal: No bleeding
Genito-urinary: No Menendez
Musculoskeletal: mild edema in lower legs
Skin: No Rash
Neuro: Awake, Alert, oriented to self and surroundings, he followed simple commands. + Rigidity
Psych: Calm
Assessment and Plan
# TME/ Change in mental status
Resolved. he is awake and alert today. d/w ( in room seeing him today): pt is looking good today, ok to send to rehab.
CT head no acute findings
Suspect TME due to inability to maintain normal circadian rhythm for sleep. He did not receive sedative/ opioids/ no signs of active infections. Vital signs remained normal. We held Lexapro and Remeron but will resume upon dc.
He is alert today.
He was also probably unable to sleep well at night time.
# Acute asthma exacerbation
Resolving back on breathing treatments
No leukocytosis
Chest x ray no airspace disease.
ABG no high PCO2.
# L4-5 pronounced degenerative disc disease
Disc bulge Back pain
Added Tylenol 100-mg TID
Added low dose Tramadol as PRN only
Avoid ATC NSAIDs to avoid GI bleeding with Plavix & aspirin
-Without evidence of cauda equina symptoms, numbness/tingling
-Difficulty with ambulation
-No fever or leukocytosis.
I d/w Dr Subramanian, he will evaluate the pt 03/02
# primary HTN
Slightly uncontrolled, would rather avoid low Bp due to risk of postural hypotension in Parkinson pts.
-Continue antihypertensives
- Added low dose hydralazine
# Leukocytosis, mild
NO fevers
Monitor for now
CVA
-DAPT amd statin
HLD
-Continue statin
# Depression
d/w . Will resume Remeron and Lexapro to avoid worsening depression
# Constipation
Will do HS MiraLAX and oral Dulcolax
DMII
-AccuCheck, will add insulin sliding scale
-Add SSI
-CCdiet
HTN
-Continue antihypertensives
# Parkinson's disease
c/w Sinemet
Total discharge time spent to see the patient, examine the patient, review data and lab results, discuss discharge plan with patient, , nursing care around 65 minutes
Anticipated Discharge: Today
Subjective/Interval History
-
Date of Service: March 05, 2024
No chest pain
No sob
Objective Data
-
Vital Signs:
Vital Signs
Temp Pulse Resp BP Pulse Ox
98.2 F 75 16 151/63 5
03/05/24 07:00 03/05/24 07:52 03/05/24 07:52 03/05/24 07:00 03/05/24 07:52
I&O
03/04/24 03/05/24 03/06/24
06:59 06:59 06:59
Intake Total 100 / 100
Output Total 350 / 350 500 / 500
Balance -250 / -250 -500 / -500
--- NOTE | 2024-03-05 10:52 | CM ---
Patient and seen at bedside.
Spoke with Gus Pereira and transportation set for 1530
forms on chart
PLAN: Gus Pereira
Gus Pereira
[2024-03-05 12:31] LABS: Glucose - Point of Care 175 mg/dl (70-99)
[2024-03-05] MEDS: NOVOLOG FLEXPEN-LOW RESISTANCE 1 UNITS SC (13:16)
--- NOTE | 2024-03-05 14:08 | W.DCSUMMARY ---
Discharge Summary
Discharge Data
Date of Admission: 02/29/24
Date of Discharge: 03/05/24
-
Pending Results: No
Hospital Course
78 years old male presented to the emergency room for evaluation of left lower back pain that was progressively worsening over the last few days before admission. Patient denied trauma, falls, fever. He denied constipation, urinary symptoms or
focal numbness. Patient did not have leukocytosis. He did not have fever. Imaging studies of the back did not show acute fracture. MRI of lumbar spine showed diffuse paraspinal muscle atrophy, disc spaces preserved throughout auto-fused L1-4,
disc degeneration with a left sided paracentral bulge and moderate left foraminal stenosis L4-5. Patient was diagnosed with degenerative disc disease L4-5 with axial symptoms. He was evaluated by spine surgery Dr. Kana Subramanian with [facility] And recommended pain control with oral analgesics, to consider interventional options if no improvement. Patient and his were given contact information for [facility]. Patient was noted to have mild acute asthma
exacerbation. He was placed on breathing treatment. Chest radiography did not show focal airspace disease, blood gases did not show CO2 retention. Patient had an episode of lethargy with change in mental status. Patient was diagnosed with toxic
metabolic encephalopathy secondary to inability to maintain normal circadian rhythm for sleep. No signs of active infection found. With improvement of sleep at night, his mentation improved. During previous admission to in August 2023, neurologist
recommended outpatient workup of the potential for normal pressure hydrocephalus, he was started on Sinemet pending further neurology workup . rehabilitation manager was involved in discharge planning. Physical therapy recommended long-term facility
placement. Patient remained hemodynamically stable and was discharged to rehab in a stable condition.
Discharge Plan
-
Patient Disposition: Retirement/SNF
Discharge Diagnosis/Procedures: Lower back pain due to degenerative disc disease L4-5 with axial symptoms. MRI of lumbar spine showed diffuse paraspinal muscle atrophy, disc spaces preserved throughout auto-fused L1-4, disc degeneration with a
left sided paracentral bulge and moderate left foraminal stenosis L4-5.
Follow with [facility].
Obesity
Hx of CVA, Gait dysfunction
Diabetes
Asthma
Parkinson disease: Not confirmed diagnosis per . Previous admission : Neurology recommended outpatient workup of the potential for normal pressure hydrocephalus. Sinemet was started during that admission, willneed to f/w neurology
Diet: Low Fat and Diabetic, Carb Controlled
Referrals:
[facility] [Provider Group] (Can contact [facility] at to arrange outpatient consultation in consideration of interventional options. )
Zheng Lomeli MD [Active] - in two to three weeks
UNKNOWN,NO INTERVIEW [Family Provider] -
Prescriptions:
New
hydralazine 10 mg Tablet
5 mg PO TIDPRN PRN (Reason: SBP more than 165) Qty: 10 0RF
bisacodyl 5 mg Tablet,Delayed Release (Dr/Ec)
10 mg PO DAILY Qty: 30 0RF
ipratropium-albuterol 0.5 mg-3 mg(2.5 mg base)/3 mL Solution For Nebulization
3 ml inhalation R Q4HPRN PRN (Reason: sob,wheezes,congestion) Qty: 30 0RF
polyethylene glycol 3350 17 gram Powder In Packet
17 g PO HS Qty: 30 0RF
guaifenesin 600 mg Tablet Extended Release 12hr
600 mg PO Q12 Qty: 10 0RF
acetaminophen [Tylenol Extra Strength] 500 mg Tablet
1,000 mg PO QIDPRN PRN (Reason: back pain) Qty: 10 0RF
ipratropium-albuterol 0.5 mg-3 mg(2.5 mg base)/3 mL solution for nebulization
3 ml inhalation Q8H PRN (Reason: shortness of breath or wheezing) Qty: 90 0RF
Continued
clopidogrel 75 MG tablet
75 mg PO DAILY Qty: 30 0RF
metoprolol succinate 50 MG tablet extended release 24 hr
50 mg PO BID
pravastatin 20 MG tablet
20 mg PO HS
escitalopram oxalate 10 MG tablet
10 mg PO HS
aspirin 81 MG tablet,delayed release (DR/EC)
81 mg PO DAILY
metformin 500 MG tablet
500 mg PO DAILY
amlodipine 2.5 mg tablet
2.5 mg PO DAILY
Arnuity Ellipta 200 mcg/actuation blister with device
1 inh INHALATION R BID
cyanocobalamin (vitamin B-12) [Vitamin B-12] 1,000 mcg Tablet
1,000 mcg PO DAILY
mirtazapine 15 mg tablet
15 mg PO HS
folic acid 0.8 mg Capsule
0.8 mg PO DAILY
carbidopa-levodopa 25-100 mg tablet
1 tab PO BID
Changed
insulin glargine [Lantus Solostar U-100 Insulin] 300 UNITS/3 ML insulin pen
25 unit SC BID Qty: 0 0RF
Discharge Orders:
Discharge Patient (As Directed); Ordered 03/05/24
Ordered By: Jagjit Morataya
Discharge Date and Time
Discharge Date/Time: 03/05/24 19:09
Print Language: MALIAN
--- NOTE | 2024-03-05 14:59 | PTCARENOTE ---
Report called in to Mary at [facility].
[2024-03-05 15:00] VITALS: BP 154/79
[2024-03-05 16:49] LABS: Glucose - Point of Care 217 mg/dl (70-99)
[2024-03-05] MEDS: NOVOLOG FLEXPEN-LOW RESISTANCE 2 UNITS SC (17:35)
== END 2024-03-05 19:09 | DRG 551 ==
LOC: 4 WEST ACU 08:23
PROVIDERS: Nurse Practitioner Family; ADMITTING PHYSICIAN Internal Medicine; ATTENDING PHYSICIAN Internal Medicine; CONSULT PHYSICIAN Orthopaedic Surgery; EMERGENCY PHYSICIAN Emergency Medicine
DX: M51.369 Other intervertebral disc degeneration, lumbar region without mention of lumbar back pain or lower extremity pain (principal); G92.8 Other toxic encephalopathy; J45.901 Unspecified asthma with (acute) exacerbation; Z68.41 Body mass index [BMI] 40.0-44.9, adult; E11.40 Type 2 diabetes mellitus with diabetic neuropathy, unspecified; G47.33 Obstructive sleep apnea (adult) (pediatric); I10 Essential (primary) hypertension; E78.00 Pure hypercholesterolemia, unspecified; G20.A1 Parkinson's disease without dyskinesia, without mention of fluctuations; E66.9 Obesity, unspecified
CPT/HCPCS: 36600; 51701; 70450; 71046; 72148; 74176; 80048; 80076; 81003; 82805; 82962; 83880; 84132; 85025; 85027; 94640; 94660; 97163; 97167; 97530; 97535; 99285

== ENCOUNTER 2024-03-06 22:54 | Inpatient (IN) | payer MEDICARE, OTHER, SELFPAY ==
[2024-03-06 19:37] VITALS: BP 165/82; BMI 42.7
[2024-03-06 20:00] VITALS: BP 154/91
[2024-03-06 20:03] LABS: % Basophils 0.3 % (0-2); % Eosinophils 1.6 % (0-6); % Immature Granulocytes 0.3 % (0-0.5); % Lymphocytes 15.4 % (20.5-51.1); % Monocytes 7.1 % (1.7-9.3); % Neutrophils 75.3 % (42.2-75.2); Absolute Eosinophils 0.2 10^3/uL (0-0.7); Absolute Lymphocytes 1.9 10^3/uL (1.2-3.4); Absolute Monocytes 0.9 10^3/uL (0.1-0.6); Absolute Neutrophils 9.1 10^3/uL (1.4-6.5); Hematocrit 46.6 % (39.0-52.0); Hemoglobin 15.6 g/dL (13.0-18.0); Mean Corp Hgb Conc. 33.5 g/dL (33.0-37.0); Mean Corpuscular Hgb 31.5 pg (27.0-31.0); Mean Corpuscular Volume 94.1 fL (80.0-94.0); Mean Platelet Volume 10.2 fL (7.4-10.4); Nucleated Red Blood Cells % 0 % (-); Platelet Count 183 10^3/uL (130-400); Red Blood Cell Count 4.95 10^6/uL (4.70-6.10); Red Cell Dist. Width 14.1 % (11.5-14.5); White Blood Cell Count 12.2 10^3/uL (4.8-10.8)
[2024-03-06] MEDS: OFIRMEV 1000 MG IV (20:07)
[2024-03-06] MEDS: DUONEB 3 ML INH (20:08)
[2024-03-06 20:14] LABS: COVID-19 Antigen Positive (Negative)
[2024-03-06 20:16] LABS: ALT (SGPT) 32 U/L (0-50); AST (SGOT) 38 U/L (17-59); Albumin 4.1 g/dl (3.5-5.0); Alkaline Phosphatase 113 U/L (38-126); Blood Urea Nitrogen 29 mg/dl (9-20); Calcium 8.9 mg/dl (8.4-10.2); Carbon Dioxide 26 mmol/L (22-30); Chloride 101 mmol/L (98-107); Estimated Creatinine Clearance 72 ml/min; Glucose 216 mg/dl (70-99); Potassium 4.2 mmol/L (3.5-5.1); Sodium 142 mmol/L (135-145); Total Bilirubin 0.7 mg/dl (0.2-1.3); eGFR > 60.00
[2024-03-06 20:29] LABS: NT-proBNP 175 pg/ml; Troponin I 0.023 ng/ml
[2024-03-06 21:00] VITALS: BP 155/82
--- NOTE | 2024-03-06 21:20 | ED.GENMED ---
History of Present Illness
General
Chief Complaint: Cough
Time Seen by Provider: 03/06/24 21:08
History of Present Illness
History of Present Illness:
Patient presents the emergency department with cough and fever. He is accompanied by his who helps provide history. Patient is coming from [place]. He tested positive for COVID earlier today. They note cough and worsening shortness of
breath. Patient has a history of asthma and chronic cough with dyspnea after stroke which left him with left-sided weakness.
Past History
Past History
ED Past Medical History: Asthma, CAD, COPD, CVA (X3), GERD (Rivera's esophagus), HTN, Hypercholesterolemia, IDDM and Other (Pulmonary emboli, Neuropathy)
ED Past Surgical History: Cardiac (Stent), Cholecystectomy, Orthopedic (Gama knee replacements) and Tonsilectomy
Social History
Tobacco: Non-smoker
Alcohol: None
Drug: None
Personal:
Living: with family
Employment: Retired
Family History
Family History: CAD and Asthma (COPD)
Phy Exam
Physical Exam
Physical Exam:
GENERAL APPEARANCE: Mild respiratory distress, frequent coughing, wet sounding cough
EYES lids/conjunctiva normal
EARS/NOSE/THROAT Mucous membranes moist, uvula midline without oral pharyngeal erythema, exudate or swelling
HEAD/NECK normocephalic atraumatic, neck is supple.
RESPIRATORY diffuse rhonchi diffuse wheezing, on 4 L nasal cannula
CARDIAC tachycardic, no edema.
ABDOMINAL Soft, ND/NT. Obese abdomen
MUSCLES/EXTREMITIES No abnormal range of motion, no swelling.
SKIN Warm, pink and dry. No rashes
NEUROLOGICAL tired appearing but easily arousable, chronic weakness on the left side. Follows commands. Oriented x 3.
Sepsis
Sepsis Screening
Sepsis Assessment: Sepsis
Sepsis Screen
Sepsis Screen: Sepsis
Date: 03/06/24
Time: 22:36
Course
Orders/Labs/Results
Orders:
Orders
03/06/24 19:35
Electrocardiogram (*1) Urgent
Reason for Study: Other
Other Reason for Exam: Respiratory Distress
Cardiac Monitoring- Treatment ONCE
EKG- Treatment ONCE
IV Insert/Care/Rem.- Treatment PRN
CR Chest Portable - 1 View Urgent
Comment:
Reason For Exam: respiratory distress
Reason Study Needs to be Portable: Patient Unstable
O2 Therapy [RESP] Urgent
Titrate/Wean O2 to maintain O2 sat greater than (%): 93
Special Instructions: TO MAINTAIN CONTINUOUS O2 SATS >/= 93%
Pulse Ox/cont/shift [RESP] Urgent
Quantity: 1
Special Instructions: continuous pulse ox
03/06/24 19:50
COVID-19 Antigen Urgent
Source: Nasal Swab
Complete Blood Count/With Diff Urgent
Comprehensive Metabolic Panel Urgent
NT-proBNP Routine
Troponin I Urgent
Influenza A+B Rapid Molecular Urgent
KATIANA Source: Nasal Swab
Specimen Description:
03/06/24 20:06
Acetaminophen 1000MG/100Ml [Ofirmev] 1,000 mg in 100 ml .ROUTE .STK-MED
Ipratropium/Albuterol Sulfate [Duoneb] 3 ml .ROUTE .STK-MED ONE
03/06/24 20:07
Acetaminophen 1000MG/100Ml [Ofirmev] 1,000 mg IV NOW STA
Ipratropium/Albuterol Sulfate [Duoneb] 3 ml INH R NOW ONE
03/06/24 21:21
Albuterol Nebs [Ventolin Nebules] 2.5 mg INH R NOW STA
Azithromycin 500 mg/250 ml [Zithromax Infusion] 500 mg in 250 ml IV NOW
CefTRIAXone [Rocephin] 1,000 mg IV NOW STA
Dexamethasone Sod Phosphate [Decadron] 10 mg IV NOW STA
Magnesium Sulfate 2 Gram/50 ml [Magnesium Sulfate] 2 gram in 50 ml IV NOW
Pulse Ox/cont/shift [RESP] Stat
Quantity: 1
03/06/24 21:40
Lactic Acid Q4H
Comment: CANCEL 2nd LACTIC ACID IF 1st LACTIC ACID IS LESS THAN 2
Blood Culture Urgent
KATIANA Source: Blood/Venous
Specimen Description:
03/06/24 22:17
Admit/Transfer Patient As Directed
Co-Sign Provider:
Level of Care: Inpatient admission
Assign to:: ICU
Physician / Group: Hospitalist
Diagnosis: Covid PNA
Reason for Hospitalization: Covid PNA
Expected length of stay greater than two midnights?: Yes
ELOS- Estimated Length of Stay in days: 10
I certify the patient meets the requirements for IP care: Yes
03/06/24 22:18
PRN Pain Medication Management As Directed
May give lesser potent ordered pain med per pt: Yes
preference::
Protocol:: Medication orders for pain may be administered in a
manner that supports deferring to patient preference
when the pt is:
- Requesting an ordered lesser potent pain medication.
Least to most potent pain medications are defined
as: acetaminophen < NSAID < tramadol < opioids
(morphine, oxycodone, hydromorphone).
- Requesting a lesser dose of the same medication IF
ORDERED.
- Requesting a less intrusive route of administration
if both routes are prescribed by the provider (PO <
IV).
03/06/24 22:20
Code Status As Directed
Resuscitation Status: Do not resuscitate
Reached after discussion with pt or family/Healthcare POA: Yes
Decision communicated with: at bedside
DNR Bracelet Application ONCE
03/07/24 01:30
Lactic Acid Q4H
Comment: CANCEL 2nd LACTIC ACID IF 1st LACTIC ACID IS LESS THAN 2
Abnormal Lab Results
03/06/24
19:50
WBC 12.2 H 10^3/uL
(4.8-10.8)
MCV 94.1 H fL
(80.0-94.0)
MCH 31.5 H pg
(27.0-31.0)
Absolute Neuts (auto) 9.1 H 10^3/uL
(1.4-6.5)
Absolute Monos (auto) 0.9 H 10^3/uL
(0.1-0.6)
Neutrophils % 75.3 H %
(42.2-75.2)
Lymphocytes % 15.4 L %
(20.5-51.1)
BUN 29 H mg/dl
(9-20)
Glucose 216 H mg/dl
(70-99)
SARS-CoV-2 Antigen Positive A
(Negative)
03/06/24 19:50
03/06/24 19:50
Vital Signs
Initial and Last Documented VS:
Initial Vital Signs
Temp Pulse Resp BP Pulse Ox
100.6 F H 112 22 165/82 90
03/06/24 19:37 03/06/24 19:37 03/06/24 19:37 03/06/24 19:37 03/06/24 19:37
Last Documented Vital Signs
Temp Pulse Resp BP Pulse Ox
100.6 F H 97 18 132/58 94
03/06/24 19:37 03/06/24 22:15 03/06/24 22:15 03/06/24 22:00 03/06/24 22:15
*Critical Care Note
Total Time (30-74mins, 75-104mins- exclusive of procedures): Not Applicable
ED Attending Note
ED Attending Note
ED Attending Note:
Patient with COVID-19 possible superimposed pneumonia. Patient is febrile and tachycardic requiring 4 L nasal cannula. Treated with nebs, will add steroids and antibiotics. Will admit for further management
-
Portions of this chart may have been created with voice recognition software.� Occasional wrong word or��sound alike� substitutions may have occurred due to the inherent limitations of voice recognition software.
Discharge Plan
Departure
Patient Disposition: Admit
Date of Disposition: 03/06/24
Time of Disposition: 21:33
Presentation/result/management discussed w/ accepting MD/DO: Hospitalist
Patient with high blood pressure during this ER visit?: Yes
Discharge Problem:
Acute hypoxic respiratory failure, Asthma exacerbation, COVID-19
Prescriptions:
No Action
clopidogrel 75 MG tablet
75 mg PO DAILY Qty: 30 0RF
metoprolol succinate 50 MG tablet extended release 24 hr
50 mg PO BID
pravastatin 20 MG tablet
20 mg PO HS
escitalopram oxalate 10 MG tablet
10 mg PO HS
aspirin 81 MG tablet,delayed release (DR/EC)
81 mg PO DAILY
metformin 500 MG tablet
500 mg PO DAILY
amlodipine 2.5 mg tablet
2.5 mg PO DAILY
Arnuity Ellipta 200 mcg/actuation blister with device
1 inh INHALATION R BID
cyanocobalamin (vitamin B-12) [Vitamin B-12] 1,000 mcg Tablet
1,000 mcg PO DAILY
mirtazapine 15 mg tablet
15 mg PO HS
folic acid 0.8 mg Capsule
0.8 mg PO DAILY
carbidopa-levodopa 25-100 mg tablet
1 tab PO BID
hydralazine 10 mg Tablet
5 mg PO TIDPRN PRN (Reason: SBP more than 165) Qty: 10 0RF
bisacodyl 5 mg Tablet,Delayed Release (Dr/Ec)
10 mg PO DAILY Qty: 30 0RF
ipratropium-albuterol 0.5 mg-3 mg(2.5 mg base)/3 mL Solution For Nebulization
3 ml inhalation R Q4HPRN PRN (Reason: sob,wheezes,congestion) Qty: 30 0RF
polyethylene glycol 3350 17 gram Powder In Packet
17 g PO HS Qty: 30 0RF
guaifenesin 600 mg Tablet Extended Release 12hr
600 mg PO Q12 Qty: 10 0RF
acetaminophen [Tylenol Extra Strength] 500 mg Tablet
1,000 mg PO QIDPRN PRN (Reason: back pain) Qty: 10 0RF
insulin glargine [Lantus Solostar U-100 Insulin] 300 UNITS/3 ML insulin pen
25 unit SC BID Qty: 0 0RF
ipratropium-albuterol 0.5 mg-3 mg(2.5 mg base)/3 mL solution for nebulization
3 ml inhalation Q8H PRN (Reason: shortness of breath or wheezing) Qty: 90 0RF
Referrals:
Tanner Funez MD [Family Provider] -
Interventions
Interventions:
*Risk Screen - Suicide Last Done: 03/06/24 19:37
*General Assessment Last Done: 03/06/24 19:37
*Neglect/Abuse Screening Last Done: 03/06/24 19:37
*ED COVID-19 Vaccine History Last Done: 03/06/24 19:37
ED- Pulmonary Assessment Last Done: 03/06/24 19:52
Discharge Date and Time
Print Language: ICELANDIC
[2024-03-06] MEDS: MAGNESIUM SULFATE 50 IV (21:43)
[2024-03-06] MEDS: DECADRON 10 MG IV (21:43)
[2024-03-06] MEDS: VENTOLIN NEBULES 2.5 MG INH (21:43)
[2024-03-06] MEDS: ROCEPHIN 1000 MG IV (21:43)
[2024-03-06 22:00] VITALS: BP 132/58
--- NOTE | 2024-03-06 22:03 | HPS.HSE ---
Family Physician
-
Family Physician: Tanner Funez MD
Chief Complaint
-
cough and fever
History of Present Illness
78 man presents with cough and fever. Symptoms may have started 2 weeks ago with weakness. He is confused and cannot provide history, but he is accompanied by his who provided the history. Patient is coming from [facility]. He
tested positive for COVID earlier today with cough and worsening shortness of breath. Patient has a history of asthma and chronic cough with dyspnea after stroke which left him with left-sided weakness. states that he is DNR and would not want
to be intubated. He had a covid booster this year in January.
Medical History
Past Medical History
Past Medical History: Reports Other
Additional Past Medical History:
Asthma,
CAD,
COPD,
CVA (X3),
GERD
Rivera's esophagus
Essential HTN,
Hypercholesterolemia,
IDDM
Pulmonary emboli
Neuropathy
Cardiac (Stent),
Cholecystectomy,
Gama knee replacements
Tonsilectomy
Past Surgical History: Reports Other
Additional Past Surgical History:
See above
Social History
Tobacco: Non-smoker
Alcohol: None
Drug: None
Personal:
Living: Halfway
Employment: Retired
Family History
Family History: Not pertinent
Allergies / Home Medications
Allergies reflects when Allergies were last updated in [facility].
Home Medications with original date entered in [facility]
Allergy/Medication List:
Allergies
Allergy/AdvReac Type Severity Reaction Status Date / Time
Iodinated Contrast Media Allergy Unknown VOMITING/HI Verified 03/06/24 20:32
[Iodinated Contrast- Oral VES
and IV Dye]
latex Allergy Unknown Rash Verified 03/06/24 20:32
adhesive tape Allergy redness;axel Verified 03/06/24 20:32
hy
reyna Allergy closes Verified 03/06/24 20:[address]
air[address]
hydromorphone HCl Allergy makes him Verified 03/06/24 20:32
[From Dilaudid] loopy as
per spouse
iodine Allergy vomiting;hi Verified 03/06/24 20:32
ves
oxycodone Allergy SEE BELOW Verified 03/06/24 20:32
aquacel dressing Allergy 'pulled Uncoded 03/06/24 20:32
skin off'
DARIUS stockings Allergy itching;axel Uncoded 03/06/24 20:32
h
Home Medications
clopidogrel 75 mg tablet 75 mg PO DAILY ##30 11/22/15
escitalopram oxalate 10 mg tablet 10 mg PO HS Mental Health/Anxiety 09/12/16
metoprolol succinate 50 mg tablet,extended release 24 hr 50 mg PO BID Blood Pressure 09/12/16
pravastatin 20 mg tablet 20 mg PO HS High Cholesterol 09/12/16
aspirin 81 mg tablet,delayed release 81 mg PO DAILY Blood Clot Prevention/Tx 11/29/16
metformin 500 mg tablet 500 mg PO DAILY Diabetes 02/20/18
amlodipine 2.5 mg tablet 2.5 mg PO DAILY Blood Pressure 08/21/23
cyanocobalamin (vitamin B-12) 1,000 mcg tablet (Vitamin B-12) 1,000 mcg PO DAILY Supplement 08/21/23
fluticasone furoate 200 mcg/actuation blister powder for inhalation (Arnuity Ellipta) 1 inh inhalation R BID Lung/Breathing Issues 08/21/23
folic acid 0.8 mg capsule 0.8 mg PO DAILY Supplement 08/21/23
mirtazapine 15 mg tablet 15 mg PO HS Mental Health/Anxiety 08/21/23
carbidopa 25 mg-levodopa 100 mg tablet 1 tab PO BID Parkinson's 02/26/24
acetaminophen 500 mg tablet (Tylenol Extra Strength) 1,000 mg (2 x 500 mg) PO QIDPRN PRN back pain #10 tabs 03/05/24
bisacodyl 5 mg tablet,delayed release 10 mg (2 x 5 mg) PO DAILY #30 tabs 03/05/24
guaifenesin 600 mg tablet, extended release 12 hr 600 mg PO Q12 #10 tabs 03/05/24
hydralazine 10 mg tablet 5 mg (1/2 x 10 mg) PO TIDPRN PRN SBP more than 165 #10 tabs 03/05/24
insulin glargine 100 unit/mL (3 mL) subcutaneous pen (Lantus Solostar U-100 Insulin) 25 unit (0.25 mL) SC BID Diabetes #0 mL 03/05/24
ipratropium 0.5 mg-albuterol 3 mg (2.5 mg base)/3 mL nebulization soln 3 ml inhalation Q8H PRN shortness of breath or wheezing #90 mL 03/05/24
ipratropium 0.5 mg-albuterol 3 mg (2.5 mg base)/3 mL nebulization soln 3 ml inhalation R Q4HPRN PRN sob,wheezes,congestion #30 applic 03/05/24
polyethylene glycol 3350 17 gram oral powder packet 17 g PO HS #30 ea 03/05/24
Review of Systems
-
Unable to obtain full review of systems at this time due to: Acuity
Physical Exam
Vital Signs
Vital Signs
Temp Pulse Resp BP Pulse Ox
100.6 F H 99 20 155/82 94
03/06/24 19:37 03/06/24 21:00 03/06/24 21:00 03/06/24 21:00 03/06/24 21:00
Physical Exam
General: Well Developed, Well Nourished, Respiratory Distress, Appears in Distress and Morbidly Obese
HEENT: Nose Appears Normal and Ears Appear Normal
Respiratory: Wheezes, Rales, Rhonchi, Crackles and Decreased Breath Sounds
Cardiac: S1/S2, Regular Rhythm and Tachycardia
GI: Soft, Non Tender and Non Distended
Musculoskeletal: No Clubbing, No Cyanosis, Edema, Left Lower Extremity and Edema, Right Lower Extremity
Skin: Warm and Dry; No Rash
Neuro: Awake
Psych: Confused, Agitated and Anxious
Laboratory Results
-
03/06/24 19:50
03/06/24 19:50
Laboratory Results
Total Bilirubin 0.7 mg/dl (0.2-1.3) 03/06/24 19:50
AST 38 U/L (17-59) 03/06/24 19:50
ALT 32 U/L (0-50) 03/06/24 19:50
Alkaline Phosphatase 113 U/L (38-126) 03/06/24 19:50
Troponin I 0.023 ng/ml 03/06/24 19:50
Data Reviewed
-
Lab Data: Labs Reviewed by me
Impression/Plan
-
IMPRESSION:
78 man with h/o asthma and COPD comes in with Covid PNA. High mortality risk.
WBC 12.2
Temp 100.6
BUN/Creat 29/1.1 (near baseline)
PLAN:
1. Covid pneumonia in a high risk patient. High mortality risk. Does not want to be intubated. Unclear when symptoms started, but may have been 2 weeks ago. More likely less as wbc was elevated on 03/02.
Steroids
Covid Tx protocol
Precautions
Pulmonary consult
2. Essential HTN - continue BP meds
3. Parkinson's - continue meds
4. IDDM - sliding scale insulin
Code: DNR
Heparin for DVTp
[2024-03-06 22:11] LABS: Lactic Acid 1.8 mmol/L (0.7-2.0)
[2024-03-06] MEDS: ZITHROMAX INFUSION 250 IV (22:57)
[2024-03-06 23:00] VITALS: BP 153/76
[2024-03-07] VITALS (62 sets, daily range): BP systolic 57–164; BP diastolic 36–99; PULSE 2–98; BMI 41.8
--- NOTE | 2024-03-07 01:15 | PTCARENOTE ---
received patient from ED to room 3371. pt pulled over from stretcher to bed. Pt drowsy, arouses to voice. confused. oriented to self, disoriented to place and time. generalized weakness, report of left sided weakness from previous CVA. SR on
telemetry heart rate in 90s. pulses palpable. trace lower extremity edema. pt on 2L nasal cannula, sat dipping into high 80s when asleep, increased to 4L nasal cannula. lung sounds coarse, with inspiratory and expiratory wheezes. abdomen obese,
active bowel sounds. incontinent of urine. see worklist for full nursing assessment and interventions.
[2024-03-07 02:01] LABS: D-Dimer 0.37 ug/mlFEU (0.00-0.50)
[2024-03-07 02:11] LABS: Troponin I 0.026 ng/ml
[2024-03-07 02:26] LABS: Procalcitonin 0.09 ng/ml (0.0-0.25)
[2024-03-07 02:32] LABS: Lactic Acid 1.4 mmol/L (0.7-2.0)
--- NOTE | 2024-03-07 04:48 | PTCARENOTE ---
pt difficult to arouse- more lethargic than when previously assessed. sat 93% on 4L nasal cannula. remains SR with 1st degree block on telemetry heart rate 90s. blood pressure 155/77. NURSE MIDWIFE/CLINICAL INSTRUCTOR notified, order for abg
[2024-03-07 04:59] LABS: % Basophils 0.3 % (0-2); % Immature Granulocytes 0.5 % (0-0.5); % Lymphocytes 6.3 % (20.5-51.1); % Monocytes 1.4 % (1.7-9.3); % Neutrophils 91.5 % (42.2-75.2); Absolute Immature Granulocytes 0.1 10^3/uL (0-0.05); Absolute Lymphocytes 0.6 10^3/uL (1.2-3.4); Absolute Monocytes 0.1 10^3/uL (0.1-0.6); Absolute Neutrophils 9.1 10^3/uL (1.4-6.5); Hematocrit 46.5 % (39.0-52.0); Hemoglobin 15.6 g/dL (13.0-18.0); Mean Corp Hgb Conc. 33.5 g/dL (33.0-37.0); Mean Corpuscular Hgb 31.1 pg (27.0-31.0); Mean Corpuscular Volume 92.6 fL (80.0-94.0); Mean Platelet Volume 10.4 fL (7.4-10.4); Nucleated Red Blood Cells % 0 % (-); Platelet Count 180 10^3/uL (130-400); Red Blood Cell Count 5.02 10^6/uL (4.70-6.10); Red Cell Dist. Width 14.1 % (11.5-14.5); White Blood Cell Count 9.9 10^3/uL (4.8-10.8)
[2024-03-07 05:07] LABS: B.E. 1.6 mmol/L; HCO3 26.6 mmol/L (21-28); O2 Saturation % 97.5 % (94-98); PCO2 42 mmHg (35-48); PO2 82 mmHg (83-108); pH 7.41 (7.35-7.45)
[2024-03-07 05:09] LABS: O2 Therapy 4L NC
[2024-03-07 05:29] LABS: Blood Urea Nitrogen 30 mg/dl (9-20); Calcium 8.7 mg/dl (8.4-10.2); Carbon Dioxide 24 mmol/L (22-30); Chloride 102 mmol/L (98-107); Estimated Creatinine Clearance 72 ml/min; Glucose 247 mg/dl (70-99); Magnesium 2.4 mg/dl (1.6-2.3); Potassium 4.8 mmol/L (3.5-5.1); Sodium 141 mmol/L (135-145); eGFR > 60.00
[2024-03-07 08:01] LABS: Troponin I 0.021 ng/ml
[2024-03-07] MEDS: FLOVENT 110 MCG INHALER 2 PUFF INH ×2 (08:26→20:11)
--- NOTE | 2024-03-07 08:29 | CON.INTV ---
Consultation
Consultation Request
Date/Time Consultation Requested: 03/07/2024138
Date/Time Consultation Performed: 03/07/2024826
Requesting Provider: HERBIE Cyr
Performing Provider: Alex Richardson MD
Reason for Consultation: COVID-19/hypoxia
Medical History
-
Chief Complaint: Cough + shortness of breath
History of Present Illness:
78-year-old male never smoker with a past medical history of mild persistent asthma, chronic bronchitis, restrictive lung disease, history of PE, severe FLAQUITA, GERD, Parkinson disease, Rivera's esophagus, hypertension/hyperlipidemia, CAD, history of
stroke/TIA and dilated aortic root who presents with cough and shortness of breath. Patient resides at [facility]. He tested positive for COVID-19 just prior to coming here to ER. EMS placed him on 4 L/min. He had a COVID booster this year in
January. In the ER he was febrile to 100.6 �F, tachycardic to 112, tachypneic to 22 breaths/min, hypertensive to 165/82, and saturating 90% on room air. With 2 L applied his saturations improved to 94%. Initial labs showed WBC 12.2, hyperglycemia
to 216, troponin negative at 0.023, proBNP negative at 175, procalcitonin negative at 0.09, and COVID antigen was positive. Flu A/B swab was negative. Blood culture was collected. CXR showed low lung volumes with a retrocardiac opacity. Of note
he was recently hospitalized here at from 02/28 - 03/05/2024 due to left lower back pain with degenerative disc disease of L4-5 with axial symptoms diagnosed. He was seen by spine surgery from [facility] orthopedics who recommended pain control and
interventional options to be considered if no improvement. He was also found to have a acute asthmatic exacerbation and was placed onto breathing treatments. He also was found to be confused and diagnosed with toxic metabolic encephalopathy.
During previous hospitalization in August 2023, neurology had recommended Sinemet pending further neurological workup for possible NPH. For this current hospitalization, in the ER he was given ceftriaxone, Decadron 10 mg, Tylenol, albuterol and
magnesium. He was admitted to the ICU for further care and robot designer services consulted for additional management/recommendations.
Patient seen and evaluated this morning. Heart rate 87, BP 163/88 and saturating 91% on 6 L/min nasal cannula. He is sleeping in bed in no acute distress. Lethargic this AM, although easily arousable to voice and tactile stimulation but then
quickly falls back asleep.
Of note, patient follows with us in the [facility] office with Dr. Sanchez with last visit on 10/22/2023. He is maintained on Arnuity Ellipta 200mcg for his history of asthma. He does endorse dyspnea which is likely contributed by his sedentary
lifestyle. He ambulates with a walker. Pulmonary rehab was discussed but due to his ambulatory dysfunction he was not considered a candidate. He was admitted to [facility] in May 2023 for stroke symptoms with confusion and
reportedly had CO2 retention. He is on PAP with sleep and his BiPAP was adjusted from 11/5 to 15/8. He does have a chronic cough producing more than 1 ounce of sputum daily which is clear in color. He was previously on Daliresp but this was
eventually denied by Medicare. He has suspected cough variant asthma. He has had a history of near syncope with cough. Prior 6MWT on 12/28/2018 showed that he did not need oxygen. Last PFT from 10/22/2023 showed moderate/borderline severe
restrictive lung defect with T% predicted (3.97 L) with a mild gas exchange capacity defect which was normal when accounting for alveolar volume involved in gas exchange (DLco: 66%; DLco/VA: 111%).
PMHx: Chronic cough, mild persistent asthma, chronic bronchitis, restrictive lung disease, history of PE (bilateral diagnosed in July 2015 s/p left TKA treated with Coumadin), history of severe FLAQUITA, GERD, vasomotor rhinitis, Parkinson's disease,
gastric polyps, Rivera's esophagus, hypertension, history of TIA/stroke, diverticulosis, hyperlipidemia, dilated aortic root, CAD
PSHx: Back surgery, tonsillectomy, TKR, right knee arthroscopy x 2, cholecystectomy
Past Medical History
Past Medical History: Other (Above as per HPI)
Past Surgical History: Other (Above as per HPI)
Social History
Tobacco: Non-smoker
Alcohol: None
Drug: None
Personal:
Living: With Family
Family History
Family History: CAD (Father + mother), Diabetes (Sibling) and Other (Mother: Emphysema/COPD)
Allergies / Home Medications
Allergies
Allergy/AdvReac Type Severity Reaction Status Date / Time
Iodinated Contrast Media Allergy Unknown VOMITING/HI Verified 03/06/24 20:32
[Iodinated Contrast- Oral VES
and IV Dye]
latex Allergy Unknown Rash Verified 03/06/24 20:32
adhesive tape Allergy redness;axel Verified 03/06/24 20:32
hy
reyna Allergy closes Verified 03/06/24 20:[address]
hydromorphone HCl Allergy makes him Verified 03/06/24 20:32
[From Dilaudid] loopy as
per spouse
iodine Allergy vomiting;hi Verified 03/06/24 20:32
ves
oxycodone Allergy SEE BELOW Verified 03/06/24 20:32
aquacel dressing Allergy 'pulled Uncoded 03/06/24 20:32
skin off'
DARIUS stockings Allergy itching;axel Uncoded 03/06/24 20:32
h
Home Medications
�Medication �Instructions �Recorded �Confirmed �Last Taken �Type
clopidogrel 75 mg tablet 75 mg PO DAILY ##30 11/22/15 03/06/24 08/21/23 Rx
escitalopram oxalate 10 mg tablet 10 mg PO HS Mental Health/Anxiety 09/12/16 03/06/24 08/21/23 History
metoprolol succinate 50 mg 50 mg PO BID Blood Pressure 09/12/16 03/06/24 08/21/23 History
tablet,extended release 24 hr
pravastatin 20 mg tablet 20 mg PO HS High Cholesterol 09/12/16 03/06/24 08/21/23 History
aspirin 81 mg tablet,delayed 81 mg PO DAILY Blood Clot 11/29/16 03/06/24 08/21/23 History
release Prevention/Tx
metformin 500 mg tablet 500 mg PO DAILY Diabetes 02/20/18 03/06/24 08/21/23 History
amlodipine 2.5 mg tablet 2.5 mg PO DAILY Blood Pressure 08/21/23 03/06/24 08/21/23 History
cyanocobalamin (vitamin B-12) 1,000 mcg PO DAILY Supplement 08/21/23 03/06/24 08/21/23 History
1,000 mcg tablet (Vitamin B-12)
fluticasone furoate 200 1 inh inhalation R BID 08/21/23 03/06/24 08/21/23 History
mcg/actuation blister powder for Lung/Breathing Issues
inhalation (Arnuity Ellipta)
folic acid 0.8 mg capsule 0.8 mg PO DAILY Supplement 08/21/23 03/06/24 08/21/23 History
mirtazapine 15 mg tablet 15 mg PO HS Mental Health/Anxiety 08/21/23 03/06/24 08/21/23 History
carbidopa 25 mg-levodopa 100 mg 1 tab PO BID Parkinson's 02/26/24 03/06/24 Unknown History
tablet
acetaminophen 500 mg tablet 1,000 mg (2 x 500 mg) PO QIDPRN 03/05/24 03/06/24 Unknown Rx
(Tylenol Extra Strength) PRN back pain #10 tabs
bisacodyl 5 mg tablet,delayed 10 mg (2 x 5 mg) PO DAILY #30 tabs 03/05/24 03/06/24 Unknown Rx
release
guaifenesin 600 mg tablet, 600 mg PO Q12 #10 tabs 03/05/24 03/06/24 Unknown Rx
extended release 12 hr
hydralazine 10 mg tablet 5 mg (1/2 x 10 mg) PO TIDPRN PRN 03/05/24 03/06/24 Unknown Rx
SBP more than 165 #10 tabs
insulin glargine 100 unit/mL (3 25 unit (0.25 mL) SC BID Diabetes 03/05/24 03/06/24 08/21/23 Rx
mL) subcutaneous pen (Lantus #0 mL
Solostar U-100 Insulin)
ipratropium 0.5 mg-albuterol 3 mg 3 ml inhalation Q8H PRN shortness 03/05/24 03/06/24 Unknown Rx
(2.5 mg base)/3 mL nebulization of breath or wheezing #90 mL
soln
ipratropium 0.5 mg-albuterol 3 mg 3 ml inhalation R Q4HPRN PRN 03/05/24 03/06/24 Unknown Rx
(2.5 mg base)/3 mL nebulization sob,wheezes,congestion #30 applic
soln
polyethylene glycol 3350 17 gram 17 g PO HS #30 ea 03/05/24 03/06/24 Unknown Rx
oral powder packet
Review of Systems
-
Unable to Obtain full review of systems at this time due to: Acuity
Vitals / Labs / Diagnostic Testing
Vital Signs
Temp Pulse Resp BP Pulse Ox
97.5 F 84 18 164/87 93
03/07/24 05:38 03/07/24 08:45 03/07/24 08:39 03/07/24 08:45 03/07/24 08:39
Lab Data
03/07/24 04:36
03/07/24 04:36
Laboratory Results
03/07/24
04:59
pH 7.41
pCO2 42
pO2 82 L
HCO3 26.6
O2 Delivery Level 4l nc
Microbiology
03/06/24 19:50 Nasal Swab Influenza Types A & B (DARRELL) - Final
Negative for Influenza A & B, NAAT
Negative results must be combined with clinical observations
and patient history.
Nucleic Acid Amplification test (NAAT)performed on the
[employer] platform.
Diagnostic Testing:
Physical Exam
-
HEENT: Normocephalic and Anicteric
Cardiovascular: S1/S2 and Peripheral Edema (negative)
Respiratory: Wheeze (Bilaterally heard upon expiration), Rales (Bilateral), Rhonchi ([place] upon expiration) and Accessory Resp Muscle Use (mild)
GI: Soft, Distended (Abdominal obesity), Non Tender and Normal Bowel Sounds
Neurology: Tremors (negative) and Other (Lethargic although awakens to verbal/tactile stimuli)
Skin: Warm and Dry
General: Respiratory Distress (mild at rest), Fever (negative) and Chills (negative)
Assessment
-
Assessment: 78-year-old male never smoker with a PMHx of mild persistent asthma, chronic bronchitis, restrictive lung disease, history of PE, severe FLAQUITA, GERD, Parkinson disease, Rivera's esophagus, hypertension/hyperlipidemia, CAD, history of
stroke/TIA and dilated aortic root who presents with cough and shortness of breath. Patient resides at [facility]. He tested positive for COVID-19 just prior to coming here to ER. EMS placed him on 4 L/min. He had a COVID booster this year in
January. In the ER he was febrile to 100.6 �F, tachycardic to 112, tachypneic to 22 breaths/min, hypertensive to 165/82, and saturating 90% on room air. With 2 L applied his saturations improved to 94%. Initial labs showed WBC 12.2, hyperglycemia
to 216, troponin negative at 0.023, proBNP negative at 175, procalcitonin negative at 0.09, and COVID antigen was positive. Flu A/B swab was negative. Blood culture was collected. CXR showed low lung volumes with a retrocardiac opacity. Of note
he was recently hospitalized here at from 02/28 - 03/05/2024 due to left lower back pain with degenerative disc disease of L4-5 with axial symptoms diagnosed. He was seen by spine surgery from [facility] orthopedics who recommended pain control and
interventional options to be considered if no improvement. He was also found to have a acute asthmatic exacerbation and was placed onto breathing treatments. He also was found to be confused and diagnosed with toxic metabolic encephalopathy.
During previous hospitalization in August 2023, neurology had recommended Sinemet pending further neurological workup for possible NPH. For this current hospitalization, in the ER he was given ceftriaxone, Decadron 10 mg, Tylenol, albuterol and
magnesium. He was admitted to the ICU for further care and robot designer services consulted for additional management/recommendations.
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
history of TIA/stroke, diverticulosis, hyperlipidemia, dilated aortic root, CAD
Impression:
#Acute respiratory failure with hypoxia due to COVID-19 pneumonia
#Retrocardiac opacity with suspected pneumonia (bacterial superinfection)
#Sepsis without shock due to above
#Altered mental status due to septic encephalopathy
#Hypotension with new onset atrial arrhythmia due to PACs
#DM type II complicated by hyperglycemia (HbA1c: 6.9 on 08/22/2023)
#Severe FLAQUITA on BiPAP 15/8cmH2O
#GERD
#Mild persistent asthma with cough
#Chronic bronchitis
#History of VT on metoprolol
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
#History of CVA/TIA
#Restrictive lung disease (moderate/borderline severe with T% predicted; FVC: 71% predicted via PFT from 10/22/2023)
#Mild gas exchange capacity defect which is normal when accounting for alveolar volume involved in gas exchange (DLCO: 66%; DLCO/VA: 111% via PFT from 10/22/2023)
Plan:
- Continue with systemic steroids and considering he is continuing to wheeze with mild respiratory distress, I will increase his steroids from Decadron 6 mg daily to Solu-Medrol 40 mg IV q6hr
- Maintain euglycemia while on high-dose steroids with goal BG 140�180
- Continue basal�bolus SQ insulin dosing
- Maintain SpO2 >90-94% with supplemental oxygen
- Transition to high flow nasal cannula if needed
- ProAir TID with Spiriva Respimat 2.5mcg/act with prn albuterol q4hr prnn SOB/wheezing
- Mucolytics with mucinex; once more awake will encourage him to use Acapella valve
- Continue aspiration precautions; maintain HOB >30-45�
- Patient was started on ceftriaxone/Zithromax on admission; given his altered mental status, would continue with Unasyn to cover for aspiration
- Plan for 5 to 7 days of antibiotics total assuming he continues to clinically improve and remains afebrile for 48 hours prior to stopping antibiotics
- Follow-up blood culture (collected 03/06/2024); check sputum culture, and check urine antigens for Legionella + strep pneumonia
- Today he developed hypotension with an atrial arrhythmia which appeared to be atrial fibrillation however cardiology was consulted and evaluated the patient with review of EKG and telemetry and felt this was more normal sinus rhythm with PACs
- Amiodarone gtt was going to be started but then this was stopped; continue to treat hypoxia which is likely driving his arrhythmia
- Replete electrolytes with K>4, Mg>2
- Maintain MAP>65
- Trend H/H and transfuse if needed to keep Hb>7g/dL; keep plt>20k, unless there is concern for bleeding then keep plt>50k
- Once he is more awake, then will encourage incentive spirometer
- Continue sinemet
- Avoid sedating medications as this will only worsen his mental status and put him at risk of aspiration
- DVT ppx: LMWH
- Guarded prognosis
Continue with ICU level of care for this critically ill patient with hypoxia and new-onset atrial arrhythmia and hypotension.
Critical care statement: A total of 40 minutes of critical care time was provided for this patient today. This includes management of unstable vital signs, evaluation of the patient at bedside, reviewing the patient's pertinent medical records
including radiographs, microbiology, laboratory evaluations, and discussion with primary team, consultants, pharmacy, nutrition, physical therapy, case management, charge nurse, critical care nursing, and respiratory therapy.
Data:
CXR 03/06/2024:
Markedly low lung volumes.
Cannot exclude mild left basilar opacity such as subsegmental atelectasis and/or pneumonia and tiny left pleural effusion.
[2024-03-07] MEDS: NOVOLOG FLEXPEN-MODERATE RESISTANCE 3 UNITS SC (08:42)
[2024-03-07] MEDS: LANTUS 0.25 UNITS SC (08:42)
[2024-03-07] MEDS: DECADRON 6 MG IV (08:44)
[2024-03-07] MEDS: NORVASC 2.5 MG PO (08:45)
[2024-03-07] MEDS: FOLVITE 0.8 MG PO (08:45)
[2024-03-07] MEDS: DULCOLAX 10 MG PO (08:45)
[2024-03-07] MEDS: MUCINEX 600 MG PO ×2 (08:45→19:58)
[2024-03-07] MEDS: TOPROL XL 50 MG PO (08:45)
[2024-03-07] MEDS: VITAMIN D3 (cholecalciferol) 50 MCG PO (08:45)
[2024-03-07] MEDS: ASPIR LOW (ENTERIC COATED) 81 MG PO (08:45)
[2024-03-07] MEDS: SINEMET 25-100 1 TABLET PO ×2 (08:46→19:57)
[2024-03-07] MEDS: PLAVIX 75 MG PO (08:46)
[2024-03-07] MEDS: VITAMIN B-12 1000 MCG PO (08:46)
[2024-03-07] MEDS: GLUCOPHAGE 500 MG PO (08:46)
[2024-03-07] MEDS: ZINC 50 MG PO (08:46)
[2024-03-07 08:49] LABS: Glucose - Point of Care 220 mg/dl (70-99)
--- NOTE | 2024-03-07 09:16 | W.PN.HOSP.TC ---
Today's Communication/Plan
-
see bold
Assessment / Plan
Assessment / Plan
HPI: 78 man presents with cough and fever. Symptoms may have started 2 weeks ago with weakness. He is confused and cannot provide history, but he is accompanied by his who provided the history. Patient is coming from [facility].
He tested positive for COVID earlier today with cough and worsening shortness of breath. Patient has a history of asthma and chronic cough with dyspnea after stroke which left him with left-sided weakness. states that he is DNR and would not
want to be intubated. He had a covid booster this year in January.
#Acute hypoxic respiratory failure
#Acute coronavirus infection
Discharged to [facility] on 03/05/2024, after being hospitalized for L4-5 bulging disks with ambulatory dysfunction
Of note, patient's also has coronavirus
Appreciate district manager primary care sales input, started on Unasyn for bacterial superinfection coverage
Dexamethasone changed to IV Solu-Medrol
Continue bronchodilators, mucolytics, supportive care
Currently requiring 6 L of oxygen, wean as tolerated. He does not wear oxygen at home
#Hypotension
Hold amlodipine, hold metoprolol
Give normal saline bolus
#History of atrial fibrillation
Appreciate cardiology input, telemetry shows sinus rhythm with frequent PACs
Not on anticoagulation, holding metoprolol secondary to hypotension
#Type 2 diabetes with anticipated steroid-induced hyperglycemia
Accu-Cheks every 6 hours while NPO, sliding scale insulin
NovoLog 3 units every 6, glargine 25 units daily, 30 units at bedtime
#L4-5 bulging disks with ambulatory dysfunction
Seen by spine surgery 03/02/2024, recommend nonsurgical intervention -pain meds, PT/OT
Consider interventional options should oral and topical analgesics not address the symptoms
Can contact [facility] physiatry at to arrange outpatient
#Anxiety/depression
Continue SSRI/Remeron able
#Parkinson's disease
Continue Sinemet as able
#Obesity due to excess calories
Affects all aspects of care
DVT prophylaxis�subcu Lovenox
Updated on phone 03/07
Total time spent to see the patient on the floor, examine the patient, review data and lab results, discuss treatment plan with patient, nursing staff around 55 minutes.
Physical Exam
General: Morbidly obese, no acute distress
HEENT: Normocephalic, Atraumatic
Respiratory: Wheezing noted
Cardiac: Normal S1/S2, tachycardic rate, irregular rhythm
GI: Soft, Nontender, Nondistended, Normal Bowel Sounds
Extremities: No Clubbing, Cyanosis, or Edema
Anticipated Discharge: > 48 hours
Subjective/Interval History
-
Date of Service: March 07, 2024
Nursing staff reports patient is confused. He continues to have cough, weakness. Fever resolved, now he is hypothermic.
Objective Data
-
Labs:
Laboratory Results
03/07/24 03/07/24
04:36 04:59
WBC 9.9
Hgb 15.6
Hct 46.5
Plt Count 180
HCO3 26.6
Sodium 141
Potassium 4.8
Chloride 102
Carbon Dioxide 24
BUN 30 H
Creatinine 1.1
Glucose 247 H
Calcium 8.7
Vital Signs:
Vital Signs
Temp Pulse Resp BP Pulse Ox
97.5 F 84 18 164/87 93
03/07/24 05:38 03/07/24 08:45 03/07/24 08:39 03/07/24 08:45 03/07/24 08:39
--- NOTE | 2024-03-07 09:53 | PTCARENOTE ---
report received, assessments per work list. patient lethargic but arousable. oriented to person only. able to take oral medications with applesauce without overt signs aspiration. monitor first av block with pac, pvc. short run afib noted. self
limited. lungs with coarse rhonchi, inspiratory and expiratory wheezes. moist weak non productive cough. oxygen per work list. condom cath placed, patient incontinent small amount kai urine. bladder scan per work list. bed alarm maintained. spouse
visting. this financial writer noted that she was coughing. inquired on her state of health. she stated ' tested positive, so I guess I have covid too'. call placed to infection infection prevention specialist. spouse instructed that per infection infection prevention specialist, that she may
not visit until she tests negative on day 5, and is asymptomatic on day 7. she verbalized understanding. bed alarm maintained for patient safety
[2024-03-07] MEDS: SPIRIVA RESPIMAT 2.5 MCG 2 PUFF INH ×2 (11:25→11:40)
[2024-03-07] MEDS: NOVOLOG FLEXPEN-MODERATE RESISTANCE 1 UNITS SC (11:45)
[2024-03-07 11:50] LABS: Glucose - Point of Care 192 mg/dl (70-99)
[2024-03-07] MEDS: UNASYN IV ×3 (12:27→23:58)
--- NOTE | 2024-03-07 12:37 | PTCARENOTE ---
patient reassessed. patient remains lethargic and confused. taking off oxygen at times. NT suctioned for large amount santillan blood tinged sputum, specimen sent. down grade to IMU level of care. bed alarm maintained
[2024-03-07] MEDS: NSS 1000 IV (13:10)
--- NOTE | 2024-03-07 13:24 | PTCARENOTE ---
Addendum entered by Tena Roy RN 03/07/24 14:16:
patient back in nsr, pac' and pvc's noted. band edger updated
Addendum entered by Tena Roy RN 03/07/24 14:06:
placed on midflow oxygen. audibly wheezing. blood pressure improved with fluid bolus infusing. cxr taken
Original Note:
patient in afib with pvc's. rate 100-120. yelling out, restless. diaphoretic, hypotensive, sats 80 on 4 liters. oxygen increased. hospitalist and band edger notified, liter bolus initiated. ekg completed. band edger, hospitalist at bedside.
upgrade to ICU level of care. RT paged to draw abg, increase oxygen to midflow
[2024-03-07] MEDS: ProAIR HFA INHALER 2 PUFF INH ×2 (13:34→19:56)
--- NOTE | 2024-03-07 13:58 | CM ---
CM following re: discharge planning.
Discussed in Rounds, reviewed pt's chart.
Pt is an 78 year old male, admitted with primary dx of COVID PNA
Patient resides in a 2SH, no steps to enter, has a stair glide, rolling walker, and wheelchair for longer distances. Patient has Bi-pap. Patient history with [facility], [facility] (2-3 times), [facility]. Pt is admitted from [facility] where he was
for a short term rehab from 03/05/24.
PCP Isabel Carrera
Pharmacy [facility]
D/C plan: uncertain at this time and will depend on pt's progress. Returning to [facility] is an option.
CM will follow with discharge plan updates as hospitalization progresses
[2024-03-07 14:18] LABS: B.E. -2.1 mmol/L; HCO3 22.4 mmol/L (21-28); O2 Saturation % 95.5 % (94-98); PCO2 37 mmHg (35-48); PO2 73 mmHg (83-108); pH 7.39 (7.35-7.45)
--- NOTE | 2024-03-07 14:53 | W.PN.UPDATE ---
Update Note
Progress Note Update
Attending Note: Reviewed telemetry strips and ECG's. I do not see any obvious atrial fibrillation it looks as if rhythm is sinus with frequent PAC's. Discussed with Dr. Richardson. No need to acutely see now. He will let us know if any arrhythmia
noted.
[2024-03-07] MEDS: SOLU-MEDROL PF 40 MG IV ×2 (15:34→19:58)
--- NOTE | 2024-03-07 16:11 | PTCARENOTE ---
patient reassessed. remains in nsr with frequent pac. heart rate 80-100. occasional pvc. more alert, able to state he is in a hospital. no recollection of time spent at [facility], events of today or coming back to the hospital. blood pressures per
work list since no longer tachycardic or hypoxic. lungs with wheezing, coarse breath sounds. audible wheezing with very moist harsh cough. oral pharyngeal suctioning for thick santillan white sputum. incontinent of small amount soft brown stool. when
pericare provided, small amount blood noted on wipe. patient stated he has hemorrhoids and often has blood upon wiping.
[2024-03-07 17:39] LABS: Glucose - Point of Care 169 mg/dl (70-99)
[2024-03-07] MEDS: NOVOLOG FLEXPEN-HIGH RESISTANCE 2 UNITS SC (17:39)
[2024-03-07] MEDS: NOVOLOG FLEXPEN 3 UNITS SC ×2 (17:54→22:54)
[2024-03-07] MEDS: LOVENOX 40 MG SC (17:54)
--- NOTE | 2024-03-07 20:00 | PTCARENOTE ---
rec`d pt at 1900. pt AAOx3, pleasant. can be forgetful at times. pt making comments appropriate for time. SR on monitor with long MD. +2 lower extrem edema. scds. q2 turns. audible inspiratory and expiratory wheeze. ronchi, coarse, harsh cough. POX
95-100%. rec`d pt on 6L midflow but shortly after, RT placed BIPAP on pt. settings are 10/5 w/ 8L. takes pills with applesauce. incontinent of urine. sacral and heels foam placed for protection. 18 RT AC and 22 left AC. call meléndez in reach, safe
environment maintained. novel precautions continued.
[2024-03-07] MEDS: LEXAPRO 10 MG PO (22:42)
[2024-03-07] MEDS: PRAVACHOL 20 MG PO (22:42)
[2024-03-07] MEDS: MIRALAX 17 GRAMS PO (22:42)
[2024-03-07] MEDS: REMERON 15 MG PO (22:42)
[2024-03-07 22:43] LABS: Glucose - Point of Care 225 mg/dl (70-99)
[2024-03-07] MEDS: NOVOLOG FLEXPEN-HIGH RESISTANCE 4 UNITS SC (22:43)
[2024-03-07] MEDS: LANTUS 0.3 UNITS SC (22:49)
[2024-03-08] VITALS (35 sets, daily range): BP systolic 111–163; BP diastolic 56–142; PULSE 2–98; BMI 41.8
--- NOTE | 2024-03-08 00:10 | PTCARENOTE ---
pt reassessed. no changes in pt. pt continues on bipap. call meléndez in reach, safe environment maintained.
[2024-03-08] MEDS: SOLU-MEDROL PF 40 MG IV ×4 (04:47→21:16)
[2024-03-08 05:07] LABS: Glucose - Point of Care 209 mg/dl (70-99)
[2024-03-08 05:17] LABS: Hematocrit 44.5 % (39.0-52.0); Hemoglobin 14.6 g/dL (13.0-18.0); Mean Corp Hgb Conc. 32.8 g/dL (33.0-37.0); Mean Corpuscular Hgb 31.5 pg (27.0-31.0); Mean Corpuscular Volume 95.9 fL (80.0-94.0); Mean Platelet Volume 10.5 fL (7.4-10.4); Platelet Count 183 10^3/uL (130-400); Red Blood Cell Count 4.64 10^6/uL (4.70-6.10); Red Cell Dist. Width 14.1 % (11.5-14.5); White Blood Cell Count 14.9 10^3/uL (4.8-10.8)
[2024-03-08] MEDS: NOVOLOG FLEXPEN-HIGH RESISTANCE 4 UNITS SC ×2 (05:33→17:02)
[2024-03-08] MEDS: NOVOLOG FLEXPEN 3 UNITS SC (05:33)
[2024-03-08] MEDS: UNASYN IV ×4 (05:33→23:42)
[2024-03-08 05:43] LABS: Blood Urea Nitrogen 49 mg/dl (9-20); Calcium 8.1 mg/dl (8.4-10.2); Carbon Dioxide 24 mmol/L (22-30); Chloride 106 mmol/L (98-107); Estimated Creatinine Clearance 71 ml/min; Glucose 225 mg/dl (70-99); Potassium 4.6 mmol/L (3.5-5.1); Sodium 141 mmol/L (135-145); eGFR > 60.00
[2024-03-08 05:44] LABS: Procalcitonin 0.39 ng/ml (0.0-0.25)
--- NOTE | 2024-03-08 05:46 | PTCARENOTE ---
pt reassessed. no changes in pt. bipap now off. call meléndez in reach, safe environment maintained.
[2024-03-08] MEDS: LANTUS 0.25 UNITS SC (07:35)
[2024-03-08] MEDS: SINEMET 25-100 1 TABLET PO ×2 (07:36→20:03)
[2024-03-08] MEDS: VITAMIN B-12 1000 MCG PO (07:36)
[2024-03-08] MEDS: DULCOLAX 10 MG PO (07:36)
[2024-03-08] MEDS: MUCINEX 600 MG PO ×2 (07:36→20:03)
[2024-03-08] MEDS: GLUCOPHAGE 500 MG PO (07:36)
[2024-03-08] MEDS: PLAVIX 75 MG PO (07:36)
[2024-03-08] MEDS: VITAMIN D3 (cholecalciferol) 50 MCG PO (07:37)
[2024-03-08] MEDS: FOLVITE 0.8 MG PO (07:37)
[2024-03-08] MEDS: ASPIR LOW (ENTERIC COATED) 81 MG PO (07:37)
[2024-03-08 07:45] LABS: Glucose - Point of Care 208 mg/dl (70-99)
--- NOTE | 2024-03-08 07:59 | PTCARENOTE ---
report received. assessments per work list. prior shift vitals captured:unable to verify accuracy. patient oriented to self, 'prefab building'. after conversation, patient states he is in a hospital. very poor short term memory and recall monitor
nsr, avb with very frequent pac. lungs with coarse breath sounds, audible wheezing. moist harsh nonproductive cough. abdomen obese, hypoactive bowel sounds. incontinent yellow urine. call meléndez in reach. bed alarm maintained for patient safety
[2024-03-08] MEDS: FLOVENT 110 MCG INHALER 2 PUFF INH ×2 (08:43→21:17)
[2024-03-08] MEDS: ProAIR HFA INHALER 2 PUFF INH ×3 (08:43→21:18)
[2024-03-08] MEDS: SPIRIVA RESPIMAT 2.5 MCG 2 PUFF INH (08:43)
--- NOTE | 2024-03-08 09:00 | W.PN.HOSP.TC ---
Today's Communication/Plan
-
Stable for IMU
Assessment / Plan
Assessment / Plan
HPI: 78 man presents with cough and fever. Symptoms may have started 2 weeks ago with weakness. He is confused and cannot provide history, but he is accompanied by his who provided the history. Patient is coming from [facility].
He tested positive for COVID earlier today with cough and worsening shortness of breath. Patient has a history of asthma and chronic cough with dyspnea after stroke which left him with left-sided weakness. states that he is DNR and would not
want to be intubated. He had a covid booster this year in January.
#Acute hypoxic respiratory failure
#Acute coronavirus pneumonia
#Sepsis without shock due to above
#Restrictive lung disease
Discharged to [facility]note 3] on 03/05/2024, after being hospitalized for L4-5 bulging disks with ambulatory dysfunction
Of note, patient's also has coronavirus
Appreciate sagger preparer input, continue Unasyn day 2 for bacterial superinfection coverage
Continue high-dose IV Solu-Medrol, bronchodilators, mucolytics, supportive care
Currently requiring 2 L of oxygen, down from 8, wean as tolerated. He does not wear oxygen at home
#Acute toxic metabolic encephalopathy
Due to the above, provide supportive care
#Severe obstructive sleep apnea on BiPAP
Continue BiPAP at bedtime
#Hypotension
Resolved status post normal saline bolus
#History of atrial fibrillation
Appreciate cardiology input, telemetry shows sinus rhythm with frequent PACs
Not on anticoagulation, resume metoprolol 03/08
#Type 2 diabetes with anticipated steroid-induced hyperglycemia
Appreciate insulin adjustments by sagger preparer
#L4-5 bulging disks with ambulatory dysfunction
Seen by spine surgery 03/02/2024, recommend nonsurgical intervention -pain meds, PT/OT
Consider interventional options should oral and topical analgesics not address the symptoms
Can contact [facility] physiatry at to arrange outpatient
#Anxiety/depression
Continue SSRI/Remeron able
#Parkinson's disease
Continue Sinemet as able
#Obesity due to excess calories
Affects all aspects of care
DVT prophylaxis�subcu Lovenox
Updated on phone 03/07
Total time spent to see the patient on the floor, examine the patient, review data and lab results, discuss treatment plan with patient, nursing staff around 51 minutes.
Physical Exam
General: Morbidly obese, no acute distress
HEENT: Normocephalic, Atraumatic
Respiratory: Wheezing noted
Cardiac: Normal S1/S2, tachycardic rate, irregular rhythm
GI: Soft, Nontender, Nondistended, Normal Bowel Sounds
Extremities: No Clubbing, Cyanosis, or Edema
Anticipated Discharge: > 48 hours
Subjective/Interval History
-
Date of Service: March 08, 2024
Patient has a dry cough. He is intermittently confused. Fever resolved. No vomiting.
Objective Data
-
Labs:
Laboratory Results
03/08/24
04:45
WBC 14.9 H
Hgb 14.6
Hct 44.5
Plt Count 183
Sodium 141
Potassium 4.6
Chloride 106
Carbon Dioxide 24
BUN 49 H
Creatinine 1.1
Glucose 225 H
Calcium 8.1 L
Vital Signs:
Vital Signs
Temp Pulse Resp BP Pulse Ox
98.1 F 78 16 124/69 96
03/08/24 07:59 03/08/24 08:46 03/08/24 08:46 03/08/24 07:30 03/08/24 08:46
I&O
03/07/24 03/08/24 03/09/24
06:59 06:59 06:59
Intake Total 1230 / 1230
Output Total 250 / 250
Balance 980 / 980
--- NOTE | 2024-03-08 11:25 | CM ---
CM following re: discharge planning.
Discussed in rounds, reviewed pt's chart, spoke to pt's spouse Roselyn to update on discharge plan progress. Per Rounds meeting pt requires 4L NC of O2, continue supportive care.
PT and OT will evaluate the pt to determine a level of care at discharge. Pt was discharged to [facility] from on 03/05/24 and readmitted back to next day.
Pt's spouse stated that her will need to come back to [facility] when medically sable to continue on skilled services.
A referral to [facility] made.
D/C plan: [facility] when medically stable.
CM will follow with discharge plan updates as hospitalization progresses
--- NOTE | 2024-03-08 11:50 | PTOTSP ---
Speech Language Pathology
Pt seen for clinical bedside swallow evaluation. Baseline intermittent cough noted. Reviewed results/recommendations from VSE completed August 2023. Pt reported he usually thickens liquids at home, 'when we remember to.' P.O. trials of puree,
regular solids, ice chips, and mildly thick liquids provided. Slightly prolonged mastication of regular solids. Intermittent cough, but similar to baseline cough frequency.
Recommend:
(1) IDDSI Level 6 ([id number]) and mildly thick liquids VIA CUP
(2) Aspiration precautions: single cup sips only (no straws), slow rate, sit upright, monitor for cough with P.O. intake
(3) Will consider repeat VSE during admission if needed
(4) SOCIAL WORKER MASTERS to continue to follow
[2024-03-08] MEDS: NOVOLOG FLEXPEN-HIGH RESISTANCE 2 UNITS SC (11:51)
[2024-03-08] MEDS: NOVOLOG FLEXPEN 5 UNITS SC (11:52)
[2024-03-08] MEDS: DESENEX/MITRAZOL/ZEASORB 1 APPLIC TOPICAL ×2 (11:53→20:03)
[2024-03-08 11:57] LABS: Glucose - Point of Care 185 mg/dl (70-99)
--- NOTE | 2024-03-08 12:00 | PTCARENOTE ---
reassessed. speech therapist at bedside to evaluate.
--- NOTE | 2024-03-08 12:22 | PN.CDI ---
CDI
- -
CDI:
Physician Documentation Request
Admit Date: 03/06/24 22:54
Dear Doctor Do,
Clinical Indicators:
Patient admitted with COVID 19.
03/07 Bit Gatherer PN, 'Sepsis without shock due to above #Altered mental status due to septic encephalopathy'
03/07 PN, 'Acute hypoxic respiratory failure #Acute coronavirus infection'
WBC on admission:
03/06/24
19:50
WBC 12.2 H
Temp/HR trend on admission:
03/06/24
19:37 03/06/24
20:00 03/06/24
20:30
Temp 100.6 F H
Pulse 112 100 104
03/06/24
21:00 03/06/24
21:30 03/06/24
22:00
Pulse 99 102 92
Please clarify which of the following most accurately describes the status of the patient's infection:
Sepsis, POA
- Systemic manifestations of infection, with 2 or more SIRS criteria which include:
- Fever >100.4 degrees F or hypothermia < 96.8 degrees F
- Leukocytosis - WBC > 12,000 or leukopenia - WBC < 4,000 or > 10% bands
- Tachycardia > 90 beats per minute
- Tachypnea - RR > 20 breaths per minute or PaCO2 , 32mmHg
Source: Merck Manual 2013
Severe Sepsis with acute hypoxic respiratory failure, POA
Acute coronavirus infection only
Other
Use of terms such as suspected, likely, concern for, or probable (associated with a specific diagnosis that is being evaluated, monitored, or treated as if it exists) are acceptable and can be coded in the inpatient setting, when documented at the
time of discharge.
Thank you,
Kamila Kahn RN BSN
CDI Specialist
available via tiger text
Please use your independent medical judgment in providing your response.
--- NOTE | 2024-03-08 13:08 | W.PN.INTV ---
Today's Communication / Plan
Recommendations
Continue solu-medrol
Continue Albuterol and tiotropium
Continue unacyn
Increase insulin
Assessment
-
Assessment: 78-year-old male never smoker with a PMHx of mild persistent asthma, chronic bronchitis, restrictive lung disease, history of PE, severe FLAQUITA, GERD, Parkinson disease, Rivera's esophagus, hypertension/hyperlipidemia, CAD, history of
stroke/TIA and dilated aortic root who presents with cough and shortness of breath. Temp 100.6, HR 112, RR 22, BP 165/82 and sating 90% on room air. O2 sats improved on 2L to 94%. WBC 12.2, trop 0.023, proBNP 175 and procalcitonin 0.09. Covid test
found to be positive. CXR showed no volumes with retrocardiac opacity. In the ER he was given ceftriaxone, Decadron 10 mg, Tylenol, albuterol, mag and admitted to ICU for further management due to high risk of complication with past medical
history.
Chronic conditions prior to admission: Chronic cough, mild persistent asthma, chronic bronchitis, restrictive lung disease, history of PE, history of severe FLAQUITA, GERD, vasomotor rhinitis, Parkinson's disease, gastric polyps, Rivera's esophagus,
hypertension, history of TIA/stroke, diverticulosis, hyperlipidemia, dilated aortic root, CAD
Impression:
#Acute respiratory failure with hypoxia due to COVID-19 pneumonia
#Retrocardiac opacity with suspected pneumonia (bacterial superinfection)
#Sepsis without shock due to above
#Altered mental status due to septic encephalopathy
#Hypotension with new onset atrial arrhythmia due to PACs
#DM type II complicated by hyperglycemia (HbA1c: 6.9 on 08/22/2023)
#Severe FLAQUITA on BiPAP 15/8cmH2O
#GERD
#Mild persistent asthma with cough
#Chronic bronchitis
#History of VT on metoprolol
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
#History of CVA/TIA
#Restrictive lung disease (moderate/borderline severe with T% predicted; FVC: 71% predicted via PFT from 10/22/2023)
#Mild gas exchange capacity defect which is normal when accounting for alveolar volume involved in gas exchange (DLCO: 66%; DLCO/VA: 111% via PFT from 10/22/2023)
#Anxiety
Plan:
Neurologic:
-Altered mental status secondary to septic encephalopathy
-History of anxiety/depression
-Currently AAOx3, RASS 0
-Continue home escitalopram and mirtazapine
-Avoid sedating medications
-Hx Parkinsons
-Cont. sinemet
-Hx CVA
-Cont ASA, Clopidogrel, pravastatin
Respiratory:
-Acute respiratory failure with hypoxia due to COVID-19 pneumonia
-Retrocardiac opacity with suspected pneumonia (potential bacterial superinfection)
-Continue systemic steroids with methylprednisolone sodium succinate 40 IVq6
-Maintain SpO2>90-94% with supplemental O2 - wean as tolerated
-Albuterol TID and tiotropium bromide daily with additional albuterol q4hr PRN
-Mucinex
-Aspiration precautions
-Encourage incentive spirometry
-Hx Chronic cough, asthma, restrictive lung disease, chronic bronchitis
-Inhaler regimen per above with supplemental O2
-CPAP overnight for FLAQUITA
Cardiovascular:
-Hypotension with new onset atrial arrhythmia due to PACs
-Around 13:00 03/07/24 pt found to have sudden onset hypotension, tachycardia, tachypnea assocaited with diaphoresis -> 1 L fluid bolus ->improvement within about a half hour
-Telemetry revealed atrial arrythmia that appeared to be a.fib. Cardiology consulted and believed to be sinus rythm with PACs.
-Continue to follow on Tele
-Keep K>4 and Mg >2
-Maintain MAP >65
-Hypoxia likely contributing to arrythmia as pt was being weaned down on O2 at the time
-Hx HTN
-home amlodipine and metoprolol on hold as hypotensive previously
-Restart as BP increases
GI:
-Start diabetic diet pending speech evaluation
-Hx of GERD
-Not on home prophylaxis
-f/u in outpatient
Renal:
-Cr is 1.1 wnl
-Replace electrolytes as needed
-Monitor urinary output
ID:
-Sepsis without shock secondary to COVID-19
-Retrocardiac opacity with suspected pneumonia (potential bacterial superinfection)
-Started on Ceftriaxone and azithromycin on admission -> Unasyn to cover to aspiration
-Continue for next 5-7 days given altered mental status - day 3 of antibiotics
-WBC uptrending in setting of steroid use. Procalcitonin uptrending
-Urine culture negative for Legionella and strep pneumo
-Sputum culture pending, blood culture pending
-Erythematous rash in neck skin folds
-Erythematous rash with satellite lesions in neck skin folds - no pain or itching
-Could be allergic reaction to nasal cannula as it rests there and he has a latex and adhesive allergy, but unlikely as tubing does not contain Lasix
-More likely to be fungal - Miconazole and monitor
Hemeonc:
-DVT enoxaparin
-Hg stable - transfuse <7
-Ptl stable - transfuse <20 unless concerns for active bleeding <50
Endocrine:
-No hx thyroid dz
-IDDM
-BG goal 140-180s
-Increase insulin to glargine 30 SC qd, 32 qHS and aspart 7 units before meals
-Hold home metformin
-Consider diabetic nurse consult if hyperglycemia persistent
Diagnostic imaging
CXR 03/06/2024 - Markedly low lung volumes. Cannot exclude mild left basilar opacity such as subsegmental atelectasis and/or pneumonia and tiny left pleural effusion.
Subjective Dataa
Subjective Data
Date of Service:
Date of Service: March 08, 2024
Says he feels better than before. Alert and talkative. Intermittently taking of his oxygen and says he does not have any shortness of breath.
Chief Complaint: Vending Supervisor Follow Up
Review of Systems
General: Fever (n) and Chills (n)
HEENT: Oral/Throat Pain (n)
Cardiopulmonary: Cough (y), Wheezing (y) and Chest Pain (n)
GI: Abdominal Pain (n), Nausea (n) and Vomiting (n)
Objective Data
Data Reviewed
Vital Signs / I&O / Oxygen:
Vital Signs
Temp Pulse Resp BP Pulse Ox
96.6 F L 78 16 124/69 96
03/08/24 11:59 03/08/24 08:46 03/08/24 08:46 03/08/24 07:30 03/08/24 11:59
Intake and Output
03/07/24 03/08/24 03/09/24
06:59 06:59 06:59
Intake Total 1230 / 1230 110 / 110
Output Total 250 / 250 60 / 60
Balance 980 / 980 50 / 50
SaO2 96
Nasal Cannula flow liters per 6
minute
Physical Exam
Cardiovascular: S1-S2
Respiratory: Wheeze and Rhonchi
GI: Soft, Non Distended, Non Tender and Normal Bowel Sounds
Neurology: AO x 3
Skin: Warm, Cyanosis (n) and Jaundice (n)
Labs/Micro/Reports
Lab Data
03/08/24 04:45
03/08/24 04:45
Laboratory Results
03/07/24
13:52
pH 7.39
pCO2 37
pO2 73 L
HCO3 22.4
O2 Delivery Level
Microbiology
03/08/24 09:59 Urine Legionella Urinary Antigen - Final
Negative for Legionella pneumophila Serogroup 1 antigen.
A negative result does not rule out the possiblity of
Legionella infection due to other serogroups or species of
Legionella. Clinical correlation is recommended.
03/08/24 09:59 Urine Streptococcus pneumoniae Antigen (M - Final
Negative for Streptococcus pneumoniae antigen.
A negative result does not exclude infection with
Streptococcus pneumoniae. Clinical correlation is
recommended.
03/07/24 11:36 Sputum Respiratory Culture - Preliminary
Usual Respiratory Vickie
03/07/24 11:36 Sputum Gram Stain - Preliminary
03/06/24 21:40 Blood/Venous Blood Culture - Preliminary
No Growth in 24 hours- Final report to follow
03/06/24 19:50 Nasal Swab Influenza Types A & B (DARRELL) - Final
Negative for Influenza A & B, NAAT
Negative results must be combined with clinical observations
and patient history.
Nucleic Acid Amplification test (NAAT)performed on the
[employer] platform.
--- NOTE | 2024-03-08 16:25 | PTCARENOTE ---
patient reassessed. oxygen per work list. wheezing, rhonchi persist. expectorating thick white sputum. fed lunch without overt aspiration, oxygen weaned to 2 liters. bed alarm maintained
[2024-03-08] MEDS: NORVASC 2.5 MG PO (17:01)
[2024-03-08] MEDS: LOVENOX 40 MG SC (17:01)
[2024-03-08] MEDS: NSS 1000 IV (17:02)
[2024-03-08] MEDS: NOVOLOG FLEXPEN 7 UNITS SC (17:03)
[2024-03-08 17:13] LABS: Glucose - Point of Care 214 mg/dl (70-99)
--- NOTE | 2024-03-08 20:00 | PTCARENOTE ---
rec`d pt at 1900. pt AAOx3, pleasant. forgetful at times. SR on monitor with pvcs and PACS. +1 lower extrem edema. scds. afebrile. q2 turns. audible inspiratory and expiratory wheeze. ronchi, coarse, harsh cough. POX 95-100%. rec`d pt on 2L midflow
but shortly after, RT placed BIPAP on pt. settings are 10/5 w/ 6L. takes pills with applesauce. incontinent of urine. sacral and heels foam placed for protection. 18 RT AC and 22 left AC. 100 NS running. call meléndez in reach, safe environment
maintained. novel precautions continued.
[2024-03-08] MEDS: MIRALAX 17 GRAMS PO (20:03)
[2024-03-08] MEDS: TOPROL XL 50 MG PO (20:03)
[2024-03-08] MEDS: PRAVACHOL 20 MG PO (21:16)
[2024-03-08] MEDS: LEXAPRO 10 MG PO (21:17)
[2024-03-08] MEDS: REMERON 15 MG PO (21:17)
[2024-03-08] MEDS: LANTUS 0.32 UNITS SC (21:22)
[2024-03-08 21:32] LABS: Glucose - Point of Care 216 mg/dl (70-99)
--- NOTE | 2024-03-08 23:01 | PTCARENOTE ---
report given to royce
[2024-03-09] VITALS (15 sets, daily range): BP systolic 113–159; BP diastolic 59–107; PULSE 2–90; BMI 41.9
--- NOTE | 2024-03-09 00:01 | PTCARENOTE ---
Received pt from previous RN. Pt is AAOx2 (time), forgetful, drowsy, slow speech. NSR w/ PACs, PVCs and 1st degree on the monitor, general +1 edema, weak pedal pulses. Received pt on bipap 10/5 @ 6L, O2 sat 96%, lungs
rhonchi/diminished/coarse/wheezing. Incont of urine. SCDs in place. Q2T provided. Bed alarm on. Pt is laying in bed with call meléndez in reach. Safe environment maintained.
[2024-03-09 03:54] LABS: Hematocrit 43.2 % (39.0-52.0); Hemoglobin 14.3 g/dL (13.0-18.0); Mean Corp Hgb Conc. 33.1 g/dL (33.0-37.0); Mean Corpuscular Volume 93.5 fL (80.0-94.0); Mean Platelet Volume 10.3 fL (7.4-10.4); Platelet Count 192 10^3/uL (130-400); Red Blood Cell Count 4.62 10^6/uL (4.70-6.10); Red Cell Dist. Width 13.8 % (11.5-14.5); White Blood Cell Count 12.5 10^3/uL (4.8-10.8)
[2024-03-09 04:18] LABS: Blood Urea Nitrogen 44 mg/dl (9-20); Calcium 8.3 mg/dl (8.4-10.2); Carbon Dioxide 26 mmol/L (22-30); Chloride 108 mmol/L (98-107); Estimated Creatinine Clearance 87 ml/min; Glucose 198 mg/dl (70-99); Magnesium 2.7 mg/dl (1.6-2.3); Phosphorus 3.3 mg/dl (2.5-4.5); Potassium 4.7 mmol/L (3.5-5.1); Sodium 144 mmol/L (135-145); eGFR > 60.00
--- NOTE | 2024-03-09 04:40 | PTCARENOTE ---
Pt ripped off bipap, RT notified. Pt placed on 2L NC, O2 sat 96%.
[2024-03-09 04:52] LABS: Procalcitonin 0.21 ng/ml (0.0-0.25)
[2024-03-09] MEDS: UNASYN IV ×4 (05:20→22:57)
[2024-03-09] MEDS: SOLU-MEDROL PF 40 MG IV ×3 (05:20→21:21)
[2024-03-09] MEDS: SPIRIVA RESPIMAT 2.5 MCG 2 PUFF INH (07:44)
[2024-03-09] MEDS: ProAIR HFA INHALER 2 PUFF INH ×3 (07:44→21:26)
[2024-03-09] MEDS: FLOVENT 110 MCG INHALER 2 PUFF INH ×2 (07:44→21:28)
[2024-03-09 08:30] LABS: Glucose - Point of Care 178 mg/dl (70-99)
--- NOTE | 2024-03-09 08:30 | W.PN.PUL3 ---
Today's Communication / Plan
-
Systemic steroids
Basal�bolus insulin with goal BG 140�180
Albuterol, Flovent + Spiriva
Advised to rinse mouth after using ICS
ABx, follow-up cultures
Up OOB as tolerated
PT/OT
Encourage incentive spirometer + Acapella
Mucolytics
Repeat CXR as an outpatient to follow-up retrocardiac opacification to resolution
Pulmonary service will continue to follow along
Assessment
-
Assessment: 78-year-old male never smoker with a PMHx of mild persistent asthma, chronic bronchitis, restrictive lung disease, history of PE, severe FLAQUITA, GERD, Parkinson disease, Rivera's esophagus, hypertension/hyperlipidemia, CAD, history of
stroke/TIA and dilated aortic root who presents with cough and shortness of breath. Temp 100.6, HR 112, RR 22, BP 165/82 and sating 90% on room air. O2 sats improved on 2L to 94%. WBC 12.2, trop 0.023, proBNP 175 and procalcitonin 0.09. Covid test
found to be positive. CXR showed no volumes with retrocardiac opacity. In the ER he was given ceftriaxone, Decadron 10 mg, Tylenol, albuterol, mag and admitted to ICU for further management due to high risk of complication with past medical
history.
Chronic conditions prior to admission: Chronic cough, mild persistent asthma, chronic bronchitis, restrictive lung disease, history of PE, history of severe FLAQUITA, GERD, vasomotor rhinitis, Parkinson's disease, gastric polyps, Rivera's esophagus,
hypertension, history of TIA/stroke, diverticulosis, hyperlipidemia, dilated aortic root, CAD
Impression:
#Acute respiratory failure with hypoxia due to COVID-19 pneumonia
#Retrocardiac opacity with suspected pneumonia (bacterial superinfection)
#Sepsis without shock due to above
#Altered mental status due to septic encephalopathy - markedly improved
#Hypotension with new onset atrial arrhythmia due to PACs - now normotensive
#DM type II complicated by hyperglycemia (HbA1c: 6.9 on 08/22/2023)
#Severe FLAQUITA on BiPAP 15/8cmH2O
#GERD
#Mild persistent asthma with cough
#Chronic bronchitis
#History of VT on metoprolol
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
#History of CVA/TIA
#Restrictive lung disease (moderate/borderline severe with T% predicted; FVC: 71% predicted via PFT from 10/22/2023)
#Mild gas exchange capacity defect which is normal when accounting for alveolar volume involved in gas exchange (DLCO: 66%; DLCO/VA: 111% via PFT from 10/22/2023)
#Anxiety
Plan:
- Patient has markedly improved since admission in terms of his mental status and hypoxia
- Initially patient was lethargic and minimally responsive and since 03/08 he is awake, alert and answering questions appropriately
- His hypoxia continues to improve and he even removes his nasal cannula from his nose at times without shortness of breath or desaturation
- Continue to reinforce to the patient to keep the oxygen nasal cannula in his nose at all times unless told otherwise
- Maintain SpO2 >90-94% with supplemental oxygen and titrate down as tolerated
- Currently on Solu-Medrol 40 mg IV q8hr <-- 40mg IV q6hr
- Continue to wean down as he clinically improved
- Maintain euglycemia while on high-dose steroids with goal BG 140�180
- Continue basal�bolus SQ insulin dosing with scheduled aspart 7 units AC (raised from 5 units)
- Transition to high flow nasal cannula if needed
- ProAir TID with Spiriva Respimat 2.5mcg/act with prn albuterol q4hr prnn SOB/wheezing; continue flovent 110mcg 2 puffs BID, rinsing mouth after use
- Mucolytics with mucinex + Acapella valve
- Continue aspiration precautions; maintain HOB >30-45�
- Patient was started on ceftriaxone/Zithromax on admission; given his altered mental status on 03/07/2024, would continue with Unasyn to cover for aspiration
- Procal has downtrended assuring that we have adequate source control
- Plan for 5 to 7 days of antibiotics total assuming he continues to clinically improve and remains afebrile for 48 hours prior to stopping antibiotics
- Follow-up blood culture (collected 03/06/2024 - NGTD); follow up sputum culture (03/07/2024 - NGTD); urine antigens for Legionella + strep pneumonia both negative
- On 03/07, he developed hypotension with an atrial arrhythmia which appeared to be atrial fibrillation however cardiology was consulted and evaluated the patient with review of EKG and telemetry and felt this was more normal sinus rhythm with PACs
- Amiodarone gtt was going to be started but then this was stopped; continue to treat hypoxia which is likely driving his arrhythmia
- Replete electrolytes with K>4, Mg>2
- Maintain MAP>65
- Trend H/H and transfuse if needed to keep Hb>7g/dL; keep plt>20k, unless there is concern for bleeding then keep plt>50k
- Encourage incentive spirometer
- Continue sinemet
- Diet as per [employer]
- Avoid sedating medications as this will only worsen his mental status and put him at risk of aspiration
- DVT ppx: LMWH
Pulmonary service will continue to follow along
Data:
CXR 03/06/2024:
Markedly low lung volumes.
Cannot exclude mild left basilar opacity such as subsegmental atelectasis and/or pneumonia and tiny left pleural effusion.
Total time spent today was 38 minutes for this encounter. Time includes reviewing laboratory test/imaging results, reviewing pertinent medical records, obtaining and reviewing medical history, performing an appropriate exam, ordering medications,
tests and procedures. Time also includes documentation of this encounter, coordinating patient care and communicating with other healthcare professionals. Total time does not include separately billed tests performed on this date of service.
Subjective Data
-
Date of Service:
Date of Service: March 09, 2024
Chief Complaint: Pulmonary Follow Up
Subjective:
Patient seen and evaluated today at bedside. He denies SOB or cough. Currently heart rate 75, saturating 95% on 3 L/min, and BP 123/86. He denies chest pain, DOSS, Florentin pain, fevers or chills.
Review of Systems
General: Other (Negative unless mentioned above)
Objective Data
Data Reviewed
Vital Signs / I&O / Oxygen:
Vital Signs
Temp Pulse Resp BP Pulse Ox
98 F 95 20 127/107 95
03/09/24 08:00 03/09/24 07:54 03/09/24 07:54 03/09/24 06:00 03/09/24 07:54
Intake and Output
03/08/24 03/09/24 03/10/24
06:59 06:59 06:59
Intake Total 1450 / 1450 1880 / 1880
Output Total 250 / 250 60 / 60
Balance 1200 / 1200 1820 / 1820
SaO2 95
Nasal Cannula flow liters per 2
minute
Physical Exam
General: Respiratory Distress (negative), Comfortable, Chills (negative) and Sweats (negative)
HEENT: Normocephalic and Anicteric
Cardiovascular: S1-S2, Rub (negative) and Peripheral Edema (negative)
Respiratory: Wheeze (negative), Crackles (negative), Rhonchi (Bilaterally heard upon expiration) and Non-Labored Respirations
GI: Soft, Distended (Abdominal obesity), Non Tender and Normal Bowel Sounds
Neurology: Awake, Alert and Tremors (negative)
Skin: Warm, Dry, Cyanosis (negative) and Jaundice (negative)
Labs/Micro/Reports
Lab Data
03/09/24 03:36
03/09/24 03:36
Microbiology
03/07/24 11:36 Sputum Respiratory Culture - Final
Usual Respiratory Vickie
03/07/24 11:36 Sputum Gram Stain - Final
03/06/24 21:40 Blood/Venous Blood Culture - Preliminary
No Growth in 48 hours- Final report to follow
03/08/24 09:59 Urine Legionella Urinary Antigen - Final
Negative for Legionella pneumophila Serogroup 1 antigen.
A negative result does not rule out the possiblity of
Legionella infection due to other serogroups or species of
Legionella. Clinical correlation is recommended.
03/08/24 09:59 Urine Streptococcus pneumoniae Antigen (M - Final
Negative for Streptococcus pneumoniae antigen.
A negative result does not exclude infection with
Streptococcus pneumoniae. Clinical correlation is
recommended.
03/06/24 19:50 Nasal Swab Influenza Types A & B (DARRELL) - Final
Negative for Influenza A & B, NAAT
Negative results must be combined with clinical observations
and patient history.
Nucleic Acid Amplification test (NAAT)performed on the
[employer] ([employer]) platform.
[2024-03-09] MEDS: LANTUS 0.3 UNITS SC (08:45)
[2024-03-09] MEDS: MUCINEX 600 MG PO ×2 (08:46→20:12)
[2024-03-09] MEDS: FOLVITE 0.8 MG PO (08:46)
[2024-03-09] MEDS: SINEMET 25-100 1 TABLET PO ×2 (08:46→20:12)
[2024-03-09] MEDS: NORVASC 2.5 MG PO (08:46)
[2024-03-09] MEDS: TOPROL XL 50 MG PO ×2 (08:46→20:12)
[2024-03-09] MEDS: ASPIR LOW (ENTERIC COATED) 81 MG PO (08:46)
[2024-03-09] MEDS: VITAMIN D3 (cholecalciferol) 50 MCG PO (08:46)
[2024-03-09] MEDS: DULCOLAX 10 MG PO (08:46)
[2024-03-09] MEDS: PLAVIX 75 MG PO (08:46)
[2024-03-09] MEDS: VITAMIN B-12 1000 MCG PO (08:47)
--- NOTE | 2024-03-09 09:04 | W.PN.HOSP.TC ---
Today's Communication/Plan
-
see bold
Assessment / Plan
Assessment / Plan
HPI: 78 man presents with cough and fever. Symptoms may have started 2 weeks ago with weakness. He is confused and cannot provide history, but he is accompanied by his who provided the history. Patient is coming from [facility].
He tested positive for COVID earlier today with cough and worsening shortness of breath. Patient has a history of asthma and chronic cough with dyspnea after stroke which left him with left-sided weakness. states that he is DNR and would not
want to be intubated. He had a covid booster this year in January.
#Acute hypoxic respiratory failure
#Acute coronavirus pneumonia
#Sepsis without shock due to above
#Restrictive lung disease
Discharged to [facility] on 03/05/2024, after being hospitalized for L4-5 bulging disks with ambulatory dysfunction
Of note, patient's also has coronavirus
Appreciate pasta press operator input, out of ICU 03/08/24
Continue Unasyn day 3 for bacterial superinfection coverage
Continue high-dose IV Solu-Medrol, bronchodilators, mucolytics, supportive care
Currently requiring 2 L of oxygen, down from 8, wean as tolerated. He does not wear oxygen at home
Isolate from 03/06-03/15
#Acute toxic metabolic encephalopathy
Due to the above, provide supportive care
#Severe obstructive sleep apnea on BiPAP
Continue BiPAP at bedtime
#Dysphagia
Cleared by [facility] for soft diet with mildly thickened liquids
#Hypotension
Resolved status post normal saline bolus
#History of atrial fibrillation
Appreciate cardiology input, telemetry shows sinus rhythm with frequent PACs
Not on anticoagulation, resumed metoprolol 03/08
#Type 2 diabetes with anticipated steroid-induced hyperglycemia
Appreciate insulin adjustments by pasta press operator
#L4-5 bulging disks with ambulatory dysfunction
Seen by spine surgery 03/02/2024, recommend nonsurgical intervention -pain meds, PT/OT
Consider interventional options should oral and topical analgesics not address the symptoms
Can contact [facility] physiatry at to arrange outpatient
#Anxiety/depression
Continue SSRI/Remeron able
#Parkinson's disease
Continue Sinemet as able
#Sacrum Stage 1 Pressure Injury, POA
Wound care, offloading
#Obesity due to excess calories
Affects all aspects of care
DVT prophylaxis�subcu Lovenox
Updated on phone 03/09
Total time spent to see the patient on the floor, examine the patient, review data and lab results, discuss treatment plan with patient, nursing staff around 50 minutes.
Physical Exam
General: Morbidly obese, no acute distress
HEENT: Normocephalic, Atraumatic
Respiratory: Wheezing noted, improved from prior
Cardiac: Normal S1/S2, tachycardic rate, irregular rhythm
GI: Soft, Nontender, Nondistended, Normal Bowel Sounds
Extremities: No Clubbing, Cyanosis, or Edema
Derm: Sacrum Stage 1 Pressure Injury
Anticipated Discharge: > 48 hours
Subjective/Interval History
-
Date of Service: March 08, 2024
Patient remains intermittently confused. Continues to have cough and shortness of breath. No fever, no vomiting.
Objective Data
-
Labs:
Laboratory Results
03/08/24
04:45
WBC 14.9 H
Hgb 14.6
Hct 44.5
Plt Count 183
Sodium 141
Potassium 4.6
Chloride 106
Carbon Dioxide 24
BUN 49 H
Creatinine 1.1
Glucose 225 H
Calcium 8.1 L
Vital Signs:
Vital Signs
Temp Pulse Resp BP Pulse Ox
97.8 F 99 21 157/83 94
03/08/24 15:37 03/08/24 15:30 03/08/24 15:30 03/08/24 15:00 03/08/24 15:30
I&O
03/07/24 03/08/24 03/09/24
06:59 06:59 06:59
Intake Total 1230 / 1230 350 / 350
Output Total 250 / 250 60 / 60
Balance 980 / 980 290 / 290
[2024-03-09] MEDS: NOVOLOG FLEXPEN SC (09:06)
[2024-03-09] MEDS: NOVOLOG FLEXPEN-HIGH RESISTANCE 2 UNITS SC ×3 (09:17→18:16)
[2024-03-09] MEDS: DESENEX/MITRAZOL/ZEASORB 1 APPLIC TOPICAL ×2 (09:21→20:17)
[2024-03-09 11:35] LABS: Glucose - Point of Care 171 mg/dl (70-99)
[2024-03-09] MEDS: NOVOLOG FLEXPEN 7 UNITS SC ×2 (12:41→18:17)
--- NOTE | 2024-03-09 13:50 | PN.CDI ---
CDI
- -
CDI:
Physician Documentation Request
Admit Date: 03/06/24 22:54
Dear Doctor Do,
Clinical Indicators:
Patient admitted with COVID 19.
03/07 RN skin/wound assessment: Sacrum Stage 1 Pressure Injury, POA
Treatment: Silicone border foam dressing
Physician documentation of the type and location of wounds is required for compliant documentation. Based on the above clinical findings and your assessment, please provide the following in your progress note:
1. Location of the ulcer/wound, including laterality.
2. Type (etiology) of ulcer/wound:
- Pressure (decubitus) ulcer
- Other
- Unable to determine
3. If a pressure ulcer, please also include the stage* of the ulcer:
- Stage 1 - Skin intact, non-blanchable redness
- Stage 2 - Partial thickness loss of dermis, includes intact or open blister
- Stage 3 - Full thickness tissue not including bone, tendon or muscle
- Stage 4 - Full thickness tissue loss, including exposed bone, tendon or muscle
- Unstageable - Full thickness loss in which the base of the ulcer is covered by slough (yellow, santillan, josé, green or brown) and/or eschar (santillan, brown or black) in the wound bed.
- Unable to determine
Use of terms such as suspected, likely, concern for, or probable (associated with a specific diagnosis that is being evaluated, monitored, or treated as if it exists) are acceptable and can be coded in the inpatient setting, when documented at the
time of discharge.
Thank you,
Kamila Kahn RN BSN
CDI Specialist
available via tiger text
Please use your independent medical judgment in providing your response.
*Source: National Pressure Ulcer Advisory Panel (NPUAP)
--- NOTE | 2024-03-09 14:40 | CM ---
CM following re: discharge planning.
Reviewed pt's chart. Pt requires 2L NC of O2, continue supportive care.
PT and OT evaluations pending. Pt was discharged to [facility] from on 03/05/24 and readmitted back to next day.
Pt's spouse stated that her will need to come back to [facility] when medically sable to continue on skilled services.
A referral to [facility] made.
D/C plan: [facility] when medically stable.
CM will follow with discharge plan updates as hospitalization progresses
[2024-03-09] MEDS: 0.45%NACL 1000 IV (14:47)
[2024-03-09] MEDS: LOVENOX 40 MG SC (17:21)
[2024-03-09 17:31] LABS: Glucose - Point of Care 161 mg/dl (70-99)
--- NOTE | 2024-03-09 20:00 | PTCARENOTE ---
rec`d pt at 1900. pt Awake and alert, can be forgetful. SR on monitor with pvcs, 2nd degree heart block and PACS. +1 lower extrem edema. scds. afebrile. q2 turns. inspiratory and expiratory wheeze. coarse, harsh cough. POX 95-100%. rec`d pt on 2L
midflow but shortly after, RT placed BIPAP on pt. settings are 10/5 w/ 4L. takes pills with applesauce. incontinent of urine. pt had smear of BM at change of shift. sacral and heels foam placed for protection. 18 RT AC and 22 left AC. 100 1/2 NS
running. call meléndez in reach, safe environment maintained. novel precautions continued.
[2024-03-09] MEDS: PRAVACHOL 20 MG PO (21:21)
[2024-03-09] MEDS: REMERON 15 MG PO (21:21)
[2024-03-09] MEDS: LEXAPRO 10 MG PO (21:21)
[2024-03-09] MEDS: MIRALAX PO (21:22)
[2024-03-09] MEDS: LANTUS 0.32 UNITS SC (22:57)
[2024-03-09 23:07] LABS: Glucose - Point of Care 176 mg/dl (70-99)
[2024-03-10] VITALS (17 sets, daily range): BP systolic 100–155; BP diastolic 55–97; PULSE 2–92; O2SAT 96; BMI 41.7
--- NOTE | 2024-03-10 | PTCARENOTE ---
pt reassessed. no changes in pt assessment. call meléndez in reach.
--- NOTE | 2024-03-10 03:43 | PTCARENOTE ---
BIPAP off pt. pt fidgeting and couldnt get comfortable with mask. pt back on 2L NC and POX 96%.
[2024-03-10 05:14] LABS: Blood Urea Nitrogen 40 mg/dl (9-20); Carbon Dioxide 29 mmol/L (22-30); Chloride 105 mmol/L (98-107); Estimated Creatinine Clearance 98 ml/min; Glucose 137 mg/dl (70-99); Potassium 4.2 mmol/L (3.5-5.1); Sodium 146 mmol/L (135-145); eGFR > 60.00
[2024-03-10] MEDS: SOLU-MEDROL PF 40 MG IV ×3 (05:41→22:15)
[2024-03-10] MEDS: UNASYN IV ×3 (05:42→17:24)
[2024-03-10 06:18] LABS: Hemoglobin 14.3 g/dL (13.0-18.0); Mean Corp Hgb Conc. 31.8 g/dL (33.0-37.0); Mean Corpuscular Hgb 31.1 pg (27.0-31.0); Mean Corpuscular Volume 97.8 fL (80.0-94.0); Mean Platelet Volume 10.9 fL (7.4-10.4); Platelet Count 189 10^3/uL (130-400); Red Cell Dist. Width 13.7 % (11.5-14.5); White Blood Cell Count 10.2 10^3/uL (4.8-10.8)
[2024-03-10] MEDS: FLOVENT 110 MCG INHALER 2 PUFF INH ×2 (07:52→19:34)
[2024-03-10] MEDS: ProAIR HFA INHALER 2 PUFF INH ×3 (07:52→19:34)
[2024-03-10] MEDS: SPIRIVA RESPIMAT 2.5 MCG 2 PUFF INH (07:53)
--- NOTE | 2024-03-10 08:34 | W.PN.PUL3 ---
Today's Communication / Plan
-
Systemic steroids --> tomorrow start weaning to 40mg IV q12hr
Basal�bolus insulin with goal BG 140�180
Albuterol, Flovent + Spiriva
Advised to rinse mouth after using ICS
ABx, follow-up cultures
Up OOB as tolerated
PT/OT
Encourage incentive spirometer + Acapella
Given secretions with poor expectoration, start sport bed + vest therapy
Mucolytics
Repeat CXR as an outpatient to follow-up retrocardiac opacification to resolution
Pulmonary service will continue to follow along
Assessment
-
Assessment: 78-year-old male never smoker with a PMHx of mild persistent asthma, chronic bronchitis, restrictive lung disease, history of PE, severe FLAQUITA, GERD, Parkinson disease, Rivera's esophagus, hypertension/hyperlipidemia, CAD, history of
stroke/TIA and dilated aortic root who presents with cough and shortness of breath. Temp 100.6, HR 112, RR 22, BP 165/82 and sating 90% on room air. O2 sats improved on 2L to 94%. WBC 12.2, trop 0.023, proBNP 175 and procalcitonin 0.09. Covid test
found to be positive. CXR showed no volumes with retrocardiac opacity. In the ER he was given ceftriaxone, Decadron 10 mg, Tylenol, albuterol, mag and admitted to ICU for further management due to high risk of complication with past medical
history.
Chronic conditions prior to admission: Chronic cough, mild persistent asthma, chronic bronchitis, restrictive lung disease, history of PE, history of severe FLAQUITA, GERD, vasomotor rhinitis, Parkinson's disease, gastric polyps, Rivera's esophagus,
hypertension, history of TIA/stroke, diverticulosis, hyperlipidemia, dilated aortic root, CAD
Impression:
#Acute respiratory failure with hypoxia due to COVID-19 pneumonia
#Retrocardiac opacity with suspected pneumonia (bacterial superinfection)
#Sepsis without shock due to above
#Altered mental status due to septic encephalopathy - markedly improved
#Hypotension with new onset atrial arrhythmia due to PACs - now normotensive
#DM type II complicated by hyperglycemia (HbA1c: 6.9 on 08/22/2023)
#Severe FLAQUITA on BiPAP 15/8cmH2O
#GERD
#Mild persistent asthma with cough
#Chronic bronchitis
#History of VT on metoprolol
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
#History of CVA/TIA
#Restrictive lung disease (moderate/borderline severe with T% predicted; FVC: 71% predicted via PFT from 10/22/2023)
#Mild gas exchange capacity defect which is normal when accounting for alveolar volume involved in gas exchange (DLCO: 66%; DLCO/VA: 111% via PFT from 10/22/2023)
#Anxiety
Plan:
- Patient has markedly improved since admission in terms of his mental status and hypoxia
- Initially patient was lethargic and minimally responsive and since 03/08 he is awake, alert and answering questions appropriately
- His hypoxia continues to improve and he even removes his nasal cannula from his nose at times without shortness of breath or desaturation
- Continue to reinforce to the patient to keep the oxygen nasal cannula in his nose at all times unless told otherwise
- Maintain SpO2 >90-94% with supplemental oxygen and titrate down as tolerated
- Currently on Solu-Medrol 40 mg IV q8hr <-- 40mg IV q6hr
- Continue to wean down as he clinically improved --> can continue weaning down to 40mg IV q12hr starting tomorrow
- Maintain euglycemia while on high-dose steroids with goal BG 140�180
- Continue basal�bolus SQ insulin dosing with scheduled aspart 7 units AC (raised from 5 units)
- Transition to high flow nasal cannula if needed
- ProAir TID with Spiriva Respimat 2.5mcg/act with prn albuterol q4hr prnn SOB/wheezing; continue flovent 110mcg 2 puffs BID, rinsing mouth after use
- Mucolytics with mucinex + Acapella valve
- Start sport bed and vest given audible secretions with wheezing heard today with poor expectoration
- Continue aspiration precautions; maintain HOB >30-45�
- Patient was started on ceftriaxone/Zithromax on admission; given his altered mental status on 03/07/2024, would continue with Unasyn to cover for aspiration
- Procal has downtrended assuring that we have adequate source control
- Plan for 5 to 7 days of antibiotics total assuming he continues to clinically improve and remains afebrile for 48 hours prior to stopping antibiotics
- Follow-up blood culture (collected 03/06/2024 - NGTD); follow up sputum culture (03/07/2024 - NGTD); urine antigens for Legionella + strep pneumonia both negative
- On 03/07, he developed hypotension with an atrial arrhythmia which appeared to be atrial fibrillation however cardiology was consulted and evaluated the patient with review of EKG and telemetry and felt this was more normal sinus rhythm with PACs
- Amiodarone gtt was going to be started but then this was stopped; continue to treat hypoxia which is likely driving his arrhythmia
- Replete electrolytes with K>4, Mg>2
- Maintain MAP>65
- Trend H/H and transfuse if needed to keep Hb>7g/dL; keep plt>20k, unless there is concern for bleeding then keep plt>50k
- Encourage incentive spirometer
- Continue sinemet
- Diet as per [employer]
- Avoid sedating medications as this will only worsen his mental status and put him at risk of aspiration
- DVT ppx: LMWH
Pulmonary service will continue to follow along
Data:
CXR 03/06/2024:
Markedly low lung volumes.
Cannot exclude mild left basilar opacity such as subsegmental atelectasis and/or pneumonia and tiny left pleural effusion.
Total time spent today was 37 minutes for this encounter. Time includes reviewing laboratory test/imaging results, reviewing pertinent medical records, obtaining and reviewing medical history, performing an appropriate exam, ordering medications,
tests and procedures. Time also includes documentation of this encounter, coordinating patient care and communicating with other healthcare professionals. Total time does not include separately billed tests performed on this date of service.
Subjective Data
-
Date of Service:
Date of Service: March 10, 2024
Chief Complaint: Pulmonary Follow Up
Subjective:
Patient seen and evaluated this morning. Has a wet sounding cough and although he denies shortness of breath or any distress to his cough he clearly has phlegm that he is breathing in and out which is audible. Currently, saturating 95% on 2 L/min,
heart rate 92 and BP 129/87.
Review of Systems
General: Other (Negative unless mentioned above)
Objective Data
Data Reviewed
Vital Signs / I&O / Oxygen:
Vital Signs
Temp Pulse Resp BP Pulse Ox
97.7 F 79 17 127/67 95
03/10/24 08:52 03/10/24 08:37 03/10/24 08:36 03/10/24 08:37 03/10/24 08:59
Intake and Output
03/09/24 03/10/24 03/11/24
06:59 06:59 06:59
Intake Total 1880 / 1880 600 / 600
Output Total 60 / 60 210 / 210
Balance 1820 / 1820 390 / 390
SaO2 95
Nasal Cannula flow liters per 2
minute
Physical Exam
General: Respiratory Distress (negative), Comfortable, Chills (negative) and Sweats (negative)
HEENT: Normocephalic and Anicteric
Cardiovascular: S1-S2, Rub (negative) and Peripheral Edema (negative)
Respiratory: Wheeze ([place] upon expiration bilaterally), Crackles (negative), Rhonchi (Bilaterally heard upon expiration) and Non-Labored Respirations
GI: Soft, Distended (Abdominal obesity), Non Tender and Normal Bowel Sounds
Neurology: Awake, Alert and Tremors (negative)
Skin: Warm, Dry, Cyanosis (negative) and Jaundice (negative)
Labs/Micro/Reports
Lab Data
03/10/24 04:11
03/10/24 04:11
Microbiology
03/06/24 21:40 Blood/Venous Blood Culture - Preliminary
No Growth in 72 hours- Final report to follow
03/07/24 11:36 Sputum Respiratory Culture - Final
Usual Respiratory Vickie
03/07/24 11:36 Sputum Gram Stain - Final
03/08/24 09:59 Urine Legionella Urinary Antigen - Final
Negative for Legionella pneumophila Serogroup 1 antigen.
A negative result does not rule out the possiblity of
Legionella infection due to other serogroups or species of
Legionella. Clinical correlation is recommended.
03/08/24 09:59 Urine Streptococcus pneumoniae Antigen (M - Final
Negative for Streptococcus pneumoniae antigen.
A negative result does not exclude infection with
Streptococcus pneumoniae. Clinical correlation is
recommended.
[2024-03-10] MEDS: PLAVIX 75 MG PO (08:35)
[2024-03-10] MEDS: VITAMIN D3 (cholecalciferol) 50 MCG PO (08:35)
[2024-03-10] MEDS: SINEMET 25-100 1 TABLET PO ×2 (08:35→20:43)
[2024-03-10] MEDS: MUCINEX 600 MG PO ×2 (08:35→20:43)
[2024-03-10] MEDS: DULCOLAX PO ×2 (08:35→08:56)
[2024-03-10] MEDS: ASPIR LOW (ENTERIC COATED) 81 MG PO (08:35)
[2024-03-10] MEDS: VITAMIN B-12 1000 MCG PO (08:35)
[2024-03-10] MEDS: FOLVITE 0.8 MG PO (08:35)
[2024-03-10] MEDS: DESENEX/MITRAZOL/ZEASORB 1 APPLIC TOPICAL ×2 (08:36→20:43)
[2024-03-10] MEDS: TOPROL XL 50 MG PO ×2 (08:37→20:43)
[2024-03-10] MEDS: NORVASC 2.5 MG PO (08:37)
[2024-03-10] MEDS: LANTUS 0.3 UNITS SC (08:54)
[2024-03-10] MEDS: NOVOLOG FLEXPEN-HIGH RESISTANCE 1 UNITS SC (08:54)
[2024-03-10] MEDS: NOVOLOG FLEXPEN 7 UNITS SC ×3 (08:55→17:23)
[2024-03-10 09:06] LABS: Glucose - Point of Care 144 mg/dl (70-99)
--- NOTE | 2024-03-10 09:06 | W.PN.HOSP.TC ---
Today's Communication/Plan
-
see bold
Assessment / Plan
Assessment / Plan
HPI: 78 man presents with cough and fever. Symptoms may have started 2 weeks ago with weakness. He is confused and cannot provide history, but he is accompanied by his who provided the history. Patient is coming from [facility].
He tested positive for COVID earlier today with cough and worsening shortness of breath. Patient has a history of asthma and chronic cough with dyspnea after stroke which left him with left-sided weakness. states that he is DNR and would not
want to be intubated. He had a covid booster this year in January.
#Acute hypoxic respiratory failure
#Acute coronavirus pneumonia
#Sepsis without shock due to above
#Restrictive lung disease
Discharged to [facility] on 03/05/2024, after being hospitalized for L4-5 bulging disks with ambulatory dysfunction
Of note, patient's also has coronavirus
Appreciate intelligent systems engineer/pulm input, out of ICU 03/08/24
Continue Unasyn day 4 for bacterial superinfection coverage
Wean IV Solu-Medrol as per pulm, bronchodilators, mucolytics, supportive care
Currently requiring 2 L of oxygen, down from 8, wean as tolerated. He does not wear oxygen at home
Isolate from 03/06-03/15
#Acute toxic metabolic encephalopathy
Due to the above, provide supportive care
#Severe obstructive sleep apnea on BiPAP
Continue BiPAP at bedtime
#Dysphagia
Cleared by [facility] for soft diet with mildly thickened liquids, tolerating
#Hypotension
Resolved status post normal saline bolus
#History of atrial fibrillation
Appreciate cardiology input, telemetry shows sinus rhythm with frequent PACs
Not on anticoagulation, resumed metoprolol 03/08
#Type 2 diabetes with anticipated steroid-induced hyperglycemia
Appreciate insulin adjustments by intelligent systems engineer
#L4-5 bulging disks with ambulatory dysfunction
Seen by spine surgery 03/02/2024, recommend nonsurgical intervention -pain meds, PT/OT
Consider interventional options should oral and topical analgesics not address the symptoms
Can contact [facility] physiatry at to arrange outpatient
#Anxiety/depression
Continue SSRI/Remeron able
#Parkinson's disease
Continue Sinemet as able
#Sacrum Stage 1 Pressure Injury, POA
Wound care, offloading
#Obesity due to excess calories
Affects all aspects of care
DVT prophylaxis�subcu Lovenox
Updated on phone 03/09
Total time spent to see the patient on the floor, examine the patient, review data and lab results, discuss treatment plan with patient, nursing staff around 40 minutes.
Physical Exam
General: Morbidly obese, no acute distress
HEENT: Normocephalic, Atraumatic
Respiratory: Mild wheezing noted, improved from prior
Cardiac: Normal S1/S2, tachycardic rate, irregular rhythm
GI: Soft, Nontender, Nondistended, Normal Bowel Sounds
Extremities: No Clubbing, Cyanosis, or Edema
Derm: Sacrum Stage 1 Pressure Injury
Anticipated Discharge: > 48 hours
Subjective/Interval History
-
Date of Service: March 10, 2024
Still SOB, coughing, improved. Intermittently confused. +BM. No fever, no vomiting.
Objective Data
-
Labs:
Laboratory Results
03/10/24
04:11
WBC 10.2
Hgb 14.3
Hct 45.0
Plt Count 189
Sodium 146 H
Potassium 4.2
Chloride 105
Carbon Dioxide 29
BUN 40 H
Creatinine 0.8
Glucose 137 H
Calcium 8.0 L
Vital Signs:
Vital Signs
Temp Pulse Resp BP Pulse Ox
97.7 F 79 17 127/67 95
03/10/24 08:52 03/10/24 08:37 03/10/24 08:36 03/10/24 08:37 03/10/24 08:59
I&O
03/09/24 03/10/24 03/11/24
06:59 06:59 06:59
Intake Total 1880 / 1880 600 / 600
Output Total 60 / 60 210 / 210
Balance 1820 / 1820 390 / 390
[2024-03-10] MEDS: D5W 1000 IV (10:36)
[2024-03-10] MEDS: NOVOLOG FLEXPEN-HIGH RESISTANCE 2 UNITS SC ×2 (12:35→17:23)
[2024-03-10 12:47] LABS: Glucose - Point of Care 165 mg/dl (70-99)
--- NOTE | 2024-03-10 13:25 | PTCARENOTE ---
Rec'd care of patient at 0700. Patient restless and confused. Quick to reorient. Alert and oriented to self and place. Sinus arrhythmia on tele monitor. Irregular apical. Trace anasarca. Pulse ox 95-96% on 2L nc. Extremely VILLANUEVA and orthopneic. Lung
sounds coarse with wheezing. Frequent moist cough; weak. Oral suctioning provided with slight improvement. +BS. Incontinent of a large loose BM. Incontinent of urine. Adrienne care as needed. Sacral foam changed. VSS. Sport bed and vest ordered.
--- NOTE | 2024-03-10 15:54 | PTCARENOTE ---
PT/OT at bedside to work with patient. Heavy assistance required. Sat at side of bed. Vitals stable.
[2024-03-10] MEDS: LOVENOX 40 MG SC (17:24)
[2024-03-10 17:31] LABS: Glucose - Point of Care 161 mg/dl (70-99)
--- NOTE | 2024-03-10 17:34 | PTCARENOTE ---
Patient transferred to sport bed.
--- NOTE | 2024-03-10 18:19 | PTCARENOTE ---
Percussion initiated on sport bed. Harsh, moist cough during treatment. Moderate amount of thick, white secretions suctioned orally.
[2024-03-10] MEDS: MIRALAX PO (21:36)
[2024-03-10] MEDS: LANTUS 0.32 UNITS SC (22:13)
[2024-03-10] MEDS: REMERON 15 MG PO (22:14)
[2024-03-10] MEDS: LEXAPRO 10 MG PO (22:14)
[2024-03-10] MEDS: PRAVACHOL 20 MG PO (22:14)
[2024-03-10 22:17] LABS: Glucose - Point of Care 145 mg/dl (70-99)
[2024-03-11] VITALS (12 sets, daily range): BP systolic 136–174; BP diastolic 61–119; PULSE 2–95; BMI 42.4
[2024-03-11] MEDS: UNASYN IV ×4 (01:00→19:29)
--- NOTE | 2024-03-11 01:39 | PTCARENOTE ---
[facility], confused to place and time, wanting to go see his , patient having no shortness of breath, however, lungs coarse and audible wheezing, exp/insp. patient incontinent of bowel and bladder, bm x2.
patient taking medications with applesauce with no issue.
strong productive cough, unable to clear secretions without help, using yankour to assist.
patient trying to swing legs out of bed multiple times.
--- NOTE | 2024-03-11 01:42 | PTCARENOTE ---
patient continues to swing legs out of bed, becomes more confused as evening progresses. patient had bipap placed on around 10 pm, no issues with taking it off, percussion mode on bed done every two hours.
[2024-03-11 08:20] LABS: Glucose - Point of Care 123 mg/dl (70-99)
--- NOTE | 2024-03-11 08:28 | W.PN.PUL3 ---
Today's Communication / Plan
-
Systemic steroids currentely at 40mg IV q12hr
Basal�bolus insulin with goal BG 140�180
Albuterol, Flovent + Spiriva
Advised to rinse mouth after using ICS
ABx, follow-up cultures
Up OOB as tolerated
PT/OT
Encourage incentive spirometer + Acapella
Given secretions with poor expectoration, continue sport bed + vest therapy (both started 03/10)
Mucolytics
Check CXR tomorrow
Repeat CXR as an outpatient to follow-up retrocardiac opacification to resolution
Pulmonary service will continue to follow along
Assessment
-
Assessment: 78-year-old male never smoker with a PMHx of mild persistent asthma, chronic bronchitis, restrictive lung disease, history of PE, severe FLAQUITA, GERD, Parkinson disease, Rivera's esophagus, hypertension/hyperlipidemia, CAD, history of
stroke/TIA and dilated aortic root who presents with cough and shortness of breath. Temp 100.6, HR 112, RR 22, BP 165/82 and sating 90% on room air. O2 sats improved on 2L to 94%. WBC 12.2, trop 0.023, proBNP 175 and procalcitonin 0.09. Covid test
found to be positive. CXR showed no volumes with retrocardiac opacity. In the ER he was given ceftriaxone, Decadron 10 mg, Tylenol, albuterol, mag and admitted to ICU for further management due to high risk of complication with past medical
history.
Chronic conditions prior to admission: Chronic cough, mild persistent asthma, chronic bronchitis, restrictive lung disease, history of PE, history of severe FLAQUITA, GERD, vasomotor rhinitis, Parkinson's disease, gastric polyps, Rivera's esophagus,
hypertension, history of TIA/stroke, diverticulosis, hyperlipidemia, dilated aortic root, CAD
Impression:
#Acute respiratory failure with hypoxia due to COVID-19 pneumonia
#Retrocardiac opacity with suspected pneumonia (bacterial superinfection)
#Sepsis without shock due to above
#Altered mental status due to septic encephalopathy - markedly improved
#Hypotension with new onset atrial arrhythmia due to PACs - now normotensive
#DM type II complicated by hyperglycemia (HbA1c: 6.9 on 08/22/2023)
#Severe FLAQUITA on BiPAP 15/8cmH2O
#GERD
#Mild persistent asthma with cough
#Chronic bronchitis
#History of VT on metoprolol
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
#History of CVA/TIA
#Restrictive lung disease (moderate/borderline severe with T% predicted; FVC: 71% predicted via PFT from 10/22/2023)
#Mild gas exchange capacity defect which is normal when accounting for alveolar volume involved in gas exchange (DLCO: 66%; DLCO/VA: 111% via PFT from 10/22/2023)
#Anxiety
Plan:
- Patient has markedly improved since admission in terms of his mental status and hypoxia
- Initially patient was lethargic and minimally responsive and since 03/08 he is awake, alert and answering questions appropriately
- His hypoxia continues to improve and he even removes his nasal cannula from his nose at times without shortness of breath or desaturation
- Continue to reinforce to the patient to keep the oxygen nasal cannula in his nose at all times unless told otherwise
- Maintain SpO2 >90-94% with supplemental oxygen and titrate down as tolerated
- Check CXR tomorrow
- Currently on Solu-Medrol 40 mg IV q12hr <--40mg IV q8hr <-- 40mg IV q6hr
- Continue to wean down as he clinically improved --> would keep at 40mg IV q12hr for now, and hopefully can start prednisone taper over the weekend
- Maintain euglycemia while on high-dose steroids with goal BG 140�180
- Continue basal�bolus SQ insulin dosing with scheduled aspart 7 units AC (raised from 5 units)
- Transition to high flow nasal cannula if needed
- ProAir TID with Spiriva Respimat 2.5mcg/act with prn albuterol q4hr prnn SOB/wheezing; continue flovent 110mcg 2 puffs BID, rinsing mouth after use
- Mucolytics with mucinex + Acapella valve
- Continue sport bed and vest given audible secretions with wheezing heard since 03/10 with poor expectoration
- Continue aspiration precautions; maintain HOB >30-45�
- Patient was started on ceftriaxone/Zithromax on admission; given his altered mental status on 03/07/2024, would continue with Unasyn to cover for aspiration
- Procal has downtrended assuring that we have adequate source control
- Plan for 7 days of antibiotics total assuming he continues to clinically improve and remains afebrile for 48 hours prior to stopping antibiotics
- Follow-up blood culture (collected 03/06/2024 - NGTD); follow up sputum culture (03/07/2024 - NGTD); urine antigens for Legionella + strep pneumonia both negative
- On 03/07, he developed hypotension with an atrial arrhythmia which appeared to be atrial fibrillation however cardiology was consulted and evaluated the patient with review of EKG and telemetry and felt this was more normal sinus rhythm with PACs
- Amiodarone gtt was going to be started but then this was stopped; continue to treat hypoxia which is likely driving his arrhythmia
- Replete electrolytes with K>4, Mg>2
- Maintain MAP>65
- Trend H/H and transfuse if needed to keep Hb>7g/dL; keep plt>20k, unless there is concern for bleeding then keep plt>50k
- Encourage incentive spirometer
- Continue sinemet
- Diet as per DIABETES TERRITORY MANAGER
- PT/OT
- Avoid sedating medications as this will only worsen his mental status and put him at risk of aspiration
- DVT ppx: LMWH
Pulmonary service will continue to follow along.
Data:
CXR 03/06/2024:
Markedly low lung volumes.
Cannot exclude mild left basilar opacity such as subsegmental atelectasis and/or pneumonia and tiny left pleural effusion.
Total time spent today was 39 minutes for this encounter. Time includes reviewing laboratory test/imaging results, reviewing pertinent medical records, obtaining and reviewing medical history, performing an appropriate exam, ordering medications,
tests and procedures. Time also includes documentation of this encounter, coordinating patient care and communicating with other healthcare professionals. Total time does not include separately billed tests performed on this date of service.
Subjective Data
-
Date of Service:
Date of Service: March 11, 2024
Chief Complaint: Pulmonary Follow Up
Subjective:
Patient was seen this morning and he is doing well. Saturating 96% on 3 L/min and heart rate 53, BP 138/63. He says he is bringing up his phlegm better today. Denies SOB at rest. He would like to get out of bed to the chair if possible. He
denies chest pain, DOSS, abdominal pain, nausea, fevers or chills.
Review of Systems
General: Other (Negative unless mentioned above)
Objective Data
Data Reviewed
Vital Signs / I&O / Oxygen:
Vital Signs
Temp Pulse Resp BP Pulse Ox
97.9 F 54 14 137/65 96
03/11/24 07:55 03/10/24 20:43 03/10/24 19:49 03/10/24 20:43 03/10/24 20:00
Intake and Output
03/10/24 03/11/24 03/12/24
06:59 06:59 06:59
Intake Total 600 / 600 1090 / 1090
Output Total 210 / 210
Balance 390 / 390 1090 / 1090
SaO2 96
Nasal Cannula flow liters per 2
minute
Physical Exam
General: Respiratory Distress (negative), Comfortable, Chills (negative) and Sweats (negative)
HEENT: Normocephalic and Anicteric
Cardiovascular: S1-S2, Rub (negative) and Peripheral Edema (negative)
Respiratory: Wheeze (Woodward upon expiration bilaterally), Crackles (negative), Rhonchi (Bilaterally heard upon expiration) and Non-Labored Respirations
GI: Soft, Distended (Abdominal obesity), Non Tender and Normal Bowel Sounds
Neurology: Awake, Alert and Tremors (negative)
Skin: Warm, Dry, Cyanosis (negative) and Jaundice (negative)
Labs/Micro/Reports
Lab Data
03/10/24 04:11
03/10/24 04:11
Microbiology
03/06/24 21:40 Blood/Venous Blood Culture - Preliminary
No Growth in 4 days- Final report to follow
03/07/24 11:36 Sputum Respiratory Culture - Final
Usual Respiratory Vickie
03/07/24 11:36 Sputum Gram Stain - Final
03/08/24 09:59 Urine Legionella Urinary Antigen - Final
Negative for Legionella pneumophila Serogroup 1 antigen.
A negative result does not rule out the possiblity of
Legionella infection due to other serogroups or species of
Legionella. Clinical correlation is recommended.
03/08/24 09:59 Urine Streptococcus pneumoniae Antigen (M - Final
Negative for Streptococcus pneumoniae antigen.
A negative result does not exclude infection with
Streptococcus pneumoniae. Clinical correlation is
recommended.
--- NOTE | 2024-03-11 08:56 | W.PN.HOSP.TC ---
Today's Communication/Plan
-
Stable for telemetry
Assessment / Plan
Assessment / Plan
HPI: 78 man presents with cough and fever. Symptoms may have started 2 weeks ago with weakness. He is confused and cannot provide history, but he is accompanied by his who provided the history. Patient is coming from [facility].
He tested positive for COVID earlier today with cough and worsening shortness of breath. Patient has a history of asthma and chronic cough with dyspnea after stroke which left him with left-sided weakness. states that he is DNR and would not
want to be intubated. He had a covid booster this year in January.
#Acute hypoxic respiratory failure
#Acute coronavirus pneumonia
#Sepsis without shock due to above
#Restrictive lung disease
Discharged to [facility] on 03/05/2024, after being hospitalized for L4-5 bulging disks with ambulatory dysfunction
Of note, patient's also has coronavirus
Appreciate glass enamel mixer/pulm input, out of ICU 03/08/24
Continue Unasyn day 5 for bacterial superinfection coverage
Wean IV Solu-Medrol as per pulm, bronchodilators, mucolytics, supportive care
Currently on RA, was requiring 2 L of oxygen, down from 8, wean as tolerated. He does not wear oxygen at home
Isolate from 03/06-03/15
PT rec SNF, came from [facility]
#Acute toxic metabolic encephalopathy
Due to the above, provide supportive care
#Severe obstructive sleep apnea on BiPAP
Continue BiPAP at bedtime
#Dysphagia
Cleared by SPL for pureed with mildly thickened liquids, tolerating
#Hypotension
Resolved status post normal saline bolus
#History of atrial fibrillation
Appreciate cardiology input, telemetry shows sinus rhythm with frequent PACs
Not on anticoagulation, resumed metoprolol 03/08
#Type 2 diabetes with anticipated steroid-induced hyperglycemia
Appreciate insulin adjustments by glass enamel mixer
#L4-5 bulging disks with ambulatory dysfunction
Seen by spine surgery 03/02/2024, recommend nonsurgical intervention -pain meds, PT/OT
Consider interventional options should oral and topical analgesics not address the symptoms
Can contact [facility] physiatry at to arrange outpatient
#Anxiety/depression
Continue SSRI/Remeron able
#Parkinson's disease
Continue Sinemet as able
#Sacrum Stage 1 Pressure Injury, POA
Wound care, offloading
#Obesity due to excess calories
Affects all aspects of care
DVT prophylaxis�subcu Lovenox
Updated on phone 03/09
Total time spent to see the patient on the floor, examine the patient, review data and lab results, discuss treatment plan with patient, nursing staff around 42 minutes.
Physical Exam
General: Morbidly obese, no acute distress
HEENT: Normocephalic, Atraumatic
Respiratory: Mild wheezing noted, improved from prior
Cardiac: Normal S1/S2, tachycardic rate, irregular rhythm
GI: Soft, Nontender, Nondistended, Normal Bowel Sounds
Extremities: No Clubbing, Cyanosis, or Edema
Derm: Sacrum Stage 1 Pressure Injury
Anticipated Discharge: 24 - 48 hours
Subjective/Interval History
-
Date of Service: March 11, 2024
Patient reports shortness of breath and cough improved. No fever, no vomiting.
Objective Data
-
Vital Signs:
Vital Signs
Temp Pulse Resp BP Pulse Ox
97.9 F 54 14 137/65 96
03/11/24 07:55 03/10/24 20:43 03/10/24 19:49 03/10/24 20:43 03/10/24 20:00
I&O
03/10/24 03/11/24 03/12/24
06:59 06:59 06:59
Intake Total 600 / 600 1090 / 1090
Output Total 210 / 210
Balance 390 / 390 1090 / 1090
[2024-03-11] MEDS: FLOVENT 110 MCG INHALER 2 PUFF INH ×2 (09:05→19:43)
[2024-03-11] MEDS: ProAIR HFA INHALER 2 PUFF INH ×3 (09:05→19:43)
[2024-03-11] MEDS: SPIRIVA RESPIMAT 2.5 MCG 2 PUFF INH (09:05)
[2024-03-11] MEDS: NOVOLOG FLEXPEN-HIGH RESISTANCE 1 UNITS SC (09:17)
[2024-03-11] MEDS: NOVOLOG FLEXPEN 7 UNITS SC ×3 (09:18→19:28)
[2024-03-11] MEDS: MUCINEX 600 MG PO ×2 (09:19→20:53)
[2024-03-11] MEDS: ASPIR LOW (ENTERIC COATED) 81 MG PO (09:19)
[2024-03-11] MEDS: SOLU-MEDROL PF 40 MG IV ×2 (09:19→20:53)
[2024-03-11] MEDS: SINEMET 25-100 1 TABLET PO ×2 (09:19→20:54)
[2024-03-11] MEDS: PLAVIX 75 MG PO (09:22)
[2024-03-11] MEDS: LANTUS 0.3 UNITS SC (09:22)
[2024-03-11] MEDS: VITAMIN B-12 1000 MCG PO (09:22)
[2024-03-11] MEDS: VITAMIN D3 (cholecalciferol) 50 MCG PO (09:22)
[2024-03-11] MEDS: NORVASC 2.5 MG PO (09:22)
[2024-03-11] MEDS: TOPROL XL 50 MG PO ×2 (09:22→20:54)
[2024-03-11] MEDS: FOLVITE 0.8 MG PO (09:22)
[2024-03-11] MEDS: DULCOLAX PO (09:24)
[2024-03-11] MEDS: DESENEX/MITRAZOL/ZEASORB 1 APPLIC TOPICAL ×2 (09:24→20:51)
[2024-03-11 11:28] LABS: Blood Urea Nitrogen 32 mg/dl (9-20); Carbon Dioxide 28 mmol/L (22-30); Chloride 105 mmol/L (98-107); Estimated Creatinine Clearance 112 ml/min; Glucose 152 mg/dl (70-99); Potassium 4.7 mmol/L (3.5-5.1); Sodium 141 mmol/L (135-145); eGFR > 60.00
--- NOTE | 2024-03-11 11:56 | PTOTSP ---
SPEECH THERAPY SWALLOW FOLLOW UP NOTE:
Patient exhibits clinical signs of oropharyngeal dysphagia, likely chronic related to PD and acutely exacerbated by critical illness (COVID, pneumonia). Patient remains at high risk for aspiration and related complications due to tenuous
respiratory/pulmonary status and confusion. WBC currently WNL. Set to downgrade medically. Recommend diet downgrade to IDDSI Level 4 Puree diet, continue Mildly-thick liquids via single sips from cup; Meds whole in puree. Aspiration precautions:
Upright positioning; 1:1 assistance/100% supervision; Small single sips/bites; Slow rate of intake; Monitor closely for signs of aspiration; D/c oral diet if ANY decline in mental/respiratory status (LOW threshold to make NPO). ST to follow closely
and determine readiness and/or indication for instrumental assessment of swallowing as indicated.
RECOMMEND:
1) IDDSI Level 4 Puree diet, continue Mildly-thick liquids via single sips from cup
2) Meds whole in puree
3) Aspiration precautions: Upright positioning; 1:1 assistance/100% supervision; Small single sips/bites; Slow rate of intake; Monitor closely for signs of aspiration; D/c oral diet if ANY decline in mental/respiratory status (LOW threshold to make
NPO)
4) ST to follow closely
[2024-03-11 12:19] LABS: Glucose - Point of Care 217 mg/dl (70-99)
[2024-03-11] MEDS: NOVOLOG FLEXPEN-HIGH RESISTANCE 4 UNITS SC (13:07)
--- NOTE | 2024-03-11 14:41 | PTCARENOTE ---
Pt received in bed @ 0700. AAOx3, but forgetful. Slow speech. Diet downgraded to IDDSI 4 with mildly thick liquids. 1:1 supervision with meals. Denying pain. Lungs coarse with wheezes. Pt received on 2L NC. Weaned to room air. SaO2 94%. Pt with
intermittent nonproductive cough. Percussion initiated per order. Sinus rhythm/sinus margarito with 1st degree AV block, PAC's, and PVC's on manager monitoring. Trace anasarca. Pedal pulses palpable. Abdomen round, obese. Good appetite. Ate 100% of
breakfast and lunch. Incontinent large loose green bowel movement. Incontinent yellow urine. Silicone border foam on sacrum. Pt removed (L) AC #AC in confusion. Left wrist #22 redressed and right wrist #22 added.
--- NOTE | 2024-03-11 15:07 | CM ---
CM following re: discharge planning.
Reviewed pt's chart. Pt requires 3L NC of O2, continue supportive care.
PT and OT evaluations noted - SNF level of care recommended. Pt was discharged to [facility] from on 03/05/24 and readmitted back to next day.
Pt's spouse stated that her will need to come back to [facility] when medically sable to continue on skilled services.
A referral to [facility] made.
D/C plan: [facility] when medically stable.
CM will follow with discharge plan updates as hospitalization progresses
[2024-03-11 17:23] LABS: Glucose - Point of Care 164 mg/dl (70-99)
[2024-03-11] MEDS: NOVOLOG FLEXPEN-HIGH RESISTANCE 2 UNITS SC (19:28)
[2024-03-11] MEDS: LOVENOX 40 MG SC (19:29)
[2024-03-11 21:08] LABS: Glucose - Point of Care 90 mg/dl (70-99)
[2024-03-11] MEDS: LANTUS SC (21:43)
[2024-03-11] MEDS: REMERON 15 MG PO (21:48)
[2024-03-11] MEDS: LEXAPRO 10 MG PO (21:48)
[2024-03-11] MEDS: PRAVACHOL 20 MG PO (21:48)
[2024-03-11] MEDS: MIRALAX PO (22:22)
--- NOTE | 2024-03-11 22:26 | PTCARENOTE ---
Received patient in bed awake and watching television. Pt's disoriented to time and forgetful. Complains of pain to his left arm. Patient's left wrist area to lower forearm noted to be swollen. Pt was receiving Unasyn to his left wrist IV site. Site
noted to be infiltrated + 2 edema and tender to palpation. Warm compress and arm elevated. Pharmacy paged and made aware. Plan of care for the shift reviewed with the patient. Pt's sinus margarito on the monitor with HR 52, PSCs/PVCs and a 1st degree
AVB. SpO2 at 95% on room air. Pt's with rhonchi, inspiratory and expiratory wheezing. Denies sob. Abdomen is round and obese. +BS. The patient declined his dinner tray. Stated that he is allergic to fish. Pt's dinner was flounder fish with rice and
carrots. Pt couldn't tell allergy reaction however. Sacral foam is intact. Percussion completed as per the order. Pt's BG was 90. OFFICE ENGINEER paged and made aware. Plan to place pt's Lantus on hold.
[2024-03-12] VITALS (9 sets, daily range): BP systolic 110–172; BP diastolic 71–98; PULSE 2–89
[2024-03-12] MEDS: FLUSH (NSS) 2 FLUSH IV (00:58)
[2024-03-12] MEDS: UNASYN IV ×2 (00:58→06:21)
--- NOTE | 2024-03-12 01:12 | PTCARENOTE ---
[id number]: Patient is incontinent of urine. Pt cleansed and linens changed. barrier cream applied. Patient transferred to room 2130. Remained stable and sinus margarito on the monitor. Handoff with bedside RN.
--- NOTE | 2024-03-12 02:47 | PTCARENOTE ---
Patient had a one minute interval of an uncertain rhythm. It said VTach on the monitor. Patient unaware. Advised covering provider. Orders received.
[2024-03-12 05:56] LABS: % Basophils 0.2 % (0-2); % Eosinophils 0.1 % (0-6); % Immature Granulocytes 1.7 % (0-0.5); % Lymphocytes 10.1 % (20.5-51.1); % Monocytes 5.2 % (1.7-9.3); % Neutrophils 82.7 % (42.2-75.2); Absolute Immature Granulocytes 0.2 10^3/uL (0-0.05); Absolute Lymphocytes 1.1 10^3/uL (1.2-3.4); Absolute Monocytes 0.6 10^3/uL (0.1-0.6); Absolute Neutrophils 8.7 10^3/uL (1.4-6.5); Hematocrit 46.7 % (39.0-52.0); Hemoglobin 15.9 g/dL (13.0-18.0); Mean Corpuscular Hgb 31.7 pg (27.0-31.0); Mean Corpuscular Volume 93.2 fL (80.0-94.0); Mean Platelet Volume 10.7 fL (7.4-10.4); Nucleated Red Blood Cells % 0 % (-); Platelet Count 199 10^3/uL (130-400); Red Blood Cell Count 5.01 10^6/uL (4.70-6.10); Red Cell Dist. Width 13.3 % (11.5-14.5); White Blood Cell Count 10.5 10^3/uL (4.8-10.8)
[2024-03-12 06:27] LABS: Blood Urea Nitrogen 31 mg/dl (9-20); Carbon Dioxide 28 mmol/L (22-30); Chloride 104 mmol/L (98-107); Estimated Creatinine Clearance 98 ml/min; Glucose 113 mg/dl (70-99); Magnesium 2.5 mg/dl (1.6-2.3); Potassium 4.5 mmol/L (3.5-5.1); Sodium 141 mmol/L (135-145); eGFR > 60.00
[2024-03-12] MEDS: ProAIR HFA INHALER 2 PUFF INH ×3 (08:05→20:52)
[2024-03-12] MEDS: FLOVENT 110 MCG INHALER 2 PUFF INH ×2 (08:05→20:53)
[2024-03-12] MEDS: SPIRIVA RESPIMAT 2.5 MCG 2 PUFF INH (08:05)
--- NOTE | 2024-03-12 08:28 | W.PN.HOSP.TC ---
Today's Communication/Plan
-
see bold
Assessment / Plan
Assessment / Plan
HPI: 78 man presents with cough and fever. Symptoms may have started 2 weeks ago with weakness. He is confused and cannot provide history, but he is accompanied by his who provided the history. Patient is coming from [facility].
He tested positive for COVID earlier today with cough and worsening shortness of breath. Patient has a history of asthma and chronic cough with dyspnea after stroke which left him with left-sided weakness. states that he is DNR and would not
want to be intubated. He had a covid booster this year in January.
#Acute hypoxic respiratory failure
#Acute coronavirus pneumonia
#Sepsis without shock due to above
#Restrictive lung disease
Discharged to [facility] on 03/05/2024, after being hospitalized for L4-5 bulging disks with ambulatory dysfunction
Of note, patient's also has coronavirus
Appreciate irrigation flume layer/pulm input, out of ICU 03/08/24
Continue Unasyn day 6 for bacterial superinfection coverage
Wean IV Solu-Medrol as per pulm, bronchodilators, mucolytics, supportive care
Currently on 2 L of oxygen, down from 8, wean as tolerated. He does not wear oxygen at home
Isolate from 03/06-03/15
PT rec SNF, came from [facility]
#Acute toxic metabolic encephalopathy
Due to the above, provide supportive care
Improving
#Severe obstructive sleep apnea on BiPAP
Continue BiPAP at bedtime
#Dysphagia
Cleared by [facility] for pureed with mildly thickened liquids, tolerating
[facility] recommends VSE on Thursday
#Hypotension
Resolved status post normal saline bolus
#History of atrial fibrillation
Appreciate cardiology input, telemetry shows sinus rhythm with frequent PACs
Not on anticoagulation, resumed metoprolol 03/08
#Type 2 diabetes with anticipated steroid-induced hyperglycemia
Appreciate insulin adjustments by irrigation flume layer
#L4-5 bulging disks with ambulatory dysfunction
Seen by spine surgery 03/02/2024, recommend nonsurgical intervention -pain meds, PT/OT
Consider interventional options should oral and topical analgesics not address the symptoms
Can contact [facility] physiatry at to arrange outpatient
#Anxiety/depression
Continue SSRI/Remeron able
#Parkinson's disease
Continue Sinemet as able
#Sacrum Stage 1 Pressure Injury, POA
Wound care, offloading
#Obesity due to excess calories
Affects all aspects of care
DVT prophylaxis�subcu Lovenox
Updated on phone 03/09
Total time spent to see the patient on the floor, examine the patient, review data and lab results, discuss treatment plan with patient, nursing staff around 40 minutes.
Physical Exam
General: Morbidly obese, no acute distress
HEENT: Normocephalic, Atraumatic
Respiratory: Mild wheezing noted, improved from prior
Cardiac: Normal S1/S2, tachycardic rate, irregular rhythm
GI: Soft, Nontender, Nondistended, Normal Bowel Sounds
Extremities: No Clubbing, Cyanosis, or Edema
Derm: Sacrum Stage 1 Pressure Injury
Anticipated Discharge: > 48 hours
Subjective/Interval History
-
Date of Service: March 12, 2024
Patient's confusion has improved. His cough and shortness of breath have also improved. No fever, no vomiting.
Objective Data
-
Labs:
Laboratory Results
03/12/24
05:11
WBC 10.5
Hgb 15.9
Hct 46.7
Plt Count 199
Sodium 141
Potassium 4.5
Chloride 104
Carbon Dioxide 28
BUN 31 H
Creatinine 0.8
Glucose 113 H
Calcium 8.0 L
Vital Signs:
Vital Signs
Temp Pulse Resp BP Pulse Ox
97.3 F 47 20 172/84 97
03/12/24 07:20 03/12/24 07:20 03/12/24 07:20 03/12/24 07:20 03/12/24 07:20
I&O
03/11/24 03/12/24 03/13/24
06:59 06:59 06:59
Intake Total 1090 / 1090 700 / 700
Balance 1090 / 1090 700 / 700
--- NOTE | 2024-03-12 09:31 | W.PN.PUL3 ---
Today's Communication / Plan
-
Systemic steroids currentely at 40mg IV q12hr --> hopefully will TRX to prednisone tomorrow
Basal�bolus insulin with goal BG 140�180
Albuterol, Flovent + Spiriva
Advised to rinse mouth after using ICS
ABx, follow-up cultures
Up OOB as tolerated
PT/OT
Encourage incentive spirometer + Acapella
Given secretions with poor expectoration, continue sport bed + vest therapy (both started 03/10)
Mucolytics
Repeat CXR as an outpatient to follow-up retrocardiac opacification to resolution
Pulmonary service will continue to follow along
Assessment
-
Assessment: 78-year-old male never smoker with a PMHx of mild persistent asthma, chronic bronchitis, restrictive lung disease, history of PE, severe FLAQUITA, GERD, Parkinson disease, Rivera's esophagus, hypertension/hyperlipidemia, CAD, history of
stroke/TIA and dilated aortic root who presents with cough and shortness of breath. Temp 100.6, HR 112, RR 22, BP 165/82 and sating 90% on room air. O2 sats improved on 2L to 94%. WBC 12.2, trop 0.023, proBNP 175 and procalcitonin 0.09. Covid test
found to be positive. CXR showed no volumes with retrocardiac opacity. In the ER he was given ceftriaxone, Decadron 10 mg, Tylenol, albuterol, mag and admitted to ICU for further management due to high risk of complication with past medical
history.
Chronic conditions prior to admission: Chronic cough, mild persistent asthma, chronic bronchitis, restrictive lung disease, history of PE, history of severe FLAQUITA, GERD, vasomotor rhinitis, Parkinson's disease, gastric polyps, Rivera's esophagus,
hypertension, history of TIA/stroke, diverticulosis, hyperlipidemia, dilated aortic root, CAD
Impression:
#Acute respiratory failure with hypoxia due to COVID-19 pneumonia
#Retrocardiac opacity with suspected pneumonia (bacterial superinfection)
#Sepsis without shock due to above
#Altered mental status due to septic encephalopathy - markedly improved
#Hypotension with new onset atrial arrhythmia due to PACs - now normotensive
#DM type II complicated by hyperglycemia (HbA1c: 6.9 on 08/22/2023)
#Severe FLAQUITA on BiPAP 15/8cmH2O
#GERD
#Mild persistent asthma with cough
#Chronic bronchitis
#History of VT on metoprolol
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
#History of CVA/TIA
#Restrictive lung disease (moderate/borderline severe with T% predicted; FVC: 71% predicted via PFT from 10/22/2023)
#Mild gas exchange capacity defect which is normal when accounting for alveolar volume involved in gas exchange (DLCO: 66%; DLCO/VA: 111% via PFT from 10/22/2023)
#Anxiety
Plan:
- Patient has markedly improved since admission in terms of his mental status and hypoxia
- Initially patient was lethargic and minimally responsive and since 03/08 he is awake, alert and answering questions appropriately
- His hypoxia continues to improve and he even removes his nasal cannula from his nose at times without shortness of breath or desaturation
- Continue to reinforce to the patient to keep the oxygen nasal cannula in his nose at all times unless told otherwise
- Maintain SpO2 >90-94% with supplemental oxygen and titrate down as tolerated --> check ambulatory pulse oximetry prior to discharge
- Currently on Solu-Medrol 40 mg IV q12hr <--40mg IV q8hr <-- 40mg IV q6hr
- Continue to wean down as he clinically improved --> would keep at 40mg IV q12hr for now, and will start prednisone taper hopefully by tomorrow
- Maintain euglycemia while on high-dose steroids with goal BG 140�180
- Continue basal�bolus SQ insulin dosing with scheduled aspart 7 units AC (raised from 5 units)
- Transition to high flow nasal cannula if needed
- ProAir TID with Spiriva Respimat 2.5mcg/act with prn albuterol q4hr prnn SOB/wheezing; continue flovent 110mcg 2 puffs BID, rinsing mouth after use
- Mucolytics with mucinex + Acapella valve
- Continue sport bed and vest given audible secretions with wheezing heard since 03/10 with poor expectoration
- Continue aspiration precautions; maintain HOB >30-45�
- Patient was started on ceftriaxone/Zithromax on admission; given his altered mental status on 03/07/2024, he was given Unasyn to cover for aspiration
- Procal has downtrended assuring that we have adequate source control
- Finished 7 day course course of ABx (Unasyn 03/07 - 03/12, and rocephin/zithromax on 03/06)
- Follow-up blood culture (collected 03/06/2024 - NGTD); follow up sputum culture (03/07/2024 - NGTD); urine antigens for Legionella + strep pneumonia both negative
- On 03/07, he developed hypotension with an atrial arrhythmia which appeared to be atrial fibrillation however cardiology was consulted and evaluated the patient with review of EKG and telemetry and felt this was more normal sinus rhythm with PACs
- Amiodarone gtt was going to be started but then this was stopped; continue to treat hypoxia which is likely driving his arrhythmia
- Replete electrolytes with K>4, Mg>2
- Maintain MAP>65
- Trend H/H and transfuse if needed to keep Hb>7g/dL; keep plt>20k, unless there is concern for bleeding then keep plt>50k
- Encourage incentive spirometer
- Continue sinemet
- Diet as per ASPHALT MACHINE OPERATOR
- PT/OT
- Avoid sedating medications as this will only worsen his mental status and put him at risk of aspiration
- DVT ppx: LMWH
Pulmonary service will continue to briefly follow along.
Data:
CXR 03/06/2024: Markedly low lung volumes. Cannot exclude mild left basilar opacity such as subsegmental atelectasis and/or pneumonia and tiny left pleural effusion.
CXR 03/12/2024: Left hemidiaphragm somewhat obscured which could represent some left basilar subsegmental atelectasis and/or tiny left pleural effusion
Total time spent today was 37 minutes for this encounter. Time includes reviewing laboratory test/imaging results, reviewing pertinent medical records, obtaining and reviewing medical history, performing an appropriate exam, ordering medications,
tests and procedures. Time also includes documentation of this encounter, coordinating patient care and communicating with other healthcare professionals. Total time does not include separately billed tests performed on this date of service.
Subjective Data
-
Date of Service:
Date of Service: March 12, 2024
Chief Complaint: Pulmonary Follow Up
Subjective:
I saw and evaluated the patient today at bedside. Currently on 2 L/min nasal cannula saturating 94%. He denies shortness of breath, saying that he feels better today. Cough is stable. Denies chest pain, DOSS, abdominal pain, nausea, fevers or
chills.
Review of Systems
General: Other (Negative unless mentioned above)
Objective Data
Data Reviewed
Vital Signs / I&O / Oxygen:
Vital Signs
Temp Pulse Resp BP Pulse Ox
97.3 F 55 20 172/84 95
03/12/24 07:20 03/12/24 08:27 03/12/24 08:27 03/12/24 07:20 03/12/24 08:27
Intake and Output
03/11/24 03/12/24 03/13/24
06:59 06:59 06:59
Intake Total 1090 / 1090 700 / 700
Balance 1090 / 1090 700 / 700
SaO2 95
Nasal Cannula flow liters per 2
minute
Physical Exam
General: Respiratory Distress (negative), Comfortable, Chills (negative) and Sweats (negative)
HEENT: Normocephalic and Anicteric
Cardiovascular: S1-S2, Rub (negative) and Peripheral Edema (Trace lower extremity edema bilaterally)
Respiratory: Wheeze (Faintly heard upon expiration bilaterally), Crackles (negative), Rhonchi (Bilaterally heard upon expiration) and Non-Labored Respirations
GI: Soft, Distended (Abdominal obesity), Non Tender and Normal Bowel Sounds
Neurology: Awake, Alert and Tremors (negative)
Skin: Warm, Dry, Cyanosis (negative) and Jaundice (negative)
Labs/Micro/Reports
Lab Data
03/12/24 05:11
03/12/24 05:11
Microbiology
03/06/24 21:40 Blood/Venous Blood Culture - Final
No Growth - Final Report
03/07/24 11:36 Sputum Respiratory Culture - Final
Usual Respiratory Vickie
03/07/24 11:36 Sputum Gram Stain - Final
[2024-03-12 09:32] LABS: Glucose - Point of Care 112 mg/dl (70-99)
--- NOTE | 2024-03-12 09:52 | PTOTSP ---
Dysphagia Follow Up
Impression:
Patient exhibits clinical signs of oropharyngeal dysphagia, likely chronic related to PD and acutely exacerbated by critical illness (COVID, pneumonia). Patient remains at high risk for aspiration and related complications due to tenuous
respiratory/pulmonary status and confusion. Maintain current recommendations at this time with video swallow study to determine safest and least restrictive diet level.
RECOMMEND:
1) IDDSI Level 4 Puree diet, continue Mildly-thick liquids via single sips from cup
2) Meds whole in puree
3) Aspiration precautions: Upright positioning; 1:1 assistance/100% supervision; Small single sips/bites; Slow rate of intake; Monitor closely for signs of aspiration; D/c oral diet if ANY decline in mental/respiratory status (LOW threshold to make
NPO)
4) Video swallow study to determine safest and least restricve diet level
[2024-03-12] MEDS: LANTUS 0.32 UNITS SC ×2 (10:00→20:53)
[2024-03-12] MEDS: TOPROL XL 50 MG PO ×2 (10:01→20:52)
[2024-03-12] MEDS: VITAMIN B-12 1000 MCG PO (10:01)
[2024-03-12] MEDS: VITAMIN D3 (cholecalciferol) 50 MCG PO (10:01)
[2024-03-12] MEDS: MUCINEX 600 MG PO ×3 (10:01→21:38)
[2024-03-12] MEDS: ASPIR LOW (ENTERIC COATED) 81 MG PO (10:01)
[2024-03-12] MEDS: PLAVIX 75 MG PO (10:01)
[2024-03-12] MEDS: NORVASC 2.5 MG PO (10:01)
[2024-03-12] MEDS: FOLVITE 0.8 MG PO (10:01)
[2024-03-12] MEDS: SOLU-MEDROL PF 40 MG IV ×2 (10:02→20:53)
[2024-03-12] MEDS: DULCOLAX 10 MG PO (10:02)
[2024-03-12] MEDS: SINEMET 25-100 1 TABLET PO ×2 (10:02→20:52)
[2024-03-12] MEDS: DESENEX/MITRAZOL/ZEASORB 1 APPLIC TOPICAL ×2 (10:06→20:53)
[2024-03-12] MEDS: NOVOLOG FLEXPEN 7 UNITS SC ×3 (10:51→17:40)
[2024-03-12] MEDS: NOVOLOG FLEXPEN-HIGH RESISTANCE SC (10:51)
[2024-03-12 12:43] LABS: Glucose - Point of Care 183 mg/dl (70-99)
[2024-03-12] MEDS: NOVOLOG FLEXPEN-HIGH RESISTANCE 2 UNITS SC ×2 (12:53→17:41)
[2024-03-12 17:08] LABS: Glucose - Point of Care 166 mg/dl (70-99)
[2024-03-12] MEDS: LOVENOX 40 MG SC (17:50)
[2024-03-12 20:52] LABS: Glucose - Point of Care 205 mg/dl (70-99)
[2024-03-12] MEDS: LEXAPRO 10 MG PO (21:38)
[2024-03-12] MEDS: PRAVACHOL 20 MG PO (21:38)
[2024-03-12] MEDS: REMERON 15 MG PO (21:38)
[2024-03-12] MEDS: MIRALAX PO (21:39)
[2024-03-12] MEDS: APRESOLINE 5 MG PO (22:36)
[2024-03-13] VITALS (9 sets, daily range): BP systolic 132–172; BP diastolic 60–98; PULSE 2–46; BMI 41.9
[2024-03-13 05:54] LABS: Blood Urea Nitrogen 30 mg/dl (9-20); Calcium 8.3 mg/dl (8.4-10.2); Carbon Dioxide 27 mmol/L (22-30); Chloride 102 mmol/L (98-107); Estimated Creatinine Clearance 98 ml/min; Glucose 160 mg/dl (70-99); Potassium 4.7 mmol/L (3.5-5.1); Sodium 137 mmol/L (135-145); eGFR > 60.00
--- NOTE | 2024-03-13 07:39 | W.PN.HOSP.TC ---
Today's Communication/Plan
-
Wean steroids as per pulmonology
For VSE tomorrow
Assessment / Plan
Assessment / Plan
HPI: 78 man presents with cough and fever. Symptoms may have started 2 weeks ago with weakness. He is confused and cannot provide history, but he is accompanied by his who provided the history. Patient is coming from [facility].
He tested positive for COVID earlier today with cough and worsening shortness of breath. Patient has a history of asthma and chronic cough with dyspnea after stroke which left him with left-sided weakness. states that he is DNR and would not
want to be intubated. He had a covid booster this year in January.
#Acute hypoxic respiratory failure
#Acute coronavirus pneumonia
#Sepsis without shock due to above
#Restrictive lung disease
Discharged to [facility] on 03/05/2024, after being hospitalized for L4-5 bulging disks with ambulatory dysfunction
Of note, patient's also has coronavirus
Appreciate sack maker/pulm input, out of ICU 03/08/24
Status post full course of Unasyn for bacterial superinfection coverage
Wean IV Solu-Medrol as per pulm, bronchodilators, mucolytics, supportive care
Currently on RA, was on 2 L of oxygen, down from 8. He does not wear oxygen at home
Isolate from 03/06-03/15
PT rec SNF, came from [facility]
#Acute toxic metabolic encephalopathy
Due to the above, provide supportive care
Improving
#Severe obstructive sleep apnea on BiPAP
Continue BiPAP at bedtime
#Dysphagia
Cleared by [facility] for pureed with mildly thickened liquids, tolerating
[facility] recommends VSE on Thursday
#Hypotension
Resolved status post normal saline bolus
#History of atrial fibrillation
Appreciate cardiology input, telemetry shows sinus rhythm with frequent PACs
Not on anticoagulation, resumed metoprolol 03/08
#Type 2 diabetes with anticipated steroid-induced hyperglycemia
Appreciate insulin adjustments by sack maker
#L4-5 bulging disks with ambulatory dysfunction
Seen by spine surgery 03/02/2024, recommend nonsurgical intervention -pain meds, PT/OT
Consider interventional options should oral and topical analgesics not address the symptoms
Can contact [facility] physiatry at to arrange outpatient
#Anxiety/depression
Continue SSRI/Remeron able
#Parkinson's disease
Continue Sinemet as able
#Sacrum Stage 1 Pressure Injury, POA
Wound care, offloading
#Obesity due to excess calories
Affects all aspects of care
DVT prophylaxis�subcu Lovenox
Updated on phone 03/13
Total time spent to see the patient on the floor, examine the patient, review data and lab results, discuss treatment plan with patient, nursing staff around 45 minutes.
Physical Exam
General: Morbidly obese, no acute distress
HEENT: Normocephalic, Atraumatic
Respiratory: Trace wheezing noted, improved from prior
Cardiac: Normal S1/S2, tachycardic rate, irregular rhythm
GI: Soft, Nontender, Nondistended, Normal Bowel Sounds
Extremities: No Clubbing, Cyanosis, or Edema
Derm: Sacrum Stage 1 Pressure Injury
Anticipated Discharge: 24 - 48 hours
Subjective/Interval History
-
Date of Service: March 13, 2024
Patient denies shortness of breath. Cough continues to improve. No nausea, no vomiting. No fever.
Objective Data
-
Labs:
Laboratory Results
03/13/24
05:09
Sodium 137
Potassium 4.7
Chloride 102
Carbon Dioxide 27
BUN 30 H
Creatinine 0.8
Glucose 160 H
Calcium 8.3 L
Vital Signs:
Vital Signs
Temp Pulse Resp BP Pulse Ox
98 F 53 18 152/84 94
03/13/24 03:15 03/13/24 03:15 03/13/24 03:15 03/13/24 03:15 03/13/24 03:15
I&O
03/12/24 03/13/24 03/14/24
06:59 06:59 06:59
Intake Total 700 / 700 780 / 780
Balance 700 / 700 780 / 780
[2024-03-13] MEDS: FLOVENT 110 MCG INHALER 2 PUFF INH ×2 (07:42→20:47)
[2024-03-13] MEDS: SPIRIVA RESPIMAT 2.5 MCG 2 PUFF INH (07:42)
[2024-03-13] MEDS: ProAIR HFA INHALER 2 PUFF INH ×3 (07:42→20:47)
--- NOTE | 2024-03-13 08:34 | W.PN.PUL3 ---
Today's Communication / Plan
-
Systemic steroids currently at 40mg IV q12hr --> TRX to prednisone tomorrow
Basal�bolus insulin with goal BG 140�180
Albuterol, Flovent + Spiriva
Advised to rinse mouth after using ICS
s/p ABx - follow-up cultures (NGTD)
Up OOB as tolerated
PT/OT
Encourage incentive spirometer + Acapella
Given secretions with poor expectoration, continue sport bed + vest therapy (both started 03/10)
Mucolytics
Repeat CXR as an outpatient to follow-up retrocardiac opacification to resolution
Pulmonary service will continue to follow along
Assessment
-
Assessment: 78-year-old male never smoker with a PMHx of mild persistent asthma, chronic bronchitis, restrictive lung disease, history of PE, severe FLAQUITA, GERD, Parkinson disease, Rivera's esophagus, hypertension/hyperlipidemia, CAD, history of
stroke/TIA and dilated aortic root who presents with cough and shortness of breath. Temp 100.6, HR 112, RR 22, BP 165/82 and sating 90% on room air. O2 sats improved on 2L to 94%. WBC 12.2, trop 0.023, proBNP 175 and procalcitonin 0.09. Covid test
found to be positive. CXR showed no volumes with retrocardiac opacity. In the ER he was given ceftriaxone, Decadron 10 mg, Tylenol, albuterol, mag and admitted to ICU for further management due to high risk of complication with past medical
history.
Chronic conditions prior to admission: Chronic cough, mild persistent asthma, chronic bronchitis, restrictive lung disease, history of PE, history of severe FLAQUITA, GERD, vasomotor rhinitis, Parkinson's disease, gastric polyps, Rivera's esophagus,
hypertension, history of TIA/stroke, diverticulosis, hyperlipidemia, dilated aortic root, CAD
Impression:
#Acute respiratory failure with hypoxia due to COVID-19 pneumonia - hypoxia improved
#Retrocardiac opacity with suspected pneumonia (bacterial superinfection)
#Sepsis without shock due to above
#Altered mental status due to septic encephalopathy - markedly improved
#Hypotension with new onset atrial arrhythmia due to PACs - now normotensive
#DM type II complicated by hyperglycemia (HbA1c: 6.9 on 08/22/2023)
#Severe FLAQUITA on BiPAP 15/8cmH2O
#GERD
#Mild persistent asthma with cough
#Chronic bronchitis
#History of VT on metoprolol
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
#History of CVA/TIA
#Restrictive lung disease (moderate/borderline severe with T% predicted; FVC: 71% predicted via PFT from 10/22/2023)
#Mild gas exchange capacity defect which is normal when accounting for alveolar volume involved in gas exchange (DLCO: 66%; DLCO/VA: 111% via PFT from 10/22/2023)
#Anxiety
Plan:
- Patient has markedly improved since admission in terms of his mental status and hypoxia
- Initially patient was lethargic and minimally responsive and since 03/08 he is awake, alert and answering questions appropriately
- His hypoxia continues to improve and as of 03/13/2024 he is on room air
- Maintain SpO2 >90-94% with supplemental oxygen as needed-> if resting SaO2 is <96% at rest on room air, then would check ambulatory pulse oximetry prior to discharge
- Currently on Solu-Medrol 40 mg IV q12hr <--40mg IV q8hr <-- 40mg IV q6hr
- Continue to wean down as he clinically improved --> would keep at 40mg IV q12hr for now; start prednisone taper tomorrow
- Maintain euglycemia while on high-dose steroids with goal BG 140�180
- Continue basal�bolus SQ insulin dosing with scheduled aspart 7 units AC (raised from 5 units)
- ProAir TID with Spiriva Respimat 2.5mcg/act with prn albuterol q4hr prnn SOB/wheezing; continue flovent 110mcg 2 puffs BID, rinsing mouth after use
- Mucolytics with mucinex + Acapella valve
- Continue sport bed and vest given audible secretions with wheezing heard since 03/10 with poor expectoration
- Continue aspiration precautions; maintain HOB >30-45�
- Patient was started on ceftriaxone/Zithromax on admission; given his altered mental status on 03/07/2024, he was given Unasyn to cover for aspiration
- Procal has downtrended assuring that we have adequate source control
- Finished 7 day course course of ABx (Unasyn 03/07 - 03/12, and rocephin/zithromax on 03/06)
- Follow-up blood culture (collected 03/06/2024 - NGTD); follow up sputum culture (03/07/2024 - NGTD); urine antigens for Legionella + strep pneumonia both negative
- On 03/07, he developed hypotension with an atrial arrhythmia which appeared to be atrial fibrillation however cardiology was consulted and evaluated the patient with review of EKG and telemetry and felt this was more normal sinus rhythm with PACs
- Amiodarone gtt was going to be started but then this was stopped; continue to treat hypoxia which is likely driving his arrhythmia
- Replete electrolytes with K>4, Mg>2
- Maintain MAP>65
- Trend H/H and transfuse if needed to keep Hb>7g/dL; keep plt>20k, unless there is concern for bleeding then keep plt>50k
- Encourage incentive spirometer
- Continue sinemet
- Diet as per FIRE PROTECTION DESIGNER
- PT/OT
- Avoid sedating medications as this will only worsen his mental status and put him at risk of aspiration
- DVT ppx: LMWH
Pulmonary service will continue to briefly follow along.
Data:
CXR 03/06/2024: Markedly low lung volumes. Cannot exclude mild left basilar opacity such as subsegmental atelectasis and/or pneumonia and tiny left pleural effusion.
CXR 03/12/2024: Left hemidiaphragm somewhat obscured which could represent some left basilar subsegmental atelectasis and/or tiny left pleural effusion
Total time spent today was 41 minutes for this encounter. Time includes reviewing laboratory test/imaging results, reviewing pertinent medical records, obtaining and reviewing medical history, performing an appropriate exam, ordering medications,
tests and procedures. Time also includes documentation of this encounter, coordinating patient care and communicating with other healthcare professionals. Total time does not include separately billed tests performed on this date of service.
Subjective Data
-
Date of Service:
Date of Service: March 13, 2024
Chief Complaint: Pulmonary Follow Up
Subjective:
Patient was seen and evaluated today at bedside. Currently on room air breathing comfortably. He says that the vest is helping him bring up his phlegm and make him less short of breath. He denies chest pain, DOSS, abdominal pain, fevers or chills.
Review of Systems
General: Other (Negative unless mentioned above)
Objective Data
Data Reviewed
Vital Signs / I&O / Oxygen:
Vital Signs
Temp Pulse Resp BP Pulse Ox
97.6 F 51 18 160/70 93
03/13/24 08:17 03/13/24 09:17 03/13/24 08:17 03/13/24 09:17 03/13/24 08:17
Intake and Output
03/12/24 03/13/24 03/14/24
06:59 06:59 06:59
Intake Total 700 / 700 780 / 780
Balance 700 / 700 780 / 780
SaO2 93
Nasal Cannula flow liters per 2
minute
Physical Exam
General: Respiratory Distress (negative), Comfortable, Chills (negative) and Sweats (negative)
HEENT: Normocephalic and Anicteric
Cardiovascular: S1-S2, Rub (negative) and Peripheral Edema (negative)
Respiratory: Wheeze (Faintly heard upon expiration bilaterally), Crackles (negative), Rhonchi (Bilaterally heard upon expiration) and Non-Labored Respirations
GI: Soft, Distended (Abdominal obesity), Non Tender and Normal Bowel Sounds
Neurology: Awake, Alert and Tremors (negative)
Skin: Warm, Dry, Cyanosis (negative) and Jaundice (negative)
Labs/Micro/Reports
Lab Data
03/12/24 05:11
03/13/24 05:09
Microbiology
03/06/24 21:40 Blood/Venous Blood Culture - Final
No Growth - Final Report
[2024-03-13 09:14] LABS: Glucose - Point of Care 154 mg/dl (70-99)
[2024-03-13] MEDS: NOVOLOG FLEXPEN 7 UNITS SC ×3 (09:14→17:24)
[2024-03-13] MEDS: NOVOLOG FLEXPEN-HIGH RESISTANCE 2 UNITS SC ×2 (09:14→17:25)
[2024-03-13] MEDS: LANTUS 0.34 UNITS SC (09:14)
[2024-03-13] MEDS: SINEMET 25-100 1 TABLET PO ×2 (09:15→20:50)
[2024-03-13] MEDS: MUCINEX 1200 MG PO ×2 (09:15→20:50)
[2024-03-13] MEDS: TOPROL XL 50 MG PO ×2 (09:16→20:49)
[2024-03-13] MEDS: VITAMIN B-12 1000 MCG PO (09:16)
[2024-03-13] MEDS: FOLVITE 0.8 MG PO (09:16)
[2024-03-13] MEDS: PLAVIX 75 MG PO (09:16)
[2024-03-13] MEDS: ASPIR LOW (ENTERIC COATED) 81 MG PO (09:16)
[2024-03-13] MEDS: VITAMIN D3 (cholecalciferol) 50 MCG PO (09:16)
[2024-03-13] MEDS: SOLU-MEDROL PF 40 MG IV ×2 (09:17→20:52)
[2024-03-13] MEDS: NORVASC 2.5 MG PO (09:17)
[2024-03-13] MEDS: DULCOLAX PO (09:18)
[2024-03-13] MEDS: DESENEX/MITRAZOL/ZEASORB 1 APPLIC TOPICAL ×2 (09:18→20:51)
[2024-03-13 11:25] LABS: Glucose - Point of Care 216 mg/dl (70-99)
[2024-03-13] MEDS: NOVOLOG FLEXPEN-HIGH RESISTANCE 4 UNITS SC (12:18)
[2024-03-13 16:11] LABS: Glucose - Point of Care 181 mg/dl (70-99)
[2024-03-13] MEDS: LOVENOX 40 MG SC (17:26)
[2024-03-13] MEDS: LEXAPRO 10 MG PO (20:50)
[2024-03-13] MEDS: REMERON 15 MG PO (20:51)
[2024-03-13] MEDS: MIRALAX PO (20:51)
[2024-03-13] MEDS: PRAVACHOL 20 MG PO (20:51)
[2024-03-13 20:53] LABS: Glucose - Point of Care 160 mg/dl (70-99)
[2024-03-13] MEDS: LANTUS 0.32 UNITS SC (20:53)
[2024-03-14] VITALS (9 sets, daily range): BP systolic 143–182; BP diastolic 68–85; PULSE 2–56; O2SAT 95; BMI 40.8
[2024-03-14] MEDS: APRESOLINE 5 MG PO (03:47)
--- NOTE | 2024-03-14 06:00 | PTCARENOTE ---
Pt. in sinus margarito on the monitor, mostly 50's, with frequent PAC's and some PVC's. Also having sustained runs of atrial bigeminy (?) vs. second degree HB... EKG completed showing atrial bigeminy. EKG shown to florence White parameters placed on
Toprol. BP also elevated this shift, max 182/85 - PO hydralzine given, last BP 163/77. Pulse ox stable on RA and bipap over night, mid 90's.
[2024-03-14 07:39] LABS: Glucose - Point of Care 137 mg/dl (70-99)
[2024-03-14] MEDS: NOVOLOG FLEXPEN-HIGH RESISTANCE SC (07:47)
[2024-03-14 07:49] LABS: Blood Urea Nitrogen 27 mg/dl (9-20); Calcium 8.7 mg/dl (8.4-10.2); Carbon Dioxide 31 mmol/L (22-30); Chloride 98 mmol/L (98-107); Estimated Creatinine Clearance 96 ml/min; Glucose 147 mg/dl (70-99); Potassium 4.7 mmol/L (3.5-5.1); Sodium 136 mmol/L (135-145); eGFR > 60.00
[2024-03-14] MEDS: SPIRIVA RESPIMAT 2.5 MCG 2 PUFF INH (07:49)
[2024-03-14] MEDS: ProAIR HFA INHALER 2 PUFF INH ×3 (07:49→19:54)
[2024-03-14] MEDS: FLOVENT 110 MCG INHALER 2 PUFF INH ×2 (07:50→19:54)
[2024-03-14] MEDS: MUCINEX 1200 MG PO ×2 (10:16→20:32)
[2024-03-14] MEDS: DELTASONE 50 MG PO (10:16)
[2024-03-14] MEDS: DULCOLAX 10 MG PO (10:17)
[2024-03-14] MEDS: NORVASC 2.5 MG PO (10:17)
[2024-03-14] MEDS: FOLVITE 0.8 MG PO (10:17)
[2024-03-14] MEDS: PLAVIX 75 MG PO (10:17)
[2024-03-14] MEDS: SINEMET 25-100 1 TABLET PO ×2 (10:17→20:31)
[2024-03-14] MEDS: VITAMIN B-12 1000 MCG PO (10:17)
[2024-03-14] MEDS: VITAMIN D3 (cholecalciferol) 50 MCG PO (10:17)
[2024-03-14] MEDS: ASPIR LOW (ENTERIC COATED) 81 MG PO (10:17)
[2024-03-14] MEDS: TOPROL XL PO ×2 (10:18→22:16)
[2024-03-14] MEDS: LANTUS 0.34 UNITS SC (10:18)
[2024-03-14] MEDS: NOVOLOG FLEXPEN 7 UNITS SC ×3 (10:19→17:21)
[2024-03-14] MEDS: DESENEX/MITRAZOL/ZEASORB 1 APPLIC TOPICAL ×2 (10:19→20:32)
--- NOTE | 2024-03-14 10:40 | W.PN.HOSP.TC ---
Today's Communication/Plan
-
Start oral prednisone
Discharge planning, consult pT
Assessment / Plan
Assessment / Plan
HPI: 78 man presents with cough and fever. Symptoms may have started 2 weeks ago with weakness. He is confused and cannot provide history, but he is accompanied by his who provided the history. Patient is coming from [facility].
He tested positive for COVID earlier today with cough and worsening shortness of breath. Patient has a history of asthma and chronic cough with dyspnea after stroke which left him with left-sided weakness. states that he is DNR and would not
want to be intubated. He had a covid booster this year in January.
#Acute hypoxic respiratory failure
#Acute coronavirus pneumonia
#Sepsis without shock due to above
#Restrictive lung disease
Discharged to [facility] on 03/05/2024, after being hospitalized for L4-5 bulging disks with ambulatory dysfunction
Of note, patient's also had coronavirus
Appreciate hod carrier/pulm input, out of ICU 03/08/24
Status post full course of Unasyn for bacterial superinfection coverage
Weaned off IV Solu-Medrol as per pulm, bronchodilators, mucolytics, supportive care
Currently on RA, was on 2 L of oxygen, down from 8. He does not wear oxygen at home
Isolate from 03/06-03/15
PT rec SNF, came from [facility]
#Acute toxic metabolic encephalopathy
Due to the above, provide supportive care
Improving
#Severe obstructive sleep apnea on BiPAP
Continue BiPAP at bedtime
# Hypernatremia, resolved
#
#Dysphagia
Cleared by [facility] for pureed with mildly thickened liquids, tolerating
[facility] recommends VSE on Thursday
#Hypotension
Resolved status post normal saline bolus
#History of atrial fibrillation
Appreciate cardiology input, telemetry shows sinus rhythm with frequent PACs
Not on anticoagulation, resumed metoprolol 03/08
#Type 2 diabetes with anticipated steroid-induced hyperglycemia
Appreciate insulin adjustments by hod carrier
#L4-5 bulging disks with ambulatory dysfunction
Seen by spine surgery 03/02/2024, recommend nonsurgical intervention -pain meds, PT/OT
Consider interventional options should oral and topical analgesics not address the symptoms
Can contact [facility] physiatry at to arrange outpatient
#Anxiety/depression
Continue SSRI/Remeron able
#Parkinson's disease
Continue Sinemet as able
#Sacrum Stage 1 Pressure Injury, POA
Wound care, offloading
#Obesity due to excess calories
Affects all aspects of care
DVT prophylaxis�subcu Lovenox
Updated on phone 03/13
Total time spent to see the patient on the floor, examine the patient, review data and lab results, discuss treatment plan with patient, nursing staff around 55 minutes.
Physical Exam
General: Morbidly obese, no acute distress.
HEENT: Normocephalic, Atraumatic
Respiratory: Trace wheezing noted, improved from prior
Cardiac: Normal S1/S2, tachycardic rate, irregular rhythm
GI: Soft, Nontender, Nondistended, Normal Bowel Sounds
Extremities: No Clubbing, Cyanosis, or Edema
Derm: Sacrum Stage 1 Pressure Injury
Psych: calm
Anticipated Discharge: Within 24 hours
Subjective/Interval History
-
Date of Service: March 14, 2024
Doing well, he denies sob or chest pain
Objective Data
-
Labs:
Laboratory Results
03/14/24
06:29
Sodium 136
Potassium 4.7
Chloride 98
Carbon Dioxide 31 H
BUN 27 H
Creatinine 0.8
Glucose 147 H
Calcium 8.7
Vital Signs:
Vital Signs
Temp Pulse Resp BP Pulse Ox
97.7 F 56 18 159/73 97
03/14/24 07:43 03/14/24 08:07 03/14/24 08:07 03/14/24 07:43 03/14/24 08:07
I&O
03/13/24 03/14/24 03/15/24
06:59 06:59 06:59
Intake Total 780 / 780 660 / 660
Output Total 300 / 300
Balance 780 / 780 360 / 360
[2024-03-14 12:55] LABS: Glucose - Point of Care 171 mg/dl (70-99)
[2024-03-14] MEDS: NOVOLOG FLEXPEN-HIGH RESISTANCE 2 UNITS SC ×2 (12:55→17:21)
--- NOTE | 2024-03-14 13:43 | W.PN.PUL3 ---
Today's Communication / Plan
-
Remains stable on RA, no new complaints
Able to work with PT, no SOB but likely to need SNF
Transitioned to prednisone, continue taper at discharge
Continue abx for finite course
Discharge planning per team
We will sign off at this time, please call with questions
Assessment
-
78-year-old male never smoker with a PMHx of mild persistent asthma, chronic bronchitis, restrictive lung disease, history of PE, severe FLAQUITA, GERD, Parkinson disease, Rivera's esophagus, hypertension/hyperlipidemia, CAD, history of stroke/TIA and
dilated aortic root who presents with cough and shortness of breath. Temp 100.6, HR 112, RR 22, BP 165/82 and sating 90% on room air. O2 sats improved on 2L to 94%. WBC 12.2, trop 0.023, proBNP 175 and procalcitonin 0.09. Covid test found to be
positive. CXR showed no volumes with retrocardiac opacity. In the ER he was given ceftriaxone, Decadron 10 mg, Tylenol, albuterol, mag and admitted to ICU for further management due to high risk of complication with past medical history.
Chronic conditions prior to admission: Chronic cough, mild persistent asthma, chronic bronchitis, restrictive lung disease, history of PE, history of severe FLAQUITA, GERD, vasomotor rhinitis, Parkinson's disease, gastric polyps, Rivera's esophagus,
hypertension, history of TIA/stroke, diverticulosis, hyperlipidemia, dilated aortic root, CAD
Impression:
#Acute respiratory failure with hypoxia due to COVID-19 pneumonia - hypoxia improved
#Retrocardiac opacity with suspected pneumonia (bacterial superinfection)
#Sepsis without shock due to above
#Altered mental status due to septic encephalopathy - markedly improved
#Hypotension with new onset atrial arrhythmia due to PACs - now normotensive
#DM type II complicated by hyperglycemia (HbA1c: 6.9 on 08/22/2023)
#Severe FLAQUITA on BiPAP 15/8cmH2O
#GERD
#Mild persistent asthma with cough
#Chronic bronchitis
#History of VT on metoprolol
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
#History of CVA/TIA
#Restrictive lung disease (moderate/borderline severe with T% predicted; FVC: 71% predicted via PFT from 10/22/2023)
#Mild gas exchange capacity defect which is normal when accounting for alveolar volume involved in gas exchange (DLCO: 66%; DLCO/VA: 111% via PFT from 10/22/2023)
#Anxiety
Plan:
Patient has markedly improved since admission in terms of his mental status and hypoxia
Currently stable on RA
Maintain SpO2 >90-94% with supplemental oxygen as needed-> if resting SaO2 is <96% at rest on room air, then would check ambulatory pulse oximetry prior to discharge
Previously on Solu-Medrol 40 mg IV q12hr <--40mg IV q8hr <-- 40mg IV q6hr
Transitioned to prednisone taper, continue at discharge
- Maintain euglycemia while on high-dose steroids with goal BG 140�180
- Continue basal�bolus SQ insulin dosing with scheduled aspart 7 units AC (raised from 5 units)
ProAir TID with Spiriva Respimat 2.5mcg/act with prn albuterol q4hr prnn SOB/wheezing; continue flovent 110mcg 2 puffs BID, rinsing mouth after use
Mucolytics with mucinex + Acapella valve
Continue sport bed and vest given audible secretions with wheezing heard since 03/10 with poor expectoration
Continue aspiration precautions; maintain HOB >30-45�
Patient was started on ceftriaxone/Zithromax on admission; given his altered mental status on 03/07/2024, he was given Unasyn to cover for aspiration
Procal has downtrended assuring that we have adequate source control
Finished 7 day course course of ABx (Unasyn 03/07 - 03/12, and rocephin/zithromax on 12/1)
Follow-up blood culture (collected 03/06/2024 - [facility]); follow up sputum culture (03/07/2024 - [facility]); urine antigens for Legionella + strep pneumonia both negative
On 03/07, he developed hypotension with an atrial arrhythmia which appeared to be atrial fibrillation however cardiology was consulted and evaluated the patient with review of EKG and telemetry and felt this was more normal sinus rhythm with PACs
Amiodarone gtt was going to be started but then this was stopped; continue to treat hypoxia which is likely driving his arrhythmia
Replete electrolytes with K>4, Mg>2
- Maintain MAP>65
- Trend H/H and transfuse if needed to keep Hb>7g/dL; keep plt>20k, unless there is concern for bleeding then keep plt>50k
- Encourage incentive spirometer
- Continue sinemet
- Diet as per PUBLIC WORKS TECHNICIAN
- PT/OT
- Avoid sedating medications as this will only worsen his mental status and put him at risk of aspiration
- DVT ppx: LMWH
PT/OT likely to recommend rehab placement
Discharge planning per team
Data:
CXR 03/06/2024: Markedly low lung volumes. Cannot exclude mild left basilar opacity such as subsegmental atelectasis and/or pneumonia and tiny left pleural effusion.
CXR 03/12/2024: Left hemidiaphragm somewhat obscured which could represent some left basilar subsegmental atelectasis and/or tiny left pleural effusion
-----
Total time spent today was 50 minutes for this encounter. Time includes reviewing laboratory test/imaging results, reviewing pertinent medical records, obtaining and reviewing medical history, performing an appropriate exam, ordering medications,
tests and procedures. Time also includes documentation of this encounter, coordinating patient care and communicating with other healthcare professionals. Total time does not include separately billed tests performed on this date of service.
Subjective Data
-
Date of Service:
Date of Service: March 14, 2024
Chief Complaint: Pulmonary Follow Up
Subjective:
No acute events ON, stable on RA
No new complaints
Objective Data
Data Reviewed
Vital Signs / I&O / Oxygen:
Vital Signs
Temp Pulse Resp BP Pulse Ox
98.2 F 56 16 150/79 95
03/14/24 11:15 03/14/24 11:15 03/14/24 11:15 03/14/24 11:15 03/14/24 11:15
Intake and Output
03/13/24 03/14/24 03/15/24
06:59 06:59 06:59
Intake Total 780 / 780 660 / 660
Output Total 300 / 300
Balance 780 / 780 360 / 360
SaO2 95
Nasal Cannula flow liters per 2
minute
Physical Exam
General: Respiratory Distress (negative), Comfortable, Chills (negative) and Sweats (negative)
HEENT: Normocephalic and Anicteric
Cardiovascular: S1-S2, Regular Rhythm, Rub (negative) and Peripheral Edema (negative)
Respiratory: Clear and Non-Labored Respirations
GI: Soft, Distended (Abdominal obesity), Non Tender and Normal Bowel Sounds
Neurology: Awake, Alert, Oriented and Tremors (negative)
Skin: Warm, Dry, Cyanosis (negative) and Jaundice (negative)
Labs/Micro/Reports
Lab Data
03/12/24 05:11
03/14/24 06:29
Microbiology
03/06/24 21:40 Blood/Venous Blood Culture - Final
No Growth - Final Report
--- NOTE | 2024-03-14 15:56 | CM ---
Patient seen at bedside.
PT rec SNF
need updated OT note (last 03/10)
[facility] [facility] referral in [facility].
LM in [facility] for bed availability
PLAN: SNF, pending bed availability
[2024-03-14 17:18] LABS: Glucose - Point of Care 169 mg/dl (70-99)
[2024-03-14] MEDS: LOVENOX 40 MG SC (17:21)
[2024-03-14] MEDS: REMERON 15 MG PO (22:16)
[2024-03-14] MEDS: MIRALAX PO (22:17)
[2024-03-14] MEDS: LEXAPRO 10 MG PO (22:17)
[2024-03-14] MEDS: PRAVACHOL 20 MG PO (22:17)
[2024-03-14] MEDS: LANTUS 0.32 UNITS SC (22:17)
[2024-03-14 22:25] LABS: Glucose - Point of Care 198 mg/dl (70-99)
[2024-03-15] MEDS: MIRALAX PO (03:00)
[2024-03-15 03:36] VITALS: BP 130/69
[2024-03-15 04:40] VITALS: PULSE 2; PULSE 55
[2024-03-15 07:00] VITALS: BP 157/77
[2024-03-15] MEDS: FLOVENT 110 MCG INHALER 2 PUFF INH (07:21)
[2024-03-15] MEDS: ProAIR HFA INHALER 2 PUFF INH ×2 (07:22→13:17)
[2024-03-15] MEDS: SPIRIVA RESPIMAT 2.5 MCG 2 PUFF INH (07:23)
[2024-03-15 07:49] LABS: Glucose - Point of Care 90 mg/dl (70-99)
[2024-03-15] MEDS: NOVOLOG FLEXPEN-HIGH RESISTANCE SC (08:05)
[2024-03-15] MEDS: NOVOLOG FLEXPEN 7 UNITS SC ×2 (09:09→12:30)
[2024-03-15] MEDS: PLAVIX 75 MG PO (09:10)
[2024-03-15] MEDS: SINEMET 25-100 1 TABLET PO (09:10)
[2024-03-15] MEDS: VITAMIN B-12 1000 MCG PO (09:10)
[2024-03-15] MEDS: DULCOLAX 10 MG PO (09:10)
[2024-03-15] MEDS: ASPIR LOW (ENTERIC COATED) 81 MG PO (09:10)
[2024-03-15] MEDS: MUCINEX 1200 MG PO (09:10)
[2024-03-15] MEDS: DELTASONE 50 MG PO (09:10)
[2024-03-15] MEDS: NORVASC 2.5 MG PO (09:11)
[2024-03-15] MEDS: DESENEX/MITRAZOL/ZEASORB 1 APPLIC TOPICAL (09:11)
[2024-03-15] MEDS: FOLVITE 0.8 MG PO (09:11)
[2024-03-15] MEDS: VITAMIN D3 (cholecalciferol) 50 MCG PO (09:11)
[2024-03-15] MEDS: TOPROL XL PO (09:12)
[2024-03-15] MEDS: LANTUS 0.34 UNITS SC (09:14)
--- NOTE | 2024-03-15 11:36 | W.PN.HOSP.TC ---
Today's Communication/Plan
-
Discharge after video swallow
Assessment / Plan
Assessment / Plan
HPI: 78 man presents with cough and fever. Symptoms may have started 2 weeks ago with weakness. He is confused and cannot provide history, but he is accompanied by his who provided the history. Patient is coming from [facility].
He tested positive for COVID earlier today with cough and worsening shortness of breath. Patient has a history of asthma and chronic cough with dyspnea after stroke which left him with left-sided weakness. states that he is DNR and would not
want to be intubated. He had a covid booster this year in January.
#Acute hypoxic respiratory failure
#Acute coronavirus pneumonia
#Sepsis without shock due to above
#Restrictive lung disease
Discharged to [facility] on 03/05/2024, after being hospitalized for L4-5 bulging disks with ambulatory dysfunction
Of note, patient's also had coronavirus
Appreciate motion graphics artist/pulm input, out of ICU 03/08/24, ok to dc on tapering prednisone.
Status post full course of Unasyn for bacterial superinfection coverage
Weaned off IV Solu-Medrol as per pulm, bronchodilators, mucolytics, supportive care
Currently on RA, was on 2 L of oxygen, down from 8. He does not wear oxygen at home
Isolate from 03/06-03/15
PT rec SNF, came from [facility]
#Acute toxic metabolic encephalopathy
Due to the above, provide supportive care
Improving
#Severe obstructive sleep apnea on BiPAP
Continue BiPAP at bedtime
# Hypernatremia, resolved
#Dysphagia
Cleared by [facility] for pureed with mildly thickened liquids, tolerating
[facility] recommends VSE today
#Hypotension
Resolved status post normal saline bolus
#History of atrial fibrillation
Appreciate cardiology input, telemetry shows sinus rhythm with frequent PACs
Not on anticoagulation, resumed metoprolol 03/08
#Type 2 diabetes with anticipated steroid-induced hyperglycemia
Appreciate insulin adjustments by motion graphics artist
#L4-5 bulging disks with ambulatory dysfunction
Seen by spine surgery 03/02/2024, recommend nonsurgical intervention -pain meds, PT/OT
Consider interventional options should oral and topical analgesics not address the symptoms
Can contact [facility] physiatry at to arrange outpatient
#Anxiety/depression
Continue SSRI/Remeron able
#Parkinson's disease
Continue Sinemet as able
#Sacrum Stage 1 Pressure Injury, POA
Wound care, offloading
#Obesity due to excess calories
Affects all aspects of care
DVT prophylaxis�subcu Lovenox
Updated on phone 03/13
Total discharge time spent to see the patient on the floor, examine the patient, review data and lab results, discuss discharge plan with patient, nursing staff around 65 minutes.
Physical Exam
General: Morbidly obese, no acute distress.
HEENT: Normocephalic, Atraumatic
Respiratory: Trace wheezing noted, improved from prior
Cardiac: Normal S1/S2, no tachycardic rate, irregular rhythm
GI: Soft, Nontender, Nondistended, Normal Bowel Sounds
Extremities: No Clubbing, Cyanosis, or Edema
Derm: Sacrum Stage 1 Pressure Injury
Psych: calm
Anticipated Discharge: Today
Subjective/Interval History
-
Date of Service: March 15, 2024
pt denies sob, chest pain
Objective Data
-
Vital Signs:
Vital Signs
Temp Pulse Resp BP Pulse Ox
97.6 F 55 16 157/77 96
03/15/24 07:00 03/15/24 07:31 03/15/24 07:31 03/15/24 07:00 03/15/24 07:31
I&O
03/14/24 03/15/24 03/16/24
06:59 06:59 06:59
Intake Total 660 / 660 820 / 820
Output Total 300 / 300 400 / 400
Balance 360 / 360 420 / 420
[2024-03-15 11:50] LABS: Glucose - Point of Care 158 mg/dl (70-99)
--- NOTE | 2024-03-15 12:00 | PTOTSP ---
Speech Language Pathology
VIDEOFLUOROSCOPIC SWALLOWING EXAMINATION (VSE) completed. Oral phase of swallow WNL. Mild-mod pharyngeal dysphagia noted. With first sip of thin liquid via cup, no penetration/aspiration noted, but silent aspiration (PAS 8) noted with second sip
of thin liquid via cup. Consecutive straw sips of thin liquids resulted in responsive aspiration with delayed cough (PAS 7). Supraglottic swallow which fully cleared (PAS 2) noted with consecutive straw sips of mildly thick liquids. No
penetration/aspiration noted with thin liquids via tsp, mildly thick liquids via tsp/cup, moderately thick liquids via tsp, puree, or regular solids.
Recommend:
(1) Regular solids/mildly thick liquids
(2) Aspiration precautions: sit upright, slow rate
(3) Meds as tolerated
(4) Allow ice chips and sips of thin water post oral care between meals per Aspiration Risk Hydration Protocol (ARHP)
(5) RV REPAIR TECHNICIAN to continue to follow
[2024-03-15 12:07] VITALS: BP 159/73
--- NOTE | 2024-03-15 12:09 | CM ---
Addendum entered by Dede Agustin 03/15/24 13:44:
IMM explained & signed. In chart
Spoke with and will bring to [facility]
tt Cinthya at [facility] time, tt Rafia Vega
Original Note:
Patient having video swallow.
PT rec SNF
Called Cinthya at [facility] regarding if bed available-has bed today/tomorrow.
tt Dr. Morataya
PLAN: [facility]
Report #: [phone]
Fax #: [phone]
transportation forms on chart- time scheduled 1530
[2024-03-15] MEDS: NOVOLOG FLEXPEN-HIGH RESISTANCE 2 UNITS SC (12:30)
--- NOTE | 2024-03-15 13:55 | W.DCSUMMARY ---
Discharge Summary
Discharge Data
Date of Admission: 03/06/24
Date of Discharge: 03/15/24
-
Pending Results: No
Hospital Course
78 years old male presented with cough and fever. Symptoms may have started 2 weeks ago with weakness. He tested positive for COVID with cough and worsening shortness of breath. Patient was noted to have severe hypoxia and was admitted to the
intensive care unit. Patient was started on BiPAP therapy and intravenous steroid therapy. He was followed by pulmonary/residential plumber service. He later was transitioned to high flow oxygen. He was maintained on empiric antibiotic for possible
secondary pneumonia/aspiration pneumonia. Patient started to improve. Procalcitonin was negative. His oxygen requirement came down. Patient was able to transfer out of the ICU. He was noted to have mild toxic metabolic encephalopathy that
later started to improve. He was followed by speech therapist. He underwent video swallow and was recommended to continue with solid and mildly thick liquids. His blood glucose was monitored. He was given insulin treatment due to steroid-induced
hyperglycemia. He subsequently came off oxygen supplementation. He was maintained on his regular Bipap treatment for sleep apnea. His vital signs remained stable. Patient had history of severe obstructive sleep apnea. History of restrictive
lung disease and chronic bronchitis. He was started on tapering dose of prednisone. He remained hemodynamically stable was discharged back to group home facility in a stable condition.
Discharge Plan
-
Patient Disposition: Correction/SNF
Discharge Diagnosis/Procedures: Acute respiratory failure with hypoxia due to COVID-19 pneumonia - hypoxia resolved. Prednisone taper
Finished isolation 03/15
Severe FLAQUITA on BiPAP 15/8cmH2O
Mild persistent asthma with cough
Chronic bronchitis
Diabetes, increas einsulin while on steroid. Monitor blood glucose Acu- checks AC&HS
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
History of CVA/TIA
Restrictive lung disease (moderate/borderline severe with T% predicted; FVC: 71% predicted via PFT from 10/22/2023)
Mild gas exchange capacity defect which is normal when accounting for alveolar volume involved in gas exchange (DLCO: 66%; DLCO/VA: 111% via PFT from 10/22/2023)
Anxiety
Obesity BMI 40
Additional Diets: Regular solids/mildly thick liquids. Can have sips of thin water after oral care between meals per ARHP
Referrals:
Sumit Sanchez MD [Active] - in three to four weeks
Tanner Funez MD [Family Provider] -
Prescriptions:
New
insulin aspart U-100 100 unit/mL (3 mL) Insulin Pen
7 unit SC AC Qty: 20 0RF
cholecalciferol (vitamin D3) 50 mcg (2,000 unit) Tablet
50 mcg PO DAILY Qty: 30 0RF
prednisone 10 mg tablet
50 mg PO DAILY Qty: 40 0RF
Rx Instructions:
50 mg X 2days,40 mg X 3 days, 30 mg X 3 days, 20 mg X 3 days, 10 mg X 3 days
Continued
clopidogrel 75 MG tablet
75 mg PO DAILY Qty: 30 0RF
metoprolol succinate 50 MG tablet extended release 24 hr
50 mg PO BID
pravastatin 20 MG tablet
20 mg PO HS
escitalopram oxalate 10 MG tablet
10 mg PO HS
aspirin 81 MG tablet,delayed release (DR/EC)
81 mg PO DAILY
metformin 500 MG tablet
500 mg PO DAILY
amlodipine 2.5 mg tablet
2.5 mg PO DAILY
Arnuity Ellipta 200 mcg/actuation blister with device
1 inh INHALATION R BID
cyanocobalamin (vitamin B-12) [Vitamin B-12] 1,000 mcg Tablet
1,000 mcg PO DAILY
mirtazapine 15 mg tablet
15 mg PO HS
folic acid 0.8 mg Capsule
0.8 mg PO DAILY
carbidopa-levodopa 25-100 mg tablet
1 tab PO BID
hydralazine 10 mg Tablet
5 mg PO TIDPRN PRN (Reason: SBP more than 165) Qty: 10 0RF
bisacodyl 5 mg Tablet,Delayed Release (Dr/Ec)
10 mg PO DAILY Qty: 30 0RF
ipratropium-albuterol 0.5 mg-3 mg(2.5 mg base)/3 mL Solution For Nebulization
3 ml inhalation R Q4HPRN PRN (Reason: sob,wheezes,congestion) Qty: 30 0RF
polyethylene glycol 3350 17 gram Powder In Packet
17 g PO HS Qty: 30 0RF
guaifenesin 600 mg Tablet Extended Release 12hr
600 mg PO Q12 Qty: 10 0RF
acetaminophen [Tylenol Extra Strength] 500 mg Tablet
1,000 mg PO QIDPRN PRN (Reason: back pain) Qty: 10 0RF
ipratropium-albuterol 0.5 mg-3 mg(2.5 mg base)/3 mL solution for nebulization
3 ml inhalation Q8H PRN (Reason: shortness of breath or wheezing) Qty: 90 0RF
Changed
insulin glargine [Lantus Solostar U-100 Insulin] 300 UNITS/3 ML insulin pen
32 unit SC BID Qty: 0 0RF
Discharge Orders:
Discharge Patient (As Directed); Ordered 03/15/24
Ordered By: Jagjit Morataya
Discharge Date and Time
Print Language: TELUGU
== END 2024-03-15 15:40 | DRG 871 ==
LOC: 2 NORTH 22:54
PROVIDERS: Family Medicine; Nurse Practitioner Family; Student in an Organized Health Care Education/Training Program; ADMITTING PHYSICIAN Internal Medicine; ATTENDING PHYSICIAN Internal Medicine; EMERGENCY PHYSICIAN Emergency Medicine; FAMILY PHYSICIAN Family Medicine; OTHER PHYSICIAN Internal Medicine Critical Care Medicine
DX: A41.89 Other specified sepsis (principal); G92.8 Other toxic encephalopathy; U07.1 COVID-19; J96.01 Acute respiratory failure with hypoxia; J12.82 Pneumonia due to coronavirus disease 2019; E87.0 Hyperosmolality and hypernatremia; Z68.41 Body mass index [BMI] 40.0-44.9, adult; J44.0 Chronic obstructive pulmonary disease with (acute) lower respiratory infection; I10 Essential (primary) hypertension; Z66 Do not resuscitate; G20.A1 Parkinson's disease without dyskinesia, without mention of fluctuations; E11.65 Type 2 diabetes mellitus with hyperglycemia; Z79.4 Long term (current) use of insulin; E11.40 Type 2 diabetes mellitus with diabetic neuropathy, unspecified; Z79.82 Long term (current) use of aspirin; G47.33 Obstructive sleep apnea (adult) (pediatric); I95.9 Hypotension, unspecified; F41.9 Anxiety disorder, unspecified; F32.A Depression, unspecified; E66.09 Other obesity due to excess calories; L89.151 Pressure ulcer of sacral region, stage 1
CPT/HCPCS: 36600; 71045; 74230; 80048; 80053; 82805; 82962; 83605; 83735; 83880; 84100; 84145; 84484; 85025; 85027; 85379; 86140; 87040; 87070; 87205; 87449; 87502; 87811; 87899; 92526; 92610; 92611; 93005; 94640; 94660; 94669; 96374; 96375; 97163; 97167; 97530; 99285

== ENCOUNTER 2024-03-18 17:31 | Inpatient (IN) | payer MEDICARE, OTHER, SELFPAY ==
[2024-03-18] VITALS (17 sets, daily range): BP systolic 130–175; BP diastolic 65–95; PULSE 2–62; BMI 40.8
[2024-03-18 13:02] LABS: % Basophils 0.1 % (0-2); % Eosinophils 0.1 % (0-6); % Immature Granulocytes 0.9 % (0-0.5); % Lymphocytes 3.3 % (20.5-51.1); % Monocytes 3.9 % (1.7-9.3); % Neutrophils 91.7 % (42.2-75.2); Absolute Immature Granulocytes 0.1 10^3/uL (0-0.05); Absolute Lymphocytes 0.4 10^3/uL (1.2-3.4); Absolute Monocytes 0.5 10^3/uL (0.1-0.6); Absolute Neutrophils 11.3 10^3/uL (1.4-6.5); Hematocrit 46.2 % (39.0-52.0); Hemoglobin 15.7 g/dL (13.0-18.0); Mean Corpuscular Hgb 31.7 pg (27.0-31.0); Mean Corpuscular Volume 93.1 fL (80.0-94.0); Mean Platelet Volume 10.9 fL (7.4-10.4); Nucleated Red Blood Cells % 0 % (-); Platelet Count 142 10^3/uL (130-400); Red Blood Cell Count 4.96 10^6/uL (4.70-6.10); Red Cell Dist. Width 14.4 % (11.5-14.5); White Blood Cell Count 12.3 10^3/uL (4.8-10.8)
[2024-03-18 13:06] LABS: Urine Albumin Trace (Neg - Trace); Urine Bilirubin Negative (Negative); Urine Character Clear (Clear); Urine Color Yellow; Urine Glucose Negative (Negative); Urine Ketone Negative (Negative); Urine Leukocyte Negative (Negative); Urine Nitrite Negative (Negative); Urine Occult Blood Negative (Negative); Urine Specific Gravity 1.025 (<1.030); Urine Urobilinogen 1+ (Neg - 1+)
[2024-03-18 13:29] LABS: Blood Urea Nitrogen 32 mg/dl (9-20); Calcium 8.2 mg/dl (8.4-10.2); Carbon Dioxide 27 mmol/L (22-30); Chloride 101 mmol/L (98-107); Glucose 149 mg/dl (70-99); Sodium 137 mmol/L (135-145); eGFR > 60.00
--- NOTE | 2024-03-18 14:12 | ED.GENMED ---
History of Present Illness
General
Chief Complaint: Failure to Thrive
Source: patient
Exam Limitations: none
Time Seen by Provider: 03/18/24 13:56
Nursing documentation reviewed up to this point in time: agreed with
History of Present Illness
History of Present Illness:
Pt is an 78 yr old male with past medical history of severe obstructive sleep apnea, restrictive lung disease chronic bronchitis, Parkinson's htn, CAD , STroke/TIA who was recently admitted here 03/06 until 03/15 for covid and hypoxia/acute
respiratory failure sent for evaluation.
at bedside reports she saw pt today and he was very sleepy and not responding like normal. She also felt that patient look like he was having a little trouble breathing .she reports staff told her that patient had some vomiting diarrhea
yesterday.
Past History
Past History
ED Past Medical History: Asthma, CAD, COPD, CVA (X3), GERD (Rivera's esophagus), HTN, Hypercholesterolemia, IDDM and Other (Pulmonary emboli, Neuropathy)
ED Past Surgical History: Cardiac (Stent), Cholecystectomy, Orthopedic (Gama knee replacements) and Tonsilectomy
Social History
Tobacco: Non-smoker
Alcohol: None
Drug: None
Personal:
Living: with family
Employment: Retired
Family History
Family History: CAD and Asthma (COPD)
Review of Systems
Review of Systems
Allergies reviewed?: Yes
Unable to obtain full review of systems at this time due to: other (pt sleepy )
Other source history: family and ambulance crew
All Other Systems: ROS reviewed and negative except as documented in HPI and ROS
Constitutional: Reports fatigue (pt sleepy )
Respiratory: Reports no symptoms
Cardiac: Reports no symptoms
ABD/GI: Reports no symptoms
Musculoskeletal: Reports no symptoms
Skin: Reports no symptoms
Neurological: Reports other (very sleepy as per )
Phy Exam
General Physical Exam
General Presentation: no apparent distress
General age: appears stated age
General Skin: warm and dry
General Habitus: elderly
General Mental: other
Cardiovascular Exam
Cardiovascular Exam: regular rate/rhythm, no murmur and normal peripheral pulses
Pulmonary Exam
Pulmonary Exam: lungs clear and no respiratory distress
Neurological Exam
Neurological Exam: alert and other (Very sleepy able to tell me his name only)
Musculoskeletal Exam
Musculoskeletal Exam: full ROM
Skin Exam
Skin Exam: normal color and warm/dry
Psychiatric Exam
Psychiatric Exam: other (sleepy )
Course
Orders/Labs/Results
Orders:
Orders
03/18/24
Electrocardiogram (*1) Stat
Reason for Study: Chest Pain
Comment: DONE NO ORDER ENTERED
03/18/24 12:46
Electrocardiogram (*1) Urgent
Reason for Study: Other
Other Reason for Exam: Possible Sepsis
EKG- Treatment ONCE
03/18/24 12:48
Basic Metabolic Panel Urgent
Complete Blood Count/With Diff Urgent
Urinalysis Reflex To Culture Urgent
Date Specimen was Collected: 03/18/24
Time Specimen was Collected: 12:46
03/18/24 13:02
Speech Therapy Eval & Treat Routine
03/18/24 14:25
Chest [CR Chest - 2 Views ] Urgent
Comment:
Reason For Exam: sob
03/18/24 14:29
CT Head W/o Iv Contrast Urgent
Comment:
Reason For Exam: change in ms
03/18/24 Dinner
NPO
Reason for opting out of Car Repairer Apprentice order writing: Provider Decision
Allow oral meds: No
Allow clear liquids: No
03/18/24 15:07
ABG [Arterial Blood Gas] Urgent
%Oxygen/Room Air: 21
03/18/24 16:16
0.9% Sodium Chloride 500 ml [Nss] 500 ml IV BOLUS
03/18/24 16:40
Cefepime HCl [Maxipime] 1,000 mg IV NOW STA
03/18/24 16:52
Lactic Acid Urgent
Blood Culture Q30M
KATIANA Source: Blood/Venous
Specimen Description:
03/18/24 17:01
Potassium Urgent
Blood Culture Q30M
KATIANA Source: Blood/Venous
Specimen Description:
03/18/24 17:07
Admit/Transfer Patient As Directed
Co-Sign Provider:
Level of Care: Inpatient admission
Assign to:: Telemetry
Physician / Group: rebeca
Diagnosis: pneumonia
Reason for Telemetry: Arrhythmia
Date to Stop Telemetry: 03/21/24
Time to Stop Telemetry: 11:00
Reason for Hospitalization: pneumonia
Expected length of stay greater than two midnights?: Yes
ELOS- Estimated Length of Stay in days: 2
I certify the patient meets the requirements for IP care: Yes
03/18/24 17:08
PRN Pain Medication Management As Directed
May give lesser potent ordered pain med per pt: Yes
preference::
Protocol:: Medication orders for pain may be administered in a
manner that supports deferring to patient preference
when the pt is:
- Requesting an ordered lesser potent pain medication.
Least to most potent pain medications are defined
as: acetaminophen < NSAID < tramadol < opioids
(morphine, oxycodone, hydromorphone).
- Requesting a lesser dose of the same medication IF
ORDERED.
- Requesting a less intrusive route of administration
if both routes are prescribed by the provider (PO <
IV).
03/18/24 17:09
Code Status As Directed
Resuscitation Status: Do not resuscitate
Reached after discussion with pt or family/Healthcare POA: Yes
DNR Bracelet Application ONCE
03/18/24 17:13
Legionella Urinary Antigen Routine
KATIANA Source: Urine
Specimen Description:
Strep pneumoniae Antigen Routine
KATIANA Source: Urine
Specimen Description:
03/18/24 19:57
Acetaminophen [Tylenol] 1,000 mg PO Q6HPRN PRN
Acetaminophen [Tylenol] 650 mg PO Q4HPRN PRN
Bisacodyl [Dulcolax] 10 mg RECTAL DAILYPRN PRN
Dextrose 50%-Water [Dextrose 50% Syringe] 12.5 grams IV [id number] PRN
Glucagon [GlucaGen] 1 mg IM PRN PRN
Magnesium Hydroxide [Milk of Magnesia] 30 ml PO DAILYPRN PRN
03/18/24 19:57
Activity As Directed
Activity Level: As Tolerated
Bedside Glucose Monitoring As Directed
Frequency: AC&HS
Additional Instructions:: Change to q6h if pt on TPN, tube feeding or not eating
Vital Signs As Directed
Frequency: Per unit guidelines
DX Deep Vein Thrombosis Video Routine
03/18/24 20:00
Carbidopa/Levodopa [Sinemet 25-100] 1 tablet PO BID
Guaifenesin [Mucinex] 600 mg PO Q12
Heparin 5,000 units SC Q12
Ipratropium/Albuterol Sulfate [Duoneb] 3 ml INH R QID
Metoprolol Xl [Toprol Xl] 50 mg PO BID
Piperacillin/Tazo 3.375 Gram [Zosyn] 3.375 gram in 50 ml IV Q6H
insulin glargine-yfgn 32 unit SC BID
03/18/24 20:29
MRSA Screen Routine
KATIANA Source: Nose
Specimen Description:
03/18/24 22:00
Escitalopram Oxalate [Lexapro] 10 mg PO HS
HydrALAZINE [Apresoline] 5 mg PO TID
Miconazole Nitrate [Desenex/Mitrazol/Zeasorb] See Dose Instructions TOPICAL HS
Mirtazapine [Remeron] 15 mg PO HS
Polyethylene Glycol Powder [Miralax] 17 grams PO HS
Pravastatin Sodium [Pravachol] 20 mg PO HS
03/19/24 06:00
Complete Blood Count/With Diff IN AM
Comprehensive Metabolic Panel IN AM
Glycohemoglobin (HgbA1c) IN AM
03/19/24 07:30
Insulin Aspart Corrective Low [Novolog Flexpen-Low Resistance] See Protocol SC AC
03/19/24 08:00
Amlodipine [Norvasc] 2.5 mg PO DAILY
Aspirin Low Dose EC [Aspir Low (Enteric Coated)] 81 mg PO DAILY
Bisacodyl [Dulcolax] 10 mg PO DAILY
Cholecalciferol (Vitamin D3) [VITAMIN D3 (cholecalciferol)] 50 mcg PO DAILY
Clopidogrel Bisulfate [Plavix] 75 mg PO DAILY
Cyanocobalamin [Vitamin B-12] 1,000 mcg PO DAILY
FLUTICASONE PROPIONATE 110 mcg [Flovent 110 Mcg Inhaler] 2 puff INH R BID
FOLic ACID [Folvite] 0.8 mg PO DAILY
03/21/24 11:00
DC Protocol for Telemetry ONCE
Abnormal Lab Results
03/18/24 03/18/24 03/18/24
12:48 15:07 16:52
WBC 12.3 H 10^3/uL
(4.8-10.8)
MCH 31.7 H pg
(27.0-31.0)
MPV 10.9 H fL
(7.4-10.4)
Abs Immat Gran (auto) 0.1 H 10^3/uL
(0-0.05)
Absolute Neuts (auto) 11.3 H 10^3/uL
(1.4-6.5)
Absolute Lymphs (auto) 0.4 L 10^3/uL
(1.2-3.4)
Immature Gran % 0.9 H %
(0-0.5)
Neutrophils % 91.7 H %
(42.2-75.2)
Lymphocytes % 3.3 L %
(20.5-51.1)
pH 7.46 H
(7.35-7.45)
pO2 60 L mmHg
(83-108)
ABG O2 Sat (Measured) 93.9 L %
(94-98)
BUN 32 H mg/dl
(9-20)
Glucose 149 H mg/dl
(70-99)
Lactic Acid 2.5 H mmol/L
(0.7-2.0)
Calcium 8.2 L mg/dl
(8.4-10.2)
03/18/24 12:48
03/18/24 17:01
Vital Signs
Initial and Last Documented VS:
Initial Vital Signs
Temp Pulse Resp BP Pulse Ox
98.6 F 67 18 140/71 89
03/18/24 12:45 03/18/24 12:45 03/18/24 12:45 03/18/24 12:45 03/18/24 12:45
Last Documented Vital Signs
Temp Pulse Resp BP Pulse Ox
97.8 F 61 18 149/73 97
03/19/24 03:54 03/19/24 03:54 03/19/24 03:54 03/19/24 03:54 03/19/24 03:54
MDM/Problems Addressed
Differential Diagnosis Includes:
Not limited to dehydration, electrolyte abnormality, infection, pneumonia
MDM/Problems Addressed:
Patient is an 78-year-old from the skilled nursing sent for evaluation for fatigue. Patient was found to be very sleepy today. I was unable to get a hold of the skilled nursing however reports she was told he had vomiting and diarrhea yesterday.
Patient presents very sleepy no fevers minimally elevated white he is mildly hypoxic and was placed on 2 L no acute findings of pneumonia on x-ray patient does appear dry on exam BUN elevated however consistently elevated. Patient was given small
bolus of fluids. ABG reviewed .chest x-ray done shows a patchy parenchymal opacity within the left lower lung appears increased from x-ray on March 12 suspicious for pneumonia will treat .IV Vanco and cefepime ordered. Urine negative will admit
for dehydration/pneumonia
*Critical Care Note
Total Time (30-74mins, 75-104mins- exclusive of procedures): Not Applicable
ED Attending Note
-
Portions of this chart may have been created with voice recognition software.� Occasional wrong word or��sound alike� substitutions may have occurred due to the inherent limitations of voice recognition software.
Discharge Plan
Departure
Patient Disposition: Admit
Date of Disposition: 03/18/24
Time of Disposition: 16:48
Admit to: Med/Surg
Admit to doctor: hospitalist
Presentation/result/management discussed w/ accepting MD/DO: Hospitalist
Patient with high blood pressure during this ER visit?: Yes
Condition: Fair
Covid-19: Not Applicable
Discharge Problem:
Pneumonia, Acute dehydration
Interventions
Interventions:
*Risk Screen - Suicide Last Done: 03/18/24 22:34
*General Assessment Last Done: 03/18/24 12:45
*Neglect/Abuse Screening Last Done: 03/18/24 12:45
ED- Fall Risk Assessment Last Done: 03/18/24 12:45
*ED COVID-19 Vaccine History Last Done: 03/18/24 23:05
*Nursing Disposition Last Done: 03/18/24 19:28
Discharge Date and Time
Discharge Date/Time: 03/18/24 19:49
[2024-03-18 15:13] LABS: B.E. 2.6 mmol/L; HCO3 26.3 mmol/L (21-28); O2 Saturation % 93.9 % (94-98); PCO2 37 mmHg (35-48); PO2 60 mmHg (83-108); pH 7.46 (7.35-7.45)
[2024-03-18] MEDS: NSS 500 IV (16:33)
[2024-03-18] MEDS: MAXIPIME 1000 MG IV (16:55)
--- NOTE | 2024-03-18 17:13 | HPS.HSE ---
Addendum entered and electronically signed by Ko Stone MD 03/18/24 21:23:
Blood sugar 162. Held Lantus for now.
Addendum entered and electronically signed by Ko Stone MD 03/18/24 20:41:
Patient cannot tolerate PO at this time including oral medications. NPO. Reduced Lantus from 32 units BID to 16 units. Accuchecks q6. Added PRN hydralazine for elevated blood pressure.
Original Note:
Family Physician
-
Family Physician: Tanner Funez MD
Chief Complaint
-
lethargy
History of Present Illness
78-year-old male past medical history of obstructive sleep apnea on BiPAP, restrictive lung disease, asthma, history of provoked PE from left TKA in 2016, history of VT, dysphagia, atrial fibrillation, type 2 diabetes, L4-5 bulging disc, amatory
dysfunction, anxiety/depression, Parkinson's disease, sacrum stage I pressure injury, obesity, presenting for lethargy and unresponsiveness. states that he look like he was having some trouble breathing. He had vomiting and diarrhea yesterday
but resolved today. She had not seen him in several days since he was in [place] and she had COVID. No cough or fevers or chills or shortness of breath or chest pain.
Patient was recently admitted from 03/06 to 03/15 for hypoxemic respiratory failure secondary to COVID. He was treated with BiPAP and steroids in the ICU. He was treated with antibiotics for possible secondary pneumonia/aspiration pneumonia.
Speech recommended solid and mildly thick liquids. He has steroid-induced hyperglycemia.
Medical History
Past Medical History
Past Medical History: Reports Other (obstructive sleep apnea on BiPAP, restrictive lung disease, asthma, history of provoked PE from left TKA in 2016, history of VT, dysphagia, atrial fibrillation, type 2 diabetes, L4-5 bulging disc, amatory
dysfunction, anxiety/depression, Parkinson's disease, sacrum stage I pressure injury, obesity,)
Past Surgical History: Reports Other (Cardiac (Stent), Cholecystectomy, Orthopedic (Gama knee replacements) and Tonsilectomy)
Social History
Tobacco: Non-smoker
Alcohol: None
Drug: None
Family History
Family History: Not pertinent
Allergies / Home Medications
Allergies reflects when Allergies were last updated in [employer].
Home Medications with original date entered in [facility]
Allergy/Medication List:
Allergies
Allergy/AdvReac Type Severity Reaction Status Date / Time
Iodinated Contrast Media Allergy Unknown VOMITING/HI Verified 03/18/24 12:46
[Iodinated Contrast- Oral VES
and IV Dye]
latex Allergy Unknown Rash Verified 03/18/24 12:46
adhesive tape Allergy redness;axel Verified 03/18/24 12:46
hy
reyna Allergy closes Verified 03/18/24 12:[address]
hydromorphone HCl Allergy makes him Verified 03/18/24 12:46
[From Dilaudid] loopy as
per spouse
iodine Allergy vomiting;hi Verified 03/18/24 12:46
ves
oxycodone Allergy SEE BELOW Verified 03/18/24 12:46
aquacel dressing Allergy 'pulled Uncoded 03/18/24 12:46
skin off'
DARIUS stockings Allergy itching;axel Uncoded 03/18/24 12:46
h
Home Medications
escitalopram oxalate 10 mg tablet 10 mg PO HS depression/anxiety 09/12/16
metoprolol succinate 50 mg tablet,extended release 24 hr 50 mg PO BID Blood Pressure 09/12/16
pravastatin 20 mg tablet 20 mg PO HS High Cholesterol 09/12/16
aspirin 81 mg tablet,delayed release 81 mg PO DAILY Blood Clot Prevention/Tx 11/29/16
metformin 500 mg tablet 500 mg PO DAILY Diabetes 02/20/18
amlodipine 2.5 mg tablet 2.5 mg PO DAILY Blood Pressure 08/21/23
cyanocobalamin (vitamin B-12) 1,000 mcg tablet (Vitamin B-12) 1,000 mcg PO DAILY Supplement 08/21/23
fluticasone furoate 200 mcg/actuation blister powder for inhalation (Arnuity Ellipta) 1 inh inhalation R BID Lung/Breathing Issues 08/21/23
folic acid 0.8 mg capsule 0.8 mg PO DAILY Supplement 08/21/23
mirtazapine 15 mg tablet 15 mg PO HS depression/sleep 08/21/23
carbidopa 25 mg-levodopa 100 mg tablet 1 tab PO BID Parkinson's disease 02/26/24
ipratropium 0.5 mg-albuterol 3 mg (2.5 mg base)/3 mL nebulization soln 3 ml inhalation R Q4HPRN PRN sob,wheezes,congestion #30 applic 03/05/24
acetaminophen 325 mg tablet (Tylenol) 650 mg PO Q4HPRN PRN fever 03/18/24
acetaminophen 500 mg tablet (Tylenol Extra Strength) 1,000 mg PO Q4HPRN PRN mild pain 03/18/24
bisacodyl 10 mg rectal suppository (Dulcolax (bisacodyl)) 10 mg MA DAILYPRN PRN if no bm on 5th day 03/18/24
bisacodyl 5 mg tablet,delayed release 10 mg PO DAILY constipation 03/18/24
cholecalciferol (vitamin D3) 50 mcg (2,000 unit) tablet 50 mcg PO DAILY Supplement 03/18/24
clopidogrel 75 mg tablet 75 mg PO DAILY Blood Clot Prevention/Tx 03/18/24
guaifenesin 600 mg tablet, extended release 12 hr 600 mg PO Q12 cough/congestion 03/18/24
hydralazine 10 mg tablet 5 mg PO TID Blood Pressure 03/18/24
insulin aspart U-100 100 unit/mL (3 mL) subcutaneous pen 7 unit SC AC Diabetes 03/18/24
insulin glargine-yfgn 100 unit/mL subcutaneous solution 32 unit SC BID Diabetes 03/18/24
magnesium hydroxide 400 mg/5 mL oral suspension (Milk of Magnesia) 2,400 mg PO DAILYPRN PRN if no bm on 4th day 03/18/24
miconazole nitrate 2 % topical powder 1 applic topical HS Skin Issues 03/18/24
polyethylene glycol 3350 17 gram oral powder packet 17 g PO HS Constipation 03/18/24
prednisone 10 mg tablet 10 mg PO UD Anti-Inflammatory 03/18/24
sodium phosphates 19 gram-7 gram/118 mL enema (Fleet Enema) 118 ml MA DAILYPRN PRN if no bm on 6th day 03/18/24
Review of Systems
-
History Source: Patient
A 12 point ROS was completed and negative except as noted: Yes
Constitutional: Reports No Symptoms
EENT: Reports No Symptoms
Respiratory: Reports See HPI
Cardiac: Reports No Symptoms
Abdomen/GI: Reports See HPI
: Reports No Symptoms
Musculoskeletal: Reports No Symptoms
Skin: Reports No Symptoms
Neurological: Reports No Symptoms
Endocrine: Reports No Symptoms
Hematologic/Lymphatic: Reports No Symptoms
Psych: Reports No Symptoms
Physical Exam
Vital Signs
Vital Signs
Temp Pulse Resp BP Pulse Ox
98.6 F 64 18 145/71 94
03/18/24 12:45 03/18/24 17:00 03/18/24 17:00 03/18/24 17:00 03/18/24 17:00
Physical Exam
General: Well Developed, Well Nourished and No Apparent Distress
HEENT: NormoCephalic, Moist mucous membranes and Atraumatic
Respiratory: Clear
Cardiac: S1/S2 and Regular Rhythm; No Murmur or Rub
GI: Soft, Non Tender, Non Distended and Normal Bowel Sounds; No Organomegaly
Rectal: Deferred by Provider
Musculoskeletal: No Clubbing, No Cyanosis and No Edema
Skin: No Rash
Neuro: Nonfocal/grossly intact
Laboratory Results
-
03/18/24 12:48
Laboratory Results
pH 7.46 (7.35-7.45) H 03/18/24 15:07
pCO2 37 mmHg (35-48) 03/18/24 15:07
pO2 60 mmHg (83-108) L 03/18/24 15:07
HCO3 26.3 mmol/L (21-28) 03/18/24 15:07
Total Bilirubin Cancelled 03/18/24 12:48
AST Cancelled 03/18/24 12:48
ALT Cancelled 03/18/24 12:48
Alkaline Phosphatase Cancelled 03/18/24 12:48
Data Reviewed
-
Lab Data: Labs Reviewed by me
Old Records: Reviewed
Impression/Plan
-
IMPRESSION:
PLAN:
# Hypoxemic respiratory insufficiency secondary to pneumonia possibly hospital-acquired
# Recent hypoxemic respiratory failure secondary to COVID
-Chest x-ray shows patchy parenchymal opacity within the left lower lung increased from recent chest x-ray suspicious for pneumonia
-ABG shows pH of 7.46, pCO2 of 37, pO2 of 60
-Patient currently on 2 L oxygen
-Tested negative Legionella, strep pneumoniae on 03/08
-Check MRSA, Legionella, strep antigen
-Cannot check sputum because no cough
-Vomiting and diarrhea is resolved
-Vancomycin/Zosyn
-Prednisone taper was apparently started today, can discontinue
-Pulmonary consulted
Severe obstructive sleep apnea
-On BiPAP at night
Chronic bronchitis/restrictive lung disease/asthma
-Continue annually Ellipta
-DuoNebs every 6 hours
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
History of VT
Paroxysmal atrial fibrillation
-Continue metoprolol
-Not on anticoagulation
Essential hypertension
-Continue amlodipine, hydralazine
Type 2 diabetes
-Continue glargine 32 units twice daily
-Insulin sliding scale
-Hold metformin
GERD
History of CVA/TIA
-Continue aspirin and Plavix
-Continue statin
Anxiety/depression
-Continue Lexapro, mirtazapine
Parkinson's disease
-Continue carbidopa-levodopa
L4-L5 bulging disc
Chronic ambulatory dysfunction
Sacral stage I decubitus ulcer
DNR/DNI
DVT prophylaxis�SCDs
Diabetic diet
[2024-03-18 17:18] LABS: Lactic Acid 2.5 mmol/L (0.7-2.0)
[2024-03-18 17:19] LABS: Potassium 4.3 mmol/L (3.5-5.1)
[2024-03-18 20:44] LABS: Glucose - Point of Care 162 mg/dl (70-99)
[2024-03-18] MEDS: TOPROL XL PO (20:45)
[2024-03-18] MEDS: SINEMET 25-100 PO (20:45)
[2024-03-18] MEDS: MUCINEX PO (20:45)
[2024-03-18] MEDS: DUONEB 3 ML INH (20:48)
[2024-03-18] MEDS: HEPARIN 5000 UNITS SC (20:48)
[2024-03-18] MEDS: ZOSYN 50 IV (20:48)
--- NOTE | 2024-03-18 20:52 | PHA.VAN.IN ---
Assessment
- Assessment
Renal Function: Appears similar to baseline (03/14/24 SCR = 0..8)
Concomitant Antimicrobials: ZOSYN
- Previous Dosing Experience
Previous Regimen: NONE
AUC Dosing Plan
- Dosing Variables
Dosing Weight (kg): 125.6
Dosing CrCl (ml/min): 86
Vd coefficient (L/kg): 0.5
- Empiric Dosing
Initial / Loading Dose: 2GM
Maintenance Regimen: 1250MG IV Q12H
Estimated AUC (mcg*h/mL): 525
Estimated Peak (mcg*h/mL): 33.3
Estimated Trough (mcg/ml): 13.4
Estimated Half Life (H): 9.1
Pharmacokinetics Vancomycin I
- -
Patient Age: 78
Patient Sex: Male
Vancomycin Day #: 1
Indication: Pulmonary/Respiratory
Requesting Provider: SANA
Height / Weight:
Height 5 ft 9 in
Actual Weight 125.22 kg
Pertinent Past Medical History: IDDM; RECENT HOSPITALIZATION []
- Vital Signs / Lab Results
Temp Pulse Resp BP Pulse Ox
98.0 F 61 18 152/69 97
03/18/24 20:19 03/18/24 20:19 03/18/24 20:19 03/18/24 20:19 03/18/24 20:19
Lab Results - Hematology
03/18/24
12:48
WBC 12.3 H
Lab Results - Chemistry
03/18/24
12:48
BUN 32 H
Creatinine 0.9
Albumin Cancelled
03/18/24
16:52
Lactic Acid 2.5 H
Lab Results - Urine
03/18/24
12:48
Urine Nitrite (Reflex) Negative
Leukocyte Esterase Rfl Negative
[2024-03-18] MEDS: APRESOLINE PO (20:53)
[2024-03-18] MEDS: VANCOCIN 540 MG IV (20:53)
[2024-03-18] MEDS: DESENEX/MITRAZOL/ZEASORB 1 APPLIC TOPICAL (20:54)
[2024-03-18] MEDS: PRAVACHOL PO (20:54)
[2024-03-18] MEDS: LEXAPRO PO (20:54)
[2024-03-18] MEDS: REMERON PO (20:54)
--- NOTE | 2024-03-18 21:00 | PTCARENOTE ---
Received patient from ED via stretcher with spouse at bedside. Telemetry orders> SR w/first degree AVB on monitor. Afebrile, HR 61, RR 18, BP 152/69, pox 97% 3LNC. No c/o pain. This RN reached out to house WATER/WASTEWATER PROJECT MANAGER for BIPAP HS. Patient lethargic/ drowsy.
Oriented to self and place. Incontinent of bowel and bladder. Patient placed NPO- failed swallow screen in ED. Previous admission, patient was placed on a pureed diet w/ mildly thickened liquids per speech recs. This RN reached out to admitting MD
to switch any meds to IV. IV Hydralazine ordered PRN SBP >160. PMH retrieved from records. Plan of care discussed with spouse. Spouse insisted that patient be placed in a single room. This RN explained that the hospital has a high census and
their are no private rooms available. Call meléndez within reach.
[2024-03-19] VITALS (9 sets, daily range): BP systolic 113–162; BP diastolic 44–97; PULSE 2–62
[2024-03-19] MEDS: ZOSYN 50 IV ×4 (01:14→19:46)
[2024-03-19 01:18] LABS: Lactic Acid 1.1 mmol/L (0.7-2.0)
[2024-03-19 01:18] LABS: Glucose - Point of Care 126 mg/dl (70-99)
[2024-03-19] MEDS: VANCOCIN 275 MG IV (05:05)
[2024-03-19 06:13] LABS: Glucose - Point of Care 104 mg/dl (70-99)
[2024-03-19] MEDS: DUONEB 3 ML INH ×4 (07:49→19:15)
[2024-03-19] MEDS: FLOVENT 110 MCG INHALER 2 PUFF INH ×2 (07:52→19:15)
[2024-03-19 08:00] LABS: ALT (SGPT) 92 U/L (0-50); AST (SGOT) 37 U/L (17-59); Albumin 2.8 g/dl (3.5-5.0); Alkaline Phosphatase 83 U/L (38-126); Blood Urea Nitrogen 29 mg/dl (9-20); Calcium 7.4 mg/dl (8.4-10.2); Carbon Dioxide 27 mmol/L (22-30); Chloride 105 mmol/L (98-107); Estimated Creatinine Clearance 70 ml/min; Glucose 111 mg/dl (70-99); Potassium 3.9 mmol/L (3.5-5.1); Sodium 139 mmol/L (135-145); Total Bilirubin 1.1 mg/dl (0.2-1.3); Total Protein 5.2 g/dl (6.3-8.2); eGFR > 60.00
[2024-03-19 08:06] LABS: % Basophils 0.1 % (0-2); % Eosinophils 0.1 % (0-6); % Immature Granulocytes 0.6 % (0-0.5); % Lymphocytes 15.4 % (20.5-51.1); % Monocytes 10.2 % (1.7-9.3); % Neutrophils 73.6 % (42.2-75.2); Absolute Immature Granulocytes 0.1 10^3/uL (0-0.05); Absolute Lymphocytes 1.4 10^3/uL (1.2-3.4); Absolute Monocytes 0.9 10^3/uL (0.1-0.6); Absolute Neutrophils 6.5 10^3/uL (1.4-6.5); Hematocrit 42.2 % (39.0-52.0); Hemoglobin 13.9 g/dL (13.0-18.0); Mean Corp Hgb Conc. 32.9 g/dL (33.0-37.0); Mean Corpuscular Hgb 31.2 pg (27.0-31.0); Mean Corpuscular Volume 94.6 fL (80.0-94.0); Mean Platelet Volume 11.2 fL (7.4-10.4); Nucleated Red Blood Cells % 0 % (-); Platelet Count 132 10^3/uL (130-400); Red Blood Cell Count 4.46 10^6/uL (4.70-6.10); Red Cell Dist. Width 14.4 % (11.5-14.5); White Blood Cell Count 8.8 10^3/uL (4.8-10.8)
[2024-03-19 08:47] LABS: Glycohemoglobin (HgbA1c) 7.2 % (4.0-5.6)
--- NOTE | 2024-03-19 09:06 | W.PN.HOSP.TC ---
Today's Communication/Plan
-
Continue prednisone taper schedule
Speech evaluation
Pro-BNP
Echo on Thursday
Assessment / Plan
Assessment / Plan
Physical Exam
General: Morbidly obese, no acute distress.
HEENT: Normocephalic, Atraumatic
Respiratory: crackles both sides.
Cardiac: Normal S1/S2.
GI: Soft, Nontender, Nondistended, Normal Bowel Sounds
Extremities: No Clubbing, Cyanosis, or Edema
Derm: Sacrum Stage 1 Pressure Injury
neuro: awake, followed commands
Psych: calm
# Acute on chronic Hypoxemic respiratory failure secondary to likely aspiration pneumonia. Hx of vomiting that proceeded the respiratory distress.
# Recent hypoxemic respiratory failure secondary to COVID
-Chest x-ray shows patchy parenchymal opacity within the left lower lung increased from recent chest x-ray suspicious for pneumonia
-ABG shows pH of 7.46, pCO2 of 37, pO2 of 60
-Patient currently on 2 L oxygen
-Tested negative Legionella, strep pneumoniae on 03/08
-Check MRSA, Legionella, strep antigen
-Vomiting and diarrhea, both resolved
-Vancomycin/Zosyn
-Prednisone taper to continue.
- Speech evaluation
- Check Pro-BNP, Echo on Thursday
-Pulmonary consulted
Severe obstructive sleep apnea
-On BiPAP at night
Chronic bronchitis/restrictive lung disease/asthma
-Continue annually Ellipta
-DuoNeb every 6 hours
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
History of VT
Paroxysmal atrial fibrillation
-Continue metoprolol
-Not on anticoagulation
Essential hypertension
-Continue amlodipine, hydralazine
Type 2 diabetes
-Continue glargine 32 units twice daily
-Insulin sliding scale
-Hold metformin
GERD
History of CVA/TIA
-Continue aspirin and Plavix
-Continue statin
Anxiety/depression
-Continue Lexapro, mirtazapine
Parkinson's disease
-Continue carbidopa-levodopa
L4-L5 bulging disc
Chronic ambulatory dysfunction
Sacral stage I decubitus ulcer
DNR/DNI
DVT prophylaxis�SCDs
Diabetic diet
Total time spent to see the patient on the floor, examine the patient, review data and lab results, discuss treatment plan with patient, nursing staff around 55 minutes.
Anticipated Discharge: > 48 hours
Subjective/Interval History
-
Date of Service: March 19, 2024
He feels crackles in his chest
denies chest pain
Objective Data
-
Labs:
Laboratory Results
03/19/24
07:04
WBC 8.8
Hgb 13.9
Hct 42.2
Plt Count 132
Sodium 139
Potassium 3.9
Chloride 105
Carbon Dioxide 27
BUN 29 H
Creatinine 1.1
Glucose 111 H
Calcium 7.4 L
Total Bilirubin 1.1
AST 37
ALT 92 H
Alkaline Phosphatase 83
Vital Signs:
Vital Signs
Temp Pulse Resp BP Pulse Ox
97.8 F 61 18 149/73 97
03/19/24 03:54 03/19/24 03:54 03/19/24 03:54 03/19/24 03:54 03/19/24 03:54
I&O
03/18/24 03/19/24 03/20/24
06:59 06:59 06:59
Intake Total 850 / 850
Balance 850 / 850
[2024-03-19] MEDS: APRESOLINE 5 MG PO ×3 (09:27→22:04)
[2024-03-19] MEDS: HEPARIN 5000 UNITS SC ×2 (09:28→19:47)
[2024-03-19] MEDS: DULCOLAX 10 MG PO (09:28)
[2024-03-19] MEDS: ASPIR LOW (ENTERIC COATED) 81 MG PO (09:28)
[2024-03-19] MEDS: FOLVITE 0.8 MG PO (09:28)
[2024-03-19] MEDS: SINEMET 25-100 1 TABLET PO ×2 (09:30→19:47)
[2024-03-19] MEDS: NORVASC 2.5 MG PO (09:30)
[2024-03-19] MEDS: MUCINEX 600 MG PO ×2 (09:30→19:47)
[2024-03-19] MEDS: PLAVIX 75 MG PO (09:30)
[2024-03-19] MEDS: TOPROL XL 50 MG PO ×2 (09:30→19:47)
[2024-03-19] MEDS: VITAMIN D3 (cholecalciferol) 50 MCG PO (09:31)
[2024-03-19] MEDS: VITAMIN B-12 1000 MCG PO (09:31)
--- NOTE | 2024-03-19 10:08 | PTOTSP ---
SPEECH THERAPY SWALLOW EVALUATION:
Patient exhibits clinical signs of oropharyngeal dysphagia, likely chronic related to history of CVA x3, Parkinson's, GERD, COPD, asthma, and acutely exacerbated by pneumonia. Patient remains at HIGH RISK for aspiration and related complications
given impulsivity, confusion, tenuous respiratory/pulmonary status. Patient with history of recent VSE 03/15/2024 which indicated WNL oral phase of swallow and mild-moderate pharyngeal dysphagia. Pt indicated he did not follow thickened liquid
guidelines consistently upon discharge. In addition, report of vomiting episode prior to this admission, suspicious for aspiration of vomited material. At this time, recommend conservative oral diet of IDDSI Level 4 Puree (to reduce energy
expenditure and increase safety during eating given tenuous respiratory status), and Moderately-thick liquids. Medications crushed in puree. Aspiration and Reflux Precautions includin% supervision with meals; Assist as needed; Upright
positioning; Small single sips/bites; Slow rate of intake; Monitoring for signs of aspiration; Remain upright 30 minutes after eating/drinking; Eat only when alert. D/c oral diet if any decline in mental/respiratory status. ST to follow, assess diet
tolerance and determine readiness for diet upgrade, provide continued education regarding diet recommendations/aspiration precautions.
RECOMMEND:
1) IDDSI Level 4 Puree, Moderately-thick liquids
2) Medications crushed in puree
3) Aspiration and Reflux Precautions includin% supervision with meals; Assist as needed; Upright positioning; Small single sips/bites; Slow rate of intake; Monitoring for signs of aspiration; Remain upright 30 minutes after eating/drinking;
Eat only when alert. D/c oral diet if any decline in mental/respiratory status
4) ST to follow
[2024-03-19 10:09] LABS: NT-proBNP 161 pg/ml
[2024-03-19] MEDS: DELTASONE 30 MG PO (10:46)
--- NOTE | 2024-03-19 10:57 | PHA.VAN.FU ---
Vancomycin Assessment / Plan
- Assessment
Renal Function: SCR Increasing (0.9->1.1)
WBC's are: WNL
In the past 24 hrs, patient has been: Afebrile
Concomitant Antimicrobials: piperacillin/tazobactam
- Dosing Plan
Adjust Regimen to: vancomycin 1000 mg q12 - start at 1800 today
New Regimen Predicts: AUC (528), Peak (30.3), Trough (15.2)
Dosing Comments: dose adjusted due to increasing SCr
- Monitoring Plan
No level(s) ordered at this time: consider levels in a day or two
- Follow Up
Pharmacy will continue to follow.
Vancomycin Follow UP
- -
Patient Age: 78
Patient Sex: Male
Vancomycin Day #: 2
Indication: Pulmonary/Respiratory
Requesting Provider: SANA
Height / Weight:
Height 5 ft 9 in
Actual Weight 125.22 kg
Pertinent Past Medical History: IDDM; RECENT HOSPITALIZATION []
- Vital Signs / Lab Results
Temp Pulse Resp BP Pulse Ox
97.8 F 56 18 129/97 97
03/19/24 07:00 03/19/24 10:15 03/19/24 10:15 03/19/24 07:00 03/19/24 10:15
Lab Results - Hematology
03/18/24 03/19/24
12:48 07:04
WBC 12.3 H 8.8
Lab Results - Chemistry
03/18/24 03/19/24
12:48 07:04
BUN 32 H 29 H
Creatinine 0.9 1.1
Estimated Creat Clear 70
Albumin Cancelled 2.8 L
03/18/24 03/19/24
16:52 00:47
Lactic Acid 2.5 H 1.1
Lab Results - Urine
03/18/24
12:48
Urine Nitrite (Reflex) Negative
Leukocyte Esterase Rfl Negative
Microbiology Results
03/19/24 04:53 Legionella Urinary Antigen - Final
Urine Negative for Legionella pneumophila Serogroup 1 antigen.
A negative result does not rule out the possiblity of
Legionella infection due to other serogroups or species of
Legionella. Clinical correlation is recommended.
Streptococcus pneumoniae Antigen (M - Final
Negative for Streptococcus pneumoniae antigen.
A negative result does not exclude infection with
Streptococcus pneumoniae. Clinical correlation is
recommended.
[2024-03-19 11:00] LABS: Glucose - Point of Care 104 mg/dl (70-99)
[2024-03-19] MEDS: NOVOLOG FLEXPEN-LOW RESISTANCE SC (11:34)
[2024-03-19 17:03] LABS: Glucose - Point of Care 240 mg/dl (70-99)
[2024-03-19] MEDS: NOVOLOG FLEXPEN-LOW RESISTANCE 2 UNITS SC (17:06)
[2024-03-19] MEDS: VANCOCIN 200 IV (17:06)
--- NOTE | 2024-03-19 17:26 | CON.PUL ---
Consultation
Consultation Request
Date/Time Consultation Requested: 03/19/2024
Date/Time Consultation Performed: 03/19/2024
Requesting Provider: Dr. Morataya
Performing Provider: Dr. Todd Lopez
Reason for Consultation: Hypoxemic respiratory failure/pneumonia
Medical History
-
Chief Complaint: Cough + shortness of breath
History of Present Illness:
78-year-old male never smoker with a past medical history of mild persistent asthma, chronic bronchitis, restrictive lung disease, history of PE, severe FLAQUITA, GERD, Parkinson disease, Rivera's esophagus, hypertension/hyperlipidemia, CAD, history of
stroke/TIA and dilated aortic root who recently was admitted to the hospital with COVID. At that time required oxygen supplementation. Chest x-ray at that time with retrocardiac opacity.
Of note he was recently hospitalized here at from 02/28 - 03/05/2024 due to left lower back pain with degenerative disc disease of L4-5 with axial symptoms diagnosed. He was also found to have a acute asthmatic exacerbation and was placed onto
breathing treatments. He also was found to be confused and diagnosed with toxic metabolic encephalopathy.
He was treated with the steroids and nebulizers.
-
Readmitted to [facility] 03/19/2024: Presented with lethargy and unresponsiveness. Apparently patient had an episode of vomiting diarrhea the day prior to admission. There is no reports of cough or fevers.
It is noted that during prior admissions he was noted to have risk for aspiration. And he was recommended a modified diet.
Apparently respiratory distress develop after patient had vomiting. Chest x-ray on admission showed patchy parenchymal opacity within the left lower lobe increased from prior.
Leukocytosis on admission
We were consulted on 03/19/2024 for evaluation and management of hypoxemia
Past medical history:
Of note, patient follows with us in the [facility] office with Dr. Sanchez with last visit on 10/22/2023. He is maintained on Arnuity Ellipta 200mcg for his history of asthma.
He does endorse dyspnea which is likely contributed by his sedentary lifestyle. He ambulates with a walker.
Pulmonary rehab was discussed but due to his ambulatory dysfunction he was not considered a candidate.
He was admitted to [facility] in May 2023 for stroke symptoms with confusion and reportedly had CO2 retention. He is on PAP with sleep and his BiPAP was adjusted from 02/08 to 15.
He does have a chronic cough producing more than 1 ounce of sputum daily which is clear in color.
He was previously on Daliresp but this was eventually denied by Medicare. He has suspected cough variant asthma.
He has had a history of near syncope with cough. Prior 6MWT on 12/28/2018 showed that he did not need oxygen. Last PFT from 10/22/2023 showed moderate/borderline severe restrictive lung defect with T% predicted (3.97 L) with a mild gas
exchange capacity defect which was normal when accounting for alveolar volume involved in gas exchange (DLco: 66%; DLco/VA: 111%).
-
PMHx: Chronic cough, mild persistent asthma, chronic bronchitis, restrictive lung disease, history of PE (bilateral diagnosed in July 2015 s/p left TKA treated with Coumadin), history of severe FLAQUITA, GERD, vasomotor rhinitis, Parkinson's disease,
gastric polyps, Rivera's esophagus, hypertension, history of TIA/stroke, diverticulosis, hyperlipidemia, dilated aortic root, CAD
PSHx: Back surgery, tonsillectomy, TKR, right knee arthroscopy x 2, cholecystectomy
Past Medical History
Past Medical History: Other (Above as per HPI)
Past Surgical History: Other (Above as per HPI)
Social History
Tobacco: Non-smoker
Alcohol: None
Drug: None
Personal:
Living: With Family
Family History
Family History: CAD (Father + mother), Diabetes (Sibling) and Other (Mother: Emphysema/COPD)
Allergies / Home Medications
Allergies
Allergy/AdvReac Type Severity Reaction Status Date / Time
adhesive tape Allergy redness;axel Verified 03/18/24 12:46
hy
reyna Allergy closes Verified 03/18/24 12:46
[address]
hydromorphone HCl Allergy makes him Verified 03/18/24 12:46
[From Dilaudid] loopy as
per spouse
Iodinated Contrast Media Allergy VOMITING/HI Verified 03/18/24 20:01
[Iodinated Contrast- Oral VES
and IV Dye]
iodine Allergy vomiting;hi Verified 03/18/24 12:46
ves
latex Allergy Rash Verified 03/18/24 20:01
oxycodone Allergy SEE BELOW Verified 03/18/24 12:46
aquacel dressing Allergy 'pulled Uncoded 03/18/24 12:46
skin off'
DARIUS stockings Allergy itching;axel Uncoded 03/18/24 12:46
h
Home Medications
�Medication �Instructions �Recorded �Confirmed �Last Taken �Type
escitalopram oxalate 10 mg tablet 10 mg PO HS depression/anxiety 09/12/16 03/18/24 08/21/23 History
metoprolol succinate 50 mg 50 mg PO BID Blood Pressure 09/12/16 03/18/24 08/21/23 History
tablet,extended release 24 hr
pravastatin 20 mg tablet 20 mg PO HS High Cholesterol 09/12/16 03/18/24 08/21/23 History
aspirin 81 mg tablet,delayed 81 mg PO DAILY Blood Clot 11/29/16 03/18/24 08/21/23 History
release Prevention/Tx
metformin 500 mg tablet 500 mg PO DAILY Diabetes 02/20/18 03/18/24 08/21/23 History
amlodipine 2.5 mg tablet 2.5 mg PO DAILY Blood Pressure 08/21/23 03/18/24 08/21/23 History
cyanocobalamin (vitamin B-12) 1,000 mcg PO DAILY Supplement 08/21/23 03/18/24 08/21/23 History
1,000 mcg tablet (Vitamin B-12)
fluticasone furoate 200 1 inh inhalation R BID 08/21/23 03/18/24 08/21/23 History
mcg/actuation blister powder for Lung/Breathing Issues
inhalation (Arnuity Ellipta)
folic acid 0.8 mg capsule 0.8 mg PO DAILY Supplement 08/21/23 03/18/24 08/21/23 History
mirtazapine 15 mg tablet 15 mg PO HS depression/sleep 08/21/23 03/18/24 08/21/23 History
carbidopa 25 mg-levodopa 100 mg 1 tab PO BID Parkinson's disease 02/26/24 03/18/24 Unknown History
tablet
ipratropium 0.5 mg-albuterol 3 mg 3 ml inhalation R Q4HPRN PRN 03/05/24 03/18/24 Unknown Rx
(2.5 mg base)/3 mL nebulization sob,wheezes,congestion #30 applic
soln
acetaminophen 325 mg tablet 650 mg PO Q4HPRN PRN fever 03/18/24 03/18/24 Unknown History
(Tylenol)
acetaminophen 500 mg tablet 1,000 mg PO Q4HPRN PRN mild pain 03/18/24 03/18/24 Unknown History
(Tylenol Extra Strength)
bisacodyl 10 mg rectal suppository 10 mg TX DAILYPRN PRN if no bm on 03/18/24 03/18/24 Unknown History
(Dulcolax (bisacodyl)) 5th day
bisacodyl 5 mg tablet,delayed 10 mg PO DAILY constipation 03/18/24 03/18/24 Unknown History
release
cholecalciferol (vitamin D3) 50 50 mcg PO DAILY Supplement 03/18/24 03/18/24 Unknown History
mcg (2,000 unit) tablet
clopidogrel 75 mg tablet 75 mg PO DAILY Blood Clot 03/18/24 03/18/24 Unknown History
Prevention/Tx
guaifenesin 600 mg tablet, 600 mg PO Q12 cough/congestion 03/18/24 03/18/24 Unknown History
extended release 12 hr
hydralazine 10 mg tablet 5 mg PO TID Blood Pressure 03/18/24 03/18/24 Unknown History
insulin aspart U-100 100 unit/mL 7 unit SC AC Diabetes 03/18/24 03/18/24 Unknown History
(3 mL) subcutaneous pen
insulin glargine-yfgn 100 unit/mL 32 unit SC BID Diabetes 03/18/24 03/18/24 Unknown History
subcutaneous solution
magnesium hydroxide 400 mg/5 mL 2,400 mg PO DAILYPRN PRN if no bm 03/18/24 03/18/24 Unknown History
oral suspension (Milk of Magnana) on 4th day
miconazole nitrate 2 % topical 1 applic topical HS Skin Issues 03/18/24 03/18/24 Unknown History
powder
polyethylene glycol 3350 17 gram 17 g PO HS Constipation 03/18/24 03/18/24 Unknown History
oral powder packet
prednisone 10 mg tablet 10 mg PO UD Anti-Inflammatory 03/18/24 03/18/24 Unknown History
sodium phosphates 19 gram-7 118 ml TX DAILYPRN PRN if no bm on 03/18/24 03/18/24 Unknown History
gram/118 mL enema (Fleet Enema) 6th day
Review of Systems
-
History Source: Patient
All other systems: Negative unless noted
Vitals / Labs / Diagnostic Testing
Vital Signs
Temp Pulse Resp BP Pulse Ox
97.4 F 67 16 162/69 93
03/19/24 15:47 03/19/24 15:55 03/19/24 15:55 03/19/24 15:47 03/19/24 15:55
Lab Data
03/19/24 07:04
03/19/24 07:04
Microbiology
03/18/24 17:01 Blood/Venous Blood Culture - Preliminary
No Growth in 24 hours- Final report to follow
03/18/24 16:52 Blood/Venous Blood Culture - Preliminary
No Growth in 24 hours- Final report to follow
03/19/24 04:53 Urine Legionella Urinary Antigen - Final
Negative for Legionella pneumophila Serogroup 1 antigen.
A negative result does not rule out the possiblity of
Legionella infection due to other serogroups or species of
Legionella. Clinical correlation is recommended.
03/19/24 04:53 Urine Streptococcus pneumoniae Antigen (M - Final
Negative for Streptococcus pneumoniae antigen.
A negative result does not exclude infection with
Streptococcus pneumoniae. Clinical correlation is
recommended.
Diagnostic Testing:
Physical Exam
-
HEENT: Normocephalic
Cardiovascular: S1/S2
Respiratory: Rales and Non-Labored Respirations
GI: Soft and Non Distended
Neurology: Awake, Alert and No Motor Deficits
Skin: Warm
Assessment
-
78-year-old man with complicated past medical history, recurrent admission microbiology workup negative multiple issues. Latest with hypoxemia post-COVID. Readmitted after having an episode of vomiting and diarrhea. Subsequently developed
respiratory distress. New left lower lobe infiltrate. Aspiration pneumonia suspected.
Acute hypoxemic respiratory failure due to aspiration pneumonia
Chest x-ray: Patchy parenchymal opacity within the left lower lung appears increased compared to March 12, 2024.
Status post nausea and vomiting
Toxic metabolic encephalopathy possibly on top of dementia
CT head no acute abnormalities. Changes suggestive of normal pressure hydrocephalus.
ABG 03/18/2024: 7.46/37/60
Severe obstructive sleep apnea-on CPAP therapy
Assessment and plan:
Possible aspiration pneumonia, chest x-ray with left lower lobe opacity.
He is currently on room air with pulse ox of 93%-he appears comfortable.
No exam with bilateral rhonchi-not bronchospastic
-
Agree with current antibiotics
Sputum culture if possible
So far microbiology workup negative.
Nebulizer for secretion clearance
Not bronchospastic on exam: Okay to continue with prednisone taper as previously prescribed.
Incentive spirometry as able
Acapella device
-
Modified diet based on prior speech evaluation speech to reevaluate.
-
Not bronchospastic on exam.
Continue nebulizer for secretion clearance
Restart inhalers as before admission
-
Primary team to rule out cardiac component.
Echocardiogram has been ordered
proBNP has been ordered
-
Oxygen supplementation has been weaned off
Continue to monitor and maintain above 90%.
-
DVT prophylaxis
-
at the bedside, updated by Dr. Lopez.
DNR/DNI
--- NOTE | 2024-03-19 20:10 | PTCARENOTE ---
1944> Patient telemetry alarmed 10 beat run of Vtach. Patient resting comfortably in bed. House CARRIER DRIVER made aware. BMP and Mag ordered. Echo ordered for tomorrow.
[2024-03-19 20:27] LABS: Blood Urea Nitrogen 30 mg/dl (9-20); Calcium 7.7 mg/dl (8.4-10.2); Carbon Dioxide 27 mmol/L (22-30); Chloride 101 mmol/L (98-107); Estimated Creatinine Clearance 64 ml/min; Glucose 244 mg/dl (70-99); Magnesium 2.1 mg/dl (1.6-2.3); Potassium 4.2 mmol/L (3.5-5.1); Sodium 137 mmol/L (135-145); eGFR > 60.00
[2024-03-19 20:56] LABS: Glucose - Point of Care 273 mg/dl (70-99)
[2024-03-19] MEDS: PRAVACHOL 20 MG PO (21:54)
[2024-03-19] MEDS: REMERON 15 MG PO (21:54)
[2024-03-19] MEDS: LEXAPRO 10 MG PO (21:55)
[2024-03-19] MEDS: DESENEX/MITRAZOL/ZEASORB 1 APPLIC TOPICAL (21:56)
[2024-03-20] VITALS (10 sets, daily range): BP systolic 126–171; BP diastolic 68–80; PULSE 2–80; O2SAT 96
[2024-03-20] MEDS: ZOSYN 50 IV ×4 (01:06→21:11)
[2024-03-20] MEDS: VANCOCIN 200 IV (05:22)
[2024-03-20] MEDS: DUONEB 3 ML INH ×4 (08:18→19:48)
[2024-03-20] MEDS: FLOVENT 110 MCG INHALER 2 PUFF INH ×2 (08:18→19:48)
[2024-03-20 09:10] LABS: Glucose - Point of Care 128 mg/dl (70-99)
[2024-03-20] MEDS: NOVOLOG FLEXPEN-LOW RESISTANCE SC (09:18)
[2024-03-20] MEDS: MUCINEX 600 MG PO ×2 (09:21→20:50)
[2024-03-20] MEDS: HEPARIN 5000 UNITS SC ×2 (09:22→20:49)
[2024-03-20] MEDS: DULCOLAX 10 MG PO (09:22)
[2024-03-20] MEDS: SINEMET 25-100 1 TABLET PO ×2 (09:22→20:51)
[2024-03-20] MEDS: ASPIR LOW (ENTERIC COATED) 81 MG PO (09:22)
[2024-03-20] MEDS: TOPROL XL 50 MG PO ×2 (09:22→20:50)
[2024-03-20] MEDS: NORVASC 2.5 MG PO (09:22)
[2024-03-20] MEDS: PLAVIX 75 MG PO (09:22)
[2024-03-20] MEDS: VITAMIN D3 (cholecalciferol) 50 MCG PO (09:27)
[2024-03-20] MEDS: DELTASONE 30 MG PO (09:27)
[2024-03-20] MEDS: FOLVITE 0.8 MG PO (09:28)
[2024-03-20] MEDS: APRESOLINE 5 MG PO ×3 (09:28→21:22)
[2024-03-20] MEDS: VITAMIN B-12 1000 MCG PO (09:28)
--- NOTE | 2024-03-20 09:36 | W.PN.HOSP.TC ---
Today's Communication/Plan
-
Stop Vancomycin
Resume Lantus
c/w Zosyn
Assessment / Plan
Assessment / Plan
Physical Exam
General: Morbidly obese, no acute distress.
HEENT: Normocephalic, Atraumatic
Respiratory: crackles both sides.
Cardiac: Normal S1/S2.
GI: Soft, Nontender, Nondistended, Normal Bowel Sounds
Extremities: No Clubbing, Cyanosis, or Edema
Derm: Sacrum Stage 1 Pressure Injury
neuro: awake, followed commands
Psych: calm
# Acute on chronic Hypoxemic respiratory failure secondary to likely aspiration pneumonia. Hx of vomiting that proceeded the respiratory distress.
# Recent hypoxemic respiratory failure secondary to COVID
-Chest x-ray shows patchy parenchymal opacity within the left lower lung increased from recent chest x-ray suspicious for pneumonia
-ABG showed pH of 7.46, pCO2 of 37, pO2 of 60
-Patient currently on 2 L oxygen then off
-Tested negative Legionella, strep pneumoniae on 03/08
- Negative MRSA, Legionella, strep antigen
-Vomiting and diarrhea, both resolved
-s/p IV Vancomycin/Zosyn with good clinical improvement, will keep Zosyn only.
-Prednisone taper to continue ( already ordered)
- Speech evaluation
- Low Pro-BNP, to f/w Echo on Thursday
-Pulmonary consulted
#Severe obstructive sleep apnea
-On BiPAP at night
Chronic bronchitis/restrictive lung disease/asthma
-Continue annually Ellipta
-DuoNeb every 6 hours
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
History of VT
# MAT, no documented hx of A fib
-Continue metoprolol & aspirin
#Essential hypertension
-Continue amlodipine, hydralazine
#Type 2 diabetes
- Resume long acting insulin twice daily
-Insulin sliding scale
-Hold metformin
#GERD
#History of CVA/TIA
-Continue aspirin and Plavix
-Continue statin
#Anxiety/depression
-Continue Lexapro, mirtazapine
#Parkinson's disease
-Continue carbidopa-levodopa
#L4-L5 bulging disc
#Chronic ambulatory dysfunction
#Sacral stage I decubitus ulcer
DNR/DNI
DVT prophylaxis�SCDs
Diabetic diet
Total time spent to see the patient on the floor, examine the patient, review data and lab results, discuss treatment plan with patient, nursing staff around 57 minutes.
Anticipated Discharge: > 48 hours
Subjective/Interval History
-
Date of Service: March 20, 2024
No chest pain
No fevers
Tolerating modified diet
He feels sob is less
Objective Data
-
Vital Signs:
Vital Signs
Temp Pulse Resp BP Pulse Ox
98.4 F 73 18 126/69 96
03/20/24 07:15 03/20/24 08:22 03/20/24 08:22 03/20/24 07:15 03/20/24 08:22
I&O
03/19/24 03/20/24 03/21/24
06:59 06:59 06:59
Intake Total 850 / 850 1620 / 1620
Balance 850 / 850 1620 / 1620
[2024-03-20 12:59] LABS: Glucose - Point of Care 192 mg/dl (70-99)
--- NOTE | 2024-03-20 13:11 | W.PN.PUL3 ---
Today's Communication / Plan
-
Continue current antibiotic therapy
Aspiration precautions
Nebulizers as needed
Continue inhaled corticosteroid as prior admission
Prednisone taper
Radiographic follow-up in the future
Pulmonary will continue to follow briefly
Assessment
-
78-year-old man with complicated past medical history, recurrent admission microbiology workup negative multiple issues. Latest with hypoxemia post-COVID. Readmitted after having an episode of vomiting and diarrhea. Subsequently developed
respiratory distress. New left lower lobe infiltrate. Aspiration pneumonia suspected.
Acute hypoxemic respiratory failure due to aspiration pneumonia
Chest x-ray: Patchy parenchymal opacity within the left lower lung appears increased compared to March 12, 2024.
Status post nausea and vomiting
Toxic metabolic encephalopathy possibly on top of dementia
CT head no acute abnormalities. Changes suggestive of normal pressure hydrocephalus.
ABG 03/18/2024: 7.46/37/60
Severe obstructive sleep apnea-on CPAP therapy
Assessment and plan:
Possible aspiration pneumonia, chest x-ray with left lower lobe opacity. New compared to prior.
He is currently on room air with pulse ox of 97%-he appears comfortable.
No exam with bilateral rhonchi-not bronchospastic
-
Agree with current antibiotics-Zosyn. She completed 5 to 7 days of antibiotics.
Vancomycin has been discontinued. MRSA screening negative
Negative Legionella and streptococcal pneumonia
Negative blood cultures
Sputum culture if possible-unable to produce.
-
Nebulizer for secretion clearance on as-needed basis.
Continue fluticasone inhaler which he takes in the outpatient setting.
Not bronchospastic on exam: Okay to continue with prednisone taper as previously prescribed.
Incentive spirometry as able
Acapella device encourage if patient able to use.
-
Modified diet based on prior speech evaluation-level 4 with pur�e and modify thick liquids. 100% supervision with meals. High risk for aspiration.
-
Not bronchospastic on exam.
Continue nebulizer for secretion clearance
Restart inhalers as before admission
-
Primary team to rule out cardiac component.
Echocardiogram has been ordered
proBNP has been ordered
-
Oxygen supplementation has been weaned off
Continue to monitor and maintain above 90%.
-
DVT prophylaxis
-
at the bedside, updated by Dr. Lopez. On 03/19/2024
DNR/DNI
Subjective Data
-
Date of Service:
Date of Service: March 20, 2024
Chief Complaint: Pulmonary Follow Up (Acute hypoxemic respiratory insufficiency/suspected aspiration)
Subjective:
Patient offers no new complaints
Oxygen has been weaned off
No significant phlegm production
Review of Systems
General: Fever (n)
Cardiopulmonary: Dyspnea (none at rest), Sputum Production (n) and Wheezing (n)
GI: Abdominal Pain (n)
Objective Data
Data Reviewed
Vital Signs / I&O / Oxygen:
Vital Signs
Temp Pulse Resp BP Pulse Ox
98.2 F 85 20 159/76 97
03/20/24 12:20 03/20/24 12:20 03/20/24 12:20 03/20/24 12:20 03/20/24 11:31
Intake and Output
03/19/24 03/20/24 03/21/24
06:59 06:59 06:59
Intake Total 850 / 850 1620 / 1620
Balance 850 / 850 1620 / 1620
SaO2 97
Nasal Cannula flow liters per 3
minute
Physical Exam
General: Comfortable
HEENT: Normocephalic
Cardiovascular: S1-S2
Respiratory: Non-Labored Respirations and Other (Decreased breath sounds both bases)
GI: Soft and Distended (Obese)
Neurology: Awake and Alert
Skin: Warm
Labs/Micro/Reports
Lab Data
03/19/24 07:04
03/19/24 20:03
Microbiology
03/18/24 20:29 Nose MRSA Screen - Final
No Methicillin Resistant Staphylococcus aureus isolated.
03/18/24 17:01 Blood/Venous Blood Culture - Preliminary
No Growth in 24 hours- Final report to follow
03/18/24 16:52 Blood/Venous Blood Culture - Preliminary
No Growth in 24 hours- Final report to follow
03/19/24 04:53 Urine Legionella Urinary Antigen - Final
Negative for Legionella pneumophila Serogroup 1 antigen.
A negative result does not rule out the possiblity of
Legionella infection due to other serogroups or species of
Legionella. Clinical correlation is recommended.
03/19/24 04:53 Urine Streptococcus pneumoniae Antigen (M - Final
Negative for Streptococcus pneumoniae antigen.
A negative result does not exclude infection with
Streptococcus pneumoniae. Clinical correlation is
recommended.
[2024-03-20] MEDS: NOVOLOG FLEXPEN-LOW RESISTANCE 1 UNITS SC (13:48)
--- NOTE | 2024-03-20 16:34 | CM ---
is manager reviewed patient's chart and met with patient and spouse at bedside, patient was recently discharged from [place], patient lives with spouse requires assist with adl's and uses a walker and w/c with ambulation. Patient has a
stair glide, and BiPAP in home, patient has had [facility] in past and has been to [facility] skilled, and skilled at [facility].
Patient and spouse want home when stable, but are looking for more aggressive therapy in home. Patient's spouse also interested and plans on reaching out to [facility] at discharge.
PCP: Isabel Carrera
Pharmacy: [facility] in [place]
Plan; [facility] with home therapy at discharge.
[2024-03-20 17:13] LABS: Glucose - Point of Care 290 mg/dl (70-99)
[2024-03-20] MEDS: NOVOLOG FLEXPEN-LOW RESISTANCE 3 UNITS SC (17:56)
[2024-03-20] MEDS: LEXAPRO 10 MG PO (21:12)
[2024-03-20] MEDS: DESENEX/MITRAZOL/ZEASORB 1 APPLIC TOPICAL (21:17)
[2024-03-20] MEDS: PRAVACHOL 20 MG PO (21:22)
[2024-03-20] MEDS: REMERON 15 MG PO (21:22)
[2024-03-20] MEDS: LANTUS 0.3 UNITS SC (21:36)
[2024-03-20 21:37] LABS: Glucose - Point of Care 212 mg/dl (70-99)
[2024-03-21] VITALS (7 sets, daily range): BP systolic 138–175; BP diastolic 61–92; PULSE 2–82
[2024-03-21] MEDS: ZOSYN 50 IV ×2 (02:53→11:17)
[2024-03-21 04:05] LABS: Hematocrit 43.4 % (39.0-52.0); Hemoglobin 14.3 g/dL (13.0-18.0); Mean Corp Hgb Conc. 32.9 g/dL (33.0-37.0); Mean Corpuscular Hgb 31.4 pg (27.0-31.0); Mean Corpuscular Volume 95.4 fL (80.0-94.0); Mean Platelet Volume 10.7 fL (7.4-10.4); Platelet Count 131 10^3/uL (130-400); Red Blood Cell Count 4.55 10^6/uL (4.70-6.10); Red Cell Dist. Width 14.1 % (11.5-14.5)
--- NOTE | 2024-03-21 07:22 | W.PN.HOSP.TC ---
Today's Communication/Plan
-
Doing better
Await echo results (echo already completed)
Transition to oral antibiotics
Keep potassium >4 and magnesium >2 (asymptomatic NSVT on tele)
Assessment / Plan
Assessment / Plan
Physical Exam
General: Morbidly obese, no acute distress.
HEENT: Normocephalic, Atraumatic
Respiratory: Decreased breath sounds bilaterally.
Cardiac: Normal S1/S2.
GI: Soft, Nontender, Nondistended, Normal Bowel Sounds
Extremities: No cyanosis. No Edema
Derm: Sacrum Stage 1 Pressure Injury
neuro: awake, followed commands
Psych: calm
Assessment/Plan
# Acute on chronic Hypoxemic respiratory failure secondary to likely LLL aspiration pneumonia, with history of vomiting that preceded the respiratory distress.
# Recent hypoxemic respiratory failure secondary to COVID
# Vomiting and diarrhea, both resolved
-Chest x-ray showed patchy parenchymal opacity within the left lower lung increased from recent chest x-ray suspicious for pneumonia
-Previously weaned off oxygen -- now on room air
-Microbiology studies/cultures unremarkable
-s/p IV Vancomycin/Zosyn with good clinical improvement, switched to Augmentin 875 mg BID through 03/25/24 (total of 5 to 7 days of antibiotics)
-Continue Prednisone taper
-Speech evaluation recommendations appreciated, pureed diet
-Low Pro-BNP, Echocardiogram completed -- awaiting result
-Pulmonary consulted
#Severe obstructive sleep apnea - on home CPAP therapy
-On BiPAP at night
#Chronic bronchitis/restrictive lung disease/asthma
-Continue annually Ellipta
-DuoNeb every 6 hours
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
History of VT
#NSVT on telemetry monitoring
-Asymptomatic
-Maintain potassium >4 and magnesium >2
# MAT, no documented hx of A fib
-Continue metoprolol & aspirin
#Essential hypertension
-Continue amlodipine, hydralazine
#Type 2 diabetes mellitus
-Continue long acting insulin twice daily
-Insulin sliding scale
-Hold metformin
#GERD
#History of CVA/TIA
-Continue aspirin and Plavix
-Continue statin
#Anxiety/depression
-Continue Lexapro, mirtazapine
#Parkinson's disease
-Continue carbidopa-levodopa
#L4-L5 bulging disc
#Chronic ambulatory dysfunction
#Sacral stage I decubitus ulcer
DNR/DNI
DVT prophylaxis�SCDs and Lovenox.
Diabetic diet
Disposition: PT/OT recommended SNF
Anticipated Discharge: Within 24 hours
Subjective/Interval History
-
Date of Service: March 21, 2024
Patient was seen and examined. He denied any chest pain, shortness of breath or any other complaints.
Objective Data
-
Labs:
Laboratory Results
03/21/24 03/21/24
03:45 04:05
WBC 9.0
Hgb 14.3
Hct 43.4
Plt Count 131
Sodium Cancelled Pending
Potassium Cancelled Pending
Chloride Cancelled Pending
Carbon Dioxide Cancelled Pending
BUN Cancelled Pending
Creatinine Cancelled Pending
Glucose Cancelled Pending
Calcium Cancelled Pending
Vital Signs:
Vital Signs
Temp Pulse Resp BP Pulse Ox
98.3 F 79 18 162/70 95
03/21/24 03:37 03/21/24 03:37 03/21/24 03:37 03/21/24 03:37 03/21/24 03:37
I&O
03/20/24 03/21/24 03/22/24
06:59 06:59 06:59
Intake Total 1620 / 1620
Balance 1620 / 1620
[2024-03-21 08:02] LABS: Glucose - Point of Care 168 mg/dl (70-99)
[2024-03-21] MEDS: FLOVENT 110 MCG INHALER 2 PUFF INH ×2 (08:09→20:02)
[2024-03-21] MEDS: DUONEB 3 ML INH ×4 (08:09→20:02)
--- NOTE | 2024-03-21 09:11 | W.PN.PUL.V3 ---
Today's Communication / Plan
-
Aspiration precautions
Antibiotics
Wean oxygen
Echocardiogram pending
Assessment
-
78-year-old man with complicated past medical history, recurrent admission microbiology workup negative multiple issues. Latest with hypoxemia post-COVID. Readmitted after having an episode of vomiting and diarrhea. Subsequently developed
respiratory distress. New left lower lobe infiltrate. Aspiration pneumonia suspected.
Acute hypoxemic respiratory failure due to aspiration pneumonia
Chest x-ray: Patchy parenchymal opacity within the left lower lung appears increased compared to March 12, 2024.
Status post nausea and vomiting
Toxic metabolic encephalopathy possibly on top of dementia
CT head no acute abnormalities. Changes suggestive of normal pressure hydrocephalus.
ABG 03/18/2024: 7.46/37/60
Severe obstructive sleep apnea-on CPAP therapy
DNR/DNI
Plan
Respiratory status relatively stable
Supplemental oxygen as needed
Aspiration precautions
Speech therapy following
Mucolytic's
Mucus clearing devices if able
Prednisone 30 mg mg total daily
On Flovent
Nebulizers if needed-currently not bronchospastic
Cultures reviewed
Wsfcrldyloq-Cwewk-xvtgnalm 5 to 7 days
Vancomycin discontinued
Monitor blood sugar
Insulin supplementation as needed
Check echocardiogram-pending
DVT prophylaxis-on heparin
Nutrition-Per speech therapy evaluation, pur�ed with modified thickened liquids, supervision-high risk for aspiration
at the bedside, updated by Dr. Lopez. On 03/19/2024
Subjective Data
-
Date of Service:
Date of Service: March 21, 2024
Chief Complaint: Pulmonary Follow Up (Acute hypoxemic respiratory insufficiency/suspected aspiration) and Dyspnea Follow Up
Subjective:
Denies any shortness of breath, chest pain, hungry and would like to eat, no abdominal pain
Review of Systems
General: Other (Per HPI)
Objective Data
Data Reviewed
Vital Signs / I&O:
Vital Signs
Temp Pulse Resp BP Pulse Ox
97.3 F 70 16 152/87 96
03/21/24 07:55 03/21/24 08:12 03/21/24 08:12 03/21/24 07:55 03/21/24 08:12
Intake and Output
03/20/24 03/21/24 03/22/24
06:59 06:59 06:59
Intake Total 1620 / 1620
Balance 1620 / 1620
SaO2: 96
Nasal Cannula flow liters per minute: 3
Physical Exam
General: Respiratory Distress (n) and Comfortable
HEENT: Normocephalic
Cardiovascular: Regular Rhythm
Respiratory: Wheeze (n), Crackles (n), Non-Labored Respirations, Accessory Resp Muscle Use (n) and Other (Decreased breath sounds both bases)
GI: Soft and Distended (Obese)
Neurology: Awake, Alert and No Motor Deficits
Skin: Warm, Good Color, Cyanosis (n) and Jaundice (n)
Labs/Micro/Reports
Lab Data
03/21/24 03:45
Microbiology
03/18/24 17:01 Blood/Venous Blood Culture - Preliminary
No Growth in 48 hours- Final report to follow
03/18/24 16:52 Blood/Venous Blood Culture - Preliminary
No Growth in 48 hours- Final report to follow
03/18/24 20:29 Nose MRSA Screen - Final
No Methicillin Resistant Staphylococcus aureus isolated.
03/19/24 04:53 Urine Legionella Urinary Antigen - Final
Negative for Legionella pneumophila Serogroup 1 antigen.
A negative result does not rule out the possiblity of
Legionella infection due to other serogroups or species of
Legionella. Clinical correlation is recommended.
03/19/24 04:53 Urine Streptococcus pneumoniae Antigen (M - Final
Negative for Streptococcus pneumoniae antigen.
A negative result does not exclude infection with
Streptococcus pneumoniae. Clinical correlation is
recommended.
[2024-03-21 09:22] LABS: Blood Urea Nitrogen 21 mg/dl (9-20); Calcium 7.9 mg/dl (8.4-10.2); Carbon Dioxide 29 mmol/L (22-30); Chloride 104 mmol/L (98-107); Estimated Creatinine Clearance 86 ml/min; Glucose 127 mg/dl (70-99); Potassium 3.7 mmol/L (3.5-5.1); Sodium 139 mmol/L (135-145); eGFR > 60.00
[2024-03-21] MEDS: NOVOLOG FLEXPEN-LOW RESISTANCE 1 UNITS SC ×3 (11:17→18:29)
[2024-03-21] MEDS: NORVASC 2.5 MG PO (11:17)
[2024-03-21] MEDS: FOLVITE 0.8 MG PO (11:17)
[2024-03-21] MEDS: ASPIR LOW (ENTERIC COATED) 81 MG PO (11:17)
[2024-03-21] MEDS: DELTASONE 20 MG PO (11:18)
[2024-03-21] MEDS: TOPROL XL 50 MG PO ×2 (11:18→21:47)
[2024-03-21] MEDS: SINEMET 25-100 1 TABLET PO ×2 (11:18→21:47)
[2024-03-21] MEDS: DULCOLAX 10 MG PO (11:18)
[2024-03-21] MEDS: MUCINEX 600 MG PO ×2 (11:18→21:46)
[2024-03-21] MEDS: APRESOLINE 5 MG PO ×3 (11:18→22:17)
[2024-03-21] MEDS: VITAMIN B-12 1000 MCG PO (11:18)
[2024-03-21] MEDS: VITAMIN D3 (cholecalciferol) 50 MCG PO (11:18)
[2024-03-21] MEDS: PLAVIX 75 MG PO (11:18)
[2024-03-21] MEDS: HEPARIN 5000 UNITS SC ×2 (11:19→21:46)
[2024-03-21 11:32] LABS: Glucose - Point of Care 171 mg/dl (70-99)
[2024-03-21] MEDS: KCL 40 MEQ PO (12:38)
[2024-03-21] MEDS: LANTUS 0.3 UNITS SC ×2 (12:38→22:13)
--- NOTE | 2024-03-21 12:49 | CM ---
CM reviewed chart, patient seen bedside with . Per , patient was at [facility] for 24 hours. would like to bring patient home with VN services and private caregivers. is also looking into private therapist. CM will provide list of
private duty caregivers. reports they live on a first floor set up, one step to enter the home. CM will continue to follow for all discharge planning needs.
Plan; home with VN and private caregivers, not interested in returning to SNF.
[2024-03-21 16:34] LABS: Glucose - Point of Care 185 mg/dl (70-99)
[2024-03-21] MEDS: AUGMENTIN 875 MG/125 MG 1 TABLET PO (21:45)
[2024-03-21 21:56] LABS: Glucose - Point of Care 215 mg/dl (70-99)
[2024-03-21] MEDS: DESENEX/MITRAZOL/ZEASORB 1 APPLIC TOPICAL (22:06)
[2024-03-21] MEDS: LEXAPRO 10 MG PO (22:12)
[2024-03-21] MEDS: PRAVACHOL 20 MG PO (22:12)
[2024-03-21] MEDS: REMERON 15 MG PO (22:13)
[2024-03-22] VITALS (8 sets, daily range): BP systolic 143–174; BP diastolic 68–80; PULSE 2–68; O2SAT 93
[2024-03-22] MEDS: DUONEB 3 ML INH ×4 (07:27→20:04)
[2024-03-22] MEDS: FLOVENT 110 MCG INHALER 2 PUFF INH ×2 (07:27→20:04)
[2024-03-22 07:42] LABS: Glucose - Point of Care 160 mg/dl (70-99)
[2024-03-22] MEDS: NOVOLOG FLEXPEN-LOW RESISTANCE 1 UNITS SC ×2 (08:39→13:28)
[2024-03-22] MEDS: LANTUS 0.3 UNITS SC ×2 (08:40→23:09)
[2024-03-22] MEDS: FOLVITE 0.8 MG PO (08:40)
[2024-03-22] MEDS: APRESOLINE 5 MG PO ×3 (08:40→23:18)
[2024-03-22] MEDS: MUCINEX 600 MG PO ×2 (08:41→20:05)
[2024-03-22] MEDS: VITAMIN B-12 1000 MCG PO (08:41)
[2024-03-22] MEDS: DELTASONE 20 MG PO (08:41)
[2024-03-22] MEDS: ASPIR LOW (ENTERIC COATED) 81 MG PO (08:41)
[2024-03-22] MEDS: SINEMET 25-100 1 TABLET PO ×2 (08:41→20:05)
[2024-03-22] MEDS: AUGMENTIN 875 MG/125 MG 1 TABLET PO ×2 (08:41→20:01)
[2024-03-22] MEDS: NORVASC 2.5 MG PO (08:42)
[2024-03-22] MEDS: PLAVIX 75 MG PO (08:42)
[2024-03-22] MEDS: TOPROL XL 50 MG PO ×2 (08:42→20:06)
[2024-03-22] MEDS: DULCOLAX 10 MG PO (08:42)
[2024-03-22] MEDS: VITAMIN D3 (cholecalciferol) 50 MCG PO (08:42)
[2024-03-22] MEDS: HEPARIN 5000 UNITS SC ×2 (08:43→20:02)
--- NOTE | 2024-03-22 09:49 | W.PN.PUL.V3 ---
Today's Communication / Plan
-
Continue BiPAP 15/8 cm with set rate to 12
Wean oxygen
Continue nebulizers
Continue prednisone
Aspiration precautions
Will continue to have tenuous respiratory status for the foreseeable future with high risk of repetitive rehospitalization's
Assessment
-
78-year-old man with complicated past medical history, recurrent admission microbiology workup negative multiple issues. Latest with hypoxemia post-COVID. Readmitted after having an episode of vomiting and diarrhea. Subsequently developed
respiratory distress. New left lower lobe infiltrate. Aspiration pneumonia suspected.
Acute hypoxemic respiratory failure due to aspiration pneumonia
Chest x-ray: Patchy parenchymal opacity within the left lower lung appears increased compared to March 12, 2024.
Status post nausea and vomiting
Toxic metabolic encephalopathy possibly on top of dementia
CT head no acute abnormalities. Changes suggestive of normal pressure hydrocephalus.
ABG 03/18/2024: 7.46/37/60
Severe obstructive sleep apnea-on CPAP therapy
DNR/DNI
Plan
Respiratory status relatively stable-minimal reserve
Supplemental oxygen as needed-assess discharge supplemental oxygen needs prior to discharge
Aspiration precautions
Speech therapy following
Mucolytic's
Mucus clearing devices if able
Prednisone 30 mg mg total daily
On Flovent
Nebulizers if needed-currently not bronchospastic
Continue BiPAP 15/8 cm with set rate to 12
Cultures reviewed
Ilcclejhzvz-Eiayy-lkepyyvl 5 to 7 days
Vancomycin discontinued
Monitor blood sugar
Insulin supplementation as needed
Echocardiogram 03/21/2024-EF 55-60%, intermediate diastolic dysfunction, mild mitral regurgitation
DVT prophylaxis-on heparin
Nutrition-Per speech therapy evaluation, pur�ed with modified thickened liquids, supervision-high risk for aspiration
Overall improving but tenuous respiratory status and high risk for repetitive rehospitalization's
at the bedside, updated by Dr. Lopez. On 03/19/2024
Subjective Data
-
Date of Service:
Date of Service: March 22, 2024
Chief Complaint: Pulmonary Follow Up (Acute hypoxemic respiratory insufficiency/suspected aspiration) and Dyspnea Follow Up
Subjective:
Short of breath with conversation, difficulties mobilizing secretions, no chest pain, denies worsening shortness of breath or abdominal pain
Review of Systems
General: Other (Per HPI)
Objective Data
Data Reviewed
Vital Signs / I&O:
Vital Signs
Temp Pulse Resp BP Pulse Ox
97.4 F 61 20 174/80 100
03/22/24 07:59 03/22/24 08:42 03/22/24 07:59 03/22/24 08:40 03/22/24 07:59
Intake and Output
03/21/24 03/22/24 03/23/24
06:59 06:59 06:59
Intake Total 1000 / 1000
Balance 1000 / 1000
SaO2: 100
Nasal Cannula flow liters per minute: 3
Physical Exam
General: Respiratory Distress (n) and Comfortable
HEENT: Normocephalic
Cardiovascular: Regular Rhythm
Respiratory: Wheeze (n), Crackles (n), Non-Labored Respirations, Accessory Resp Muscle Use (n) and Other (Decreased breath sounds both bases)
GI: Soft and Distended (Obese)
Neurology: Awake, Alert and No Motor Deficits
Skin: Warm, Good Color, Cyanosis (n) and Jaundice (n)
Labs/Micro/Reports
Lab Data
03/21/24 03:45
Microbiology
03/18/24 17:01 Blood/Venous Blood Culture - Preliminary
No Growth in 72 hours- Final report to follow
03/18/24 16:52 Blood/Venous Blood Culture - Preliminary
No Growth in 72 hours- Final report to follow
03/18/24 20:29 Nose MRSA Screen - Final
No Methicillin Resistant Staphylococcus aureus isolated.
03/19/24 04:53 Urine Legionella Urinary Antigen - Final
Negative for Legionella pneumophila Serogroup 1 antigen.
A negative result does not rule out the possiblity of
Legionella infection due to other serogroups or species of
Legionella. Clinical correlation is recommended.
03/19/24 04:53 Urine Streptococcus pneumoniae Antigen (M - Final
Negative for Streptococcus pneumoniae antigen.
A negative result does not exclude infection with
Streptococcus pneumoniae. Clinical correlation is
recommended.
--- NOTE | 2024-03-22 10:11 | W.PN.HOSP.TC ---
Addendum entered and electronically signed by Az Patel MD 03/22/24 13:11:
Discharge cancelled since: Patient's said that she is considering obtaining a private caregiver for the patient vs. acute rehab on discharge, neither of which cannot happen today, as per patient's and case management. Patient and his
would like patient to have a VSE performed while patient is hospitalized.
Original Note:
Today's Communication/Plan
-
Discharge today
Assessment / Plan
Assessment / Plan
Physical Exam
General: Morbidly obese, no acute distress.
HEENT: Normocephalic, Atraumatic
Respiratory: Decreased breath sounds bilaterally.
Cardiac: Normal S1/S2.
GI: Soft, Nontender, Nondistended, Normal Bowel Sounds
Extremities: No cyanosis. No Edema
Derm: Sacrum Stage 1 Pressure Injury
Neuro: Awake, followed commands
Psych: Calm
Assessment/Plan
# Acute on chronic Hypoxemic respiratory failure secondary to likely LLL aspiration pneumonia, with history of vomiting that preceded the respiratory distress.
# Recent hypoxemic respiratory failure secondary to COVID
# Vomiting and diarrhea, both resolved
-Chest x-ray showed patchy parenchymal opacity within the left lower lung increased from recent chest x-ray suspicious for pneumonia
-Previously weaned off oxygen -- now on room air
-Microbiology studies/cultures unremarkable
-s/p IV Vancomycin/Zosyn with good clinical improvement, switched to Augmentin 875 mg BID through 03/25/24 (total of 5 to 7 days of antibiotics)
-Continue Prednisone taper (continue on 03/23/24 with 10 mg daily x3 days)
-Speech evaluation recommendations appreciated, pureed diet
-Low Pro-BNP. Echocardiogram showed EF of 55 to 60%, mildly dilated aortic root, but since July 2015 echo shows no significant
change
-Pulmonary evaluation and recommendations appreciated
#Severe obstructive sleep apnea - on home CPAP therapy
-On BiPAP at night
#Chronic bronchitis/restrictive lung disease/asthma
-Continue annually Ellipta
-DuoNeb every 6 hours
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
History of VT
#NSVT on telemetry monitoring
-Asymptomatic
-Maintain potassium >4 and magnesium >2
# MAT, no documented history of A fib
-Continue metoprolol & aspirin
#Essential hypertension
-Continue amlodipine, hydralazine
#Type 2 diabetes mellitus
-Continue long acting insulin twice daily
-Insulin sliding scale
-Hold metformin
#GERD
#History of CVA/TIA
-Continue aspirin and Plavix
-Continue statin
#Anxiety/depression
-Continue Lexapro, mirtazapine
#Parkinson's disease
-Continue carbidopa-levodopa
#L4-L5 bulging disc
#Chronic ambulatory dysfunction
#Sacral stage I decubitus ulcer
DNR/DNI
DVT prophylaxis�SCDs and Lovenox.
Diabetic diet
Disposition: PT/OT recommended SNF
More than 30 minutes spent in discharge including
Final examination of the patient
Summarizing hospital stay
Instructions for continuing care to all relevant caregivers
Preparation of discharge records, prescriptions, and referral forms
Total time spent (in minutes): 42
Anticipated Discharge: Today
Subjective/Interval History
-
Date of Service: March 22, 2024
Patient was seen and examined. He denied any chest pain, palpitations, dizziness, shortness of breath, abdominal pain or any other new symptoms or complaints.
Objective Data
-
Labs:
Laboratory Results
03/22/24
09:30
Sodium Pending
Potassium Pending
Chloride Pending
Carbon Dioxide Pending
BUN Pending
Creatinine Pending
Glucose Pending
Calcium Pending
Vital Signs:
Vital Signs
Temp Pulse Resp BP Pulse Ox
97.4 F 61 20 174/80 100
03/22/24 07:59 03/22/24 08:42 03/22/24 07:59 03/22/24 08:40 03/22/24 09:50
I&O
03/21/24 03/22/24 03/23/24
06:59 06:59 06:59
Intake Total 1000 / 1000
Balance 1000 / 1000
--- NOTE | 2024-03-22 10:57 | CM ---
Addendum entered by Annie Smith 03/22/24 12:37:
CM spoke with , [facility] (El) coming to meet with patient and in Hospital at 2:00 p.m. reports per El, patient will need 24/7 care at home, hospital bed. will discuss SNF again with patient when El is here. TT to
nurse and Hospitalist with update.
Original Note:
CM reviewed chart, patient seen bedside with . CM provided private caregiver list/pamphlets to . confirms she does not want patient to go to rehab and wants to bring home with [facility] and caregivers, TT to [facility] liaison with referral. CM
will continue to follow for all discharge planning needs.
Plan; home with , [facility], to set up private caregivers, not agreeable to SNF.
[2024-03-22 11:54] LABS: Blood Urea Nitrogen 19 mg/dl (9-20); Calcium 8.2 mg/dl (8.4-10.2); Carbon Dioxide 26 mmol/L (22-30); Chloride 102 mmol/L (98-107); Estimated Creatinine Clearance 96 ml/min; Glucose 149 mg/dl (70-99); Potassium 4.2 mmol/L (3.5-5.1); Sodium 138 mmol/L (135-145); eGFR > 60.00
[2024-03-22 11:58] LABS: Glucose - Point of Care 162 mg/dl (70-99)
--- NOTE | 2024-03-22 12:38 | VNURNOTE ---
Home Health Liaison met with patient and spouse at bedside to discuss [facility] nurse/therapy, visits, schedule and homebound status. Patient refusing SNF. Spouse in process of setting up 24 hr caregivers. She has an appt with [facility] later today.
[facility], have had services in the past. Both understand that visits at home will be 2-3 x per week to assess and teach medical management.
[facility] brochure provided with contact information. Patient and spouse aware that [facility] will contact them for start of care in 1-2 days after discharge from . Spouse intermittently tearful, appeared overwhelmed. Emotional support provided. Patient
will need hospital bed and neb machine. Request for notes sent to hospitalist. CM updated on above. [facility] referral completed in [facility].
--- NOTE | 2024-03-22 13:01 | VNURNOTE ---
Addendum: confirmed with spouse Roselyn that patient has a nebulizer machine at home.
--- NOTE | 2024-03-22 13:01 | PTOTSP ---
ST Follow-Up
Pt currently presents with clinical signs of suspected moderate oropharyngeal dysphagia characterized by suspected premature posterior loss, suspected airway invasion of solids/liquids, as well as suspected pharyngeal retention. VFSS recommended to
gather more information at this time.
Recommendations:
- Continue with MODERATELY THICK LIQUIDS and PUREED SOLIDS with meds whole in puree - crushed as needed.
- Aspiration precautions: HOB upright for all PO intake; close supervision; small bites/sips; no straws; slow intake rate.
- VFSS for more information.
- [employer] to provide additional recommendations upon completion of VFSS.
--- NOTE | 2024-03-22 14:41 | RESPNOTE ---
Ambulatory pulse ox ordered on this patient for evaluation of home oxygen. Patient stated that he has only sat in the chair and has not walked in over three weeks. Sent tiger text to Dr Patel and suggested patient to be seen by PT first to
evaluate if he can walk safely. Will hold ambulatory pulse ox until it is safe for him to walk.
[2024-03-22 16:56] LABS: Glucose - Point of Care 237 mg/dl (70-99)
[2024-03-22] MEDS: NOVOLOG FLEXPEN-LOW RESISTANCE 2 UNITS SC (17:42)
[2024-03-22 21:53] LABS: Glucose - Point of Care 203 mg/dl (70-99)
[2024-03-22 23:12] LABS: Glucose - Point of Care 207 mg/dl (70-99)
[2024-03-22] MEDS: DESENEX/MITRAZOL/ZEASORB 1 APPLIC TOPICAL (23:21)
[2024-03-22] MEDS: LEXAPRO 10 MG PO (23:22)
[2024-03-22] MEDS: PRAVACHOL 20 MG PO (23:22)
[2024-03-22] MEDS: REMERON 15 MG PO (23:23)
[2024-03-23 03:07] VITALS: BP 169/72
[2024-03-23 07:15] LABS: Glucose - Point of Care 80 mg/dl (70-99)
[2024-03-23 07:30] VITALS: BP 141/72
[2024-03-23] MEDS: NOVOLOG FLEXPEN-LOW RESISTANCE SC ×2 (07:45→12:28)
[2024-03-23] MEDS: DUONEB 3 ML INH ×2 (08:07→11:09)
[2024-03-23] MEDS: FLOVENT 110 MCG INHALER 2 PUFF INH (08:07)
[2024-03-23] MEDS: LANTUS 0.3 UNITS SC (08:42)
[2024-03-23] MEDS: DELTASONE 10 MG PO (08:43)
[2024-03-23] MEDS: FOLVITE 0.8 MG PO (08:43)
[2024-03-23] MEDS: APRESOLINE 5 MG PO ×2 (08:43→15:16)
[2024-03-23] MEDS: ASPIR LOW (ENTERIC COATED) 81 MG PO (08:44)
[2024-03-23] MEDS: SINEMET 25-100 1 TABLET PO (08:44)
[2024-03-23] MEDS: VITAMIN D3 (cholecalciferol) 50 MCG PO (08:44)
[2024-03-23] MEDS: AUGMENTIN 875 MG/125 MG 1 TABLET PO (08:45)
[2024-03-23] MEDS: PLAVIX 75 MG PO (08:45)
[2024-03-23] MEDS: NORVASC 2.5 MG PO (08:45)
[2024-03-23] MEDS: DULCOLAX 10 MG PO (08:45)
[2024-03-23] MEDS: TOPROL XL 50 MG PO (08:45)
[2024-03-23] MEDS: VITAMIN B-12 1000 MCG PO (08:45)
[2024-03-23] MEDS: MUCINEX 600 MG PO (08:45)
[2024-03-23] MEDS: HEPARIN 5000 UNITS SC (08:45)
--- NOTE | 2024-03-23 09:48 | W.PN.HOSP.TC ---
Today's Communication/Plan
-
Discharge today
Assessment / Plan
Assessment / Plan
Physical Exam
General: Morbidly obese, no acute distress.
HEENT: Normocephalic, Atraumatic
Respiratory: Decreased breath sounds bilaterally.
Cardiac: Normal S1/S2.
GI: Soft, Nontender, Nondistended, Normal Bowel Sounds
Extremities: No cyanosis. No Edema
Derm: Sacrum Stage 1 Pressure Injury
Neuro: Awake, followed commands, answers questions
Psych: Calm
Assessment/Plan
# Acute on chronic Hypoxemic respiratory failure secondary to likely LLL aspiration pneumonia, with history of vomiting that preceded the respiratory
distress
# Recent hypoxemic respiratory failure secondary to COVID
# Vomiting and diarrhea, both resolved
-Chest x-ray showed patchy parenchymal opacity within the left lower lung increased from recent chest x-ray suspicious for pneumonia
-Previously weaned off oxygen -- now on room air
-Microbiology studies/cultures unremarkable
-s/p IV Vancomycin/Zosyn with good clinical improvement, switched to Augmentin 875 mg BID through 03/25/24 (total of 5 to 7 days of antibiotics)
-Continue Prednisone taper (continue on 03/23/24 with 10 mg daily x3 days)
-Speech evaluation recommendations appreciated, pureed diet
-Low Pro-BNP. Echocardiogram showed EF of 55 to 60%, mildly dilated aortic root, but since July 2015 echo shows no significant
change
-Pulmonary evaluation and recommendations appreciated
#Severe obstructive sleep apnea - on home CPAP therapy
-On BiPAP at night
#Chronic bronchitis/restrictive lung disease/asthma
-Continue annually Ellipta
-DuoNeb every 6 hours
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
History of VT
#NSVT on telemetry monitoring
-Asymptomatic
-Maintain potassium >4 and magnesium >2
-Follow-up with outpatient cardiology
# MAT, no documented history of A fib
-Continue metoprolol & aspirin
#Essential hypertension
-Continue amlodipine, hydralazine
#Type 2 diabetes mellitus
-Continue long acting insulin twice daily
-Insulin sliding scale
-Hold metformin
#GERD
#History of CVA/TIA
-Continue aspirin and Plavix
-Continue statin
#Anxiety/depression
-Continue Lexapro, mirtazapine
#Parkinson's disease
-Continue carbidopa-levodopa
#L4-L5 bulging disc
#Chronic ambulatory dysfunction
#Sacral stage I decubitus ulcer
DNR/DNI
DVT prophylaxis�SCDs and Lovenox.
03/23/24 Speech/Swallowing Evaluation Update: Patient had throat clearing inconsistently with moderately thick > puree that could be concerning for penetration/aspiration. Overt coughing noted on 03/23/24 with mildly thick via cup and ice chip x1.
However, no aspiration noted with these consistencies on recent video swallow 03/15/24. Options include 1) continue L4 puree, moderately thick diet understanding risk/complications of aspiration given patient currently afebrile/WBC WNL and on room
air vs 2) NPO and repeat video swallow. I spoke to patient's Roselyn regarding the above findings by speech therapy, and patient's Roselyn stated that patient does NOT want another video swallow test and they understand the possible risks of
possible aspiration.
Disposition: [facility]
More than 30 minutes spent in discharge including
Final examination of the patient
Summarizing hospital stay
Instructions for continuing care to all relevant caregivers
Preparation of discharge records, prescriptions, and referral forms
Total time spent (in minutes): 38
Anticipated Discharge: Today
Subjective/Interval History
-
Date of Service: March 23, 2024
Patient was seen and examined. He denied chest pain, shortness of breath, palpitations, wheezing, abdominal pain or any other symptoms or complaints.
Objective Data
-
Vital Signs:
Vital Signs
Temp Pulse Resp BP Pulse Ox
97.5 F 59 16 141/72 99
03/23/24 07:30 03/23/24 08:43 03/23/24 08:08 03/23/24 08:43 03/23/24 08:08
I&O
03/22/24 03/23/24 03/24/24
06:59 06:59 06:59
Intake Total 1000 / 1000 900 / 900
Balance 1000 / 1000 900 / 900
--- NOTE | 2024-03-23 09:52 | W.PN.PUL.V3 ---
Today's Communication / Plan
-
Prednisone taper
Augmentin
Nebulizers
Wean oxygen
BiPAP
Video swallow
Assessment
-
78-year-old man with complicated past medical history, recurrent admission microbiology workup negative multiple issues. Latest with hypoxemia post-COVID. Readmitted after having an episode of vomiting and diarrhea. Subsequently developed
respiratory distress. New left lower lobe infiltrate. Aspiration pneumonia suspected.
Acute hypoxemic respiratory failure due to aspiration pneumonia
Chest x-ray: Patchy parenchymal opacity within the left lower lung appears increased compared to March 12, 2024.
Status post nausea and vomiting
Toxic metabolic encephalopathy possibly on top of dementia
CT head no acute abnormalities. Changes suggestive of normal pressure hydrocephalus.
ABG 03/18/2024: 7.46/37/60
Severe obstructive sleep apnea-on CPAP therapy
DNR/DNI
Plan
Respiratory status relatively stable-minimal reserve-some ongoing wheezing
Supplemental oxygen as needed-assess discharge supplemental oxygen needs prior to discharge
Aspiration precautions
Speech therapy following
Video swallow 03/23/2024-pending
Mucolytic's
Mucus clearing devices if able
Prednisone 30 mg mg total daily-slow taper
On Flovent as well
Nebulizers if needed-currently not bronchospastic
Continue BiPAP 15/8 cm with set rate to 12
Cultures reviewed
Xsnmdupetew-Duxnx-ejohrqpa 5 to 7 days-changed to Augmentin through 03/25/2024
Vancomycin discontinued
Monitor blood sugar
Insulin supplementation as needed
Echocardiogram 03/21/2024-EF 55-60%, intermediate diastolic dysfunction, mild mitral regurgitation
DVT prophylaxis-on heparin
Nutrition-Per speech therapy evaluation, pur�ed with modified thickened liquids, supervision-high risk for aspiration
Overall improving but tenuous respiratory status and high risk for repetitive rehospitalization's
at the bedside, updated by Dr. Lopez. On 03/19/2024
Subjective Data
-
Date of Service:
Date of Service: March 23, 2024
Chief Complaint: Pulmonary Follow Up (Acute hypoxemic respiratory insufficiency/suspected aspiration) and Dyspnea Follow Up
Subjective:
Denies any worsening shortness of breath, increased wheezing, chest pain or abdominal pain
Review of Systems
General: Other (Per HPI)
Objective Data
Data Reviewed
Vital Signs / I&O:
Vital Signs
Temp Pulse Resp BP Pulse Ox
97.5 F 59 16 141/72 99
03/23/24 07:30 03/23/24 08:43 03/23/24 08:08 03/23/24 08:43 03/23/24 08:08
Intake and Output
03/22/24 03/23/24 03/24/24
06:59 06:59 06:59
Intake Total 1000 / 1000 900 / 900
Balance 1000 / 1000 900 / 900
SaO2: 99
Nasal Cannula flow liters per minute: 3
Physical Exam
General: Respiratory Distress (n) and Comfortable
HEENT: Normocephalic
Cardiovascular: Regular Rhythm
Respiratory: Wheeze (n), Crackles (n), Non-Labored Respirations, Accessory Resp Muscle Use (n) and Other (Decreased breath sounds both bases)
GI: Soft and Distended (Obese)
Neurology: Awake, Alert and No Motor Deficits
Skin: Warm, Good Color, Cyanosis (n) and Jaundice (n)
Labs/Micro/Reports
Lab Data
03/21/24 03:45
03/22/24 10:23
Microbiology
03/18/24 17:01 Blood/Venous Blood Culture - Preliminary
No Growth in 4 days- Final report to follow
03/18/24 16:52 Blood/Venous Blood Culture - Preliminary
No Growth in 4 days- Final report to follow
03/18/24 20:29 Nose MRSA Screen - Final
No Methicillin Resistant Staphylococcus aureus isolated.
[2024-03-23 12:06] VITALS: BP 148/83
[2024-03-23 12:19] LABS: Glucose - Point of Care 130 mg/dl (70-99)
--- NOTE | 2024-03-23 12:27 | CM ---
CM reviewed chart, spoke with patients , Roselyn, per , patient and met with El from [facility] yesterday- patient is not agreeable to rehab and does not want live in caregivers at home. [facility] able to accept patient today-
confirmed with patient has own Bipap machine. IMM reviewed with over phone, agreeable to discharge, machine pecan picker time 3:30 p.m (by ambulance). CM will continue to follow for all discharge planning needs.
Plan; [facility], 3:30 p.m. ambulance transport
[facility]:
Report: [phone]
[2024-03-23] MEDS: DUONEB INH (15:25)
== END 2024-03-23 15:54 | DRG 177 ==
LOC: 4 WEST ACU 17:31
PROVIDERS: Internal Medicine; Nurse Practitioner; Nurse Practitioner Family; ADMITTING PHYSICIAN Hospitalist; ATTENDING PHYSICIAN Hospitalist; CONSULT PHYSICIAN Internal Medicine Critical Care Medicine; EMERGENCY PHYSICIAN Emergency Medicine; FAMILY PHYSICIAN Family Medicine
DX: J69.0 Pneumonitis due to inhalation of food and vomit (principal); J96.21 Acute and chronic respiratory failure with hypoxia; Z68.41 Body mass index [BMI] 40.0-44.9, adult; G47.33 Obstructive sleep apnea (adult) (pediatric); J44.89 Other specified chronic obstructive pulmonary disease; I48.0 Paroxysmal atrial fibrillation; I10 Essential (primary) hypertension; K21.9 Gastro-esophageal reflux disease without esophagitis; F41.9 Anxiety disorder, unspecified; F32.A Depression, unspecified; G20.A1 Parkinson's disease without dyskinesia, without mention of fluctuations; L89.151 Pressure ulcer of sacral region, stage 1; E66.01 Morbid (severe) obesity due to excess calories; E11.65 Type 2 diabetes mellitus with hyperglycemia; I25.10 Atherosclerotic heart disease of native coronary artery without angina pectoris; Z66 Do not resuscitate; Z86.73 Personal history of transient ischemic attack (TIA), and cerebral infarction without residual deficits; Z86.711 Personal history of pulmonary embolism; Z79.82 Long term (current) use of aspirin; Z79.02 Long term (current) use of antithrombotics/antiplatelets; Z79.4 Long term (current) use of insulin
CPT/HCPCS: 36415; 70450; 71046; 80048; 80053; 81003; 82805; 82962; 83036; 83605; 83735; 83880; 84132; 85025; 85027; 87040; 87070; 87449; 87899; 92526; 92610; 93005; 93306; 94640; 94660; 96361; 96374; 97163; 97167; 97530; 99285

== ENCOUNTER → 2024-03-25 11:02 | Outpatient (REF) | payer MEDICARE, OTHER, SELFPAY ==
[2024-03-25 11:16] LABS: % Basophils 0.3 % (0-2); % Immature Granulocytes 0.7 % (0-0.5); % Lymphocytes 29.9 % (20.5-51.1); % Monocytes 3.6 % (1.7-9.3); % Neutrophils 63.5 % (42.2-75.2); Absolute Eosinophils 0.2 10^3/uL (0-0.7); Absolute Immature Granulocytes 0.1 10^3/uL (0-0.05); Absolute Lymphocytes 3.2 10^3/uL (1.2-3.4); Absolute Monocytes 0.4 10^3/uL (0.1-0.6); Absolute Neutrophils 6.7 10^3/uL (1.4-6.5); Hematocrit 39.2 % (39.0-52.0); Hemoglobin 12.9 g/dL (13.0-18.0); Mean Corp Hgb Conc. 32.9 g/dL (33.0-37.0); Mean Corpuscular Hgb 31.5 pg (27.0-31.0); Mean Corpuscular Volume 95.8 fL (80.0-94.0); Mean Platelet Volume 11.4 fL (7.4-10.4); Nucleated Red Blood Cells % 0 % (-); Platelet Count 140 10^3/uL (130-400); Red Blood Cell Count 4.09 10^6/uL (4.70-6.10); Red Cell Dist. Width 14.6 % (11.5-14.5); White Blood Cell Count 10.6 10^3/uL (4.8-10.8)
[2024-03-25 11:28] LABS: ALT (SGPT) 63 U/L (0-50); AST (SGOT) 31 U/L (17-59); Albumin 2.9 g/dl (3.5-5.0); Alkaline Phosphatase 152 U/L (38-126); Blood Urea Nitrogen 24 mg/dl (9-20); Calcium 8.5 mg/dl (8.4-10.2); Carbon Dioxide 29 mmol/L (22-30); Chloride 98 mmol/L (98-107); Glucose 96 mg/dl (70-99); Magnesium 1.8 mg/dl (1.6-2.3); Potassium 4.1 mmol/L (3.5-5.1); Sodium 133 mmol/L (135-145); Total Bilirubin 0.7 mg/dl (0.2-1.3); Total Protein 5.1 g/dl (6.3-8.2); eGFR > 60.00
== END ==
LOC: OLABP 11:02
PROVIDERS: ATTENDING PHYSICIAN Family Medicine
DX: A41.9 Sepsis, unspecified organism (principal); J18.9 Pneumonia, unspecified organism; U07.1 COVID-19; E11.9 Type 2 diabetes mellitus without complications; I48.0 Paroxysmal atrial fibrillation
CPT/HCPCS: 36415; 80053; 83735; 85025